=== PATIENT | female | born 1955 | race Caucasian/White ===

== ENCOUNTER → 2016-05-14 | Outpatient (CLI) | payer MEDICARE, MEDICAID ==
--- NOTE | 2016-05-21 19:46 | ECHO ---
The echocardiogram report can be seen in this patient's EMR in the Reports section. SUNITA
== END ==
LOC: MW.US 09:55
PROVIDERS: ATTEND Internal Medicine
DX: R07.9 Chest pain, unspecified (principal)
CPT/HCPCS: 93306

== ENCOUNTER 2016-05-16 16:51 | Emergency (ER) | payer MEDICARE, MEDICAID ==
[2016-05-16] MEDS ORDERED: Sodium Chloride 0.9% 2.5 ML Syringe FLUSH PRN (17:54)
[2016-05-16] MEDS ORDERED: Sodium Chloride 0.9% 10 ML Syringe FLUSH PRN (17:54)
--- NOTE | 2016-05-16 19:18 | EDM.PDOC ---
ED HPI ENT - General Chief Complaint: ENT Problem Stated Complaint: PT HAS COUGH, THROAT BURNING Time Seen by Provider: 05/16/16 17:35 Source of Information: Reports: Patient History Limitations: Reports: No limitations - History of Present Illness INITIAL COMMENTS - FREE TEXT/NARRATIVE: HISTORY AND PHYSICAL: [51-year-old female presenting with cough and burning to her throat. She generally feels like this when she gets bronchitis. 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 She states this does not feel like when she had her heart problems.] History of Present Illness: [She has been sick for several days Had been treated for bronchitis 2 weeks ago Patient has history of 5 vessel bypass Bronchitis She is diabetic Patient is on blood thinners] Review of Systems: As per history of present illness and below otherwise all systems reviewed and negative. Past medical history: As per history of present illness and as reviewed below otherwise noncontributory. Surgical history: As per history of present illness and as reviewed below otherwise noncontributory. Social history: No reported history of drug or alcohol abuse. Family history: As per history of present illness and as reviewed below otherwise noncontributory. Physical exam: Alert and oriented female in questions appropriately does not look to be in acute distress HEENT: Atraumatic, normocehpalic, pupils reactive, negative for conjunctival pallor or scleral icterus, mucous membranes moist, throat clear, neck supple, nontender, trachea midline. She does have some coughing when speaking up more than 6 or 7 words at a time. It does sound to be anterior. Posterior has a bi- basilar wheeze. Chest pain is not reproducible with palpation. Lungs: Clear to auscultation, breath sounds equal bilaterally, chest non tender. Heart: S1S2, regular, negative for clicks, rubs, or JVD. Abdomen: Soft, nondistended, nontender. Negative for masses or hepatossplenmegaly. Negative for costovertebral tenderness. Pelvis: Stable nontender. Genitourinary: Deferred. Rectal: Deferred Extremities: Atraumatic, negative for cords or calf pain. Neurovascular unremarkable. Neuro: Awake, alert, oriented. Cranial nerves II through XII unremarkable. Cerebellum unremarkable. Motor and sensory unremarkable throughout. Exam nonfocal. Discussed with patient the viral nature of her illness. Concern was expressed because of her 5 vessel bypass and her diabetes I would still like to put her on Zithromax. Given the prednisone would increase her blood sugar I would like her to be on that for the next 5 days. Patient had an albuterol inhaler in the past and I would like to put her back on one for the next few days. She is agreeable to this recommended course of action Diagnostics: [CBC CMP troponin chest x-ray EKG influenza strep] Therapeutics: [DuoNeb treatment] Impression: [Acute bronchitis Viral syndrome] Plan: [Home Zithromax Prednisone Albuterol inhaler] Definitive disposition and diagnosis as appropriate pending reevaluation and review of above. Timing/Duration: Reports: Hour(s): Severity: moderate Location: Reports: throat Quality: Reports: Ache Improves with: Reports: None Worsens with: Reports: Breathing, Movement Associated Symptoms: Reports: no other symptoms - Related Data Allergies/ADRs: Allergies Allergy/AdvReac Type Severity Reaction Status Date / Time codeine Allergy Cannot Verified 02/16/14 15:40 Remember Home Meds: Home Meds Clopidogrel [Plavix] 75 mg PO DAILY 12/24/13 [History] Insulin Detemir [Levemir Flexpen] 32 unit SQ BEDTIME 12/24/13 [History] Ranolazine [Ranexa] 500 mg PO BID 12/24/13 [History] atorvaSTATin Calcium [Atorvastatin Calcium] 40 mg PO BEDTIME 12/24/13 [History] Insulin Lispro [HumaLOG] 10 units SQ TIDAC 02/16/14 [History] Gabapentin [Neurontin] 600 mg PO QID 09/13/14 [History] Acetaminophen [Pain Relief] 650 mg PRN 05/16/16 [History] Albuterol [IJP: Ventolin HFA] 2 puff INH .TWICE DAILY #18 gm 05/16/16 [Rx] Aspirin 81 mg DAILY 05/16/16 [History] Azithromycin [Zithromax] 250 mg PO DAILY #6 tablet 05/16/16 [Rx] Benzonatate [Tessalon Perles] 100 mg PO QID #40 cap 05/16/16 [Rx] Bisacodyl [Dulcolax] 1 supp PRN 05/16/16 [History] Docusate Sodium [Colace] 1 cap 05/16/16 [History] Liraglutide [Victoza] DAILY 05/16/16 [History] Lisinopril 2.5 mg DAILY 05/16/16 [History] Metoprolol Succinate 25 mg DAILY 05/16/16 [History] Nitroglycerin PRN 05/16/16 [History] Pantoprazole [Protonix] 20 mg BID 05/16/16 [History] metFORMIN [Glucophage XR] 500 mg DAILY 05/16/16 [History] Past Medical History Cardiovascular History: Reports: CAD, High cholesterol, Hypertension Genitourinary History: Reports: UTI, recurrent Other Genitourinary History: Entire L kidney and 1/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 Musculoskeletal History: Reports: Amputation, Fracture Endocrine/Metabolic History: Reports: Diabetes, type II Oncologic (Cancer) History: Reports: Other (see below) 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 - Past Surgical History HEENT Surgical History: Reports: Tonsillectomy Other Cardiovascular Surgeries/Procedures: 5 bypass Musculoskeletal Surgical History: Reports: Amputation, Hip replacement Other Musculoskeletal Surgeries/Procedures:: B below knee amputation Social & Family History - Tobacco Use Smoking Status *Q: Never Smoker Years of Tobacco use: 30 Used Tobacco, but Quit: Yes Month Tobacco Last Used: 20 yrs ago Second Hand Smoke Exposure: No - Alcohol Use Days Per Week of Alcohol Use: 0 - Recreational Drug Use Recreational Drug Use: No Drug Use in Last 12 Months: No ED ROS ENT - Review of Systems Review Of Systems: ROS reveals no pertinent complaints other than HPI. ED EXAM, ENT - Physical Exam Exam: See Below (See dictation) Course - Vital Signs Last Recorded V/S: Last Vital Signs Temp 37.0 C 05/16/16 17:35 Pulse 72 05/16/16 17:35 Resp 28 H 05/16/16 17:35 BP 110/49 L 05/16/16 17:35 Pulse Ox 95 05/16/16 17:35 - Orders/Labs/Meds Orders: Active Orders 24 hr Category Date Time Status EKG 12 Lead [EKG Documentation Completion] [RC] STAT Care 05/16/16 17:43 Active RT Aerosol Therapy [RC] ASDIRECTED Care 05/16/16 19:22 Ordered Chest 2V [CR] Stat Exams 05/16/16 17:55 Taken CULTURE STREP A CONFIRMATION [RM] Stat Lab 05/16/16 18:04 Results STREP SCRN A RAPID W CULT CONF [RM] Stat Lab 05/16/16 18:04 Results Sodium Chloride 0.9% [Saline Flush] Med 05/16/16 17:54 Active 10 ml FLUSH ASDIRECTED PRN Sodium Chloride 0.9% [Saline Flush] Med 05/16/16 17:54 Active 2.5 ml FLUSH ASDIRECTED PRN Medication Orders Sodium Chloride (Saline Flush) 10 ml FLUSH ASDIRECTED PRN PRN Reason: Keep Vein Open Sodium Chloride (Saline Flush) 2.5 ml FLUSH ASDIRECTED PRN PRN Reason: Keep Vein Open Labs: Laboratory Tests 05/16/16 05/16/16 05/16/16 Range/Units 18:18 18:18 18:18 WBC 7.57 (4.0-11.0) K/uL RBC 3.86 L (4.30-5.90) M/uL Hgb 11.4 L (12.0-16.0) g/dL Hct 34.4 L (36.0-46.0) % MCV 89.1 (80.0-98.0) fL MCH 29.5 (27.0-32.0) pg MCHC 33.1 (31.0-37.0) g/dL RDW Std Deviation 45.5 (28.0-62.0) fl RDW Coeff of Mary 14 (11.0-15.0) % Plt Count 235 (150-400) K/uL MPV 9.20 (7.40-12.00) fL Neut % (Auto) 70.7 (48.0-80.0) % Lymph % (Auto) 16.9 (16.0-40.0) % Louisa % (Auto) 11.4 (0.0-15.0) % Eos % (Auto) 0.9 (0.0-7.0) % Baso % (Auto) 0.1 (0.0-1.5) % Neut # 5.4 (1.4-5.7) K/uL Lymph # 1.3 (0.6-2.4) K/uL Louisa # 0.9 H (0.0-0.8) K/uL Eos # 0.1 (0.0-0.7) K/uL Baso # 0.0 (0.0-0.1) K/uL Nucleated RBC % 0.0 /100WBC Nucleated RBCs # 0 K/uL Sodium 134 L (136-146) mmol/L Potassium 5.6 H (3.5-5.1) mmol/L Chloride 108 (98-110) mmol/L Carbon Dioxide 17 L (21-31) mmol/L BUN 36 H (6.0-23.0) mg/dL Creatinine 1.1 (0.6-1.5) mg/dL Est Cr Clr Drug Dosing 41.94 mL/min Estimated GFR (MDRD) 50.3 ml/min Glucose 91 (60-110) mg/dL Calcium 8.9 (8.8-10.8) mg/dL Total Bilirubin 0.5 (0.1-1.5) mg/dL AST 20 (5-40) IU/L ALT 25 (8-54) IU/L Alkaline Phosphatase 85 (40-150) Troponin I < 0.10 (0.0-0.29) NG/ML Total Protein 6.8 (6.0-8.0) g/dL Albumin 3.3 L (3.4-4.8) g/dL Globulin 3.5 (2.0-3.5) g/dL Albumin/Globulin Ratio 0.9 L (1.3-2.8) Meds: Medications Generic Name Dose Route Start Last Admin Trade Name Freq PRN Reason Stop Dose Admin Sodium Chloride 10 ml 05/16/16 17:54 Saline Flush FLUSH ASDIRECTED PRN Keep Vein Open Sodium Chloride 2.5 ml 05/16/16 17:54 Saline Flush FLUSH ASDIRECTED PRN Keep Vein Open Discontinued Medications Generic Name Dose Route Start Last Admin Trade Name Freq PRN Reason Stop Dose Admin Albuterol/Ipratropium 3 ml 05/16/16 19:22 Duoneb 3.0-0.5 Mg/3 Ml NEB 05/16/16 19:23 ONETIME ONE Departure - Departure Time of Disposition: 19:25 Disposition: Home, Self-Care 01 Condition: good Clinical Impression: Bronchitis, Viral syndrome Prescriptions: Albuterol [IJP: Ventolin HFA] 2 puff INH .TWICE DAILY #18 gm Azithromycin [Zithromax] 250 mg PO DAILY #6 tablet Benzonatate [Tessalon Perles] 100 mg PO QID #40 cap Forms: ED Department Discharge - My Orders Last 24 Hours: My Active Orders 05/16/16 17:54 Sodium Chloride 0.9% [Saline Flush] 10 ml FLUSH ASDIRECTED PRN Sodium Chloride 0.9% [Saline Flush] 2.5 ml FLUSH ASDIRECTED PRN 05/16/16 17:55 Chest 2V [CR] Stat 05/16/16 18:04 CULTURE STREP A CONFIRMATION [RM] Stat STREP SCRN A RAPID W CULT CONF [RM] Stat 05/16/16 19:22 RT Aerosol Therapy [RC] ASDIRECTED - Assessment/Plan Last 24 Hours: My Active Orders 05/16/16 17:54 Sodium Chloride 0.9% [Saline Flush] 10 ml FLUSH ASDIRECTED PRN Sodium Chloride 0.9% [Saline Flush] 2.5 ml FLUSH ASDIRECTED PRN 05/16/16 17:55 Chest 2V [CR] Stat 05/16/16 18:04 CULTURE STREP A CONFIRMATION [RM] Stat STREP SCRN A RAPID W CULT CONF [RM] Stat 05/16/16 19:22 RT Aerosol Therapy [RC] ASDIRECTED
[2016-05-16] MEDS: Albuterol/Ipratropium 3.0-0.5 MG/3 ML Neb Soln NEB ONE (19:32)
[2016-05-16 21:54] VITALS: BP 93/54
--- NOTE | 2016-05-17 13:59 | CR ---
MEXAM DATE: 05/16/16 PATIENT'S AGE: 61 Patient: JANEL BECK Facility: [place], [place] Site . Site : [id number] Study: XRay Chest [id number] 7:02:10 PM Ordering Physician: Doctor Mcclelland Final Report: INDICATION: Cough, chest pain, shortness breath. COMPARISON: Two view chest dated 06/03/2014. TECHNIQUE: Two view chest. FINDINGS: The lungs are clear. There is no evidence of pneumonia. Patient is status post prior CABG. There is no evidence of pneumothorax. The heart, mediastinum and pulmonary vessels are of normal size. There is no evidence of pleural fluid. IMPRESSION: Negative chest. Dictated by Seferino Sargent MD @ May 16 2016 7:03PM (Electronic Signature) Report Signed by Proxy and Original Signed Document filed in the Medical Record. SUNITA
== END 2016-05-16 20:33 | disposition home or self-care (01) ==
LOC: MW.ED 16:51
DX: J20.9 Acute bronchitis, unspecified (principal); B34.9 Viral infection, unspecified; I25.10 Atherosclerotic heart disease of native coronary artery without angina pectoris; E78.00 Pure hypercholesterolemia, unspecified; I10 Essential (primary) hypertension; E11.9 Type 2 diabetes mellitus without complications; Z88.5 Allergy status to narcotic agent; Z79.899 Other long term (current) drug therapy; Z79.82 Long term (current) use of aspirin; Z98.890 Other specified postprocedural states; Z95.1 Presence of aortocoronary bypass graft; Z87.440 Personal history of urinary (tract) infections
CPT/HCPCS: 36415; 71020; 71020-26; 80053; 84484; 85025; 87081; 87804; 87880; 93005; 94664; 99284; 99285-25

== ENCOUNTER → 2016-07-16 | Outpatient (CLI) | payer MEDICARE, MEDICAID ==
[2016-07-16 09:30] LABS: CHLORIDE,CL 105 mmol/L (98-110); SODIUM,NA 136 mmol/L (136-146)
== END ==
LOC: MW.CHFP 08:45
PROVIDERS: ATTEND Student in an Organized Health Care Education/Training Program
DX: E11.9 Type 2 diabetes mellitus without complications (principal); I10 Essential (primary) hypertension; E78.5 Hyperlipidemia, unspecified; E11.42 Type 2 diabetes mellitus with diabetic polyneuropathy; E78.00 Pure hypercholesterolemia, unspecified; K21.9 Gastro-esophageal reflux disease without esophagitis; E11.65 Type 2 diabetes mellitus with hyperglycemia
CPT/HCPCS: 36415; 80053; 80061; 82044; 83036; 99214

== ENCOUNTER 2017-07-10 10:41 | Emergency (ER) | payer MEDICARE, MEDICAID ==
[2017-07-10] MEDS ORDERED: Sodium Chloride 0.9% 10 ML Syringe FLUSH PRN (10:49)
[2017-07-10] MEDS ORDERED: Sodium Chloride 0.9% 2.5 ML Syringe FLUSH PRN (10:49)
[2017-07-10] MEDS ORDERED: Sodium Chloride 0.9% 1,000 ML IV ONE (10:49)
[2017-07-10] MEDS ORDERED: Ondansetron 4 MG/2 ML SDV IVPUSH ONE (10:50)
--- NOTE | 2017-07-10 10:50 | EDM.PDOC ---
ED HPI GENERAL MEDICAL PROBLEM - General Stated Complaint: VOMITING Time Seen by Provider: 07/10/17 10:44 Source of Information: Reports: Patient History Limitations: Reports: No Limitations - History of Present Illness INITIAL COMMENTS - FREE TEXT/NARRATIVE: History of present illness: []Patient is an insulin-dependent diabetic who started having vomiting and flank pain yesterday. She has had 2 episodes of vomiting yesterday and 2 today. She denies any fevers or diarrhea, patient states that her urine has a foul odor and that she only has one kidney. Review of systems: As per history of present illness and below otherwise all systems reviewed and negative. Past medical history: As per history of present illness and as reviewed below otherwise noncontributory. Surgical history: As per history of present illness and as reviewed below otherwise noncontributory. Social history: No reported history of drug or alcohol abuse. Family history: As per history of present illness and as reviewed below otherwise noncontributory. Physical exam: General: Well developed, well nourished in NAD HEENT: Atraumatic, normocephalic, pupils reactive, negative for conjunctival pallor or scleral icterus, mucous membranes moist, throat clear, neck supple, nontender, trachea midline. Lungs: Clear to auscultation, breath sounds equal bilaterally, chest nontender. Heart: S1S2, regular, negative for clicks, rubs, or JVD. Abdomen: Soft, nondistended, nontender. Negative for masses or hepatosplenomegaly. Negative for costovertebral tenderness. Pelvis: Stable nontender. Genitourinary: Deferred. Rectal: Deferred. Extremities: Bilateral BKA's, negative for cords or calf pain. Neurovascular unremarkable. Neuro: Awake, alert, oriented. Cranial nerves II through XII unremarkable. Cerebellum unremarkable. Motor and sensory unremarkable throughout. Exam nonfocal. Diagnostics: []UA showing UTI with 30-35 white blood cells and trace leuk esterase, chemistries show BUN/creatinine of 33 and 1.5, white count is normal Therapeutics: []IV hydrated and pain meds Impression: []UTI Plan: []Bactrim twice a day follow up with primary care return if symptoms worsen or change Definitive disposition and diagnosis as appropriate pending reevaluation and review of above. Left Flank Pain Score (Numeric/FACES): 8 - Related Data Allergies Allergy/AdvReac Type Severity Reaction Status Date / Time codeine Allergy Cannot Verified 07/10/17 10:54 Remember Home Meds: Home Meds Clopidogrel [Plavix] 75 mg PO DAILY 12/24/13 [History] Insulin Detemir [Levemir Flexpen] 64 unit SQ BEDTIME 12/24/13 [History] Ranolazine [Ranexa] 500 mg PO BID 12/24/13 [History] Insulin Lispro [HumaLOG] 10 units SQ TIDAC 02/16/14 [History] Gabapentin [Neurontin] 600 mg PO QID 09/13/14 [History] Albuterol [IJP: Ventolin HFA] 2 puff INH .TWICE DAILY #18 gm 05/16/16 [Rx] Nitroglycerin PRN 05/16/16 [History] Ondansetron HCl [Zofran] 4 mg PO Q4HR #12 tablet 07/10/17 [Rx] Sulfamethoxazole/Trimethoprim [Bactrim Ds Tablet] 1 each PO BID #20 tablet 07/10 [Rx] Past Medical History Cardiovascular History: Reports: CAD, High Cholesterol, Hypertension Genitourinary History: Reports: UTI, Recurrent Other Genitourinary History: Entire L kidney and 1/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 Musculoskeletal History: Reports: Amputation, Fracture Endocrine/Metabolic History: Reports: Diabetes, Type II Oncologic (Cancer) History: Reports: Other (See Below) 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 - Past Surgical History Musculoskeletal Surgical History: Reports: Amputation, Hip Replacement ED ROS GENERAL - Review of Systems Review Of Systems: See Below (See history of present illness) ED EXAM, GI/ABD - Physical Exam Exam: See Below (See history of present illness) Course - Vital Signs Last Recorded V/S: Last Vital Signs Temp 100.5 F 07/10/17 10:50 Pulse 100 07/10/17 13:41 Resp 18 07/10/17 13:41 BP 100/49 L 07/10/17 13:41 Pulse Ox 95 07/10/17 13:41 - Orders/Labs/Meds Orders: Active Orders 24 hr Category Date Time Status Insert Urinary Catheter [OM.PC] Q24H Care 07/10/17 12:15 Ordered Urinary Catheter Assessment [RC] ASDIRECTED Care 07/10/17 12:09 Active UA W/MICROSCOPIC [URIN] Stat Lab 07/10/17 12:20 Ordered Saline Lock Insert [OM.PC] Stat Oth 07/10/17 10:48 Ordered Labs: Laboratory Tests 07/10/17 07/10/17 07/10/17 Range/Units 11:09 11:09 12:20 WBC 9.30 (4.0-11.0) K/uL RBC 4.03 L (4.30-5.90) M/uL Hgb 11.9 L (12.0-16.0) g/dL Hct 35.0 L (36.0-46.0) % MCV 86.8 (80.0-98.0) fL MCH 29.5 (27.0-32.0) pg MCHC 34.0 (31.0-37.0) g/dL RDW Std Deviation 42.8 (28.0-62.0) fl RDW Coeff of Mary 13 (11.0-15.0) % Plt Count 278 (150-400) K/uL MPV 9.50 (7.40-12.00) fL Neut % (Auto) 94.0 H (48.0-80.0) % Lymph % (Auto) 4.7 L (16.0-40.0) % Harmon % (Auto) 0.9 (0.0-15.0) % Eos % (Auto) 0.3 (0.0-7.0) % Baso % (Auto) 0.1 (0.0-1.5) % Neut # (Auto) 8.7 H (1.4-5.7) K/uL Lymph # (Auto) 0.4 L (0.6-2.4) K/uL Harmon # (Auto) 0.1 (0.0-0.8) K/uL Eos # (Auto) 0.0 (0.0-0.7) K/uL Baso # (Auto) 0.0 (0.0-0.1) K/uL Nucleated RBC % 0.0 /100WBC Nucleated RBCs # 0 K/uL Sodium 133 L (136-145) mmol/L Potassium 4.5 (3.5-5.1) mmol/L Chloride 102 (98-107) mmol/L Carbon Dioxide 19.7 L (21.0-32.0) mmol/L BUN 33 H (7.0-18.0) mg/dL Creatinine 1.5 H (0.6-1.0) mg/dL Est Cr Clr Drug Dosing 30.36 mL/min Estimated GFR (MDRD) 35.1 ml/min Glucose 270 H (74-106) mg/dL Calcium 9.1 (8.5-10.1) mg/dL Total Bilirubin 0.5 (0.2-1.0) mg/dL AST 12 L (15-37) IU/L ALT 16 (14-63) IU/L Alkaline Phosphatase 96 (46-116) U/L Total Protein 7.0 (6.4-8.2) g/dL Albumin 2.7 L (3.4-5.0) g/dL Globulin 4.3 H (2.0-3.5) g/dL Albumin/Globulin Ratio 0.6 L (1.3-2.8) Lipase 107 (73-393) U/L Urine Color YELLOW Urine Appearance SLT CLOUDY Urine pH 5.0 (5.0-8.0) Ur Specific [place] 1.025 (1.001-1.035) Urine Protein 100 (NEGATIVE) mg/dL Urine Glucose (UA) 100 H (NEGATIVE) mg/dL Urine Ketones NEGATIVE (NEGATIVE) mg/dL Urine Occult Blood MODERATE (NEGATIVE) Urine Nitrite NEGATIVE (NEGATIVE) Urine Bilirubin NEGATIVE (NEGATIVE) Urine Urobilinogen 0.2 (<2.0) EU/dL Ur Leukocyte Esterase TRACE (NEGATIVE) Urine RBC 20-25 (0-2/HPF) Urine WBC 30-35 (0-5/HPF) Ur Epithelial Cells MODERATE (NONE-FEW) Urine Bacteria 3+ H (NEGATIVE) Meds: Medications Discontinued Medications Generic Name Dose Route Start Last Admin Trade Name Freq PRN Reason Stop Dose Admin Sodium Chloride 1,000 mls @ 999 mls/hr 07/10/17 10:49 07/10/17 11:08 Normal Saline IV 07/10/17 11:49 999 mls/hr .Bolus ONE Administration Morphine Sulfate 4 mg 07/10/17 11:10 07/10/17 11:20 Morphine IVPUSH 07/10/17 11:11 4 mg ONETIME ONE Administration Ondansetron HCl 4 mg 07/10/17 10:50 07/10/17 11:08 Zofran IVPUSH 07/10/17 10:51 4 mg ONETIME ONE Administration Sodium Chloride 10 ml 07/10/17 10:49 07/10/17 11:09 Saline Flush FLUSH 10 ml ASDIRECTED PRN Administration Keep Vein Open Sodium Chloride 2.5 ml 07/10/17 10:49 07/10/17 11:09 Saline Flush FLUSH 2.5 ml ASDIRECTED PRN Administration Keep Vein Open Departure - Departure Time of Disposition: 13:25 Disposition: Home, Self-Care 01 Condition: Good Clinical Impression: UTI (urinary tract infection) Qualifiers: Urinary tract infection type: site unspecified Hematuria presence: with hematuria Qualified Code(s): N39.0 - Urinary tract infection, site not specified - Discharge Information Prescriptions: Ondansetron HCl [Zofran] 4 mg PO Q4HR #12 tablet Sulfamethoxazole/Trimethoprim [Bactrim Ds Tablet] 1 each PO BID #20 tablet Instructions: Urinary Tract Infection, Adult, [id number] Referrals: Moisés Lopez MD [Primary Care Provider] - Forms: ED Department Discharge Additional Instructions: The following information is given to patients seen in the emergency department who are being discharged to home. This information is to outline your options for follow-up care. We provide all patients seen in our emergency department with a follow-up referral. The need for follow-up, as well as the timing and circumstances, are variable depending upon the specifics of your emergency department visit. If you don't have a primary care physician on staff, we will provide you with a referral. We always advise you to contact your personal physician following an emergency department visit to inform them of the circumstance of the visit and for follow-up with them and/or the need for any referrals to a consulting specialist. The emergency department will also refer you to a specialist when appropriate. This referral assures that you have the opportunity for follow-up care with a specialist. All of these measure are taken in an effort to provide you with optimal care, which includes your follow-up. Under all circumstances we always encourage you to contact your private physician who remains a resource for coordinating your care. When calling for follow-up care, please make the office aware that this follow-up is from your recent emergency room visit. If for any reason you are refused follow-up, please contact the [facility] Emergency Department at and asked to speak to the emergency department charge nurse. [facility] Primary Care [facility] [place] [address] - My Orders Last 24 Hours: My Active Orders 07/10/17 10:48 Saline Lock Insert [OM.PC] Stat 07/10/17 12:09 Urinary Catheter Assessment [RC] ASDIRECTED 07/10/17 12:15 Insert Urinary Catheter [OM.PC] Q24H 07/10/17 12:20 UA W/MICROSCOPIC [URIN] Stat - Assessment/Plan Last 24 Hours: My Active Orders 07/10/17 10:48 Saline Lock Insert [OM.PC] Stat 07/10/17 12:09 Urinary Catheter Assessment [RC] ASDIRECTED 07/10/17 12:15 Insert Urinary Catheter [OM.PC] Q24H 07/10/17 12:20 UA W/MICROSCOPIC [URIN] Stat
[2017-07-10] MEDS ORDERED: Morphine 4 MG/ML Syringe IVPUSH ONE (11:10)
[2017-07-10 14:21] VITALS: BP 100/49
== END 2017-07-10 13:41 | disposition home or self-care (01) ==
LOC: MW.ED 10:41
DX: N39.0 Urinary tract infection, site not specified (principal); E78.00 Pure hypercholesterolemia, unspecified; I10 Essential (primary) hypertension; E11.9 Type 2 diabetes mellitus without complications; Z88.5 Allergy status to narcotic agent; Z79.899 Other long term (current) drug therapy; Z79.4 Long term (current) use of insulin
CPT/HCPCS: 36415; 80053; 81001; 83690; 85025; 96361; 96374; 96375; 99284-25; J2270; J2405; J7040

== ENCOUNTER 2018-03-20 16:13 | Inpatient (IN) | payer MEDICARE, MEDICAID ==
[2018-03-20] MEDS ORDERED: Sodium Chloride 0.9% 1,000 ML IV ONE (16:15)
[2018-03-20] MEDS ORDERED: HYDROmorphone 2 MG/ML SDV IV ONE (16:15)
[2018-03-20] MEDS ORDERED: Ondansetron 4 MG/2 ML SDV IVPUSH ONE (16:15)
[2018-03-20] MEDS ORDERED: Ondansetron 4 MG/2 ML SDV ONE (16:19)
[2018-03-20] MEDS ORDERED: HYDROmorphone 1 MG/ML Syringe ONE (16:19)
--- NOTE | 2018-03-20 16:19 | EDM.PDOC ---
ED HPI GENERAL MEDICAL PROBLEM - General Chief Complaint: Lower Extremity Injury/Pain Stated Complaint: AMB Time Seen by Provider: 03/20/18 16:16 Source of Information: Reports: Patient History Limitations: Reports: No Limitations - History of Present Illness INITIAL COMMENTS - FREE TEXT/NARRATIVE: HISTORY AND PHYSICAL: History of present illness: Patient is a 62-year-old female who presents to the emergency room via ground ambulance with complaints of right hip pain. Patient is a bilateral below the knee amputation and uses a wheelchair for ambulation. She was going down an inclined ramp when she fell forward onto the ground, landing on her right hip. The wheelchair have been fallen on top of her. EMS was called for transportation. Patient denies hitting her head or any loss of consciousness. She does take Plavix routinely. Review of systems: As per history of present illness and below otherwise all systems reviewed and negative. Past medical history: As per history of present illness and as reviewed below otherwise noncontributory. Surgical history: As per history of present illness and as reviewed below otherwise noncontributory. Social history: See social history for further information Family history: As per history of present illness and as reviewed below otherwise noncontributory. Physical exam: General: Well-developed and well-nourished 62-year-old female. Alert and oriented. Tearful and yelling due to pain. Nontoxic appearing. HEENT: Atraumatic, normocephalic, pupils equal and reactive bilaterally, negative for conjunctival pallor or scleral icterus, mucous membranes moist, TMs normal bilaterally, throat clear, neck supple, nontender, trachea midline. No drooling or trismus noted. No meningeal signs. No hot potato voice noted. Lungs: Clear to auscultation, breath sounds equal bilaterally, chest nontender. Heart: S1S2, regular rate and rhythm without overt murmur Abdomen: Soft, nondistended, nontender. Negative for masses or hepatosplenomegaly. Negative for costovertebral tenderness. Pelvis: Stable nontender. Genitourinary: Deferred. Rectal: Deferred. Skin: Intact, warm, dry. No abrasion, lesions or rashes noted. Extremities: Normal variance of bilateral below the knee amputation. Pain with palpation of the right lateral hip. Patient remains in a flexed position stating she is unable to extend her right hip. She states this is the position of comfort and refuses to allow to extend leg downward. Neurovascular unremarkable. Neuro: Awake, alert, oriented. Cranial nerves II through XII unremarkable. Cerebellum unremarkable. Motor and sensory unremarkable throughout. Exam nonfocal. Notes: 1650: Dr Keita was consulted on this patient. He will see this patient later this evening with the plan to do surgery likely in the morning Dr Blake was consulted on this case. He is agreeable to accepting this patient. Head and Cervical Spine CT shows no acute findings. Incidental finding of a left thyroid lesion which is recommended for ultrasound at a later date. X-ray of the chest is unremarkable. There is an old deformity of the left humeral neck and greater tuberosity which she states she had a previous fracture in 2017. She denies any pain at the site currently. Comminuted right femoral intertrochanteric fracture noted. Discussed with daughter the plan of care. She voices understanding. Patient was transfered to the floor. VSS. Currently rating pain at 3/10. Diagnostics: Head, C-spine, CXR, Right hip w/ pelvis, CBC, CMP, INR Therapeutics: IV dilaudid, IV fluids, Ativan Impression: Intratrochanteric fracture, right Fall Plan: Inpatient admission to Med/Surg Definitive disposition and diagnosis as appropriate pending reevaluation and review of above. - Related Data Allergies Allergy/AdvReac Type Severity Reaction Status Date / Time codeine Allergy Cannot Verified 03/20/18 16:21 Remember Home Meds: Home Meds Clopidogrel [Plavix] 75 mg PO DAILY 12/24/13 [History] Insulin Detemir [Levemir Flexpen] 64 unit SQ BEDTIME 12/24/13 [History] Ranolazine [Ranexa] 500 mg PO BID 12/24/13 [History] Insulin Lispro [HumaLOG] 10 units SQ TIDAC 02/16/14 [History] Gabapentin [Neurontin] 600 mg PO QID 09/13/14 [History] Albuterol [IJP: Ventolin HFA] 2 puff INH .TWICE DAILY #18 gm 05/16/16 [Rx] Nitroglycerin 1 tab .ROUTE ASDIRECTED PRN 05/16/16 [History] Ondansetron HCl [Zofran] 4 mg PO Q4HR #12 tablet 07/10/17 [Rx] Past Medical History Cardiovascular History: Reports: CAD, High Cholesterol, Hypertension Genitourinary History: Reports: UTI, Recurrent Other Genitourinary History: 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 ED EXAM, GENERAL - Physical Exam Exam: See Below (See dictation) Course - Orders/Labs/Meds Orders: Active Orders 24 hr Category Date Time Status Admission Status [Patient Status] [ADT] Stat ADT 03/20/18 16:59 Active Cervical Spine wo Cont [CT] Stat Exams 03/20/18 16:15 Taken Head wo Cont [CT] Stat Exams 03/20/18 16:15 Taken Labs: Laboratory Tests 03/20/18 03/20/18 03/20/18 Range/Units 16:15 16:15 16:15 WBC 12.35 H (4.0-11.0) K/uL RBC 4.59 (4.30-5.90) M/uL Hgb 13.8 (12.0-16.0) g/dL Hct 40.4 (36.0-46.0) % MCV 88.0 (80.0-98.0) fL MCH 30.1 (27.0-32.0) pg MCHC 34.2 (31.0-37.0) g/dL RDW Std Deviation 43.3 (28.0-62.0) fl RDW Coeff of Mary 14 (11.0-15.0) % Plt Count 377 (150-400) K/uL MPV 9.90 (7.40-12.00) fL Neut % (Auto) 66.3 (48.0-80.0) % Lymph % (Auto) 25.5 (16.0-40.0) % [place] % (Auto) 6.0 (0.0-15.0) % Eos % (Auto) 2.0 (0.0-7.0) % Baso % (Auto) 0.2 (0.0-1.5) % Neut # (Auto) 8.2 H (1.4-5.7) K/uL Lymph # (Auto) 3.2 H (0.6-2.4) K/uL [place] # (Auto) 0.7 (0.0-0.8) K/uL Eos # (Auto) 0.3 (0.0-0.7) K/uL Baso # (Auto) 0.0 (0.0-0.1) K/uL Nucleated RBC % 0.0 /100WBC Nucleated RBCs # 0 K/uL INR 0.92 Sodium 131 L (136-145) mmol/L Potassium 4.9 (3.5-5.1) mmol/L Chloride 97 L (98-107) mmol/L Carbon Dioxide 24.4 (21.0-32.0) mmol/L BUN 31 H (7.0-18.0) mg/dL Creatinine 1.2 H (0.6-1.0) mg/dL Est Cr Clr Drug Dosing TNP Estimated GFR (MDRD) 45.4 ml/min Glucose 471 H (74-106) mg/dL Calcium 9.7 (8.5-10.1) mg/dL Total Bilirubin 0.5 (0.2-1.0) mg/dL AST 27 (15-37) IU/L ALT 24 (14-63) IU/L Alkaline Phosphatase 106 (46-116) U/L Total Protein 8.9 H (6.4-8.2) g/dL Albumin 3.5 (3.4-5.0) g/dL Globulin 5.4 H (2.6-4.0) g/dL Albumin/Globulin Ratio 0.7 L (0.9-1.6) Meds: Medications Discontinued Medications Generic Name Dose Route Start Last Admin Trade Name Freq PRN Reason Stop Dose Admin Hydromorphone HCl 1 mg 03/20/18 16:15 03/20/18 17:39 Dilaudid IV 03/20/18 16:16 Not Given ONETIME ONE Hydromorphone HCl Confirm 03/20/18 16:19 03/20/18 17:25 Dilaudid Administered 03/20/18 16:20 Not Given Dose 1 mg .ROUTE .STK-MED ONE Hydromorphone HCl 1 mg 03/20/18 17:38 03/20/18 16:22 Dilaudid IVPUSH 03/20/18 17:39 1 mg ONETIME ONE Administration Sodium Chloride 1,000 mls @ 999 mls/hr 03/20/18 16:15 03/20/18 17:28 Normal Saline IV 03/20/18 17:15 999 mls/hr STAT ONE Administration Lorazepam 1 mg 03/20/18 16:36 03/20/18 16:40 Ativan IVPUSH 03/20/18 16:37 1 mg ONETIME ONE Administration Lorazepam Confirm 03/20/18 16:37 03/20/18 17:25 Ativan Administered 03/20/18 16:38 Not Given Dose 2 mg .ROUTE .STK-MED ONE Ondansetron HCl 4 mg 03/20/18 16:15 03/20/18 16:20 Zofran IVPUSH 03/20/18 16:16 4 mg ONETIME ONE Administration Ondansetron HCl Confirm 03/20/18 16:19 03/20/18 17:25 Zofran Administered 03/20/18 16:20 Not Given Dose 4 mg .ROUTE .STK-MED ONE Departure - Departure Time of Disposition: 18:05 Disposition: Admitted As Inpatient 65 Clinical Impression: Intertrochanteric fracture, hip Fall Qualifiers: Encounter type: initial encounter Qualified Code(s): W19.XXXA - Unspecified fall, initial encounter - Discharge Information - My Orders Last 24 Hours: My Active Orders 03/20/18 16:15 Cervical Spine wo Cont [CT] Stat Head wo Cont [CT] Stat 03/20/18 16:59 Admission Status [Patient Status] [ADT] Stat - Assessment/Plan Last 24 Hours: My Active Orders 03/20/18 16:15 Cervical Spine wo Cont [CT] Stat Head wo Cont [CT] Stat 03/20/18 16:59 Admission Status [Patient Status] [ADT] Stat
[2018-03-20] MEDS ORDERED: LORazepam 2 MG/ML SDV IVPUSH ONE (16:36)
[2018-03-20] MEDS ORDERED: LORazepam 2 MG/ML SDV ONE (16:37)
[2018-03-20 16:50] LABS: CHLORIDE,CL 97 mmol/L (98-107); SODIUM,NA 131 mmol/L (136-145)
[2018-03-20] MEDS ORDERED: HYDROmorphone 1 MG/ML Syringe IVPUSH ONE (17:38)
--- NOTE | 2018-03-20 17:42 | CR ---
Indication: Fall Technique: Chest 1 view Comparison: 05/16/2016 Findings/Impression: Cardiovascular and mediastinum: Stable cardiomediastinal silhouette. Sternotomy sutures and mediastinal clips again seen. An unfolded aorta. Lungs and pleural space: An expiratory study. No consolidation or pleural effusions. No pneumothorax seen. Bones and soft tissues: A deformity of the left humeral neck and greater tuberosity, not seen on the prior, concerning for fracture. Correlate with additional views. Dictated by Matthew Santiago MD @ 03/20/2018 5:40:36 PM Dictated by: Matthew Santiago MD @ 03/20/2018 17:40:44 (Electronically Signed)
--- NOTE | 2018-03-20 17:44 | CR ---
Indication: Fall Technique: A frontal view of the pelvis and a single view of the right hip Comparison: None available Findings: Bones: A left hip arthroplasty. A comminuted right intratrochanteric femoral fracture with mild displacement of the lesser trochanteric fragment and associated varus angulation. No dislocation. Joint spaces: Osteophyte formation at the superior aspect of the right hip joint. Soft tissues: Surgical clips near the hip joints and in the medial right proximal thigh. Impression: A comminuted right femoral intertrochanteric fracture. Dictated by Matthew Santiago MD @ 03/20/2018 5:43:35 PM Dictated by: Matthew Santiago MD @ 03/20/2018 17:43:39 (Electronically Signed)
[2018-03-20] MEDS ORDERED: Ondansetron 4 MG/2 ML SDV IVPUSH PRN (17:46)
[2018-03-20] MEDS ORDERED: Bisacodyl 5 MG Tab PO PRN (17:46)
[2018-03-20] MEDS ORDERED: Temazepam 15 MG Cap PO PRN (17:46)
[2018-03-20] MEDS ORDERED: HYDROmorphone 2 MG/ML SDV IVPUSH PRN (17:46)
--- NOTE | 2018-03-20 17:52 | CT ---
INDICATION: Trauma. Anticoagulated TECHNIQUE: CT head without contrast. COMPARISON: None available FINDINGS: The ventricles and sulci are within normal limits for the patient`s age. There is no mass effect or midline shift. There is no loss of nicole-white differentiation. There is no evidence of an acute intracranial hemorrhage. No acute calvarial fracture is seen. Osteopenia is noted. There is mild ethmoid sinus mucosal thickening. 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 The mastoid air cells are clear. Post cataract surgery changes are seen. IMPRESSION: No evidence of an acute intracranial hemorrhage, mass effect or loss of nicole-white differentiation. Dictated by Matthew Santiago MD @ 03/20/2018 5:50:53 PM Please note that all CT scans at this facility use dose modulation, iterative reconstruction, and/or weight-based dosing when appropriate to reduce radiation dose to as low as reasonably achievable. Dictated by: Matthew Santiago MD @ 03/20/2018 17:51:00 (Electronically Signed)
--- NOTE | 2018-03-20 17:58 | CT ---
INDICATION: Injury. TECHNIQUE: CT cervical spine without contrast. COMPARISON: None available FINDINGS: Osteopenia is noted. There is straightening of the cervical lordosis. The craniocervical and atlantoaxial alignments are near anatomical. There is no evidence of an acute cervical spine fracture. There is no significant precervical soft tissue swelling. Mild degenerative changes are noted. There is a peripherally calcified left thyroid lobe lesion. IMPRESSION: No evidence of an acute cervical spine fracture. A left thyroid lesion. Followup with nonemergent sonography. Dictated by Matthew Santiago MD @ 03/20/2018 5:57:53 PM Please note that all CT scans at this facility use dose modulation, iterative reconstruction, and/or weight-based dosing when appropriate to reduce radiation dose to as low as reasonably achievable. Dictated by: Matthew Santiago MD @ 03/20/2018 17:58:02 (Electronically Signed)
[2018-03-20] MEDS ORDERED: Heparin Sodium 5,000 Units/ML Vial SUBCUT SCH (18:00)
--- NOTE | 2018-03-20 18:27 | PCM.HP ---
H&P History of Present Illness - General Date of Service: 03/20/18 Admit Problem/Dx: Admission Diagnosis/Problem Admission Diagnosis/Problem Hip fracture, intertrochanteric Source of Information: Patient, Old Records History Limitations: Reports: No Limitations - History of Present Illness Initial Comments - Free Text/Narative: The patient is a medically complex 62-year-old lady who had presented to the emergency department with right hip pain. The patient reports that she had been in her mobility chair and she had a fall and fell out of her chair landing on her right hip with resulting intertrochanteric fracture. 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 The patient is also considered a vasculopath as she has a history of coronary artery disease with CABG in 2014. Patient also has a history of bypass graft of the right leg. The patient is currently living in an assisted living center. The patient has been complaining of severe pain however, the patient is considered to be a poor historian and this may be likely to her hydromorphone pain control. Onset of Symptoms: Reports: Sudden Duration of Symptoms: Reports: Hour(s):, Getting Worse Location: Reports: Lower Extremity, Right Quality: Reports: Burning, Stabbing, Throbbing Severity: Severe Improves with: Reports: Medication Worsens with: Reports: Movement Context: Reports: Trauma Associated Symptoms: Reports: No Other Symptoms - Related Data Allergies/Adverse Reactions: Allergies Allergy/AdvReac Type Severity Reaction Status Date / Time codeine Allergy Cannot Verified 03/20/18 16:21 Remember Home Medications: Home Meds Clopidogrel [Plavix] 75 mg PO DAILY 12/24/13 [History] Insulin Detemir [Levemir Flexpen] 64 unit SQ BEDTIME 12/24/13 [History] Ranolazine [Ranexa] 500 mg PO BID 12/24/13 [History] Insulin Lispro [HumaLOG] 10 units SQ TIDAC 02/16/14 [History] Gabapentin [Neurontin] 600 mg PO QID 09/13/14 [History] Albuterol [IJP: Ventolin HFA] 2 puff INH .TWICE DAILY #18 gm 05/16/16 [Rx] Nitroglycerin 1 tab .ROUTE ASDIRECTED PRN 05/16/16 [History] Ondansetron HCl [Zofran] 4 mg PO Q4HR #12 tablet 07/10/17 [Rx] Past Medical History HEENT History: Reports: None Cardiovascular History: Reports: Bypass, CAD, High Cholesterol, Hypertension Respiratory History: Reports: Intubation, Previous Gastrointestinal History: Reports: None Genitourinary History: Reports: Chronic Renal Insuffiency, UTI, Recurrent Other Genitourinary History: Entire L kidney and 1/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 Musculoskeletal History: Reports: Amputation, Fracture Neurological History: Reports: Neuropathy, Diabetic Psychiatric History: Reports: None Endocrine/Metabolic History: Reports: Diabetes, Type II Hematologic History: Reports: None Immunologic History: Reports: None Oncologic (Cancer) History: Reports: Other (See Below) 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 Dermatologic History: Reports: None - Infectious Disease History Infectious Disease History: Reports: Chicken Pox, Measles - Past Surgical History Head Surgeries/Procedures: Reports: None HEENT Surgical History: Reports: None Cardiovascular Surgical History: Reports: Coronary Artery Bypass Musculoskeletal Surgical History: Reports: Amputation, Hip Replacement Social & Family History - Family History Family Medical History: Noncontributory - Tobacco Use Smoking Status *Q: Former Smoker - Caffeine Use Caffeine Use: Reports: Coffee - Alcohol Use Alcohol Use History: Yes Alcohol Use in Last Twelve Months: No - Living Situation & Occupation Living situation: Reports: Assisted Living H&P Review of Systems - Review of Systems: Review Of Systems: Unable To Obtain (Poor Historian) Exam - Exam Exam: See Below - Exam Quality Assessment: No: Supplemental Oxygen General: Oriented, Cooperative, Severe Distress, Sedated HEENT: Conjunctiva Clear, EOMI, Hearing Intact, Nares Patent, PERRLA. No: Mucosa Moist & Stover (Dry) Neck: Supple, Trachea Midline Lungs: Clear to Auscultation, Normal Respiratory Effort Cardiovascular: Regular Rate, Regular Rhythm GI/Abdominal Exam: Normal Bowel Sounds, Soft, Non-Tender, No Distention, Other ( Obese) (Female) Exam: Deferred Rectal (Female) Exam: Deferred Back Exam: No: Normal Inspection (Bed ridden), Full Range of Motion Extremities: No: Normal Inspection (Bilateral BKA), Normal Range of Motion Skin: Warm, Dry, Intact Neurological: Cranial Nerves Intact Psychiatric: Alert, Normal Mood. No: Normal Affect (Flat) - Patient Data Lab Results Last 24 hrs: Laboratory Results - last 24 hr 03/20/18 03/20/18 03/20/18 Range/Units 16:15 16:15 16:15 WBC 12.35 H (4.0-11.0) K/uL RBC 4.59 (4.30-5.90) M/uL Hgb 13.8 (12.0-16.0) g/dL Hct 40.4 (36.0-46.0) % MCV 88.0 (80.0-98.0) fL MCH 30.1 (27.0-32.0) pg MCHC 34.2 (31.0-37.0) g/dL RDW Std Deviation 43.3 (28.0-62.0) fl RDW Coeff of Mary 14 (11.0-15.0) % Plt Count 377 (150-400) K/uL MPV 9.90 (7.40-12.00) fL Neut % (Auto) 66.3 (48.0-80.0) % Lymph % (Auto) 25.5 (16.0-40.0) % [place] % (Auto) 6.0 (0.0-15.0) % Eos % (Auto) 2.0 (0.0-7.0) % Baso % (Auto) 0.2 (0.0-1.5) % Neut # (Auto) 8.2 H (1.4-5.7) K/uL Lymph # (Auto) 3.2 H (0.6-2.4) K/uL [place] # (Auto) 0.7 (0.0-0.8) K/uL Eos # (Auto) 0.3 (0.0-0.7) K/uL Baso # (Auto) 0.0 (0.0-0.1) K/uL Nucleated RBC % 0.0 /100WBC Nucleated RBCs # 0 K/uL INR 0.92 Sodium 131 L (136-145) mmol/L Potassium 4.9 (3.5-5.1) mmol/L Chloride 97 L (98-107) mmol/L Carbon Dioxide 24.4 (21.0-32.0) mmol/L BUN 31 H (7.0-18.0) mg/dL Creatinine 1.2 H (0.6-1.0) mg/dL Est Cr Clr Drug Dosing TNP Estimated GFR (MDRD) 45.4 ml/min Glucose 471 H (74-106) mg/dL POC Glucose (60-110) mg/dL Calcium 9.7 (8.5-10.1) mg/dL Total Bilirubin 0.5 (0.2-1.0) mg/dL AST 27 (15-37) IU/L ALT 24 (14-63) IU/L Alkaline Phosphatase 106 (46-116) U/L Total Protein 8.9 H (6.4-8.2) g/dL Albumin 3.5 (3.4-5.0) g/dL Globulin 5.4 H (2.6-4.0) g/dL Albumin/Globulin Ratio 0.7 L (0.9-1.6) 03/20/18 Range/Units 18:13 WBC (4.0-11.0) K/uL RBC (4.30-5.90) M/uL Hgb (12.0-16.0) g/dL Hct (36.0-46.0) % MCV (80.0-98.0) fL MCH (27.0-32.0) pg MCHC (31.0-37.0) g/dL RDW Std Deviation (28.0-62.0) fl RDW Coeff of Mary (11.0-15.0) % Plt Count (150-400) K/uL MPV (7.40-12.00) fL Neut % (Auto) (48.0-80.0) % Lymph % (Auto) (16.0-40.0) % [place] % (Auto) (0.0-15.0) % Eos % (Auto) (0.0-7.0) % Baso % (Auto) (0.0-1.5) % Neut # (Auto) (1.4-5.7) K/uL Lymph # (Auto) (0.6-2.4) K/uL [place] # (Auto) (0.0-0.8) K/uL Eos # (Auto) (0.0-0.7) K/uL Baso # (Auto) (0.0-0.1) K/uL Nucleated RBC % /100WBC Nucleated RBCs # K/uL INR Sodium (136-145) mmol/L Potassium (3.5-5.1) mmol/L Chloride (98-107) mmol/L Carbon Dioxide (21.0-32.0) mmol/L BUN (7.0-18.0) mg/dL Creatinine (0.6-1.0) mg/dL Est Cr Clr Drug Dosing Estimated GFR (MDRD) ml/min Glucose (74-106) mg/dL POC Glucose 310 H (60-110) mg/dL Calcium (8.5-10.1) mg/dL Total Bilirubin (0.2-1.0) mg/dL AST (15-37) IU/L ALT (14-63) IU/L Alkaline Phosphatase (46-116) U/L Total Protein (6.4-8.2) g/dL Albumin (3.4-5.0) g/dL Globulin (2.6-4.0) g/dL Albumin/Globulin Ratio (0.9-1.6) Result Diagrams: 03/20/18 16:15 03/20/18 16:15 EKG INTERPRETATION EKG Date: 03/20/18 Time: 18:30 Rhythm: NSR [place]: Normal P-Wave: Present QRS: Normal ST-T: Normal QT: Normal Comparison: NA - No Prior EKG EKG Interpretation Comments: Evidence of Q-wave with prior septal infarct *Q Meaningful Use (ADM) - VTE *Q VTE Mechanical Contraindications *Q: Bilateral Lower Amputee - Problem List (1) Intertrochanteric fracture of right hip SNOMED Code(s): 109669742 ICD Code: S72.141A - DISPLACED INTERTROCHANTERIC FRACTURE OF RIGHT FEMUR, INIT Status: Acute Priority: High Current Visit: Yes Qualifiers: Encounter type: initial encounter Fracture type: closed Fracture alignment: displaced Qualified Code(s): S72.141A - Displaced intertrochanteric fracture of right femur, initial encounter for closed fracture (2) Diabetic vasculopathy SNOMED Code(s): 72037207, 49144819 ICD Code: E11.59 - TYPE 2 DIABETES MELLITUS WITH OTH CIRCULATORY COMPLICATIONS Status: Chronic Priority: High Current Visit: Yes (3) History of coronary artery bypass graft x 3 SNOMED Code(s): 503773708, 669921205 ICD Code: Z95.1 - PRESENCE OF AORTOCORONARY BYPASS GRAFT Status: Chronic Priority: High Current Visit: Yes (4) Coronary artery disease SNOMED Code(s): 27977692 ICD Code: I25.10 - ATHSCL HEART DISEASE OF [place] CORONARY ARTERY W/O ANG PCTRS Status: Chronic Priority: High Current Visit: Yes Qualifiers: Coronary Disease-Associated Artery/Lesion type: bypass graft [place] vs. transplanted heart: [place] heart Associated angina: without angina Qualified Code(s): I25.810 - Atherosclerosis of coronary artery bypass graft(s) without angina pectoris (5) History of total left hip replacement SNOMED Code(s): 095314548991 ICD Code: Z96.642 - PRESENCE OF LEFT ARTIFICIAL HIP JOINT Status: Chronic Priority: Medium Current Visit: Yes (6) Chronic kidney disease (CKD), stage III (moderate) SNOMED Code(s): 322699334 ICD Code: N18.3 - CHRONIC KIDNEY DISEASE, STAGE 3 (MODERATE) Status: Chronic Priority: High Current Visit: Yes (7) S/P BKA (below knee amputation) bilateral SNOMED Code(s): 548625479 ICD Code: Z89.512 - ACQUIRED ABSENCE OF LEFT LEG BELOW KNEE; Z89.511 - ACQUIRED ABSENCE OF RIGHT LEG BELOW KNEE Status: Chronic Priority: Medium Current Visit: Yes (8) Diabetes type 2, uncontrolled SNOMED Code(s): 13854367, 634557642 ICD Code: E11.65 - TYPE 2 DIABETES MELLITUS WITH HYPERGLYCEMIA Status: Chronic Priority: High Current Visit: Yes Qualifiers: Glycemic state: with hyperglycemia Qualified Code(s): E11.65 - Type 2 diabetes mellitus with hyperglycemia (9) Fall SNOMED Code(s): 4330985, 793972869 ICD Code: W19.XXXA - UNSPECIFIED FALL, INITIAL ENCOUNTER Status: Acute Priority: High Current Visit: Yes Qualifiers: Encounter type: initial encounter Qualified Code(s): W19.XXXA - Unspecified fall, initial encounter Problem List Initiated/Reviewed/Updated: Yes Orders Last 24hrs: Active Orders 24 hr Category Date Time Status Admission Status [Patient Status] [ADT] Stat ADT 03/20/18 16:59 Active Bedrest Bedside Commode [RC] ASDIRECTED Care 03/20/18 17:46 Ordered Blood Glucose Check, Bedside [RC] WITHMEALSANDBED Care 03/20/18 17:46 Ordered Communication Order [RC] DAILY Care 03/20/18 18:16 Inactive Diabetes Education [RC] Click to Edit Care 03/20/18 17:48 Ordered EKG Documentation Completion [RC] AM Care 03/20/18 17:46 Ordered Notify Provider Consults [RC] ASDIRECTED Care 03/20/18 17:52 Ordered Oxygen Therapy [RC] PRN Care 03/20/18 17:46 Ordered VTE/DVT Education [RC] PER UNIT ROUTINE Care 03/20/18 17:46 Ordered Vital Signs [RC] Q4H Care 03/20/18 17:46 Ordered Consult to Physician [CONS] Routine Cons 03/20/18 17:46 Ordered OT Evaluation and Treatment [CONS] Routine Cons 03/20/18 17:46 Ordered PT Evaluation and Treatment [CONS] Routine Cons 03/20/18 17:46 Ordered [place] [employer] Diet [DIET] Diet 03/20/18 Dinner Active Nothing per Oral After Midnight Diet [DIET] Diet 03/21/18 Breakfast Ordered CBC WITH AUTO DIFF [HEME] AM Lab 03/21/18 05:11 Ordered COMPREHENSIVE METABOLIC PN,CMP [CHEM] AM Lab 03/21/18 05:11 Ordered MAGNESIUM [CHEM] AM Lab 03/21/18 05:11 Ordered Albuterol [Proventil HFA] Med 03/20/18 18:00 Ordered 2 puff INH .TWICE DAILY Bisacodyl [Dulcolax] Med 03/20/18 17:46 Ordered 5 mg PO DAILY PRN Clopidogrel [Plavix] Med 03/21/18 09:00 Ordered 75 mg PO DAILY Gabapentin Med 03/20/18 18:00 Ordered 600 mg PO QID HYDROmorphone [Dilaudid] Med 03/20/18 17:46 Ordered 1 mg IVPUSH Q4H PRN Heparin Sodium Med 03/20/18 18:00 Ordered 5,000 units SUBCUT Q8H Insulin Aspart [NovoLOG] Med 03/20/18 21:00 Ordered See Protocol SUBCUT ACBREAKFASTANDBED Insulin Detemir [Levemir] Med 03/20/18 21:00 Ordered 64 unit SUBCUT BEDTIME Ondansetron [Zofran] Med 03/20/18 17:46 Ordered 4 mg IVPUSH Q6H PRN Ranolazine [Ranexa] Med 03/20/18 21:00 Ordered 500 mg PO BID Sodium Chloride 0.9% [Normal Saline] 1,000 ml Med 03/20/18 18:00 Ordered IV ASDIRECTED Temazepam [Restoril] Med 03/20/18 17:46 Ordered 15 mg PO BEDTIME PRN Glucose Management Sub Q Reflex [OM.PC] Click To Edit Oth 03/20/18 17:46 Ordered VTE Mechanical Contraindications [AST] Per Unit Routine Oth 03/20/18 17:46 Ordered Resuscitation Status Routine Resus Stat 03/20/18 17:46 Ordered Medication Orders Albuterol (Proventil Hfa) gm INH .TWICE DAILY MARINA Bisacodyl (Dulcolax) 5 mg PO DAILY PRN PRN Reason: Constipation Clopidogrel Bisulfate (Plavix) 75 mg PO DAILY MARINA Heparin Sodium (Porcine) (Heparin Sodium) 5,000 units SUBCUT Q8H MARINA Hydromorphone HCl (Dilaudid) 1 mg IVPUSH Q4H PRN PRN Reason: Pain (severe 7-10) Sodium Chloride (Normal Saline) 1,000 mls @ 100 mls/hr IV ASDIRECTED MARINA Insulin Aspart (Novolog) 0 unit SUBCUT ACBREAKFASTANDBED MARINA; Protocol Insulin Detemir (Levemir) 64 unit SUBCUT BEDTIME MARINA Non-Formulary Medication (Gabapentin) 600 mg PO QID MARINA Ondansetron HCl (Zofran) 4 mg IVPUSH Q6H PRN PRN Reason: Nausea/Vomiting Ranolazine (Ranexa) 500 mg PO BID MARINA Temazepam (Restoril) 15 mg PO BEDTIME PRN PRN Reason: Sleep Assessment/Plan Comment:: The patient is a medically complex 62-year-old lady who has a significant history of uncontrolled diabetes with vasculopathy that had resulted in bilateral BKA surgeries 2 or 3 years ago. The patient is not exactly clear with regards to her surgical history. The patient also is noted to have a total hip arthroplasty on the left. She had sustained a fall which resulted in a displaced right intertrochanteric hip fracture. Patient will be admitted, kept nothing by mouth in anticipation of surgery. Orthopedic surgeon have been contacted by the emergency department. It should also be noted that the patient does have a medical history of chronic kidney disease and the current BUN/ creatinine are likely at her baseline. I've ordered repeat laboratory studies for the morning. The patient's electrolytes will be replaced as necessary. Because of her chronic kidney disease the patient will also be monitored for anemia and consider for blood transfusion as necessary. The patient does have significant coronary artery disease which also had resulted in four-way bypass possibly in 2014. The patient is somewhat of a poor historian and she has been medicated with Dilaudid for pain control. The patient also has had PT/OT ordered in anticipation of postoperative needs. Secondary to the patient's bilateral BKA her return to her assisted living may necessitate a period of time in a shelter facility. Repeat blood test to been ordered. The patient will be kept nothing by mouth after midnight. I've also ordered Accu- Cheks before meals and at bedtime as well as moderate dose insulin sliding scale. In accordance with the ACC/AHA guidelines the patient because of her medical comorbidities would be considered at a moderate risk for perspective surgeries.
[2018-03-20] MEDS: Albuterol 6.7 GM Inhaler INH SCH ×2 (18:36→22:25)
[2018-03-20] MEDS: Sodium Chloride 0.9% 1,000 ML IV SCH (18:43)
[2018-03-20] MEDS ORDERED: HYDROmorphone 1 MG/ML Syringe IV PRN (19:03)
[2018-03-20] MEDS: HYDROmorphone 1 MG/ML Syringe IVPUSH PRN ×2 (19:18→23:03)
[2018-03-20] MEDS: Gabapentin 300 MG Cap PO SCH ×2 (19:18→23:02)
--- NOTE | 2018-03-20 19:24 | PCM.PREANE ---
Preanesthetic Assessment - Procedure Proposed Procedure: patient for surgery on RIGHT hip (comminuted RIGHT femoral intertrochantic fracture) - Anesthesia/Transfusion/Family Hx Anesthesia History: Prior Anesthesia Without Reaction (Patient has had numerous surgeries including: LEFT hip, CABG 2014 in [place] due to angina, vascular surgeries including bupass of RIGHT leg x 2, pancreatic tumor removed, 3 C- sections, Both legs amputated [id number], Left kidney removed for tumor, 1/4 of RIGHT kidney removed for tumor. Ihave interviewed patient and her daughter and there were no anethesia issues with these surgeries other than it took the patient a long time to wake up from some surgeries.) Other Type of Anesthesia Reaction Comment: Daughter denies any known problem w/ anesthesia in past Family History of Anesthesia Reaction: No Transfusion History: No Prior Transfusion(s) (I am not sure that with her history of so many vascular surgeries, including CABG, that she did not have a blood transfusion.) - Review of Systems General: Other (The patient's past medical history is very complex. I have discussed patient's medical condition with the consulting hospitalist in the presence of Sabina Garcia CRNA and the patient's daughter. Hospitalist has written a very extensive evaluation of the patient and this is in the EMR under History and Physical. In summary, the patients medical conditions include hypertension, CAD (with CABG), increased cholesterol, peripheral vascular disease with vascular surgeries and subsequent bilateral leg amputations, excision of pancreas tumor, removal of left kidney for tumor and removal of 1/4 of right kidney with resultant CKD with chronically elevated BUN and creatinine , Insulin dependent DM with blood sugars ranging from 200s to 400s normally ( very poor compliance with meds), GERD, peripheral neuropathy, depression, anxiety, chronic cough for which she does NOT use any meds, recurrent UTIs, vascupath.) Pulmonary: Cough Cardiovascular: No Symptoms Gastrointestinal: Other (GERD) Neurological: Numbness (peripheral neuropathy) Other: Reports: None (Patient's daughter states that the patient does not use any NTG since her CABG. The patient is on PLAVIX since 2013. Because of the plavix, a spinal anesthetic would be contraindicated at this time for this patient.) - Physical Assessment NPO Status Date: 03/21/18 NPO Status Time: 00:00 Pulse: 93 O2 Sat by Pulse Oximetry: 95 Respiratory Rate: 18 Blood Pressure: 138/65 Temperature: 36.8 C (bloodsugar this morning 238) Height: 1.55 m Weight: 74 kg ASA Class: 3E Mental Status: Other (awake and responds appropriately, but sometimes a bit confused (most likely from the Dilaudid). Daughter and son in law present in room and concur) Airway Class: Mallampati = 2 Dentition: Reports: Normal Dentition Thyro-Mental Finger Breadths: 2 Mouth Opening Finger Breadths: 3 ROM/Head Extension: Full Lungs: Clear to Auscultation, Normal Respiratory Effort Cardiovascular: Regular Rate, Regular Rhythm, No Murmurs - Lab Values: Laboratory Last Values WBC 12.35 K/uL (4.0-11.0) H 03/20/18 16:15 RBC 4.59 M/uL (4.30-5.90) 03/20/18 16:15 Hgb 13.8 g/dL (12.0-16.0) 03/20/18 16:15 Hct 40.4 % (36.0-46.0) 03/20/18 16:15 MCV 88.0 fL (80.0-98.0) 03/20/18 16:15 MCH 30.1 pg (27.0-32.0) 03/20/18 16:15 MCHC 34.2 g/dL (31.0-37.0) 03/20/18 16:15 RDW Std Deviation 43.3 fl (28.0-62.0) 03/20/18 16:15 RDW Coeff of Mary 14 % (11.0-15.0) 03/20/18 16:15 Plt Count 377 K/uL (150-400) 03/20/18 16:15 MPV 9.90 fL (7.40-12.00) 03/20/18 16:15 Neut % (Auto) 66.3 % (48.0-80.0) 03/20/18 16:15 Lymph % (Auto) 25.5 % (16.0-40.0) 03/20/18 16:15 Twiggs % (Auto) 6.0 % (0.0-15.0) 03/20/18 16:15 Eos % (Auto) 2.0 % (0.0-7.0) 03/20/18 16:15 Baso % (Auto) 0.2 % (0.0-1.5) 03/20/18 16:15 Neut # (Auto) 8.2 K/uL (1.4-5.7) H 03/20/18 16:15 Lymph # (Auto) 3.2 K/uL (0.6-2.4) H 03/20/18 16:15 Twiggs # (Auto) 0.7 K/uL (0.0-0.8) 03/20/18 16:15 Eos # (Auto) 0.3 K/uL (0.0-0.7) 03/20/18 16:15 Baso # (Auto) 0.0 K/uL (0.0-0.1) 03/20/18 16:15 Nucleated RBC % 0.0 /100WBC 03/20/18 16:15 Nucleated RBCs # 0 K/uL 03/20/18 16:15 INR 0.92 03/20/18 16:15 Sodium 131 mmol/L (136-145) L 03/20/18 16:15 Potassium 4.9 mmol/L (3.5-5.1) 03/20/18 16:15 Chloride 97 mmol/L (98-107) L 03/20/18 16:15 Carbon Dioxide 24.4 mmol/L (21.0-32.0) 03/20/18 16:15 BUN 31 mg/dL (7.0-18.0) H 03/20/18 16:15 Creatinine 1.2 mg/dL (0.6-1.0) H 03/20/18 16:15 Est Cr Clr Drug Dosing TNP 03/20/18 16:15 Estimated GFR (MDRD) 45.4 ml/min 03/20/18 16:15 Glucose 471 mg/dL (74-106) H 03/20/18 16:15 POC Glucose 310 mg/dL (60-110) H 03/20/18 18:13 Calcium 9.7 mg/dL (8.5-10.1) 03/20/18 16:15 Total Bilirubin 0.5 mg/dL (0.2-1.0) 03/20/18 16:15 AST 27 IU/L (15-37) 03/20/18 16:15 ALT 24 IU/L (14-63) 03/20/18 16:15 Alkaline Phosphatase 106 U/L (46-116) 03/20/18 16:15 Total Protein 8.9 g/dL (6.4-8.2) H 03/20/18 16:15 Albumin 3.5 g/dL (3.4-5.0) 03/20/18 16:15 Globulin 5.4 g/dL (2.6-4.0) H 03/20/18 16:15 Albumin/Globulin Ratio 0.7 (0.9-1.6) L 03/20/18 16:15 blood sugar this morning is 238 > Patient's usual range is 300s to 400s - Imaging/EKG Impressions: EKG from today shows NSR with old septal OR. EKG from 08/11/17 is the same. Myocardial perfusion scan from 09/11/17 shows no ischemia, normal wall motion, EF 67-75% ECHOcardiogram 05/17 shows EF 55-60% Head CT today: WNL C-spine CT today: WNL with possible thyroid nodule CXR today shows evidence of old CABG, otherwise unremarkable - Allergies Allergies/Adverse Reactions: Allergies Allergy/AdvReac Type Severity Reaction Status Date / Time codeine Allergy Cannot Verified 03/20/18 16:21 Remember - Blood Blood Available: Yes Product(s) Available: PRBC - Anesthesia Plan Pre-Op Medication Ordered: None - Acknowledgements Anesthesia Type Planned: General Anesthesia (Plan: GA. L. Damierstrom YAO and I discussed this case extensively, and also discussed with Hospitalist and patient 's daughter. Spinal anesthesia would be contraindicated at this time due to Plavix. Patient re examined this morning: stable. Will use half dose of intravenous tylenol (due to her kidneys) for post op pain control to hopefully lessen the dose of narcotics needed. Case discussed with hospitalist bj this morning. ) Pt an Appropriate Candidate for the Planned Anesthesia: Yes Alternatives and Risks of Anesthesia Discussed w Pt/Guardian: Yes Pt/Guardian Understands and Agrees with Anesthesia Plan: Yes PreAnesthesia Questionnaire HEENT History: Reports: None Cardiovascular History: Reports: Bypass, CAD, High Cholesterol, Hypertension Respiratory History: Reports: Intubation, Previous Gastrointestinal History: Reports: None Genitourinary History: Reports: Chronic Renal Insuffiency, UTI, Recurrent Other Genitourinary History: Entire L kidney and 1/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 Musculoskeletal History: Reports: Amputation, Fracture Neurological History: Reports: Neuropathy, Diabetic Psychiatric History: Reports: None Endocrine/Metabolic History: Reports: Diabetes, Type II Hematologic History: Reports: None Immunologic History: Reports: None Oncologic (Cancer) History: Reports: Other (See Below) 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 Dermatologic History: Reports: None - Infectious Disease History Infectious Disease History: Reports: Chicken Pox, Measles - Past Surgical History Head Surgeries/Procedures: Reports: None HEENT Surgical History: Reports: None Cardiovascular Surgical History: Reports: Coronary Artery Bypass Musculoskeletal Surgical History: Reports: Amputation, Hip Replacement - SUBSTANCE USE Smoking Status *Q: Former Smoker Second Hand Smoke Exposure: No Recreational Drug Use History: No - HOME MEDS Home Medications: Home Meds Clopidogrel [Plavix] 75 mg PO DAILY 12/24/13 [History] Insulin Detemir [Levemir Flexpen] 64 unit SQ BEDTIME 12/24/13 [History] Ranolazine [Ranexa] 500 mg PO BID 12/24/13 [History] Insulin Lispro [HumaLOG] 10 units SQ TIDAC 02/16/14 [History] Gabapentin [Neurontin] 600 mg PO QID 09/13/14 [History] Albuterol [IJP: Ventolin HFA] 2 puff INH .TWICE DAILY #18 gm 05/16/16 [Rx] Nitroglycerin 1 tab .ROUTE ASDIRECTED PRN 05/16/16 [History] Ondansetron HCl [Zofran] 4 mg PO Q4HR #12 tablet 07/10/17 [Rx] - CURRENT (IN HOUSE) MEDS Current Meds: Current Medications Albuterol (Proventil Hfa) 0 gm INH BID [facility] Last Admin: 03/20/18 18:36 Dose: Not Given Bisacodyl (Dulcolax) 5 mg PO DAILY PRN PRN Reason: Constipation Clopidogrel Bisulfate (Plavix) 75 mg PO DAILY [facility] Gabapentin (Neurontin) 600 mg PO QID [facility] Hydromorphone HCl (Dilaudid) 1 mg IVPUSH Q4H PRN PRN Reason: Pain Sodium Chloride (Normal Saline) 1,000 mls @ 100 mls/hr IV ASDIRECTED [facility] Last Admin: 03/20/18 18:43 Dose: 100 mls/hr Insulin Aspart (Novolog) 0 unit SUBCUT ACBREAKFASTANDBED [facility]; Protocol Insulin Detemir (Levemir) 64 unit SUBCUT BEDTIME [facility] Ondansetron HCl (Zofran) 4 mg IVPUSH Q6H PRN PRN Reason: Nausea/Vomiting Ranolazine (Ranexa) 500 mg PO BID [facility] Temazepam (Restoril) 15 mg PO BEDTIME PRN PRN Reason: Sleep Discontinued Medications Heparin Sodium (Porcine) (Heparin Sodium) 5,000 units SUBCUT Q8H [facility] Last Admin: 03/20/18 18:40 Dose: Not Given Hydromorphone HCl (Dilaudid) 1 mg IV ONETIME ONE Stop: 03/20/18 16:16 Last Admin: 03/20/18 17:39 Dose: Not Given Hydromorphone HCl (Dilaudid) Confirm Administered Dose 1 mg .ROUTE .STK-MED ONE Stop: 03/20/18 16:20 Last Admin: 03/20/18 17:25 Dose: Not Given Hydromorphone HCl (Dilaudid) 1 mg IVPUSH ONETIME ONE Stop: 03/20/18 17:39 Last Admin: 03/20/18 16:22 Dose: 1 mg Hydromorphone HCl (Dilaudid) 1 mg IVPUSH Q4H PRN PRN Reason: Pain (severe 7-10) Hydromorphone HCl (Dilaudid) 1 mg IV Q4H PRN PRN Reason: Pain Sodium Chloride (Normal Saline) 1,000 mls @ 999 mls/hr IV STAT ONE Stop: 03/20/18 17:15 Last Admin: 03/20/18 17:28 Dose: 999 mls/hr Lorazepam (Ativan) 1 mg IVPUSH ONETIME ONE Stop: 03/20/18 16:37 Last Admin: 03/20/18 16:40 Dose: 1 mg Lorazepam (Ativan) Confirm Administered Dose 2 mg .ROUTE .STK-MED ONE Stop: 03/20/18 16:38 Last Admin: 03/20/18 17:25 Dose: Not Given Ondansetron HCl (Zofran) 4 mg IVPUSH ONETIME ONE Stop: 03/20/18 16:16 Last Admin: 03/20/18 16:20 Dose: 4 mg Ondansetron HCl (Zofran) Confirm Administered Dose 4 mg .ROUTE .ST-MED ONE Stop: 03/20/18 16:20 Last Admin: 03/20/18 17:25 Dose: Not Given
[2018-03-20 19:27] LABS: HEMOGLOBIN A1C 9.6 % (4.5-6.2)
[2018-03-20] MEDS ORDERED: Insulin Aspart 100 Units/ML 3 ML Pen SUBCUT SCH (21:00)
[2018-03-20] MEDS: Insulin Detemir 100 Units/ML 3 ML Pen SUBCUT SCH (21:03)
[2018-03-21] MEDS: HYDROmorphone 1 MG/ML Syringe IVPUSH PRN ×4 (03:05→17:18)
[2018-03-21] MEDS: Sodium Chloride 0.9% 1,000 ML IV SCH ×2 (04:04→16:16)
[2018-03-21] MEDS: Gabapentin 300 MG Cap PO SCH ×3 (06:11→17:21)
[2018-03-21] MEDS ORDERED: Insulin Aspart 100 Units/ML 3 ML Pen SUBCUT SCH ×2 (07:30→17:00)
--- NOTE | 2018-03-21 07:49 | PCM.PN ---
- General Info Date of Service: 03/21/18 Admission Dx/Problem (Free Text): Admission Diagnosis/Problem Admission Diagnosis/Problem Hip fracture, intertrochanteric Subjective Update: The patient is medically complex 62-year-old lady who was admitted yesterday secondary to right intertrochanteric hip fracture and she is scheduled for surgery today. The patient has been complaining of severe pain. The patient has been kept nothing by mouth for surgery. She has a history of poorly controlled diabetes. 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 Functional Status: Denies: Pain Controlled - Review of Systems General: Reports: Weakness HEENT: Reports: No Symptoms Pulmonary: Reports: No Symptoms Cardiovascular: Reports: No Symptoms Gastrointestinal: Reports: No Symptoms Genitourinary: Reports: No Symptoms Musculoskeletal: Reports: Joint Pain Skin: Reports: No Symptoms Neurological: Reports: No Symptoms Psychiatric: Reports: No Symptoms - Patient Data Vitals - Most Recent: Last Vital Signs Temp 36.1 C 03/21/18 03:33 Pulse 82 03/21/18 03:33 Resp 16 03/21/18 03:33 BP 135/63 03/21/18 03:33 Pulse Ox 96 03/21/18 03:33 Weight - Most Recent: 74 kg I&O - Last 24 Hours: Intake & Output 03/20/18 03/21/18 03/21/18 22:59 06:59 14:59 Intake Total 2587 Output Total 1000 Balance 1587 Lab Results Last 24 Hours: Laboratory Results - last 24 hr 03/20/18 03/20/18 03/20/18 Range/Units 16:15 16:15 16:15 WBC 12.35 H (4.0-11.0) K/uL RBC 4.59 (4.30-5.90) M/uL Hgb 13.8 (12.0-16.0) g/dL Hct 40.4 (36.0-46.0) % MCV 88.0 (80.0-98.0) fL MCH 30.1 (27.0-32.0) pg MCHC 34.2 (31.0-37.0) g/dL RDW Std Deviation 43.3 (28.0-62.0) fl RDW Coeff of Mary 14 (11.0-15.0) % Plt Count 377 (150-400) K/uL MPV 9.90 (7.40-12.00) fL Neut % (Auto) 66.3 (48.0-80.0) % Lymph % (Auto) 25.5 (16.0-40.0) % [place] % (Auto) 6.0 (0.0-15.0) % Eos % (Auto) 2.0 (0.0-7.0) % Baso % (Auto) 0.2 (0.0-1.5) % Neut # (Auto) 8.2 H (1.4-5.7) K/uL Lymph # (Auto) 3.2 H (0.6-2.4) K/uL [place] # (Auto) 0.7 (0.0-0.8) K/uL Eos # (Auto) 0.3 (0.0-0.7) K/uL Baso # (Auto) 0.0 (0.0-0.1) K/uL Nucleated RBC % 0.0 /100WBC Nucleated RBCs # 0 K/uL INR 0.92 Sodium 131 L (136-145) mmol/L Potassium 4.9 (3.5-5.1) mmol/L Chloride 97 L (98-107) mmol/L Carbon Dioxide 24.4 (21.0-32.0) mmol/L BUN 31 H (7.0-18.0) mg/dL Creatinine 1.2 H (0.6-1.0) mg/dL Est Cr Clr Drug Dosing TNP Estimated GFR (MDRD) 45.4 ml/min Glucose 471 H (74-106) mg/dL POC Glucose (60-110) mg/dL Hemoglobin A1c (4.5-6.2) % Calcium 9.7 (8.5-10.1) mg/dL Magnesium (1.8-2.4) mg/dL Total Bilirubin 0.5 (0.2-1.0) mg/dL AST 27 (15-37) IU/L ALT 24 (14-63) IU/L Alkaline Phosphatase 106 (46-116) U/L Total Protein 8.9 H (6.4-8.2) g/dL Albumin 3.5 (3.4-5.0) g/dL Globulin 5.4 H (2.6-4.0) g/dL Albumin/Globulin Ratio 0.7 L (0.9-1.6) Blood Type Antibody Screen 03/20/18 03/20/18 03/20/18 Range/Units 16:15 18:13 19:47 WBC (4.0-11.0) K/uL RBC (4.30-5.90) M/uL Hgb (12.0-16.0) g/dL Hct (36.0-46.0) % MCV (80.0-98.0) fL MCH (27.0-32.0) pg MCHC (31.0-37.0) g/dL RDW Std Deviation (28.0-62.0) fl RDW Coeff of Mary (11.0-15.0) % Plt Count (150-400) K/uL MPV (7.40-12.00) fL Neut % (Auto) (48.0-80.0) % Lymph % (Auto) (16.0-40.0) % [place] % (Auto) (0.0-15.0) % Eos % (Auto) (0.0-7.0) % Baso % (Auto) (0.0-1.5) % Neut # (Auto) (1.4-5.7) K/uL Lymph # (Auto) (0.6-2.4) K/uL [place] # (Auto) (0.0-0.8) K/uL Eos # (Auto) (0.0-0.7) K/uL Baso # (Auto) (0.0-0.1) K/uL Nucleated RBC % /100WBC Nucleated RBCs # K/uL INR Sodium (136-145) mmol/L Potassium (3.5-5.1) mmol/L Chloride (98-107) mmol/L Carbon Dioxide (21.0-32.0) mmol/L BUN (7.0-18.0) mg/dL Creatinine (0.6-1.0) mg/dL Est Cr Clr Drug Dosing Estimated GFR (MDRD) ml/min Glucose (74-106) mg/dL POC Glucose 310 H (60-110) mg/dL Hemoglobin A1c 9.6 H (4.5-6.2) % Calcium (8.5-10.1) mg/dL Magnesium (1.8-2.4) mg/dL Total Bilirubin (0.2-1.0) mg/dL AST (15-37) IU/L ALT (14-63) IU/L Alkaline Phosphatase (46-116) U/L Total Protein (6.4-8.2) g/dL Albumin (3.4-5.0) g/dL Globulin (2.6-4.0) g/dL Albumin/Globulin Ratio (0.9-1.6) Blood Type A POSITIVE Antibody Screen NEGATIVE 03/21/18 03/21/18 Range/Units 06:09 06:09 WBC 10.91 (4.0-11.0) K/uL RBC 3.74 L (4.30-5.90) M/uL Hgb 10.8 L (12.0-16.0) g/dL Hct 33.5 L (36.0-46.0) % MCV 89.6 (80.0-98.0) fL MCH 28.9 (27.0-32.0) pg MCHC 32.2 (31.0-37.0) g/dL RDW Std Deviation 44.6 (28.0-62.0) fl RDW Coeff of Mary 14 (11.0-15.0) % Plt Count 282 (150-400) K/uL MPV 9.00 (7.40-12.00) fL Neut % (Auto) 66.3 (48.0-80.0) % Lymph % (Auto) 21.7 (16.0-40.0) % [place] % (Auto) 10.4 (0.0-15.0) % Eos % (Auto) 1.5 (0.0-7.0) % Baso % (Auto) 0.1 (0.0-1.5) % Neut # (Auto) 7.2 H (1.4-5.7) K/uL Lymph # (Auto) 2.4 (0.6-2.4) K/uL [place] # (Auto) 1.1 H (0.0-0.8) K/uL Eos # (Auto) 0.2 (0.0-0.7) K/uL Baso # (Auto) 0.0 (0.0-0.1) K/uL Nucleated RBC % 0.0 /100WBC Nucleated RBCs # 0 K/uL INR Sodium 136 (136-145) mmol/L Potassium 4.5 (3.5-5.1) mmol/L Chloride 103 (98-107) mmol/L Carbon Dioxide 26.5 (21.0-32.0) mmol/L BUN 23 H (7.0-18.0) mg/dL Creatinine 1.0 (0.6-1.0) mg/dL Est Cr Clr Drug Dosing 43.45 Estimated GFR (MDRD) 56.0 ml/min Glucose 238 H (74-106) mg/dL POC Glucose (60-110) mg/dL Hemoglobin A1c (4.5-6.2) % Calcium 9.1 (8.5-10.1) mg/dL Magnesium 1.9 (1.8-2.4) mg/dL Total Bilirubin 0.4 (0.2-1.0) mg/dL AST 8 L (15-37) IU/L ALT 18 (14-63) IU/L Alkaline Phosphatase 84 (46-116) U/L Total Protein 7.1 (6.4-8.2) g/dL Albumin 2.9 L (3.4-5.0) g/dL Globulin 4.2 H (2.6-4.0) g/dL Albumin/Globulin Ratio 0.7 L (0.9-1.6) Blood Type Antibody Screen Med Orders - Current: Current Medications Albuterol (Ventolin Hfa) 0 gm INH BID [facility] Bisacodyl (Dulcolax) 5 mg PO DAILY PRN PRN Reason: Constipation Clopidogrel Bisulfate (Plavix) 75 mg PO DAILY [facility] Gabapentin (Neurontin) 600 mg PO QID [facility] Last Admin: 03/21/18 06:11 Dose: 600 mg Hydromorphone HCl (Dilaudid) 1 mg IVPUSH Q4H PRN PRN Reason: Pain Last Admin: 03/21/18 06:58 Dose: 1 mg Sodium Chloride (Normal Saline) 1,000 mls @ 100 mls/hr IV ASDIRECTED [facility] Last Admin: 03/21/18 04:04 Dose: 100 mls/hr Insulin Aspart (Novolog) 0 unit SUBCUT ACBREAKFASTANDBED [facility]; Protocol Last Admin: 03/21/18 07:20 Dose: Not Given Insulin Detemir (Levemir) 64 unit SUBCUT BEDTIME [facility] Last Admin: 03/20/18 21:03 Dose: 64 units Ondansetron HCl (Zofran) 4 mg IVPUSH Q6H PRN PRN Reason: Nausea/Vomiting Ranolazine (Ranexa) 500 mg PO BID [facility] Last Admin: 03/20/18 21:05 Dose: 500 mg Temazepam (Restoril) 15 mg PO BEDTIME PRN PRN Reason: Sleep Discontinued Medications Albuterol (Proventil Hfa) 0 gm INH BID [facility] Last Admin: 03/20/18 22:25 Dose: Not Given Heparin Sodium (Porcine) (Heparin Sodium) 5,000 units SUBCUT Q8H [facility] Last Admin: 03/20/18 18:40 Dose: Not Given Hydromorphone HCl (Dilaudid) 1 mg IV ONETIME ONE Stop: 03/20/18 16:16 Last Admin: 03/20/18 17:39 Dose: Not Given Hydromorphone HCl (Dilaudid) Confirm Administered Dose 1 mg .ROUTE .STK-MED ONE Stop: 03/20/18 16:20 Last Admin: 03/20/18 17:25 Dose: Not Given Hydromorphone HCl (Dilaudid) 1 mg IVPUSH ONETIME ONE Stop: 03/20/18 17:39 Last Admin: 03/20/18 16:22 Dose: 1 mg Hydromorphone HCl (Dilaudid) 1 mg IVPUSH Q4H PRN PRN Reason: Pain (severe 7-10) Hydromorphone HCl (Dilaudid) 1 mg IV Q4H PRN PRN Reason: Pain Sodium Chloride (Normal Saline) 1,000 mls @ 999 mls/hr IV STAT ONE Stop: 03/20/18 17:15 Last Admin: 03/20/18 17:28 Dose: 999 mls/hr Insulin Aspart (Novolog) 0 unit SUBCUT ACBREAKFASTANDBED [facility]; Protocol Last Admin: 03/20/18 21:05 Dose: 8 units Lorazepam (Ativan) 1 mg IVPUSH ONETIME ONE Stop: 03/20/18 16:37 Last Admin: 03/20/18 16:40 Dose: 1 mg Lorazepam (Ativan) Confirm Administered Dose 2 mg .ROUTE .STK-MED ONE Stop: 03/20/18 16:38 Last Admin: 03/20/18 17:25 Dose: Not Given Ondansetron HCl (Zofran) 4 mg IVPUSH ONETIME ONE Stop: 03/20/18 16:16 Last Admin: 03/20/18 16:20 Dose: 4 mg Ondansetron HCl (Zofran) Confirm Administered Dose 4 mg .ROUTE .STK-MED ONE Stop: 03/20/18 16:20 Last Admin: 03/20/18 17:25 Dose: Not Given - Exam Quality Assessment: No: Supplemental Oxygen General: Alert (The patient was snoring heavily, somewhat lethargic), Oriented, Moderate Distress, Lethargic HEENT: Pupils Equal, Pupils Reactive, EOMI Neck: Supple, Trachea Midline Lungs: Clear to Auscultation, Normal Respiratory Effort Cardiovascular: Regular Rhythm, Tachycardia GI/Abdominal Exam: Normal Bowel Sounds, Soft, Non-Tender, No Distention (Female) Exam: Deferred Back Exam: No: Normal Inspection (Unable to examine patient unable to set up) Extremities: No: Normal Inspection, Normal Range of Motion Skin: Warm, Dry, Intact Neurological: No New Focal Deficit Psy/Mental Status: Alert, Anxious. No: Normal Affect (Flat) - Problem List & Annotations (1) Intertrochanteric fracture of right hip SNOMED Code(s): 119890475 Code(s): S72.141A - DISPLACED INTERTROCHANTERIC FRACTURE OF RIGHT FEMUR, INIT Status: Acute Priority: High Current Visit: Yes Qualifiers: Encounter type: initial encounter Fracture type: closed Fracture alignment: displaced Qualified Code(s): S72.141A - Displaced intertrochanteric fracture of right femur, initial encounter for closed fracture (2) Diabetic vasculopathy SNOMED Code(s): 75730116, 68997661 Code(s): E11.59 - TYPE 2 DIABETES MELLITUS WITH OTH CIRCULATORY COMPLICATIONS Status: Chronic Priority: High Current Visit: Yes (3) History of coronary artery bypass graft x 3 SNOMED Code(s): 076129094, 112249057 Code(s): Z95.1 - PRESENCE OF AORTOCORONARY BYPASS GRAFT Status: Chronic Priority: High Current Visit: Yes (4) Coronary artery disease SNOMED Code(s): 22158027 Code(s): I25.10 - ATHSCL HEART DISEASE OF [place] CORONARY ARTERY W/O ANG PCTRS Status: Chronic Priority: High Current Visit: Yes Qualifiers: Coronary Disease-Associated Artery/Lesion type: bypass graft [place] vs. transplanted heart: [place] heart Associated angina: without angina Qualified Code(s): I25.810 - Atherosclerosis of coronary artery bypass graft(s) without angina pectoris (5) History of total left hip replacement SNOMED Code(s): 649828271471 Code(s): Z96.642 - PRESENCE OF LEFT ARTIFICIAL HIP JOINT Status: Chronic Priority: Medium Current Visit: Yes (6) Chronic kidney disease (CKD), stage III (moderate) SNOMED Code(s): 154516454 Code(s): N18.3 - CHRONIC KIDNEY DISEASE, STAGE 3 (MODERATE) Status: Chronic Priority: High Current Visit: Yes (7) S/P BKA (below knee amputation) bilateral SNOMED Code(s): 117645788 Code(s): Z89.512 - ACQUIRED ABSENCE OF LEFT LEG BELOW KNEE; Z89.511 - ACQUIRED ABSENCE OF RIGHT LEG BELOW KNEE Status: Chronic Priority: Medium Current Visit: Yes (8) Diabetes type 2, uncontrolled SNOMED Code(s): 40382848, 902545647 Code(s): E11.65 - TYPE 2 DIABETES MELLITUS WITH HYPERGLYCEMIA Status: Chronic Priority: High Current Visit: Yes Qualifiers: Glycemic state: with hyperglycemia Qualified Code(s): E11.65 - Type 2 diabetes mellitus with hyperglycemia (9) Fall SNOMED Code(s): 0294864, 163532352 Code(s): W19.XXXA - UNSPECIFIED FALL, INITIAL ENCOUNTER Status: Acute Priority: High Current Visit: Yes Qualifiers: Encounter type: subsequent encounter Qualified Code(s): W19.XXXD - Unspecified fall, subsequent encounter - Problem List Review Problem List Initiated/Reviewed/Updated: Yes - My Orders Last 24 Hours: My Active Orders 03/20/18 17:46 Bedrest Bedside Commode [RC] ASDIRECTED Blood Glucose Check, Bedside [RC] WITHMEALSANDBED Oxygen Therapy [RC] PRN VTE/DVT Education [RC] PER UNIT ROUTINE Vital Signs [RC] Q4H Consult to Physician [CONS] Routine OT Evaluation and Treatment [CONS] Routine PT Evaluation and Treatment [CONS] Routine Bisacodyl [Dulcolax] 5 mg PO DAILY PRN Ondansetron [Zofran] 4 mg IVPUSH Q6H PRN Temazepam [Restoril] 15 mg PO BEDTIME PRN Glucose Management Sub Q Reflex [OM.PC] Click To Edit VTE Mechanical Contraindications [AST] Per Unit Routine Resuscitation Status Routine 03/20/18 17:48 Diabetes Education [RC] Click to Edit 03/20/18 17:52 Notify Provider Consults [RC] ASDIRECTED 03/20/18 18:00 Gabapentin [Neurontin] 600 mg PO QID Sodium Chloride 0.9% [Normal Saline] 1,000 ml IV ASDIRECTED 03/20/18 18:16 Communication Order [RC] DAILY 03/20/18 18:42 Urinary Catheter Assessment [RC] ASDIRECTED 03/20/18 18:45 [place]ne Catheter Insertion [Insert Urinary Catheter] [OM.PC] Q24H 03/20/18 19:04 HYDROmorphone [Dilaudid] 1 mg IVPUSH Q4H PRN 03/20/18 21:00 Insulin Detemir [Levemir] 64 unit SUBCUT BEDTIME Ranolazine [Ranexa] 500 mg PO BID 03/20/18 Dinner [place] [employer] Diet [DIET] 03/21/18 07:30 Insulin Aspart [NovoLOG] See Protocol SUBCUT ACBREAKFASTANDBED 03/21/18 09:00 Albuterol [Ventolin HFA] 0 gm INH BID Clopidogrel [Plavix] 75 mg PO DAILY 03/21/18 Breakfast Nothing per Oral After Midnight Diet [DIET] - Plan Plan:: The patient is a medically complex 62-year-old lady who has a significant history of uncontrolled diabetes with vasculopathy that had resulted in bilateral BKA surgeries 2 or 3 years ago. The patient is not exactly clear with regards to her surgical history. The patient also is noted to have a total hip arthroplasty on the left. She had sustained a fall which resulted in a displaced right intertrochanteric hip fracture. Patient will be admitted, kept nothing by mouth in anticipation of surgery. Orthopedic surgeon have been contacted by the emergency department. It should also be noted that the patient does have a medical history of chronic kidney disease and the current BUN/ creatinine are likely at her baseline. I've ordered repeat laboratory studies for the morning. The patient's electrolytes will be replaced as necessary. Because of her chronic kidney disease the patient will also be monitored for anemia and consider for blood transfusion as necessary. The patient does have significant coronary artery disease which also had resulted in four-way bypass possibly in 2014. The patient is somewhat of a poor historian and she has been medicated with Dilaudid for pain control. The patient also has had PT/OT ordered in anticipation of postoperative needs. Secondary to the patient's bilateral BKA her return to her assisted living may necessitate a period of time in a senior care facility. Repeat blood test to been ordered. The patient will be kept nothing by mouth after midnight. I've also ordered Accu- Cheks before meals and at bedtime as well as moderate dose insulin sliding scale. In accordance with the ACC/AHA guidelines the patient because of her medical comorbidities would be considered at a moderate risk for perspective surgeries. The patient is a 62-year-old lady who has multiple chronic severe comorbidities and is currently pending surgery for right intertrochanteric hip fracture. The patient had been complaining of severe pain on examination however , upon entrance to the patient's room she was noted be snoring heavily and during the examination somewhat lethargic. I explained to the patient that my concern for her pain control was that it could interfere with her respirations. I also discussed with the patient the necessity for rehabilitation given the fact that the patient has bilateral BKA and she adamantly refuses this. The patient's family is not available at this time to discuss this. The patient's BUN/creatinine creatinine have improved somewhat although her renal function is still mildly depressed. The patient does have diabetes mellitus type 2 and is insulin-dependent with a large dose of Lantus 64 units. Her hemoglobin A1c is 9.6%. The patient is nothing by mouth for now but once able to take oral she will be placed on ADA diet and continue to have her glucose checked before meals and at bedtime. The patient will be kept on high-dose sliding scale insulin for now. I've ordered repeat laboratory studies for the morning.
[2018-03-21] MEDS ORDERED: Propofol 200 MG/20 ML SDV ONE (08:38)
[2018-03-21] MEDS ORDERED: fentaNYL 250 MCG/5 ML SDV ONE (08:38)
[2018-03-21] MEDS ORDERED: Midazolam 1 MG/ML 2 ML SDV ONE (08:38)
[2018-03-21] MEDS ORDERED: Rocuronium 10 MG/ML 10 ML Syringe ONE (08:41)
[2018-03-21] MEDS ORDERED: Succinylcholine 200 MG/10 ML MDV ONE (08:41)
[2018-03-21] MEDS ORDERED: Phenylephrine 1% 10 MG/ML SDV ONE (08:42)
[2018-03-21] MEDS ORDERED: Ondansetron 4 MG/2 ML SDV ONE (08:44)
[2018-03-21] MEDS ORDERED: Clopidogrel 75 MG Tab PO SCH (09:00)
[2018-03-21] MEDS ORDERED: Ketamine 500 mg/10 ML MDV ONE (09:15)
[2018-03-21] MEDS ORDERED: Sodium Chloride 0.9% 20 ML ONE (09:16)
--- NOTE | 2018-03-21 09:29 | PCM.CONS ---
H&P History of Present Illness - General Date of Service: 03/21/18 Admit Problem/Dx: Admission Diagnosis/Problem Admission Diagnosis/Problem Hip fracture, intertrochanteric Source of Information: Patient, Family History Limitations: Reports: No Limitations - History of Present Illness Initial Comments - Free Text/Narative: patient fell out of her chair yesterday onto right hip. severe pain and presented to ER. Has noticed poor healing in BKAs, but no infections. history of left hip replacement. No pain other than right hip. right hip Pain Score (Numeric/FACES): 10 - Related Data Allergies/Adverse Reactions: Allergies Allergy/AdvReac Type Severity Reaction Status Date / Time codeine Allergy Cannot Verified 03/20/18 16:21 Remember Home Medications: Home Meds Clopidogrel [Plavix] 75 mg PO DAILY 12/24/13 [History] Insulin Detemir [Levemir Flexpen] 64 unit SQ BEDTIME 12/24/13 [History] Ranolazine [Ranexa] 500 mg PO BID 12/24/13 [History] Insulin Lispro [HumaLOG] 10 units SQ TIDAC 02/16/14 [History] Gabapentin [Neurontin] 600 mg PO QID 09/13/14 [History] Albuterol [IJP: Ventolin HFA] 2 puff INH .TWICE DAILY #18 gm 05/16/16 [Rx] Nitroglycerin 1 tab .ROUTE ASDIRECTED PRN 05/16/16 [History] Ondansetron HCl [Zofran] 4 mg PO Q4HR #12 tablet 07/10/17 [Rx] Past Medical History HEENT History: Reports: None Cardiovascular History: Reports: Bypass, CAD, High Cholesterol, Hypertension Respiratory History: Reports: Intubation, Previous Gastrointestinal History: Reports: None Genitourinary History: Reports: Chronic Renal Insuffiency, UTI, Recurrent Other Genitourinary History: Entire L kidney and 1/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 Musculoskeletal History: Reports: Amputation, Fracture Neurological History: Reports: Neuropathy, Diabetic Psychiatric History: Reports: None Endocrine/Metabolic History: Reports: Diabetes, Type II Hematologic History: Reports: None Immunologic History: Reports: None Oncologic (Cancer) History: Reports: Other (See Below) 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 Dermatologic History: Reports: None - Infectious Disease History Infectious Disease History: Reports: Chicken Pox, Measles - Past Surgical History Head Surgeries/Procedures: Reports: None HEENT Surgical History: Reports: None Cardiovascular Surgical History: Reports: Coronary Artery Bypass Musculoskeletal Surgical History: Reports: Amputation, Hip Replacement Social & Family History - Family History Family Medical History: Noncontributory - Tobacco Use Smoking Status *Q: Former Smoker Used Tobacco, but Quit: Yes Month/Year Tobacco Last Used: long time ago Second Hand Smoke Exposure: No - Caffeine Use Caffeine Use: Reports: Coffee - Recreational Drug Use Recreational Drug Use: No - Living Situation & Occupation Living situation: Reports: Assisted Living H&P Review of Systems - Review of Systems: Review Of Systems: ROS reveals no pertinent complaints other than HPI. Exam - Exam Exam: See Below - Vital Signs Vital Signs: Last Vital Signs Temp 36.8 C 03/21/18 09:16 Pulse 93 03/21/18 09:16 Resp 18 03/21/18 09:16 BP 138/65 03/21/18 09:16 Pulse Ox 95 03/21/18 09:16 Weight: 74 kg - Exam General: Alert, Oriented HEENT: Mucosa Moist & [place] Lungs: Normal Respiratory Effort Physical Exam Comments:: pain to any ROM right hip. right BKA stump has small area of non healing with no drainage or erythema. no skin issues proximally. <2 sec cap refill. - Patient Data Lab Results Last 24 hrs: Laboratory Results - last 24 hr 03/20/18 03/20/18 03/20/18 Range/Units 16:15 16:15 16:15 WBC 12.35 H (4.0-11.0) K/uL RBC 4.59 (4.30-5.90) M/uL Hgb 13.8 (12.0-16.0) g/dL Hct 40.4 (36.0-46.0) % MCV 88.0 (80.0-98.0) fL MCH 30.1 (27.0-32.0) pg MCHC 34.2 (31.0-37.0) g/dL RDW Std Deviation 43.3 (28.0-62.0) fl RDW Coeff of Mary 14 (11.0-15.0) % Plt Count 377 (150-400) K/uL MPV 9.90 (7.40-12.00) fL Neut % (Auto) 66.3 (48.0-80.0) % Lymph % (Auto) 25.5 (16.0-40.0) % Green % (Auto) 6.0 (0.0-15.0) % Eos % (Auto) 2.0 (0.0-7.0) % Baso % (Auto) 0.2 (0.0-1.5) % Neut # (Auto) 8.2 H (1.4-5.7) K/uL Lymph # (Auto) 3.2 H (0.6-2.4) K/uL Green # (Auto) 0.7 (0.0-0.8) K/uL Eos # (Auto) 0.3 (0.0-0.7) K/uL Baso # (Auto) 0.0 (0.0-0.1) K/uL Nucleated RBC % 0.0 /100WBC Nucleated RBCs # 0 K/uL INR 0.92 Sodium 131 L (136-145) mmol/L Potassium 4.9 (3.5-5.1) mmol/L Chloride 97 L (98-107) mmol/L Carbon Dioxide 24.4 (21.0-32.0) mmol/L BUN 31 H (7.0-18.0) mg/dL Creatinine 1.2 H (0.6-1.0) mg/dL Est Cr Clr Drug Dosing TNP Estimated GFR (MDRD) 45.4 ml/min Glucose 471 H (74-106) mg/dL POC Glucose (60-110) mg/dL Hemoglobin A1c (4.5-6.2) % Calcium 9.7 (8.5-10.1) mg/dL Magnesium (1.8-2.4) mg/dL Total Bilirubin 0.5 (0.2-1.0) mg/dL AST 27 (15-37) IU/L ALT 24 (14-63) IU/L Alkaline Phosphatase 106 (46-116) U/L Total Protein 8.9 H (6.4-8.2) g/dL Albumin 3.5 (3.4-5.0) g/dL Globulin 5.4 H (2.6-4.0) g/dL Albumin/Globulin Ratio 0.7 L (0.9-1.6) Blood Type Antibody Screen 03/20/18 03/20/18 03/20/18 Range/Units 16:15 18:13 19:47 WBC (4.0-11.0) K/uL RBC (4.30-5.90) M/uL Hgb (12.0-16.0) g/dL Hct (36.0-46.0) % MCV (80.0-98.0) fL MCH (27.0-32.0) pg MCHC (31.0-37.0) g/dL RDW Std Deviation (28.0-62.0) fl RDW Coeff of Mary (11.0-15.0) % Plt Count (150-400) K/uL MPV (7.40-12.00) fL Neut % (Auto) (48.0-80.0) % Lymph % (Auto) (16.0-40.0) % Green % (Auto) (0.0-15.0) % Eos % (Auto) (0.0-7.0) % Baso % (Auto) (0.0-1.5) % Neut # (Auto) (1.4-5.7) K/uL Lymph # (Auto) (0.6-2.4) K/uL Green # (Auto) (0.0-0.8) K/uL Eos # (Auto) (0.0-0.7) K/uL Baso # (Auto) (0.0-0.1) K/uL Nucleated RBC % /100WBC Nucleated RBCs # K/uL INR Sodium (136-145) mmol/L Potassium (3.5-5.1) mmol/L Chloride (98-107) mmol/L Carbon Dioxide (21.0-32.0) mmol/L BUN (7.0-18.0) mg/dL Creatinine (0.6-1.0) mg/dL Est Cr Clr Drug Dosing Estimated GFR (MDRD) ml/min Glucose (74-106) mg/dL POC Glucose 310 H (60-110) mg/dL Hemoglobin A1c 9.6 H (4.5-6.2) % Calcium (8.5-10.1) mg/dL Magnesium (1.8-2.4) mg/dL Total Bilirubin (0.2-1.0) mg/dL AST (15-37) IU/L ALT (14-63) IU/L Alkaline Phosphatase (46-116) U/L Total Protein (6.4-8.2) g/dL Albumin (3.4-5.0) g/dL Globulin (2.6-4.0) g/dL Albumin/Globulin Ratio (0.9-1.6) Blood Type A POSITIVE Antibody Screen NEGATIVE 03/20/18 03/21/18 03/21/18 Range/Units 21:30 06:09 06:09 WBC 10.91 (4.0-11.0) K/uL RBC 3.74 L (4.30-5.90) M/uL Hgb 10.8 L (12.0-16.0) g/dL Hct 33.5 L (36.0-46.0) % MCV 89.6 (80.0-98.0) fL MCH 28.9 (27.0-32.0) pg MCHC 32.2 (31.0-37.0) g/dL RDW Std Deviation 44.6 (28.0-62.0) fl RDW Coeff of Mary 14 (11.0-15.0) % Plt Count 282 (150-400) K/uL MPV 9.00 (7.40-12.00) fL Neut % (Auto) 66.3 (48.0-80.0) % Lymph % (Auto) 21.7 (16.0-40.0) % Green % (Auto) 10.4 (0.0-15.0) % Eos % (Auto) 1.5 (0.0-7.0) % Baso % (Auto) 0.1 (0.0-1.5) % Neut # (Auto) 7.2 H (1.4-5.7) K/uL Lymph # (Auto) 2.4 (0.6-2.4) K/uL Green # (Auto) 1.1 H (0.0-0.8) K/uL Eos # (Auto) 0.2 (0.0-0.7) K/uL Baso # (Auto) 0.0 (0.0-0.1) K/uL Nucleated RBC % 0.0 /100WBC Nucleated RBCs # 0 K/uL INR Sodium 136 (136-145) mmol/L Potassium 4.5 (3.5-5.1) mmol/L Chloride 103 (98-107) mmol/L Carbon Dioxide 26.5 (21.0-32.0) mmol/L BUN 23 H (7.0-18.0) mg/dL Creatinine 1.0 (0.6-1.0) mg/dL Est Cr Clr Drug Dosing 43.45 Estimated GFR (MDRD) 56.0 ml/min Glucose 238 H (74-106) mg/dL POC Glucose 329 H (60-110) mg/dL Hemoglobin A1c (4.5-6.2) % Calcium 9.1 (8.5-10.1) mg/dL Magnesium 1.9 (1.8-2.4) mg/dL Total Bilirubin 0.4 (0.2-1.0) mg/dL AST 8 L (15-37) IU/L ALT 18 (14-63) IU/L Alkaline Phosphatase 84 (46-116) U/L Total Protein 7.1 (6.4-8.2) g/dL Albumin 2.9 L (3.4-5.0) g/dL Globulin 4.2 H (2.6-4.0) g/dL Albumin/Globulin Ratio 0.7 L (0.9-1.6) Blood Type Antibody Screen 03/21/18 Range/Units 06:13 WBC (4.0-11.0) K/uL RBC (4.30-5.90) M/uL Hgb (12.0-16.0) g/dL Hct (36.0-46.0) % MCV (80.0-98.0) fL MCH (27.0-32.0) pg MCHC (31.0-37.0) g/dL RDW Std Deviation (28.0-62.0) fl RDW Coeff of Mary (11.0-15.0) % Plt Count (150-400) K/uL MPV (7.40-12.00) fL Neut % (Auto) (48.0-80.0) % Lymph % (Auto) (16.0-40.0) % Green % (Auto) (0.0-15.0) % Eos % (Auto) (0.0-7.0) % Baso % (Auto) (0.0-1.5) % Neut # (Auto) (1.4-5.7) K/uL Lymph # (Auto) (0.6-2.4) K/uL Green # (Auto) (0.0-0.8) K/uL Eos # (Auto) (0.0-0.7) K/uL Baso # (Auto) (0.0-0.1) K/uL Nucleated RBC % /100WBC Nucleated RBCs # K/uL INR Sodium (136-145) mmol/L Potassium (3.5-5.1) mmol/L Chloride (98-107) mmol/L Carbon Dioxide (21.0-32.0) mmol/L BUN (7.0-18.0) mg/dL Creatinine (0.6-1.0) mg/dL Est Cr Clr Drug Dosing Estimated GFR (MDRD) ml/min Glucose (74-106) mg/dL POC Glucose 229 H (60-110) mg/dL Hemoglobin A1c (4.5-6.2) % Calcium (8.5-10.1) mg/dL Magnesium (1.8-2.4) mg/dL Total Bilirubin (0.2-1.0) mg/dL AST (15-37) IU/L ALT (14-63) IU/L Alkaline Phosphatase (46-116) U/L Total Protein (6.4-8.2) g/dL Albumin (3.4-5.0) g/dL Globulin (2.6-4.0) g/dL Albumin/Globulin Ratio (0.9-1.6) Blood Type Antibody Screen Result Diagrams: 03/21/18 06:09 03/21/18 06:09 Consult PN Assessment/Plan Procedures: Procedures ALANINE AMINO (ALT) (SGPT) (05/17/14) ASSAY OF CK (CPK) (10/16/17) ASSAY OF CREATININE (09/26/14) ASSAY OF LIPASE (07/10/17) ASSAY OF TROPONIN QUANT (05/16/16) ASSAY OF UREA NITROGEN (05/17/14) ASSAY OF VANCOMYCIN (05/17/14) BLOOD TYPING SEROLOGIC ABO (12/24/13) BLOOD TYPING SEROLOGIC RH(D) (12/24/13) C-REACTIVE PROTEIN (05/17/14) CARDIOVASCULAR STRESS TEST (09/11/17) CHEST X-RAY 2VW FRONTAL&LATL (05/16/16) COMPATIBILITY TEST ANTIGLOB (12/24/13) COMPATIBILITY TEST INCUBATE (12/24/13) COMPATIBILITY TEST SPIN (12/24/13) COMPLETE CBC AUTOMATED (05/17/14) COMPLETE CBC W/AUTO DIFF WBC (07/10/17) COMPREHEN METABOLIC PANEL (10/16/17) CULTURE AEROBIC IDENTIFY (02/18/14) CULTURE OTHR SPECIMN AEROBIC (02/18/14) CULTURE SCREEN ONLY (02/19/18) ALMA SUBQ TISSUE 20 SQ CM/< (02/18/14) DECALCIFY TISSUE (12/24/13) ELECTROCARDIOGRAM TRACING (06/09/17) EMERGENCY DEPT VISIT (07/10/17) EMERGENCY DEPT VISIT (05/16/16) EMERGENCY DEPT VISIT (09/26/14) EMERGENCY DEPT VISIT (09/13/14) EMERGENCY DEPT VISIT (12/24/13) EMERGENCY DEPT VISIT (12/24/13) EVALUATE PT USE OF INHALER (05/16/16) EXTREMITY STUDY (09/13/14) FLUOROGUIDE FOR VEIN DEVICE (04/21/14) GLUCOSE BLOOD TEST (02/18/14) GLYCOSYLATED HEMOGLOBIN TEST (09/16/17) HEMATOCRIT (12/24/13) HEMOGLOBIN (12/24/13) HOT OR COLD PACKS THERAPY (12/01/15) HPV HIGH-RISK TYPES (04/19/16) HT MUSCLE IMAGE SPECT MULT (09/11/17) HYDRATE IV INFUSION ADD-ON (07/10/17) INFLUENZA ASSAY W/OPTIC (05/16/16) INSJ PICC 5 YR+ W/O IMAGING (04/21/14) LIPID PANEL (09/16/17) LOWER EXTREMITY STUDY (09/26/14) METABOLIC PANEL TOTAL CA (06/09/17) MICROBE SUSCEPTIBLE RENEE (02/18/14) OFFICE/OUTPATIENT VISIT EST (10/16/17) OFFICE/OUTPATIENT VISIT EST (06/09/17) OFFICE/OUTPATIENT VISIT NEW (04/25/16) OFFICE/OUTPATIENT VISIT NEW (11/09/13) PROTHROMBIN TIME (06/09/17) PT EVALUATION (11/01/15) RBC ANTIBODY SCREEN (12/24/13) RBC SED RATE AUTOMATED (05/17/14) ROUTINE VENIPUNCTURE (10/16/17) SMEAR GRAM STAIN (02/18/14) STREP A ASSAY W/OPTIC (02/19/18) THER/PROPH/DIAG INJ IV PUSH (07/10/17) THERAPEUTIC ACTIVITIES (12/27/15) THERAPEUTIC EXERCISES (03/20/16) THROMBOPLASTIN TIME PARTIAL (12/24/13) TISSUE EXAM BY PATHOLOGIST (12/24/13) TTE W/DOPPLER COMPLETE (05/14/16) TX/PRO/DX INJ NEW DRUG ADDON (07/10/17) UR ALBUMIN SEMIQUANTITATIVE (07/16/16) URINALYSIS AUTO W/SCOPE (07/10/17) X-RAY EXAM OF ANKLE (09/13/14) X-RAY EXAM OF FOOT (12/24/13) X-RAY EXAM OF HIP (02/04/14) X-RAY EXAM OF HIP (12/24/13) X-RAY EXAM OF HIP (12/24/13) X-RAY EXAM OF PELVIS (12/24/13) (1) Diabetes type 2, uncontrolled SNOMED Code(s): 72865076, 830236220 Code(s): E11.65 - TYPE 2 DIABETES MELLITUS WITH HYPERGLYCEMIA Priority: High Current Visit: Yes Qualifiers: Glycemic state: with hyperglycemia Qualified Code(s): E11.65 - Type 2 diabetes mellitus with hyperglycemia (2) Intertrochanteric fracture of right hip SNOMED Code(s): 406535423 Code(s): S72.141A - DISPLACED INTERTROCHANTERIC FRACTURE OF RIGHT FEMUR, INIT Priority: High Current Visit: Yes Qualifiers: Encounter type: initial encounter Fracture type: closed Fracture alignment: displaced Qualified Code(s): S72.141A - Displaced intertrochanteric fracture of right femur, initial encounter for closed fracture Problem List Initiated/Reviewed/Updated: Yes My Orders Last 24 Hours: My Active Orders 03/21/18 09:05 HCG QUALITATIVE,URINE [URCHEM] Stat 03/21/18 09:19 Verify Patient Consent Obtain [RC] ASDIRECTED 03/21/18 09:30 ceFAZolin [Ancef] 2 gm Premix Bag 1 bag IV ONETIME Plan: Right hip unstable intertrochanteric fracture - poorly controlled diabetes with increased hgbA1C above 9 and vascular disease with BKAs. Her Albumin is low. - I discussed the diagnosis and treatment options with her including all operative and non-operative measures including but not limited to no surgery and CM nailing. I informed her she is at high risk of infection and complications. She wishes to proceed with surgery, therefore we will proceed with CM nailing right hip. She understands the risks, benefits, complications, and alternatives and she wishes to proceed. complications include and were discussed at length including but not limited to infection, NV injury, DVT, PE, stroke, [place], , malunion, nonunion and she wishes to proceed. I recommend plavix and ASA for DVT prophylaxis with SCDs. She will be able to be use full weight for transfers.
[2018-03-21] MEDS ORDERED: ceFAZolin/Dextrose,Iso-Osmotic 2 GM/50 ML Duplex Bag IV ONE (09:39)
[2018-03-21] MEDS: Albuterol 8 GM Inhaler INH SCH ×2 (10:26→20:51)
[2018-03-21] MEDS ORDERED: Neostigmine Methylsulfate 1 MG/ML 5 ML Syringe ONE (10:52)
[2018-03-21] MEDS ORDERED: Glycopyrrolate 0.2 MG/ML SDV ONE (10:52)
--- NOTE | 2018-03-21 11:26 | PCM.OPNOTE ---
- General Post-Op/Procedure Note Date of Surgery/Procedure: 03/21/18 Operative Procedure(s): closed reductioin cephalomedulary nailing right hip intertrochanteric fracture Findings: comminution Pre Op Diagnosis: right hip unstable intertrochanteric femur fracture Post-Op Diagnosis: same Anesthesia Technique: General ET Tube Primary Surgeon: Prince Pedro Mai Host/Hostess: Li Jc EBL in mLs: 20 Complications: none Condition: Stable Free Text/Narrative:: Intake & Output 03/20/18 03/21/18 03/21/18 22:59 06:59 14:59 Intake Total 2587 Output Total 1000 325 Balance 1587 -325
[2018-03-21] MEDS ORDERED: fentaNYL 100 MCG/2 ML SDV IVPUSH PRN (11:48)
--- NOTE | 2018-03-21 11:55 | PCM.POSTAN ---
POST ANESTHESIA ASSESSMENT - MENTAL STATUS Mental Status: Somnolent (patient is either complaining of pain or sleeping. Sometimes falls asleep while talking.) - VITAL SIGNS Pulse Rate: 88 SaO2: 98 Resp Rate: 20 Blood Pressure: 148/70 Temperature: 36.2 C - RESPIRATORY Respiratory Status: Respiratory Rate WNL, Airway Patent, O2 Saturation Stable - CARDIOVASCULAR CV Status: Pulse Rate WNL, Blood Pressure Stable - GASTROINTESTINAL GI Status: No Symptoms - PAIN Pain Score: 9 (says 9/10 pain, then falls asleep. Has had Dilaudid today, and fentanyl in OR and PACU as well as partial dose tylenol) - POST OP HYDRATION Hydration Status: Adequate & Stable - OBSERVATIONS Free Text/Narrative:: has phantom pain in legs (s/p bilat bka)
[2018-03-21] MEDS: Insulin Aspart 100 Units/ML 3 ML Pen SUBCUT SCH ×3 (13:53→21:41)
[2018-03-21] MEDS: oxyCODONE 5 MG Tab PO PRN ×2 (16:07→20:01)
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
[2018-03-21] MEDS: ceFAZolin 2 GM in Premix Bag 1 BAG IV SCH ×2 (17:25→17:30)
[2018-03-21] MEDS: Insulin Detemir 100 Units/ML 3 ML Pen SUBCUT SCH (21:42)
[2018-03-22] MEDS: oxyCODONE 5 MG Tab PO PRN ×3 (00:55→10:45)
[2018-03-22] MEDS: Gabapentin 300 MG Cap PO SCH ×5 (00:55→23:29)
[2018-03-22] MEDS: ceFAZolin 2 GM in Premix Bag 1 BAG IV SCH ×4 (00:55→18:11)
[2018-03-22] MEDS: HYDROmorphone 1 MG/ML Syringe IVPUSH PRN (02:30)
[2018-03-22] MEDS: Insulin Aspart 100 Units/ML 3 ML Pen SUBCUT SCH ×4 (06:35→21:03)
--- NOTE | 2018-03-22 07:29 | PCM.PN ---
- General Info Date of Service: 03/22/18 Admission Dx/Problem (Free Text): Admission Diagnosis/Problem Admission Diagnosis/Problem Hip fracture, intertrochanteric Subjective Update: The patient is a 62-year-old lady who presented for admission secondary to right hip fracture. The patient is currently postop day #1 ORIF. 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 The patient has been complaining of pain. She has been wanting to get out of bed. Physical therapy has also been working with her. Functional Status: Reports: Pain Controlled - Review of Systems General: Reports: No Symptoms HEENT: Reports: No Symptoms Pulmonary: Reports: No Symptoms Cardiovascular: Reports: No Symptoms Gastrointestinal: Reports: No Symptoms Genitourinary: Reports: No Symptoms Musculoskeletal: Reports: Joint Pain, Joint Swelling Skin: Reports: No Symptoms Neurological: Reports: No Symptoms Psychiatric: Reports: Depression - Patient Data Vitals - Most Recent: Last Vital Signs Temp 36.6 C 03/22/18 04:00 Pulse 90 03/22/18 04:00 Resp 16 03/22/18 04:00 BP 119/57 L 03/22/18 04:00 Pulse Ox 95 03/22/18 04:00 Weight - Most Recent: 74 kg I&O - Last 24 Hours: Intake & Output 03/21/18 03/22/18 03/22/18 22:59 06:59 14:59 Intake Total 929 1764 Output Total 650 700 Balance 279 1064 Lab Results Last 24 Hours: Laboratory Results - last 24 hr 03/20/18 03/21/18 03/21/18 Range/Units 21:30 06:13 09:05 WBC (4.0-11.0) K/uL RBC (4.30-5.90) M/uL Hgb (12.0-16.0) g/dL Hct (36.0-46.0) % MCV (80.0-98.0) fL MCH (27.0-32.0) pg MCHC (31.0-37.0) g/dL RDW Std Deviation (28.0-62.0) fl RDW Coeff of Mary (11.0-15.0) % Plt Count (150-400) K/uL MPV (7.40-12.00) fL Neut % (Auto) (48.0-80.0) % Lymph % (Auto) (16.0-40.0) % [place] % (Auto) (0.0-15.0) % Eos % (Auto) (0.0-7.0) % Baso % (Auto) (0.0-1.5) % Neut # (Auto) (1.4-5.7) K/uL Lymph # (Auto) (0.6-2.4) K/uL [place] # (Auto) (0.0-0.8) K/uL Eos # (Auto) (0.0-0.7) K/uL Baso # (Auto) (0.0-0.1) K/uL Nucleated RBC % /100WBC Nucleated RBCs # K/uL Sodium (136-145) mmol/L Potassium (3.5-5.1) mmol/L Chloride (98-107) mmol/L Carbon Dioxide (21.0-32.0) mmol/L BUN (7.0-18.0) mg/dL Creatinine (0.6-1.0) mg/dL Est Cr Clr Drug Dosing mL/min Estimated GFR (MDRD) ml/min Glucose (74-106) mg/dL POC Glucose 329 H 229 H (60-110) mg/dL Calcium (8.5-10.1) mg/dL Urine HCG, Qual NEGATIVE (NEGATIVE) 03/21/18 03/21/18 03/21/18 Range/Units 09:19 12:40 17:14 WBC (4.0-11.0) K/uL RBC (4.30-5.90) M/uL Hgb (12.0-16.0) g/dL Hct (36.0-46.0) % MCV (80.0-98.0) fL MCH (27.0-32.0) pg MCHC (31.0-37.0) g/dL RDW Std Deviation (28.0-62.0) fl RDW Coeff of Mary (11.0-15.0) % Plt Count (150-400) K/uL MPV (7.40-12.00) fL Neut % (Auto) (48.0-80.0) % Lymph % (Auto) (16.0-40.0) % [place] % (Auto) (0.0-15.0) % Eos % (Auto) (0.0-7.0) % Baso % (Auto) (0.0-1.5) % Neut # (Auto) (1.4-5.7) K/uL Lymph # (Auto) (0.6-2.4) K/uL [place] # (Auto) (0.0-0.8) K/uL Eos # (Auto) (0.0-0.7) K/uL Baso # (Auto) (0.0-0.1) K/uL Nucleated RBC % /100WBC Nucleated RBCs # K/uL Sodium (136-145) mmol/L Potassium (3.5-5.1) mmol/L Chloride (98-107) mmol/L Carbon Dioxide (21.0-32.0) mmol/L BUN (7.0-18.0) mg/dL Creatinine (0.6-1.0) mg/dL Est Cr Clr Drug Dosing mL/min Estimated GFR (MDRD) ml/min Glucose (74-106) mg/dL POC Glucose 221 H 232 H 212 H (60-110) mg/dL Calcium (8.5-10.1) mg/dL Urine HCG, Qual (NEGATIVE) 03/21/18 03/22/18 03/22/18 Range/Units 20:30 05:58 05:58 WBC 11.25 H (4.0-11.0) K/uL RBC 3.13 L (4.30-5.90) M/uL Hgb 9.1 L (12.0-16.0) g/dL Hct 28.4 L (36.0-46.0) % MCV 90.7 (80.0-98.0) fL MCH 29.1 (27.0-32.0) pg MCHC 32.0 (31.0-37.0) g/dL RDW Std Deviation 46.0 (28.0-62.0) fl RDW Coeff of Mary 14 (11.0-15.0) % Plt Count 273 (150-400) K/uL MPV 9.20 (7.40-12.00) fL Neut % (Auto) 68.5 (48.0-80.0) % Lymph % (Auto) 19.2 (16.0-40.0) % [place] % (Auto) 10.6 (0.0-15.0) % Eos % (Auto) 1.5 (0.0-7.0) % Baso % (Auto) 0.2 (0.0-1.5) % Neut # (Auto) 7.7 H (1.4-5.7) K/uL Lymph # (Auto) 2.2 (0.6-2.4) K/uL [place] # (Auto) 1.2 H (0.0-0.8) K/uL Eos # (Auto) 0.2 (0.0-0.7) K/uL Baso # (Auto) 0.0 (0.0-0.1) K/uL Nucleated RBC % 0.0 /100WBC Nucleated RBCs # 0 K/uL Sodium 134 L (136-145) mmol/L Potassium 4.1 (3.5-5.1) mmol/L Chloride 103 (98-107) mmol/L Carbon Dioxide 25.4 (21.0-32.0) mmol/L BUN 14 (7.0-18.0) mg/dL Creatinine 1.1 H (0.6-1.0) mg/dL Est Cr Clr Drug Dosing 39.50 mL/min Estimated GFR (MDRD) 50.2 ml/min Glucose 125 H (74-106) mg/dL POC Glucose 206 H (60-110) mg/dL Calcium 8.5 (8.5-10.1) mg/dL Urine HCG, Qual (NEGATIVE) Med Orders - Current: Current Medications Albuterol (Ventolin Hfa) 0 gm INH BID [facility] Last Admin: 03/21/18 20:51 Dose: 2 canister Bisacodyl (Dulcolax) 5 mg PO DAILY PRN PRN Reason: Constipation Gabapentin (Neurontin) 600 mg PO QID [facility] Last Admin: 03/22/18 06:48 Dose: 600 mg Hydromorphone HCl (Dilaudid) 1 mg IVPUSH Q4H PRN PRN Reason: Pain Last Admin: 03/22/18 02:30 Dose: 1 mg Sodium Chloride (Normal Saline) 1,000 mls @ 100 mls/hr IV ASDIRECTED [facility] Last Admin: 03/21/18 16:16 Dose: 100 mls/hr Cefazolin Sodium/Dextrose 2 gm (/ Premix) 50 mls @ 100 mls/hr IV Q8H [facility] Last Admin: 03/22/18 04:53 Dose: Not Given Insulin Aspart (Novolog) 0 unit SUBCUT ACBED [facility]; Protocol Last Admin: 03/22/18 06:35 Dose: Not Given Insulin Detemir (Levemir) 64 unit SUBCUT BEDTIME [facility] Last Admin: 03/21/18 21:42 Dose: 64 units Ondansetron HCl (Zofran) 4 mg IVPUSH Q6H PRN PRN Reason: Nausea/Vomiting Last Admin: 03/21/18 16:07 Dose: 4 mg Oxycodone HCl (Oxycodone) 10 mg PO Q4H PRN PRN Reason: Pain Last Admin: 03/22/18 06:48 Dose: 10 mg Ranolazine (Ranexa) 500 mg PO BID [facility] Last Admin: 03/21/18 21:16 Dose: 500 mg Temazepam (Restoril) 15 mg PO BEDTIME PRN PRN Reason: Sleep Discontinued Medications Albuterol (Proventil Hfa) 0 gm INH BID [facility] Last Admin: 03/20/18 22:25 Dose: Not Given Cefazolin Sodium/Dextrose (Ancef) Confirm Administered Dose 2 gm IV .STK-MED ONE Stop: 03/21/18 09:40 Clopidogrel Bisulfate (Plavix) 75 mg PO DAILY [facility] Fentanyl (Sublimaze) Confirm Administered Dose 250 mcg .ROUTE .STK-MED ONE Stop: 03/21/18 08:39 Fentanyl (Sublimaze) 50 mcg IVPUSH Q5M PRN PRN Reason: Pain (severe 7-10) Stop: 03/21/18 13:00 Glycopyrrolate (Robinul) Confirm Administered Dose 0.4 mg .ROUTE .STK-MED ONE Stop: 03/21/18 10:53 Heparin Sodium (Porcine) (Heparin Sodium) 5,000 units SUBCUT Q8H [facility] Last Admin: 03/20/18 18:40 Dose: Not Given Hydromorphone HCl (Dilaudid) 1 mg IV ONETIME ONE Stop: 03/20/18 16:16 Last Admin: 03/20/18 17:39 Dose: Not Given Hydromorphone HCl (Dilaudid) Confirm Administered Dose 1 mg .ROUTE .STK-MED ONE Stop: 03/20/18 16:20 Last Admin: 03/20/18 17:25 Dose: Not Given Hydromorphone HCl (Dilaudid) 1 mg IVPUSH ONETIME ONE Stop: 03/20/18 17:39 Last Admin: 03/20/18 16:22 Dose: 1 mg Hydromorphone HCl (Dilaudid) 1 mg IVPUSH Q4H PRN PRN Reason: Pain (severe 7-10) Hydromorphone HCl (Dilaudid) 1 mg IV Q4H PRN PRN Reason: Pain Sodium Chloride (Normal Saline) 1,000 mls @ 999 mls/hr IV STAT ONE Stop: 03/20/18 17:15 Last Admin: 03/20/18 17:28 Dose: 999 mls/hr Lidocaine HCl (Xylocaine-Mpf 1%) Confirm Administered Dose 5 mls @ as directed .ROUTE .STK-MED ONE Stop: 03/21/18 08:41 Acetaminophen (Ofirmev) Confirm Administered Dose 100 mls @ as directed IV .STK- MED ONE Stop: 03/21/18 09:16 Sodium Chloride (Normal Saline) Confirm Administered Dose 20 mls @ as directed .ROUTE .STK-MED ONE Stop: 03/21/18 09:17 Cefazolin Sodium/Dextrose 2 gm (/ Premix) 50 mls @ 100 mls/hr IV ONETIME [facility] Last Admin: 03/22/18 00:55 Dose: 100 mls/hr Insulin Aspart (Novolog) 0 unit SUBCUT ACBREAKFASTANDBED [facility]; Protocol Last Admin: 03/20/18 21:05 Dose: 8 units Insulin Aspart (Novolog) 0 unit SUBCUT ACBREAKFASTANDBED [facility]; Protocol Last Admin: 03/21/18 07:20 Dose: Not Given Insulin Aspart (Novolog) 0 unit SUBCUT TIDAC [facility]; Protocol Insulin Aspart (Novolog) 0 unit SUBCUT TIDAC [facility]; Protocol Last Admin: 03/21/18 18:26 Dose: 6 units Ketamine HCl (Ketalar) Confirm Administered Dose 500 mg .ROUTE .STK-MED ONE Stop: 03/21/18 09:16 Lorazepam (Ativan) 1 mg IVPUSH ONETIME ONE Stop: 03/20/18 16:37 Last Admin: 03/20/18 16:40 Dose: 1 mg Lorazepam (Ativan) Confirm Administered Dose 2 mg .ROUTE .STK-MED ONE Stop: 03/20/18 16:38 Last Admin: 03/20/18 17:25 Dose: Not Given Midazolam HCl (Versed 1 Mg/Ml) Confirm Administered Dose 2 mg .ROUTE .STK-MED ONE Stop: 03/21/18 08:39 Neostigmine Methylsulfate (Neostigmine) Confirm Administered Dose 5 mg .ROUTE .STK-MED ONE Stop: 03/21/18 10:53 Ondansetron HCl (Zofran) 4 mg IVPUSH ONETIME ONE Stop: 03/20/18 16:16 Last Admin: 03/20/18 16:20 Dose: 4 mg Ondansetron HCl (Zofran) Confirm Administered Dose 4 mg .ROUTE .STK-MED ONE Stop: 03/20/18 16:20 Last Admin: 03/20/18 17:25 Dose: Not Given Ondansetron HCl (Zofran) Confirm Administered Dose 4 mg .ROUTE .ST-MED ONE Stop: 03/21/18 08:45 Phenylephrine HCl (Adonay-Synephrine) Confirm Administered Dose 10 mg .ROUTE .STK- MED ONE Stop: 03/21/18 08:43 Propofol (Diprivan 20 Ml) Confirm Administered Dose 200 mg .ROUTE .STK-MED ONE Stop: 03/21/18 08:39 Rocuronium [place] (Zemuron) Confirm Administered Dose 100 mg .ROUTE .STK-MED ONE Stop: 03/21/18 08:42 Succinylcholine Chloride (Quelicin) Confirm Administered Dose 200 mg .ROUTE .ST -MED ONE Stop: 03/21/18 08:42 - Exam Quality Assessment: No: Supplemental Oxygen General: Alert, Oriented, Cooperative, Mild Distress HEENT: Pupils Equal, Pupils Reactive, EOMI Neck: Supple, Trachea Midline Lungs: Clear to Auscultation, Normal Respiratory Effort Cardiovascular: Regular Rate, Regular Rhythm GI/Abdominal Exam: Normal Bowel Sounds, Soft, Non-Tender, No Distention (Female) Exam: Deferred Back Exam: Normal Inspection Extremities: Normal Inspection (Bilateral BKA) Skin: Warm, Dry, Intact Wound/Incisions: Healing Well Neurological: No New Focal Deficit Psy/Mental Status: Alert, Normal Affect, Normal Mood - Problem List & Annotations (1) Intertrochanteric fracture of right hip SNOMED Code(s): 853325013 Code(s): S72.141A - DISPLACED INTERTROCHANTERIC FRACTURE OF RIGHT FEMUR, INIT Status: Acute Priority: High Current Visit: Yes Qualifiers: Encounter type: subsequent encounter Fracture type: closed Fracture alignment: displaced Fracture healing: with routine healing Qualified Code(s ): S72.141D - Displaced intertrochanteric fracture of right femur, subsequent encounter for closed fracture with routine healing (2) Diabetic vasculopathy SNOMED Code(s): 35333583, 69677148 Code(s): E11.59 - TYPE 2 DIABETES MELLITUS WITH OTH CIRCULATORY COMPLICATIONS Status: Chronic Priority: High Current Visit: Yes Annotation/Comment:: Poorly controlled, A1c is 9.6. (3) History of coronary artery bypass graft x 3 SNOMED Code(s): 511759293, 282994594 Code(s): Z95.1 - PRESENCE OF AORTOCORONARY BYPASS GRAFT Status: Chronic Priority: High Current Visit: Yes (4) Coronary artery disease SNOMED Code(s): 88336767 Code(s): I25.10 - ATHSCL HEART DISEASE OF [place] CORONARY ARTERY W/O ANG PCTRS Status: Chronic Priority: High Current Visit: Yes Qualifiers: Coronary Disease-Associated Artery/Lesion type: bypass graft [place] vs. transplanted heart: [place] heart Associated angina: without angina Qualified Code(s): I25.810 - Atherosclerosis of coronary artery bypass graft(s) without angina pectoris (5) History of total left hip replacement SNOMED Code(s): 763278089778 Code(s): Z96.642 - PRESENCE OF LEFT ARTIFICIAL HIP JOINT Status: Chronic Priority: Medium Current Visit: Yes (6) Chronic kidney disease (CKD), stage III (moderate) SNOMED Code(s): 655270455 Code(s): N18.3 - CHRONIC KIDNEY DISEASE, STAGE 3 (MODERATE) Status: Chronic Priority: High Current Visit: Yes (7) S/P BKA (below knee amputation) bilateral SNOMED Code(s): 146871766 Code(s): Z89.512 - ACQUIRED ABSENCE OF LEFT LEG BELOW KNEE; Z89.511 - ACQUIRED ABSENCE OF RIGHT LEG BELOW KNEE Status: Chronic Priority: Medium Current Visit: Yes (8) Diabetes type 2, uncontrolled SNOMED Code(s): 37569979, 366981414 Code(s): E11.65 - TYPE 2 DIABETES MELLITUS WITH HYPERGLYCEMIA Status: Chronic Priority: High Current Visit: Yes Qualifiers: Glycemic state: with hyperglycemia Qualified Code(s): E11.65 - Type 2 diabetes mellitus with hyperglycemia (9) Fall SNOMED Code(s): 5691487, 409873383 Code(s): W19.XXXA - UNSPECIFIED FALL, INITIAL ENCOUNTER Status: Acute Priority: High Current Visit: Yes Qualifiers: Encounter type: subsequent encounter Qualified Code(s): W19.XXXD - Unspecified fall, subsequent encounter - Problem List Review Problem List Initiated/Reviewed/Updated: Yes - My Orders Last 24 Hours: My Active Orders 03/21/18 09:00 Albuterol [Ventolin HFA] 0 gm INH BID 03/21/18 12:16 oxyCODONE 10 mg PO Q4H PRN 03/21/18 21:00 Insulin Aspart [NovoLOG] See Protocol SUBCUT ACBED 03/21/18 Breakfast Nothing per Oral After Midnight Diet [DIET] - Plan Plan:: The patient is a 62-year-old lady who has multiple chronic severe comorbidities. She is currently postop day #1 for ORIF right hip. The patient does have a history of left hip replacement and bilateral below the knee amputations. The patient's pain control be continued with half the dose of Dilaudid as she has been complaining of severe pain and the previous dose has been altering her mentally and suppressing her respirations. The patient is also tearful and somewhat depressed she has refused adamantly any jail/ rehabilitation. The patient will be continued on her current dose of Lantus and NovoLog. She is on high-dose sliding scale for her glucose coverage and she is being kept on appropriate diabetic diet. Repeat laboratory studies have been ordered. Physical therapy has also been ordered and I've explained to the patient that when she can safely transition to bedside commode then we'll consider removal of the Bourne catheter. The patient will likely need to have placement. I've ordered repeat laboratory testings in the morning.
[2018-03-22] MEDS: Albuterol 8 GM Inhaler INH SCH ×2 (09:12→20:40)
[2018-03-22] MEDS ORDERED: HYDROmorphone 1 MG/ML Syringe IVPUSH PRN (09:20)
--- NOTE | 2018-03-22 09:38 | PCM.SN ---
- Free Text/Narrative Note: Subjective: Patient goes between tired and in writing pain. Nurses have been controlling as best as possible. They have been unable to transfer her. Physical therapy is to come by today. Her pain is better because the fracture is stabilized according to patient. Tolerating by mouth. Objective: Afebrile, vital signs stable. Dressings are clean/dry/intact. Able to move right leg. Less than 2 second capillary refill distally. Hemoglobin 9.1, possibly delusional as she did not lose much blood. A/P: Postoperative day 1, nailing right hip fracture - Full weightbearing for transfers. - Home dose of Plavix for DVT prophylaxis - Leave dressings on - Will likely required nursing home.
[2018-03-22] MEDS: Clopidogrel 75 MG Tab PO SCH (10:45)
--- NOTE | 2018-03-22 11:23 | PCM48HPAN ---
Post Anesthesia Note - EVALUATION WITHIN 48HRS OF ANESTHETIC Vital Signs in Normal Range: Yes Patient Participated in Evaluation: No (RN at bedside) Respiratory Function Stable: Yes (Remains on continuous pulse oximeter) Airway Patent: Yes Cardiovascular Function Stable: Yes Hydration Status Stable: Yes Pain Control Satisfactory: Yes (Dose has been cut in half today) Nausea and Vomiting Control Satisfactory: Yes Mental Status Recovered: Yes (Patient very sleepy most of the time) Pulse Rate: 88 Resp Rate: 16 Temperature: 36.2 C Blood Pressure: 148/70
[2018-03-22] MEDS: Insulin Detemir 100 Units/ML 3 ML Pen SUBCUT SCH (21:01)
[2018-03-23] MEDS: ceFAZolin 2 GM in Premix Bag 1 BAG IV SCH ×3 (01:37→17:12)
[2018-03-23] MEDS: Gabapentin 300 MG Cap PO SCH ×4 (05:06→23:01)
[2018-03-23] MEDS: Insulin Aspart 100 Units/ML 3 ML Pen SUBCUT SCH ×4 (06:31→20:56)
[2018-03-23] MEDS: Albuterol 8 GM Inhaler INH SCH ×2 (08:36→21:29)
--- NOTE | 2018-03-23 08:42 | CR ---
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
[2018-03-23] MEDS: Clopidogrel 75 MG Tab PO SCH (08:50)
--- NOTE | 2018-03-23 10:43 | PCM.PN ---
- General Info Date of Service: 03/23/18 Subjective Update: 62F w/ hx of poorly controlled t2dm, chronic opioid use here s/p day 2 right hip fracture fixation. Patient has no complaints this morning, says her pain is under control. She denies fever, chills, nausea or vomiting. Denies lightheadedness. - Review of Systems General: Reports: Other (negative except for hpi) - Patient Data Vitals - Most Recent: Last Vital Signs Temp 37.8 C 03/23/18 07:58 Pulse 96 03/23/18 07:58 Resp 17 03/23/18 07:58 BP 107/62 03/23/18 07:58 Pulse Ox 93 L 03/23/18 07:58 Weight - Most Recent: 74 kg I&O - Last 24 Hours: Intake & Output 03/22/18 03/23/18 03/23/18 22:59 06:59 14:59 Intake Total 786 738 Output Total 950 1200 Balance -164 -462 Lab Results Last 24 Hours: Laboratory Results - last 24 hr 03/22/18 03/22/18 03/22/18 Range/Units 06:28 11:37 16:21 WBC (4.0-11.0) K/uL RBC (4.30-5.90) M/uL Hgb (12.0-16.0) g/dL Hct (36.0-46.0) % MCV (80.0-98.0) fL MCH (27.0-32.0) pg MCHC (31.0-37.0) g/dL RDW Std Deviation (28.0-62.0) fl RDW Coeff of Mary (11.0-15.0) % Plt Count (150-400) K/uL MPV (7.40-12.00) fL Neut % (Auto) (48.0-80.0) % Lymph % (Auto) (16.0-40.0) % [place] % (Auto) (0.0-15.0) % Eos % (Auto) (0.0-7.0) % Baso % (Auto) (0.0-1.5) % Neut # (Auto) (1.4-5.7) K/uL Lymph # (Auto) (0.6-2.4) K/uL [place] # (Auto) (0.0-0.8) K/uL Eos # (Auto) (0.0-0.7) K/uL Baso # (Auto) (0.0-0.1) K/uL Nucleated RBC % /100WBC Nucleated RBCs # K/uL Sodium (136-145) mmol/L Potassium (3.5-5.1) mmol/L Chloride (98-107) mmol/L Carbon Dioxide (21.0-32.0) mmol/L BUN (7.0-18.0) mg/dL Creatinine (0.6-1.0) mg/dL Est Cr Clr Drug Dosing mL/min Estimated GFR (MDRD) ml/min Glucose (74-106) mg/dL POC Glucose 123 H 140 H 176 H (60-110) mg/dL Calcium (8.5-10.1) mg/dL 03/22/18 03/23/18 03/23/18 Range/Units 21:01 05:46 05:46 WBC 11.50 H (4.0-11.0) K/uL RBC 3.10 L (4.30-5.90) M/uL Hgb 9.0 L (12.0-16.0) g/dL Hct 27.6 L (36.0-46.0) % MCV 89.0 (80.0-98.0) fL MCH 29.0 (27.0-32.0) pg MCHC 32.6 (31.0-37.0) g/dL RDW Std Deviation 44.6 (28.0-62.0) fl RDW Coeff of Mary 14 (11.0-15.0) % Plt Count 228 (150-400) K/uL MPV 8.90 (7.40-12.00) fL Neut % (Auto) 76.3 (48.0-80.0) % Lymph % (Auto) 11.7 L (16.0-40.0) % [place] % (Auto) 10.3 (0.0-15.0) % Eos % (Auto) 1.5 (0.0-7.0) % Baso % (Auto) 0.2 (0.0-1.5) % Neut # (Auto) 8.8 H (1.4-5.7) K/uL Lymph # (Auto) 1.4 (0.6-2.4) K/uL [place] # (Auto) 1.2 H (0.0-0.8) K/uL Eos # (Auto) 0.2 (0.0-0.7) K/uL Baso # (Auto) 0.0 (0.0-0.1) K/uL Nucleated RBC % 0.0 /100WBC Nucleated RBCs # 0 K/uL Sodium 133 L (136-145) mmol/L Potassium 4.4 (3.5-5.1) mmol/L Chloride 100 (98-107) mmol/L Carbon Dioxide 23.6 (21.0-32.0) mmol/L BUN 16 (7.0-18.0) mg/dL Creatinine 1.1 H (0.6-1.0) mg/dL Est Cr Clr Drug Dosing 39.50 mL/min Estimated GFR (MDRD) 50.2 ml/min Glucose 201 H (74-106) mg/dL POC Glucose 231 H (60-110) mg/dL Calcium 9.1 (8.5-10.1) mg/dL Med Orders - Current: Current Medications Albuterol (Ventolin Hfa) 0 gm INH BID [facility] Last Admin: 03/23/18 08:36 Dose: 2 canister Bisacodyl (Dulcolax) 5 mg PO DAILY PRN PRN Reason: Constipation Clopidogrel Bisulfate (Plavix) 75 mg PO DAILY [facility] Last Admin: 03/23/18 08:50 Dose: 75 mg Gabapentin (Neurontin) 600 mg PO QID [facility] Last Admin: 03/23/18 05:06 Dose: 600 mg Cefazolin Sodium/Dextrose 2 gm (/ Premix) 50 mls @ 100 mls/hr IV Q8H [facility] Last Admin: 03/23/18 09:06 Dose: 100 mls/hr Insulin Aspart (Novolog) 0 unit SUBCUT ACBED [facility]; Protocol Last Admin: 03/23/18 06:31 Dose: 3 units Insulin Detemir (Levemir) 64 unit SUBCUT BEDTIME [facility] Last Admin: 03/22/18 21:01 Dose: 64 units Ondansetron HCl (Zofran) 4 mg IVPUSH Q6H PRN PRN Reason: Nausea/Vomiting Last Admin: 03/21/18 16:07 Dose: 4 mg Oxycodone HCl (Oxycodone) 5 mg PO Q4H PRN PRN Reason: Pain Ranolazine (Ranexa) 500 mg PO BID [facility] Last Admin: 03/23/18 08:50 Dose: 500 mg Temazepam (Restoril) 15 mg PO BEDTIME PRN PRN Reason: Sleep Discontinued Medications Albuterol (Proventil Hfa) 0 gm INH BID [facility] Last Admin: 03/20/18 22:25 Dose: Not Given Cefazolin Sodium/Dextrose (Ancef) Confirm Administered Dose 2 gm IV .STK-MED ONE Stop: 03/21/18 09:40 Clopidogrel Bisulfate (Plavix) 75 mg PO DAILY [facility] Fentanyl (Sublimaze) Confirm Administered Dose 250 mcg .ROUTE .STK-MED ONE Stop: 03/21/18 08:39 Fentanyl (Sublimaze) 50 mcg IVPUSH Q5M PRN PRN Reason: Pain (severe 7-10) Stop: 03/21/18 13:00 Glycopyrrolate (Robinul) Confirm Administered Dose 0.4 mg .ROUTE .STK-MED ONE Stop: 03/21/18 10:53 Heparin Sodium (Porcine) (Heparin Sodium) 5,000 units SUBCUT Q8H [facility] Last Admin: 03/20/18 18:40 Dose: Not Given Hydromorphone HCl (Dilaudid) 1 mg IV ONETIME ONE Stop: 03/20/18 16:16 Last Admin: 03/20/18 17:39 Dose: Not Given Hydromorphone HCl (Dilaudid) Confirm Administered Dose 1 mg .ROUTE .STK-MED ONE Stop: 03/20/18 16:20 Last Admin: 03/20/18 17:25 Dose: Not Given Hydromorphone HCl (Dilaudid) 1 mg IVPUSH ONETIME ONE Stop: 03/20/18 17:39 Last Admin: 03/20/18 16:22 Dose: 1 mg Hydromorphone HCl (Dilaudid) 1 mg IVPUSH Q4H PRN PRN Reason: Pain (severe 7-10) Hydromorphone HCl (Dilaudid) 1 mg IV Q4H PRN PRN Reason: Pain Hydromorphone HCl (Dilaudid) 1 mg IVPUSH Q4H PRN PRN Reason: Pain Last Admin: 03/22/18 02:30 Dose: 1 mg Hydromorphone HCl (Dilaudid) 0.5 mg IVPUSH Q4H PRN PRN Reason: Pain Last Admin: 03/23/18 05:05 Dose: 0.5 mg Sodium Chloride (Normal Saline) 1,000 mls @ 999 mls/hr IV STAT ONE Stop: 03/20/18 17:15 Last Admin: 03/20/18 17:28 Dose: 999 mls/hr Sodium Chloride (Normal Saline) 1,000 mls @ 100 mls/hr IV ASDIRECTED [facility] Last Admin: 03/21/18 16:16 Dose: 100 mls/hr Lidocaine HCl (Xylocaine-Mpf 1%) Confirm Administered Dose 5 mls @ as directed .ROUTE .STK-MED ONE Stop: 03/21/18 08:41 Acetaminophen (Ofirmev) Confirm Administered Dose 100 mls @ as directed IV .STK- MED ONE Stop: 03/21/18 09:16 Sodium Chloride (Normal Saline) Confirm Administered Dose 20 mls @ as directed .ROUTE .STK-MED ONE Stop: 03/21/18 09:17 Cefazolin Sodium/Dextrose 2 gm (/ Premix) 50 mls @ 100 mls/hr IV ONETIME [facility] Last Admin: 03/22/18 00:55 Dose: 100 mls/hr Insulin Aspart (Novolog) 0 unit SUBCUT ACBREAKFASTANDBED [facility]; Protocol Last Admin: 03/20/18 21:05 Dose: 8 units Insulin Aspart (Novolog) 0 unit SUBCUT ACBREAKFASTANDBED [facility]; Protocol Last Admin: 03/21/18 07:20 Dose: Not Given Insulin Aspart (Novolog) 0 unit SUBCUT TIDAC [facility]; Protocol Insulin Aspart (Novolog) 0 unit SUBCUT TIDAC [facility]; Protocol Last Admin: 03/21/18 18:26 Dose: 6 units Ketamine HCl (Ketalar) Confirm Administered Dose 500 mg .ROUTE .STK-MED ONE Stop: 03/21/18 09:16 Lorazepam (Ativan) 1 mg IVPUSH ONETIME ONE Stop: 03/20/18 16:37 Last Admin: 03/20/18 16:40 Dose: 1 mg Lorazepam (Ativan) Confirm Administered Dose 2 mg .ROUTE .STK-MED ONE Stop: 03/20/18 16:38 Last Admin: 03/20/18 17:25 Dose: Not Given Midazolam HCl (Versed 1 Mg/Ml) Confirm Administered Dose 2 mg .ROUTE .STK-MED ONE Stop: 03/21/18 08:39 Neostigmine Methylsulfate (Neostigmine) Confirm Administered Dose 5 mg .ROUTE .ST-MED ONE Stop: 03/21/18 10:53 Ondansetron HCl (Zofran) 4 mg IVPUSH ONETIME ONE Stop: 03/20/18 16:16 Last Admin: 03/20/18 16:20 Dose: 4 mg Ondansetron HCl (Zofran) Confirm Administered Dose 4 mg .ROUTE .STK-MED ONE Stop: 03/20/18 16:20 Last Admin: 03/20/18 17:25 Dose: Not Given Ondansetron HCl (Zofran) Confirm Administered Dose 4 mg .ROUTE .[facility]-MED ONE Stop: 03/21/18 08:45 Oxycodone HCl (Oxycodone) 10 mg PO Q4H PRN PRN Reason: Pain Last Admin: 03/22/18 10:45 Dose: 10 mg Phenylephrine HCl (Adonay-Synephrine) Confirm Administered Dose 10 mg .ROUTE .[facility]- MED ONE Stop: 03/21/18 08:43 Propofol (Diprivan 20 Ml) Confirm Administered Dose 200 mg .ROUTE .STK-MED ONE Stop: 03/21/18 08:39 Rocuronium [place] (Zemuron) Confirm Administered Dose 100 mg .ROUTE .[facility]-MED ONE Stop: 03/21/18 08:42 Succinylcholine Chloride (Quelicin) Confirm Administered Dose 200 mg .ROUTE .ST -MED ONE Stop: 03/21/18 08:42 - Exam General: Alert, Oriented HEENT: Pupils Equal, Pupils Reactive, EOMI, Mucous Membr. Moist/[place] Neck: Supple Lungs: Clear to Auscultation, Normal Respiratory Effort Cardiovascular: Regular Rate, Regular Rhythm GI/Abdominal Exam: Normal Bowel Sounds, Soft, Non-Tender, No Organomegaly, No Distention, No Abnormal Bruit, No Mass, Pelvis Stable Extremities: Other (bilateral BKA.) Psy/Mental Status: Alert, Normal Affect, Normal Mood, Other - Problem List Review Problem List Initiated/Reviewed/Updated: Yes - My Orders Last 24 Hours: My Active Orders 03/23/18 08:39 oxyCODONE 5 mg PO Q4H PRN - Plan Plan:: Assessment: #1. Right hip fracture s/p day 2 fixation #2. Post-operative anemia #3. Mild leukocytosis #4. History of T2DM Plan: #1. DC dilaudid, decrease oxycodone to 5mg PO q4h PRN #2. Repeat H/H, BMP tomorrow AM #3. Will discuss with patient again about placement upon discharge. At this time , she is refusing SNF placement.
--- NOTE | 2018-03-23 16:27 | PCM.SN ---
- Free Text/Narrative Note: Subjective: Pain better controlled. Nurses have stated that 3 people required to help transfer her to a chair which they were able to do. no other issues. Objective: Afebrile, vital signs stable. Dressings are clean/dry/intact. Able to move right leg. Less than 2 second capillary refill distally. A/P: Postoperative day 2, nailing right hip fracture - Full weightbearing for transfers. - Home dose of Plavix for DVT prophylaxis - Leave dressings on - Will likely required assisted, but is currently refusing.
[2018-03-23] MEDS: Insulin Detemir 100 Units/ML 3 ML Pen SUBCUT SCH (20:55)
[2018-03-23] MEDS: Nitroglycerin 0.4 MG Tab.SL SL PRN ×2 (23:00→23:11)
[2018-03-23] MEDS ORDERED: Metoprolol Tartrate 25 MG Tab PO ONE (23:56)
[2018-03-24] MEDS ORDERED: Aspirin 325 MG Tab PO ONE ×2 (00:04→23:56)
--- NOTE | 2018-03-24 01:13 | PCM.SN ---
- Free Text/Narrative Note: patient complained of chest pain tonight. Vitals are stable. It was relieved with two sl nitros. EKG did not show any ST segment elevations. Troponin mildly elevated. Patient is on ranexa and plavix. She was given Aspirin and metoprol. We will monitor on telemetry and trend cardiac enzymes.
[2018-03-24] MEDS: oxyCODONE 5 MG Tab PO PRN ×2 (01:24→10:11)
[2018-03-24] MEDS: ceFAZolin 2 GM in Premix Bag 1 BAG IV SCH ×5 (01:26→21:22)
[2018-03-24] MEDS: Gabapentin 300 MG Cap PO SCH ×4 (05:33→23:22)
[2018-03-24] MEDS: Insulin Aspart 100 Units/ML 3 ML Pen SUBCUT SCH ×4 (06:59→21:10)
--- NOTE | 2018-03-24 07:32 | PCM.SN ---
- Free Text/Narrative Note: Subjective: Pain better controlled. confused and does not remember me. starting to accept need to go to [place] Objective: Afebrile, vital signs stable. Dressings are clean/dry/intact. Able to move right leg. Less than 2 second capillary refill distally. 1 to 2+ edema hands and legs. A/P: Postoperative day 2, nailing right hip fracture - Full weightbearing for transfers. - Home dose of Plavix for DVT prophylaxis - Leave dressings on - Will likely required correction, but is currently refusing.
[2018-03-24] MEDS ORDERED: Heparin Sodium 5,000 Units/ML Vial IVPUSH ONE ×2 (08:07→08:55)
[2018-03-24] MEDS ORDERED: Heparin Sod,Pork In 0.45% Nacl 25,000 UNIT/500 ML IV.SOLN IV SCH (09:00)
[2018-03-24] MEDS: Clopidogrel 75 MG Tab PO SCH ×2 (09:12)
[2018-03-24] MEDS: Albuterol 8 GM Inhaler INH SCH ×2 (09:55→21:13)
--- NOTE | 2018-03-24 10:25 | PCM.PN ---
- General Info Date of Service: 03/24/18 Subjective Update: Patient experienced chest pain that responded to 2 SL nitro. Troponins were trended and last draw was 0.2. Patient was placed on heparin drip, and given full dose aspirin. On rounds this AM, she tells me the chest pain had resolved, but occurred again after I had left. This time the pain went away on its own. She says she may have been experiencing anxiety secondary to multiple nurses in the room attempting to obtain IV access. She tells me that she does experience chest pain from time to time that does respond to nitro. She also complains of swelling in her hands and thighs which is new for her. - Review of Systems General: Reports: Other (see hpi) - Patient Data Vitals - Most Recent: Last Vital Signs Temp 36.4 C 03/24/18 08:00 Pulse 77 03/24/18 04:00 Resp 18 03/24/18 04:00 BP 112/55 L 03/24/18 08:00 Pulse Ox 94 L 03/24/18 08:00 Weight - Most Recent: 74 kg I&O - Last 24 Hours: Intake & Output 03/23/18 03/24/18 03/24/18 22:59 06:59 14:59 Intake Total 350 470 Output Total 300 Balance 50 470 Lab Results Last 24 Hours: Laboratory Results - last 24 hr 03/23/18 03/23/18 03/23/18 Range/Units 06:21 11:16 16:55 Hgb (12.0-16.0) g/dL Hct (36.0-46.0) % APTT (18.6-31.3) SEC Sodium (136-145) mmol/L Potassium (3.5-5.1) mmol/L Chloride (98-107) mmol/L Carbon Dioxide (21.0-32.0) mmol/L BUN (7.0-18.0) mg/dL Creatinine (0.6-1.0) mg/dL Est Cr Clr Drug Dosing mL/min Estimated GFR (MDRD) ml/min Glucose (74-106) mg/dL POC Glucose 195 H 215 H 195 H (60-110) mg/dL Calcium (8.5-10.1) mg/dL Troponin I (0.000-0.056) ng/mL 0103/23/18 03/24/18 Range/Units 20:44 22:55 04:45 Hgb 8.5 L (12.0-16.0) g/dL Hct 25.5 L (36.0-46.0) % APTT (18.6-31.3) SEC Sodium (136-145) mmol/L Potassium (3.5-5.1) mmol/L Chloride (98-107) mmol/L Carbon Dioxide (21.0-32.0) mmol/L BUN (7.0-18.0) mg/dL Creatinine (0.6-1.0) mg/dL Est Cr Clr Drug Dosing mL/min Estimated GFR (MDRD) ml/min Glucose (74-106) mg/dL POC Glucose 207 H (60-110) mg/dL Calcium (8.5-10.1) mg/dL Troponin I 0.157 H* (0.000-0.056) ng/mL 03/24/18 03/24/18 03/24/18 Range/Units 04:45 04:45 06:45 Hgb (12.0-16.0) g/dL Hct (36.0-46.0) % APTT (18.6-31.3) SEC Sodium 133 L (136-145) mmol/L Potassium 4.3 (3.5-5.1) mmol/L Chloride 101 (98-107) mmol/L Carbon Dioxide 27.3 (21.0-32.0) mmol/L BUN 21 H (7.0-18.0) mg/dL Creatinine 1.2 H (0.6-1.0) mg/dL Est Cr Clr Drug Dosing 36.21 mL/min Estimated GFR (MDRD) 45.4 ml/min Glucose 67 L (74-106) mg/dL POC Glucose 56 L (60-110) mg/dL Calcium 9.3 (8.5-10.1) mg/dL Troponin I 0.240 H* (0.000-0.056) ng/mL 03/24/18 Range/Units 09:13 Hgb (12.0-16.0) g/dL Hct (36.0-46.0) % APTT 27.3 (18.6-31.3) SEC Sodium (136-145) mmol/L Potassium (3.5-5.1) mmol/L Chloride (98-107) mmol/L Carbon Dioxide (21.0-32.0) mmol/L BUN (7.0-18.0) mg/dL Creatinine (0.6-1.0) mg/dL Est Cr Clr Drug Dosing mL/min Estimated GFR (MDRD) ml/min Glucose (74-106) mg/dL POC Glucose (60-110) mg/dL Calcium (8.5-10.1) mg/dL Troponin I (0.000-0.056) ng/mL Med Orders - Current: Current Medications Albuterol (Ventolin Hfa) 0 gm INH BID [facility] Last Admin: 03/24/18 09:55 Dose: Not Given Bisacodyl (Dulcolax) 5 mg PO DAILY PRN PRN Reason: Constipation Clopidogrel Bisulfate (Plavix) 75 mg PO DAILY [facility] Last Admin: 03/24/18 09:12 Dose: 75 mg Gabapentin (Neurontin) 600 mg PO QID [facility] Last Admin: 03/24/18 05:33 Dose: 600 mg Cefazolin Sodium/Dextrose 2 gm (/ Premix) 50 mls @ 100 mls/hr IV Q8H [facility] Last Admin: 03/24/18 01:38 Dose: Not Given Heparin Sodium/Sodium Chloride (Heparin-1/2ns 25,000 Units/500) 25,000 unit in 500 mls @ 17.76 mls/hr IV TITRATE [facility]; Protocol Insulin Aspart (Novolog) 0 unit SUBCUT ACBED [facility]; Protocol Last Admin: 03/24/18 06:59 Dose: Not Given Insulin Detemir (Levemir) 64 unit SUBCUT BEDTIME [facility] Last Admin: 03/23/18 20:55 Dose: 64 units Morphine Sulfate (Morphine) 2 mg IVPUSH Q2H PRN PRN Reason: Pain Nitroglycerin (Nitrostat) 0.4 mg SL Q5M PRN PRN Reason: Chest Pain Last Admin: 03/23/18 23:11 Dose: 0.4 mg Ondansetron HCl (Zofran) 4 mg IVPUSH Q6H PRN PRN Reason: Nausea/Vomiting Last Admin: 03/21/18 16:07 Dose: 4 mg Oxycodone HCl (Oxycodone) 5 mg PO Q4H PRN PRN Reason: Pain Last Admin: 03/24/18 01:24 Dose: 5 mg Ranolazine (Ranexa) 500 mg PO BID [facility] Last Admin: 03/24/18 09:03 Dose: 500 mg Temazepam (Restoril) 15 mg PO BEDTIME PRN PRN Reason: Sleep Discontinued Medications Albuterol (Proventil Hfa) 0 gm INH BID [facility] Last Admin: 03/20/18 22:25 Dose: Not Given Aspirin (Aspirin) 325 mg PO ONETIME ONE Stop: 03/24/18 23:57 Aspirin (Aspirin) 325 mg PO ONETIME ONE Stop: 03/24/18 00:05 Last Admin: 03/24/18 00:11 Dose: 325 mg Cefazolin Sodium/Dextrose (Ancef) Confirm Administered Dose 2 gm IV .STK-MED ONE Stop: 03/21/18 09:40 Clopidogrel Bisulfate (Plavix) 75 mg PO DAILY [facility] Clopidogrel Bisulfate (Plavix) 75 mg PO DAILY [facility] Last Admin: 03/24/18 09:12 Dose: Not Given Fentanyl (Sublimaze) Confirm Administered Dose 250 mcg .ROUTE .STK-MED ONE Stop: 03/21/18 08:39 Fentanyl (Sublimaze) 50 mcg IVPUSH Q5M PRN PRN Reason: Pain (severe 7-10) Stop: 03/21/18 13:00 Glycopyrrolate (Robinul) Confirm Administered Dose 0.4 mg .ROUTE .STK-MED ONE Stop: 03/21/18 10:53 Heparin Sodium (Porcine) (Heparin Sodium) 5,000 units SUBCUT Q8H [facility] Last Admin: 03/20/18 18:40 Dose: Not Given Heparin Sodium (Porcine) (Heparin Sodium) 0 units IVPUSH .[facility] ONE; Protocol Stop: 03/24/18 08:08 Last Admin: 03/24/18 09:12 Dose: Not Given Heparin Sodium (Porcine) (Heparin Sodium) 4,000 units IVPUSH ONETIME ONE Stop: 03/24/18 08:56 Hydromorphone HCl (Dilaudid) 1 mg IV ONETIME ONE Stop: 03/20/18 16:16 Last Admin: 03/20/18 17:39 Dose: Not Given Hydromorphone HCl (Dilaudid) Confirm Administered Dose 1 mg .ROUTE .STK-MED ONE Stop: 03/20/18 16:20 Last Admin: 03/20/18 17:25 Dose: Not Given Hydromorphone HCl (Dilaudid) 1 mg IVPUSH ONETIME ONE Stop: 03/20/18 17:39 Last Admin: 03/20/18 16:22 Dose: 1 mg Hydromorphone HCl (Dilaudid) 1 mg IVPUSH Q4H PRN PRN Reason: Pain (severe 7-10) Hydromorphone HCl (Dilaudid) 1 mg IV Q4H PRN PRN Reason: Pain Hydromorphone HCl (Dilaudid) 1 mg IVPUSH Q4H PRN PRN Reason: Pain Last Admin: 03/22/18 02:30 Dose: 1 mg Hydromorphone HCl (Dilaudid) 0.5 mg IVPUSH Q4H PRN PRN Reason: Pain Last Admin: 03/23/18 05:05 Dose: 0.5 mg Sodium Chloride (Normal Saline) 1,000 mls @ 999 mls/hr IV STAT ONE Stop: 03/20/18 17:15 Last Admin: 03/20/18 17:28 Dose: 999 mls/hr Sodium Chloride (Normal Saline) 1,000 mls @ 100 mls/hr IV ASDIRECTED [facility] Last Admin: 03/21/18 16:16 Dose: 100 mls/hr Lidocaine HCl (Xylocaine-Mpf 1%) Confirm Administered Dose 5 mls @ as directed .ROUTE .STK-MED ONE Stop: 03/21/18 08:41 Acetaminophen (Ofirmev) Confirm Administered Dose 100 mls @ as directed IV .STK- MED ONE Stop: 03/21/18 09:16 Sodium Chloride (Normal Saline) Confirm Administered Dose 20 mls @ as directed .ROUTE .STK-MED ONE Stop: 03/21/18 09:17 Cefazolin Sodium/Dextrose 2 gm (/ Premix) 50 mls @ 100 mls/hr IV ONETIME [facility] Last Admin: 03/22/18 00:55 Dose: 100 mls/hr Insulin Aspart (Novolog) 0 unit SUBCUT ACBREAKFASTANDBED [facility]; Protocol Last Admin: 03/20/18 21:05 Dose: 8 units Insulin Aspart (Novolog) 0 unit SUBCUT ACBREAKFASTANDBED [facility]; Protocol Last Admin: 03/21/18 07:20 Dose: Not Given [facility]ulin [facility] (Nov[facility]) [facility]; Protocol Insulin Aspart (Novolog) 0 unit SUBCUT TIDAC [facility]; Protocol Last Admin: 03/21/18 18:26 Dose: 6 units Ketamine HCl (Ketalar) Confirm Administered Dose 500 mg .ROUTE .STK-MED ONE Stop: 03/21/18 09:16 Lorazepam (Ativan) 1 mg IVPUSH ONETIME ONE Stop: 03/20/18 16:37 Last Admin: 03/20/18 16:40 Dose: 1 mg Lorazepam (Ativan) Confirm Administered Dose 2 mg .ROUTE .STK-MED ONE Stop: 03/20/18 16:38 Last Admin: 03/20/18 17:25 Dose: Not Given Metoprolol Tartrate (Lopressor) 25 mg PO ONETIME ONE Stop: 03/23/18 23:57 Last Admin: 03/24/18 00:11 Dose: 25 mg Midazolam HCl (Versed 1 Mg/Ml) Confirm Administered Dose 2 mg .ROUTE .STK-MED ONE Stop: 03/21/18 08:39 Neostigmine Methylsulfate (Neostigmine) Confirm Administered Dose 5 mg .ROUTE .STK-MED ONE Stop: 03/21/18 10:53 Ondansetron HCl (Zofran) 4 mg IVPUSH ONETIME ONE Stop: 03/20/18 16:16 Last Admin: 03/20/18 16:20 Dose: 4 mg Ondansetron HCl (Zofran) Confirm Administered Dose 4 mg .ROUTE .STK-MED ONE Stop: 03/20/18 16:20 Last Admin: 03/20/18 17:25 Dose: Not Given Ondansetron HCl (Zofran) Confirm Administered Dose 4 mg .ROUTE .STK-MED ONE Stop: 03/21/18 08:45 Oxycodone HCl (Oxycodone) 10 mg PO Q4H PRN PRN Reason: Pain Last Admin: 03/22/18 10:45 Dose: 10 mg Phenylephrine HCl (Adonay-Synephrine) Confirm Administered Dose 10 mg .ROUTE .STK- MED ONE Stop: 03/21/18 08:43 Propofol (Diprivan 20 Ml) Confirm Administered Dose 200 mg .ROUTE .STK-MED ONE Stop: 03/21/18 08:39 Rocuronium [place] (Zemuron) Confirm Administered Dose 100 mg .ROUTE .STK-MED ONE Stop: 03/21/18 08:42 Succinylcholine Chloride (Quelicin) Confirm Administered Dose 200 mg .ROUTE .STK -MED ONE Stop: 03/21/18 08:42 - Exam General: Alert, Oriented, Cooperative HEENT: Pupils Equal, Pupils Reactive, EOMI, Mucous Membr. Moist/[place] Neck: Supple Lungs: Clear to Auscultation, Normal Respiratory Effort Cardiovascular: Regular Rate, Regular Rhythm GI/Abdominal Exam: Normal Bowel Sounds, Soft, Non-Tender, No Organomegaly, No Distention, No Abnormal Bruit, No Mass, Pelvis Stable Back Exam: Normal Inspection, Full Range of Motion Extremities: Other (trace edema in hands and legs) Skin: Warm, Dry, Intact Psy/Mental Status: Alert, Normal Affect, Normal Mood - Problem List Review Problem List Initiated/Reviewed/Updated: Yes - My Orders Last 24 Hours: My Active Orders 03/24/18 09:00 Heparin Sod,Pork In 0.45% Nacl [Heparin-1/2Ns 25,000 Units/500] 25,000 unit in 500 ml IV TITRATE - Plan Plan:: Assessment: #1. Unstable Angina #2. Right hip fracture s/p day 3 fixation #3. Post-operative anemia #4. Peripheral edema #5. Mild leukocytosis #6. History of T2DM Plan: #1. Begin heparin drip as ordered. Will consult cardiology, we appreciate the recommendations. F/u on third troponin #2. Transfuse 2 units PRBC. Ischemia may be occurring secondary to the post-op anemia. #3. Anesthesia will be attempting a central line for IV access. #4. Lasix 40mg PO x1 for peripheral edema. #5. CBC, BMP tomorrow AM
[2018-03-24] MEDS ORDERED: Furosemide 40 MG Tab PO ONE (10:31)
--- NOTE | 2018-03-24 14:45 | CR ---
EXAMINATION: Fluoro and ultrasound guided left-sided PICC line placement. HISTORY: PICC line insertion. TECHNIQUE/FINDINGS: After written informed consent was obtained from the patient using ultrasound and Fluoro guidance under aseptic conditions utilizing 1% lidocaine as local anesthesia the left brachial vein was accessed and 5 [place] PICC catheter was deployed with its tip in the distal superior vena cava. The basilic vein was not identified and initially the cephalic vein was attempted however is notably diminutive in size and unable to pass the wire. The catheter flushes and withdraws blood well. The catheter is flushed with the diluted heparin. The catheter secured well. IMPRESSION: Successful Fluoro and ultrasound guided PICC line placement.
--- NOTE | 2018-03-24 14:45 | CR ---
EXAMINATION: Fluoro and ultrasound guided left-sided PICC line placement. HISTORY: PICC line insertion. TECHNIQUE/FINDINGS: After written informed consent was obtained from the patient using ultrasound and Fluoro guidance under aseptic conditions utilizing 1% lidocaine as local anesthesia the left brachial vein was accessed and 5 [place] PICC catheter was deployed with its tip in the distal superior vena cava. The basilic vein was not identified and initially the cephalic vein was attempted however is notably diminutive in size and unable to pass the wire. The catheter flushes and withdraws blood well. The catheter is flushed with the diluted heparin. The catheter secured well. IMPRESSION: Successful Fluoro and ultrasound guided PICC line placement.
[2018-03-24] MEDS ORDERED: Acetaminophen 500 MG Tab PO ONE (18:27)
--- NOTE | 2018-03-24 19:38 | CR ---
Indication: Hypoxia Technique: Chest 1 view Comparison: March 20, 2018 Findings/Impression: Stable cardiomediastinal silhouette. Postoperative changes of a median sternotomy. Lung volumes are low. No focal infiltrate, effusion, or pneumothorax. Pulmonary vasculature appears normal. No acute osseous abnormality. Dictated by Crystal Curtis MD @ Mar 24 2018 7:34PM Signed by Dr. Crystal Curtis @ Mar 24 2018 7:35PM
[2018-03-24] MEDS: Morphine 2 MG/ML Syringe IVPUSH PRN (20:49)
[2018-03-24] MEDS: Insulin Detemir 100 Units/ML 3 ML Pen SUBCUT SCH (23:10)
[2018-03-24] MEDS ORDERED: Insulin Detemir 100 Units/ML 3 ML Pen SUBCUT ONE (23:10)
[2018-03-25] MEDS: Gabapentin 300 MG Cap PO SCH ×5 (05:11→23:42)
[2018-03-25] MEDS: ceFAZolin 2 GM in Premix Bag 1 BAG IV SCH ×3 (05:11→21:26)
[2018-03-25] MEDS: oxyCODONE 5 MG Tab PO PRN ×3 (06:37→18:30)
[2018-03-25] MEDS: Insulin Aspart 100 Units/ML 3 ML Pen SUBCUT SCH ×4 (06:41→21:39)
[2018-03-25] MEDS: Morphine 2 MG/ML Syringe IVPUSH PRN ×2 (09:25→13:53)
[2018-03-25] MEDS: Aspirin 325 MG Tab PO SCH (09:37)
[2018-03-25] MEDS: Albuterol 8 GM Inhaler INH SCH ×2 (09:48→21:52)
[2018-03-25] MEDS: Clopidogrel 75 MG Tab PO SCH (10:10)
--- NOTE | 2018-03-25 10:12 | PCM.PN ---
- General Info Date of Service: 03/25/18 Subjective Update: Complains of pain at the surgical hip this morning. Yesterday evening patient developed a fever, with a negative work up. She has been afebrile since then. Fever began prior to blood transfusion - blood cultures pending. CBC, CXR and UA appear unremarkable. - Review of Systems General: Reports: Other (negative except for hpi) - Patient Data Vitals - Most Recent: Last Vital Signs Temp 37.1 C 03/25/18 07:14 Pulse 72 03/25/18 07:14 Resp 14 03/25/18 07:14 BP 129/62 03/25/18 07:14 Pulse Ox 93 L 03/25/18 07:14 Weight - Most Recent: 74 kg I&O - Last 24 Hours: Intake & Output 03/24/18 03/25/18 03/25/18 22:59 06:59 14:59 Intake Total 640 150 Output Total 330 Balance 640 -180 Lab Results Last 24 Hours: Laboratory Results - last 24 hr 03/24/18 03/24/18 03/24/18 Range/Units 09:51 11:39 13:29 WBC (4.0-11.0) K/uL RBC (4.30-5.90) M/uL Hgb (12.0-16.0) g/dL Hct (36.0-46.0) % MCV (80.0-98.0) fL MCH (27.0-32.0) pg MCHC (31.0-37.0) g/dL RDW Std Deviation (28.0-62.0) fl RDW Coeff of Mary (11.0-15.0) % Plt Count (150-400) K/uL MPV (7.40-12.00) fL Neut % (Auto) (48.0-80.0) % Lymph % (Auto) (16.0-40.0) % [place] % (Auto) (0.0-15.0) % Eos % (Auto) (0.0-7.0) % Baso % (Auto) (0.0-1.5) % Neut # (Auto) (1.4-5.7) K/uL Lymph # (Auto) (0.6-2.4) K/uL [place] # (Auto) (0.0-0.8) K/uL Eos # (Auto) (0.0-0.7) K/uL Baso # (Auto) (0.0-0.1) K/uL Nucleated RBC % /100WBC Nucleated RBCs # K/uL Lactate (0.20-2.00) mmol/L Sodium (136-145) mmol/L Potassium (3.5-5.1) mmol/L Chloride (98-107) mmol/L Carbon Dioxide (21.0-32.0) mmol/L BUN (7.0-18.0) mg/dL Creatinine (0.6-1.0) mg/dL Est Cr Clr Drug Dosing mL/min Estimated GFR (MDRD) ml/min Glucose (74-106) mg/dL POC Glucose 137 H (60-110) mg/dL Calcium (8.5-10.1) mg/dL Troponin I 0.208 H* (0.000-0.056) ng/mL Urine Color Urine Appearance Urine pH (5.0-8.0) Ur Specific [place] (1.001-1.035) Urine Protein (NEGATIVE) mg/dL Urine Glucose (UA) (NEGATIVE) mg/dL Urine Ketones (NEGATIVE) mg/dL Urine Occult Blood (NEGATIVE) Urine Nitrite (NEGATIVE) Urine Bilirubin (NEGATIVE) Urine Urobilinogen (<2.0) EU/dL Ur Leukocyte Esterase (NEGATIVE) Urine RBC (0-2/HPF) Urine WBC (0-5/HPF) Ur Epithelial Cells (NONE-FEW) Urine Bacteria (NEGATIVE) Urine Mucus (NONE-MOD) Blood Type A POSITIVE Antibody Screen NEGATIVE Crossmatch See Detail 03/24/18 03/24/18 03/24/18 Range/Units 16:04 18:18 18:55 WBC (4.0-11.0) K/uL RBC (4.30-5.90) M/uL Hgb (12.0-16.0) g/dL Hct (36.0-46.0) % MCV (80.0-98.0) fL MCH (27.0-32.0) pg MCHC (31.0-37.0) g/dL RDW Std Deviation (28.0-62.0) fl RDW Coeff of Mary (11.0-15.0) % Plt Count (150-400) K/uL MPV (7.40-12.00) fL Neut % (Auto) (48.0-80.0) % Lymph % (Auto) (16.0-40.0) % [place] % (Auto) (0.0-15.0) % Eos % (Auto) (0.0-7.0) % Baso % (Auto) (0.0-1.5) % Neut # (Auto) (1.4-5.7) K/uL Lymph # (Auto) (0.6-2.4) K/uL [place] # (Auto) (0.0-0.8) K/uL Eos # (Auto) (0.0-0.7) K/uL Baso # (Auto) (0.0-0.1) K/uL Nucleated RBC % /100WBC Nucleated RBCs # K/uL Lactate 0.6 (0.20-2.00) mmol/L Sodium (136-145) mmol/L Potassium (3.5-5.1) mmol/L Chloride (98-107) mmol/L Carbon Dioxide (21.0-32.0) mmol/L BUN (7.0-18.0) mg/dL Creatinine (0.6-1.0) mg/dL Est Cr Clr Drug Dosing mL/min Estimated GFR (MDRD) ml/min Glucose (74-106) mg/dL POC Glucose 97 97 (60-110) mg/dL Calcium (8.5-10.1) mg/dL Troponin I (0.000-0.056) ng/mL Urine Color Urine Appearance Urine pH (5.0-8.0) Ur Specific [place] (1.001-1.035) Urine Protein (NEGATIVE) mg/dL Urine Glucose (UA) (NEGATIVE) mg/dL Urine Ketones (NEGATIVE) mg/dL Urine Occult Blood (NEGATIVE) Urine Nitrite (NEGATIVE) Urine Bilirubin (NEGATIVE) Urine Urobilinogen (<2.0) EU/dL Ur Leukocyte Esterase (NEGATIVE) Urine RBC (0-2/HPF) Urine WBC (0-5/HPF) Ur Epithelial Cells (NONE-FEW) Urine Bacteria (NEGATIVE) Urine Mucus (NONE-MOD) Blood Type Antibody Screen Crossmatch 01/22/19 01/22/19 01/22/19 Range/Units 18:55 21:08 21:10 WBC 8.54 (4.0-11.0) K/uL RBC 3.43 L (4.30-5.90) M/uL Hgb 10.3 L (12.0-16.0) g/dL Hct 29.6 L (36.0-46.0) % MCV 86.3 (80.0-98.0) fL MCH 30.0 (27.0-32.0) pg MCHC 34.8 (31.0-37.0) g/dL RDW Std Deviation 42.4 (28.0-62.0) fl RDW Coeff of Mary 14 (11.0-15.0) % Plt Count 249 (150-400) K/uL MPV 9.20 (7.40-12.00) fL Neut % (Auto) 73.4 (48.0-80.0) % Lymph % (Auto) 10.8 L (16.0-40.0) % [place] % (Auto) 13.7 (0.0-15.0) % Eos % (Auto) 2.0 (0.0-7.0) % Baso % (Auto) 0.1 (0.0-1.5) % Neut # (Auto) 6.3 H (1.4-5.7) K/uL Lymph # (Auto) 0.9 (0.6-2.4) K/uL [place] # (Auto) 1.2 H (0.0-0.8) K/uL Eos # (Auto) 0.2 (0.0-0.7) K/uL Baso # (Auto) 0.0 (0.0-0.1) K/uL Nucleated RBC % 0.0 /100WBC Nucleated RBCs # 0 K/uL Lactate (0.20-2.00) mmol/L Sodium (136-145) mmol/L Potassium (3.5-5.1) mmol/L Chloride (98-107) mmol/L Carbon Dioxide (21.0-32.0) mmol/L BUN (7.0-18.0) mg/dL Creatinine (0.6-1.0) mg/dL Est Cr Clr Drug Dosing mL/min Estimated GFR (MDRD) ml/min Glucose (74-106) mg/dL POC Glucose 101 (60-110) mg/dL Calcium (8.5-10.1) mg/dL Troponin I (0.000-0.056) ng/mL Urine Color YELLOW Urine Appearance CLEAR Urine pH 5.5 (5.0-8.0) Ur Specific [place] 1.015 (1.001-1.035) Urine Protein 30 H (NEGATIVE) mg/dL Urine Glucose (UA) NEGATIVE (NEGATIVE) mg/dL Urine Ketones NEGATIVE (NEGATIVE) mg/dL Urine Occult Blood TRACE-INTACT H (NEGATIVE) Urine Nitrite NEGATIVE (NEGATIVE) Urine Bilirubin NEGATIVE (NEGATIVE) Urine Urobilinogen 0.2 (<2.0) EU/dL Ur Leukocyte Esterase NEGATIVE (NEGATIVE) Urine RBC NONE SEEN (0-2/HPF) Urine WBC 0-3 (0-5/HPF) Ur Epithelial Cells RARE (NONE-FEW) Urine Bacteria RARE (NEGATIVE) Urine Mucus LIGHT (NONE-MOD) Blood Type Antibody Screen Crossmatch 03/25/18 03/25/18 03/25/18 Range/Units 05:38 05:38 06:29 WBC 8.31 (4.0-11.0) K/uL RBC 3.42 L (4.30-5.90) M/uL Hgb 10.0 L (12.0-16.0) g/dL Hct 29.6 L (36.0-46.0) % MCV 86.5 (80.0-98.0) fL MCH 29.2 (27.0-32.0) pg MCHC 33.8 (31.0-37.0) g/dL RDW Std Deviation 43.2 (28.0-62.0) fl RDW Coeff of Mary 14 (11.0-15.0) % Plt Count 260 (150-400) K/uL MPV 9.20 (7.40-12.00) fL Neut % (Auto) 73.1 (48.0-80.0) % Lymph % (Auto) 10.2 L (16.0-40.0) % [place] % (Auto) 13.1 (0.0-15.0) % Eos % (Auto) 3.4 (0.0-7.0) % Baso % (Auto) 0.2 (0.0-1.5) % Neut # (Auto) 6.1 H (1.4-5.7) K/uL Lymph # (Auto) 0.9 (0.6-2.4) K/uL [place] # (Auto) 1.1 H (0.0-0.8) K/uL Eos # (Auto) 0.3 (0.0-0.7) K/uL Baso # (Auto) 0.0 (0.0-0.1) K/uL Nucleated RBC % 0.0 /100WBC Nucleated RBCs # 0 K/uL Lactate (0.20-2.00) mmol/L Sodium 136 (136-145) mmol/L Potassium 3.6 (3.5-5.1) mmol/L Chloride 99 (98-107) mmol/L Carbon Dioxide 25.6 (21.0-32.0) mmol/L BUN 24 H (7.0-18.0) mg/dL Creatinine 1.2 H (0.6-1.0) mg/dL Est Cr Clr Drug Dosing 36.21 mL/min Estimated GFR (MDRD) 45.4 ml/min Glucose 60 L (74-106) mg/dL POC Glucose 56 L (60-110) mg/dL Calcium 9.1 (8.5-10.1) mg/dL Troponin I 0.136 H* (0.000-0.056) ng/mL Urine Color Urine Appearance Urine pH (5.0-8.0) Ur Specific [place] (1.001-1.035) Urine Protein (NEGATIVE) mg/dL Urine Glucose (UA) (NEGATIVE) mg/dL Urine Ketones (NEGATIVE) mg/dL Urine Occult Blood (NEGATIVE) Urine Nitrite (NEGATIVE) Urine Bilirubin (NEGATIVE) Urine Urobilinogen (<2.0) EU/dL Ur Leukocyte Esterase (NEGATIVE) Urine RBC (0-2/HPF) Urine WBC (0-5/HPF) Ur Epithelial Cells (NONE-FEW) Urine Bacteria (NEGATIVE) Urine Mucus (NONE-MOD) Blood Type Antibody Screen Crossmatch Lj Results Last 24 Hours: Microbiology 03/24/18 19:12 Anaerobic Blood Culture - Final Blood - Arm, Right 03/24/18 19:15 Anaerobic Blood Culture - Final Blood - Venous - Lab Draw Med Orders - Current: Current Medications Albuterol (Ventolin Hfa) 0 gm INH BID [facility] Last Admin: 03/25/18 09:48 Dose: 2 puff Aspirin (Aspirin) 325 mg PO DAILY [facility] Last Admin: 03/25/18 09:37 Dose: 325 mg Bisacodyl (Dulcolax) 5 mg PO DAILY PRN PRN Reason: Constipation Last Admin: 03/24/18 20:51 Dose: 5 mg Clopidogrel Bisulfate (Plavix) 75 mg PO DAILY [facility] Last Admin: 03/24/18 09:12 Dose: 75 mg Gabapentin (Neurontin) 600 mg PO QID [facility] Last Admin: 03/25/18 05:18 Dose: Not Given Cefazolin Sodium/Dextrose 2 gm (/ Premix) 50 mls @ 100 mls/hr IV Q8H [facility] Last Admin: 03/25/18 05:11 Dose: 100 mls/hr Insulin Aspart (Novolog) 0 unit SUBCUT ACBED [facility]; Protocol Last Admin: 03/25/18 06:41 Dose: Not Given Insulin Detemir (Levemir) 64 unit SUBCUT BEDTIME [facility] Last Admin: 03/24/18 23:10 Dose: Not Given Morphine Sulfate (Morphine) 2 mg IVPUSH Q2H PRN PRN Reason: Pain Last Admin: 03/25/18 09:25 Dose: 2 mg Nitroglycerin (Nitrostat) 0.4 mg SL Q5M PRN PRN Reason: Chest Pain Last Admin: 03/23/18 23:11 Dose: 0.4 mg Ondansetron HCl (Zofran) 4 mg IVPUSH Q6H PRN PRN Reason: Nausea/Vomiting Last Admin: 03/21/18 16:07 Dose: 4 mg Oxycodone HCl (Oxycodone) 5 mg PO Q4H PRN PRN Reason: Pain Last Admin: 03/25/18 06:37 Dose: 5 mg Ranolazine (Ranexa) 500 mg PO BID [facility] Last Admin: 03/25/18 09:37 Dose: 500 mg Temazepam (Restoril) 15 mg PO BEDTIME PRN PRN Reason: Sleep Discontinued Medications Acetaminophen (Tylenol Extra Strength) 1,000 mg PO ONETIME ONE Stop: 03/24/18 18:28 Last Admin: 03/24/18 18:42 Dose: 1,000 mg Albuterol (Proventil Hfa) 0 gm INH BID [facility] Last Admin: 03/20/18 22:25 Dose: Not Given Aspirin (Aspirin) 325 mg PO ONETIME ONE Stop: 03/24/18 23:57 Aspirin (Aspirin) 325 mg PO ONETIME ONE Stop: 03/24/18 00:05 Last Admin: 03/24/18 00:11 Dose: 325 mg Cefazolin Sodium/Dextrose (Ancef) Confirm Administered Dose 2 gm IV .STK-MED ONE Stop: 03/21/18 09:40 Clopidogrel Bisulfate (Plavix) 75 mg PO DAILY [facility] Clopidogrel Bisulfate (Plavix) 75 mg PO DAILY [facility] Last Admin: 03/24/18 09:12 Dose: Not Given Fentanyl (Sublimaze) Confirm Administered Dose 250 mcg .ROUTE .STK-MED ONE Stop: 03/21/18 08:39 Fentanyl (Sublimaze) 50 mcg IVPUSH Q5M PRN PRN Reason: Pain (severe 7-10) Stop: 03/21/18 13:00 Furosemide (Lasix) 40 mg PO ONETIME ONE Stop: 03/24/18 10:32 Last Admin: 03/24/18 10:43 Dose: 40 mg Glycopyrrolate (Robinul) Confirm Administered Dose 0.4 mg .ROUTE .STK-MED ONE Stop: 03/21/18 10:53 Heparin Sodium (Porcine) (Heparin Sodium) 5,000 units SUBCUT Q8H [facility] Last Admin: 03/20/18 18:40 Dose: Not Given Heparin Sodium (Porcine) (Heparin Sodium) 0 units IVPUSH .BOLUS ONE; Protocol Stop: 03/24/18 08:08 Last Admin: 03/24/18 09:12 Dose: Not Given Heparin Sodium (Porcine) (Heparin Sodium) 4,000 units IVPUSH ONETIME ONE Stop: 03/24/18 08:56 Last Admin: 03/24/18 11:55 Dose: Not Given Hydromorphone HCl (Dilaudid) 1 mg IV ONETIME ONE Stop: 03/20/18 16:16 Last Admin: 03/20/18 17:39 Dose: Not Given Hydromorphone HCl (Dilaudid) Confirm Administered Dose 1 mg .ROUTE .STK-MED ONE Stop: 03/20/18 16:20 Last Admin: 03/20/18 17:25 Dose: Not Given Hydromorphone HCl (Dilaudid) 1 mg IVPUSH ONETIME ONE Stop: 03/20/18 17:39 Last Admin: 03/20/18 16:22 Dose: 1 mg Hydromorphone HCl (Dilaudid) 1 mg IVPUSH Q4H PRN PRN Reason: Pain (severe 7-10) Hydromorphone HCl (Dilaudid) 1 mg IV Q4H PRN PRN Reason: Pain Hydromorphone HCl (Dilaudid) 1 mg IVPUSH Q4H PRN PRN Reason: Pain Last Admin: 03/22/18 02:30 Dose: 1 mg Hydromorphone HCl (Dilaudid) 0.5 mg IVPUSH Q4H PRN PRN Reason: Pain Last Admin: 03/23/18 05:05 Dose: 0.5 mg Sodium Chloride (Normal Saline) 1,000 mls @ 999 mls/hr IV STAT ONE Stop: 03/20/18 17:15 Last Admin: 03/20/18 17:28 Dose: 999 mls/hr Sodium Chloride (Normal Saline) 1,000 mls @ 100 mls/hr IV ASDIRECTED [facility] Last Admin: 03/21/18 16:16 Dose: 100 mls/hr Lidocaine HCl (Xylocaine-Mpf 1%) Confirm Administered Dose 5 mls @ as directed .ROUTE .STK-MED ONE Stop: 03/21/18 08:41 Acetaminophen (Ofirmev) Confirm Administered Dose 100 mls @ as directed IV .STK- MED ONE Stop: 03/21/18 09:16 Sodium Chloride (Normal Saline) Confirm Administered Dose 20 mls @ as directed .ROUTE .STK-MED ONE Stop: 03/21/18 09:17 Cefazolin Sodium/Dextrose 2 gm (/ Premix) 50 mls @ 100 mls/hr IV ONETIME [facility] Last Admin: 03/22/18 00:55 Dose: 100 mls/hr Cefazolin Sodium/Dextrose 2 gm (/ Premix) 50 mls @ 100 mls/hr IV Q8H [facility] Last Admin: 03/24/18 13:50 Dose: Not Given Heparin Sodium/Sodium Chloride (Heparin-1/2ns 25,000 Units/500) 25,000 unit in 500 mls @ 17.76 mls/hr IV TITRATE [facility]; Protocol Insulin Aspart (Novolog) 0 unit SUBCUT ACBREAKFASTANDBED [facility]; Protocol Last Admin: 03/20/18 21:05 Dose: 8 units Insulin Aspart (Novolog) 0 unit SUBCUT ACBREAKFASTANDBED [facility]; Protocol Last Admin: 03/21/18 07:20 Dose: Not Given Insulin Aspart (Novolog) 0 unit SUBCUT TIDAC [facility]; Protocol Insulin Aspart (Novolog) 0 unit SUBCUT TIDAC [facility]; Protocol Last Admin: 03/21/18 18:26 Dose: 6 units Insulin Detemir (Levemir) 30 unit SUBCUT ONETIME ONE Stop: 03/24/18 23:11 Last Admin: 03/24/18 23:19 Dose: 30 units Ketamine HCl (Ketalar) Confirm Administered Dose 500 mg .ROUTE .STK-MED ONE Stop: 03/21/18 09:16 Lorazepam (Ativan) 1 mg IVPUSH ONETIME ONE Stop: 03/20/18 16:37 Last Admin: 03/20/18 16:40 Dose: 1 mg Lorazepam (Ativan) Confirm Administered Dose 2 mg .ROUTE .STK-MED ONE Stop: 03/20/18 16:38 Last Admin: 03/20/18 17:25 Dose: Not Given Metoprolol Tartrate (Lopressor) 25 mg PO ONETIME ONE Stop: 03/23/18 23:57 Last Admin: 03/24/18 00:11 Dose: 25 mg Midazolam HCl (Versed 1 Mg/Ml) Confirm Administered Dose 2 mg .ROUTE .STK-MED ONE Stop: 03/21/18 08:39 Neostigmine Methylsulfate (Neostigmine) Confirm Administered Dose 5 mg .ROUTE .STK-MED ONE Stop: 03/21/18 10:53 Ondansetron HCl (Zofran) 4 mg IVPUSH ONETIME ONE Stop: 03/20/18 16:16 Last Admin: 03/20/18 16:20 Dose: 4 mg Ondansetron HCl (Zofran) Confirm Administered Dose 4 mg .ROUTE .STK-MED ONE Stop: 03/20/18 16:20 Last Admin: 03/20/18 17:25 Dose: Not Given Ondansetron HCl (Zofran) Confirm Administered Dose 4 mg .ROUTE .STK-MED ONE Stop: 03/21/18 08:45 Oxycodone HCl (Oxycodone) 10 mg PO Q4H PRN PRN Reason: Pain Last Admin: 03/22/18 10:45 Dose: 10 mg Phenylephrine HCl ([place]onay-Synephrine) Confirm Administered Dose 10 mg .ROUTE .STK- MED ONE Stop: 03/21/18 08:43 Propofol (Diprivan 20 Ml) Confirm Administered Dose 200 mg .ROUTE .STK-MED ONE Stop: 03/21/18 08:39 Rocuronium [place] (Zemuron) Confirm Administered Dose 100 mg .ROUTE .STK-MED ONE Stop: 03/21/18 08:42 Succinylcholine Chloride (Quelicin) Confirm Administered Dose 200 mg .ROUTE .STK -MED ONE Stop: 03/21/18 08:42 - Exam General: Alert, Oriented HEENT: Pupils Equal, Pupils Reactive, EOMI, Mucous Membr. Moist/[place] Neck: Supple Lungs: Clear to Auscultation, Normal Respiratory Effort Cardiovascular: Regular Rate, Regular Rhythm GI/Abdominal Exam: Normal Bowel Sounds, Soft, Non-Tender, No Organomegaly, No Distention, No Abnormal Bruit, No Mass, Pelvis Stable Back Exam: Normal Inspection, Full Range of Motion Extremities: Normal Inspection, Normal Range of Motion, Non-Tender, No Pedal Edema, Normal Capillary Refill Peripheral Pulses: 2+: Dorsalis Pedis (L), Dorsalis Pedis (R) Skin: Warm, Dry, Intact Psy/Mental Status: Alert, Normal Affect, Normal Mood - Problem List Review Problem List Initiated/Reviewed/Updated: Yes - My Orders Last 24 Hours: My Active Orders 03/24/18 10:25 Notify Provider Consults [RC] ASDIRECTED Consult to Physician [CONS] Routine 03/24/18 10:37 Central Line PICC Insertion [Central Venous Line Insertion] [OM.PC] Routine 03/24/18 18:27 Blood Culture x2 Reflex Set [OM.PC] Stat 03/24/18 19:12 CULTURE BLOOD [BC] Stat 03/24/18 19:15 CULTURE BLOOD [BC] Stat 03/25/18 09:00 Aspirin 325 mg PO DAILY - Plan Plan:: Assessment: #1. Unstable Angina - downtrending troponin #2. Right hip fracture s/p day 4 fixation #3. Post-operative anemia - s/p 1 unit transfusion hgb 10.0 #4. Peripheral edema #5. Mild leukocytosis - resolved #6. History of T2DM Plan: #1. Continue to observe, pain control for hip pain. Will anticipate discharge tomorrow to [facility] for rehabilitation of the hip. She agrees to the plan.
[2018-03-25] MEDS ORDERED: Bisacodyl 10 MG Supp RECTAL PRN (15:44)
[2018-03-25] MEDS: Insulin Detemir 100 Units/ML 3 ML Pen SUBCUT SCH (21:39)
[2018-03-26] MEDS: Morphine 2 MG/ML Syringe IVPUSH PRN ×3 (00:46→13:02)
[2018-03-26] MEDS: ceFAZolin 2 GM in Premix Bag 1 BAG IV SCH (04:45)
[2018-03-26] MEDS: Gabapentin 300 MG Cap PO SCH ×2 (06:22→12:38)
[2018-03-26] MEDS: Insulin Aspart 100 Units/ML 3 ML Pen SUBCUT SCH ×2 (06:37→12:47)
[2018-03-26] MEDS ORDERED: guaiFENesin 600 MG Tab.ER PO PRN (08:18)
[2018-03-26] MEDS: oxyCODONE 5 MG Tab PO PRN (08:56)
[2018-03-26] MEDS: Aspirin 325 MG Tab PO SCH (08:57)
[2018-03-26] MEDS: Clopidogrel 75 MG Tab PO SCH (08:58)
[2018-03-26] MEDS: Albuterol 8 GM Inhaler INH SCH (09:24)
--- NOTE | 2018-03-26 11:21 | CONS ---
DATE OF CONSULTATION: DATE OF : 1955 PRIMARY CARE PHYSICIAN: Unknown PCP REASON FOR CONSULTATION: Troponin elevation. HISTORY OF PRESENT ILLNESS: This is a 62-year-old female with history of CAD, status post CABG in [place], like 10 years ago. We do not have the available record. History of BKA both knees, history of peripheral vascular disease, bone tumor, insulin-dependent diabetes, CKD, hyperlipidemia, and GERD. She was into the hospital because of the fall and the hip fracture on the right side, and she underwent the hip replacement 3 days ago. The night before, she started having a chest pain, and she describes it as a pressure in her chest, no radiation, lasted for 5 to 10 minutes. She feels slight short of breath. No heart racing. EKG was sent at that time. There are no changes. Troponin was elevated as well. It is initially 0.1, and the second set is 0.2. PAST MEDICAL HISTORY: Including CAD, CABG, BKA, peripheral vascular disease, bone tumor, diabetes, CKD, hyperlipidemia, GERD, depression, and hypertension. SOCIAL HISTORY: Occasional alcohol use, former smoker, no drug use Family history no pertinent family history Allergies allergic to codeine as well as a Tylenol with Codeine Review system Indicated in HPI otherwise been negative from 10 point review of system Physical examination V/S HEENT mild dry mild pale no jaundice Heart normal S1S2 no murmur Lung clear bilaterally Abdomen soft not tendered, BS present no hepatosplenomegaly. Ext: hip surgery, BKA. ASSESSMENT AND PLAN: This is a 62-year-old female history of coronary artery disease, coronary artery bypass grafting, below-knee amputation due to peripheral vascular disease, chronic kidney disease, hypertension, hyperlipidemia, insulin-dependent diabetes, presented to hospital with right hip fracture, status post right hip operation with a chest pain, acute anemia postoperatively with troponin elevation most likely demand ischemia from the blood-loss anemia and surgery. We will recommend to give her blood transfusion to keep hematocrit around 30. Continue aspirin and Plavix as allowable from the surgical standpoint. She should be on the beta-lemuel as well as the HOMERO inhibitor; however, there was some concern about depression and the beta-lemuel when I saw her in the clinic, but I am not certain the reason that the HOMERO inhibitor was stopped. Recommended to cycle cardiac enzyme. JONNY / JUANY /[id number] SUNITA
[2018-03-26 11:32] VITALS: BP 132/82
--- NOTE | 2018-03-26 12:06 | PCM.DCSUM1 ---
Discharge Summary - Hospital Course HPI Initial Comments: Admission date: 03/20/2018 Discharge date: 03/26/2018 Admission diagnosis: #1. R hip intratrochanteric fracture s/p fixation #2. History of L hip replacement #3. History of bilateral BKA, t2dm, CABG Discharge diagnosis: #1. R hip intratrochanteric fracture s/p fixation #2. History of L hip replacement #3. Post-op anemia #4. Demand ischemia resulting in elevated troponin #5. History of bilateral BKA, t2dm, CABG Hospital course: 62F with the history above was admitted for medical management s/p R hip fixation of a fracture. During her hospital stay, she did have an episode of post-op anemia with a hgb of 8.5 that resulted in an episode of chest pain w/ elevated troponin and no ekg changes. She was given 2 units of PRBC. This was believed to be secondary to post-op anemia resulted in demand ischemia. This pain resolved and had no future episodes. She was prescribed aspirin, continue plavix, and temporary oxycodone. She is transferred to [facility] for SNF rehab. Disposition: [facility] home - Discharge Data Discharge Date: 03/26/18 Discharge Disposition: DC/Tfer to [facility] 03 Condition: Stable - Patient Summary/Data Operative Procedure(s) Performed: closed reductioin cephalomedulary nailing right hip intertrochanteric fracture Consults: Consultations 03/20/18 17:46 Consult to Physician [CONS] Routine OT Evaluation and Treatment [CONS] Routine 03/21/18 11:27 PT Evaluation and Treatment [CONS] Routine 03/24/18 10:25 Consult to Physician [CONS] Routine - Patient Instructions Diet: Diabetic Diet Activity: Apply Ice, As Tolerated, Full Weight Bearing Showering/Bathing: May Shower Wound/Incision Care: Keep Operative Site/Wound Site Clean and Dry, Do NOT Change Dressing Notify Provider of: Fever, Increased Pain, Nausea and/or Vomiting - Discharge Plan Prescriptions/Med Rec: Aspirin 325 mg PO DAILY 14 Days #14 tab guaiFENesin [Mucinex] 600 mg PO TID PRN #15 tab.er PRN Reason: Cough Home Medications: Home Meds Clopidogrel [Plavix] 75 mg PO DAILY 12/24/13 [History] Insulin Detemir [Levemir Flexpen] 64 unit SQ BEDTIME 12/24/13 [History] Ranolazine [Ranexa] 500 mg PO BID 12/24/13 [History] Insulin Lispro [HumaLOG] 10 units SQ TIDAC 02/16/14 [History] Gabapentin [Neurontin] 600 mg PO QID 09/13/14 [History] Albuterol [IJP: Ventolin HFA] 2 puff INH .TWICE DAILY #18 gm 05/16/16 [Rx] Nitroglycerin 1 tab .ROUTE ASDIRECTED PRN 05/16/16 [History] Ondansetron HCl [Zofran] 4 mg PO Q4HR #12 tablet 07/10/17 [Rx] Aspirin 325 mg PO DAILY 14 Days #14 tab 03/26/18 [Rx] Aspirin 325 mg PO DAILY 14 Days #14 tablet 03/26/18 [Rx] guaiFENesin [Mucinex] 600 mg PO TID PRN #15 tab.er 03/26/18 [Rx] Referrals: Brice Valdes MD [Physician] - 03/30/18 Li Jc PA [Physician Technical Buyer] - 04/02/18 10:20 am - Discharge Summary/Plan Comment DC Time >30 min.: No - Patient Data Vitals - Most Recent: Last Vital Signs Temp 37.1 C 03/26/18 11:00 Pulse 85 03/26/18 11:00 Resp 16 03/26/18 11:00 BP 132/82 03/26/18 11:00 Pulse Ox 97 03/26/18 11:00 Weight - Most Recent: 74 kg I&O - Last 24 hours: Intake & Output 03/25/18 03/26/18 03/26/18 22:59 06:59 14:59 Intake Total 970 650 Balance 970 650 Lab Results - Last 24 hrs: Laboratory Results - last 24 hr 03/25/18 03/25/18 03/26/18 Range/Units 16:22 21:26 05:00 WBC 6.73 (4.0-11.0) K/uL RBC 3.36 L (4.30-5.90) M/uL Hgb 9.8 L (12.0-16.0) g/dL Hct 29.3 L (36.0-46.0) % MCV 87.2 (80.0-98.0) fL MCH 29.2 (27.0-32.0) pg MCHC 33.4 (31.0-37.0) g/dL RDW Std Deviation 43.9 (28.0-62.0) fl RDW Coeff of Mary 14 (11.0-15.0) % Plt Count 272 (150-400) K/uL MPV 9.10 (7.40-12.00) fL Neut % (Auto) 68.8 (48.0-80.0) % Lymph % (Auto) 15.9 L (16.0-40.0) % [place] % (Auto) 12.3 (0.0-15.0) % Eos % (Auto) 2.7 (0.0-7.0) % Baso % (Auto) 0.3 (0.0-1.5) % Neut # (Auto) 4.6 (1.4-5.7) K/uL Lymph # (Auto) 1.1 (0.6-2.4) K/uL [place] # (Auto) 0.8 (0.0-0.8) K/uL Eos # (Auto) 0.2 (0.0-0.7) K/uL Baso # (Auto) 0.0 (0.0-0.1) K/uL Nucleated RBC % 0.0 /100WBC Nucleated RBCs # 0 K/uL Sodium (136-145) mmol/L Potassium (3.5-5.1) mmol/L Chloride (98-107) mmol/L Carbon Dioxide (21.0-32.0) mmol/L BUN (7.0-18.0) mg/dL Creatinine (0.6-1.0) mg/dL Est Cr Clr Drug Dosing mL/min Estimated GFR (MDRD) ml/min Glucose (74-106) mg/dL POC Glucose 149 H 267 H (60-110) mg/dL Calcium (8.5-10.1) mg/dL Total Bilirubin (0.2-1.0) mg/dL AST (15-37) IU/L ALT (14-63) IU/L Alkaline Phosphatase (46-116) U/L Total Protein (6.4-8.2) g/dL Albumin (3.4-5.0) g/dL Globulin (2.6-4.0) g/dL Albumin/Globulin Ratio (0.9-1.6) 03/26/18 03/26/18 Range/Units 05:00 06:21 WBC (4.0-11.0) K/uL RBC (4.30-5.90) M/uL Hgb (12.0-16.0) g/dL Hct (36.0-46.0) % MCV (80.0-98.0) fL MCH (27.0-32.0) pg MCHC (31.0-37.0) g/dL RDW Std Deviation (28.0-62.0) fl RDW Coeff of Mary (11.0-15.0) % Plt Count (150-400) K/uL MPV (7.40-12.00) fL Neut % (Auto) (48.0-80.0) % Lymph % (Auto) (16.0-40.0) % [place] % (Auto) (0.0-15.0) % Eos % (Auto) (0.0-7.0) % Baso % (Auto) (0.0-1.5) % Neut # (Auto) (1.4-5.7) K/uL Lymph # (Auto) (0.6-2.4) K/uL [place] # (Auto) (0.0-0.8) K/uL Eos # (Auto) (0.0-0.7) K/uL Baso # (Auto) (0.0-0.1) K/uL Nucleated RBC % /100WBC Nucleated RBCs # K/uL Sodium 132 L (136-145) mmol/L Potassium 4.4 (3.5-5.1) mmol/L Chloride 98 (98-107) mmol/L Carbon Dioxide 24.5 (21.0-32.0) mmol/L BUN 23 H (7.0-18.0) mg/dL Creatinine 1.1 H (0.6-1.0) mg/dL Est Cr Clr Drug Dosing 39.50 mL/min Estimated GFR (MDRD) 50.2 ml/min Glucose 167 H (74-106) mg/dL POC Glucose 140 H (60-110) mg/dL Calcium 9.0 (8.5-10.1) mg/dL Total Bilirubin 0.5 (0.2-1.0) mg/dL AST 55 H (15-37) IU/L ALT 10 L (14-63) IU/L Alkaline Phosphatase 92 (46-116) U/L Total Protein 6.5 (6.4-8.2) g/dL Albumin 1.9 L (3.4-5.0) g/dL Globulin 4.6 H (2.6-4.0) g/dL Albumin/Globulin Ratio 0.4 L (0.9-1.6) RENEE Results - Last 24 hrs: Microbiology 03/24/18 19:15 Aerobic Blood Culture - Preliminary Blood - Venous - Lab Draw NO GROWTH AFTER 1 DAY Anaerobic Blood Culture - Final 03/24/18 19:12 Aerobic Blood Culture - Preliminary Blood - Arm, Right NO GROWTH AFTER 1 DAY Anaerobic Blood Culture - Final Med Orders - Current: Current Medications Albuterol (Ventolin Hfa) 0 gm INH BID [facility] Last Admin: 03/26/18 09:24 Dose: 2 puff Aspirin (Aspirin) 325 mg PO DAILY [facility] Last Admin: 03/26/18 08:57 Dose: 325 mg Bisacodyl (Dulcolax) 5 mg PO DAILY PRN PRN Reason: Constipation Last Admin: 03/24/18 20:51 Dose: 5 mg Bisacodyl (Dulcolax) 10 mg RECTAL DAILY PRN PRN Reason: Constipation Last Admin: 03/25/18 17:57 Dose: 10 mg Clopidogrel Bisulfate (Plavix) 75 mg PO DAILY [facility] Last Admin: 03/26/18 08:58 Dose: 75 mg Gabapentin (Neurontin) 600 mg PO QID [facility] Last Admin: 03/26/18 06:22 Dose: Not Given Guaifenesin (Mucinex) 600 mg PO TID PRN PRN Reason: Cough Last Admin: 03/26/18 08:57 Dose: 600 mg Cefazolin Sodium/Dextrose 2 gm (/ Premix) 50 mls @ 100 mls/hr IV Q8H [facility] Last Admin: 03/26/18 04:45 Dose: 100 mls/hr Insulin Aspart (Novolog) 0 unit SUBCUT ACBED [facility]; Protocol Last Admin: 03/26/18 06:37 Dose: Not Given Insulin Detemir (Levemir) 64 unit SUBCUT BEDTIME [facility] Last Admin: 03/25/18 21:39 Dose: 64 units Morphine Sulfate (Morphine) 2 mg IVPUSH Q2H PRN PRN Reason: Pain Last Admin: 03/26/18 09:37 Dose: 2 mg Nitroglycerin (Nitrostat) 0.4 mg SL Q5M PRN PRN Reason: Chest Pain Last Admin: 03/23/18 23:11 Dose: 0.4 mg Ondansetron HCl (Zofran) 4 mg IVPUSH Q6H PRN PRN Reason: Nausea/Vomiting Last Admin: 03/21/18 16:07 Dose: 4 mg Oxycodone HCl (Oxycodone) 5 mg PO Q4H PRN PRN Reason: Pain Last Admin: 03/26/18 08:56 Dose: 5 mg Ranolazine (Ranexa) 500 mg PO BID [facility] Last Admin: 03/26/18 10:40 Dose: 500 mg Temazepam (Restoril) 15 mg PO BEDTIME PRN PRN Reason: Sleep Discontinued Medications Acetaminophen (Tylenol Extra Strength) 1,000 mg PO ONETIME ONE Stop: 03/24/18 18:28 Last Admin: 03/24/18 18:42 Dose: 1,000 mg Albuterol (Proventil Hfa) 0 gm INH BID [facility] Last Admin: 03/20/18 22:25 Dose: Not Given Aspirin (Aspirin) 325 mg PO ONETIME ONE Stop: 03/24/18 23:57 Aspirin (Aspirin) 325 mg PO ONETIME ONE Stop: 03/24/18 00:05 Last Admin: 03/24/18 00:11 Dose: 325 mg Cefazolin Sodium/Dextrose (Ancef) Confirm Administered Dose 2 gm IV .STK-MED ONE Stop: 03/21/18 09:40 Clopidogrel Bisulfate (Plavix) 75 mg PO DAILY [facility] Clopidogrel Bisulfate (Plavix) 75 mg PO DAILY [facility] Last Admin: 03/24/18 09:12 Dose: Not Given Fentanyl (Sublimaze) Confirm Administered Dose 250 mcg .ROUTE .STK-MED ONE Stop: 03/21/18 08:39 Fentanyl (Sublimaze) 50 mcg IVPUSH Q5M PRN PRN Reason: Pain (severe 7-10) Stop: 03/21/18 13:00 Furosemide (Lasix) 40 mg PO ONETIME ONE Stop: 03/24/18 10:32 Last Admin: 03/24/18 10:43 Dose: 40 mg Glycopyrrolate (Robinul) Confirm Administered Dose 0.4 mg .ROUTE .[facility] ONE Stop: 03/21/18 10:53 Heparin Sodium (Porcine) (Heparin Sodium) 5,000 units SUBCUT Q8H [facility] Last Admin: 03/20/18 18:40 Dose: Not Given Heparin Sodium (Porcine) (Heparin Sodium) 0 units IVPUSH .[facility] ONE; Protocol Stop: 03/24/18 08:08 Last Admin: 03/24/18 09:12 Dose: Not Given Heparin Sodium (Porcine) (Heparin Sodium) 4,000 units IVPUSH ONETIME ONE Stop: 03/24/18 08:56 Last Admin: 03/24/18 11:55 Dose: Not Given Hydromorphone HCl (Dilaudid) 1 mg IV ONETIME ONE Stop: 03/20/18 16:16 Last Admin: 03/20/18 17:39 Dose: Not Given Hydromorphone HCl (Dilaudid) Confirm Administered Dose 1 mg .ROUTE .[facility] ONE Stop: 03/20/18 16:20 Last Admin: 03/20/18 17:25 Dose: Not Given Hydromorphone HCl (Dilaudid) 1 mg IVPUSH ONETIME ONE Stop: 03/20/18 17:39 Last Admin: 03/20/18 16:22 Dose: 1 mg Hydromorphone HCl (Dilaudid) 1 mg IVPUSH Q4H PRN PRN Reason: Pain (severe 7-10) Hydromorphone HCl (Dilaudid) 1 mg IV Q4H PRN PRN Reason: Pain Hydromorphone HCl (Dilaudid) 1 mg IVPUSH Q4H PRN PRN Reason: Pain Last Admin: 03/22/18 02:30 Dose: 1 mg Hydromorphone HCl (Dilaudid) 0.5 mg IVPUSH Q4H PRN PRN Reason: Pain Last Admin: 03/23/18 05:05 Dose: 0.5 mg Sodium Chloride (Normal Saline) 1,000 mls @ 999 mls/hr IV STAT ONE Stop: 03/20/18 17:15 Last Admin: 03/20/18 17:28 Dose: 999 mls/hr Sodium Chloride (Normal Saline) 1,000 mls @ 100 mls/hr IV ASDIRECTED [facility] Last Admin: 03/21/18 16:16 Dose: 100 mls/hr Lidocaine HCl (Xylocaine-Mpf 1%) Confirm Administered Dose 5 mls @ as directed .ROUTE .STK-MED ONE Stop: 03/21/18 08:41 Acetaminophen (Ofirmev) Confirm Administered Dose 100 mls @ as directed IV .STK- MED ONE Stop: 03/21/18 09:16 Sodium Chloride (Normal Saline) Confirm Administered Dose 20 mls @ as directed .ROUTE .STK-MED ONE Stop: 03/21/18 09:17 Cefazolin Sodium/Dextrose 2 gm (/ Premix) 50 mls @ 100 mls/hr IV ONETIME [facility] Last Admin: 03/22/18 00:55 Dose: 100 mls/hr Cefazolin Sodium/Dextrose 2 gm (/ Premix) 50 mls @ 100 mls/hr IV Q8H [facility] Last Admin: 03/24/18 13:50 Dose: Not Given Heparin Sodium/Sodium Chloride (Heparin-1/2ns 25,000 Units/500) 25,000 unit in 500 mls @ 17.76 mls/hr IV TITRATE [facility]; Protocol Insulin Aspart (Novolog) 0 unit SUBCUT ACBREAKFASTANDBED [facility]; Protocol Last Admin: 03/20/18 21:05 Dose: 8 units Insulin Aspart (Novolog) 0 unit SUBCUT ACBREAKFASTANDBED [facility]; Protocol Last Admin: 03/21/18 07:20 Dose: Not Given Insulin Aspart (Novolog) 0 unit SUBCUT TIDAC [facility]; Protocol Insulin Aspart (Novolog) 0 unit SUBCUT TIDAC [facility]; Protocol Last Admin: 03/21/18 18:26 Dose: 6 units Insulin Detemir (Levemir) 30 unit SUBCUT ONETIME ONE Stop: 03/24/18 23:11 Last Admin: 03/24/18 23:19 Dose: 30 units Ketamine HCl (Ketalar) Confirm Administered Dose 500 mg .ROUTE .STK-MED ONE Stop: 03/21/18 09:16 Lorazepam (Ativan) 1 mg IVPUSH ONETIME ONE Stop: 03/20/18 16:37 Last Admin: 03/20/18 16:40 Dose: 1 mg Lorazepam (Ativan) Confirm Administered Dose 2 mg .ROUTE .STK-MED ONE Stop: 03/20/18 16:38 Last Admin: 03/20/18 17:25 Dose: Not Given Metoprolol Tartrate (Lopressor) 25 mg PO ONETIME ONE Stop: 03/23/18 23:57 Last Admin: 03/24/18 00:11 Dose: 25 mg Midazolam HCl (Versed 1 Mg/Ml) Confirm Administered Dose 2 mg .ROUTE .STK-MED ONE Stop: 03/21/18 08:39 Neostigmine Methylsulfate (Neostigmine) Confirm Administered Dose 5 mg .ROUTE .STK-MED ONE Stop: 03/21/18 10:53 Ondansetron HCl (Zofran) 4 mg IVPUSH ONETIME ONE Stop: 03/20/18 16:16 Last Admin: 03/20/18 16:20 Dose: 4 mg Ondansetron HCl (Zofran) Confirm Administered Dose 4 mg .ROUTE .STK-MED ONE Stop: 03/20/18 16:20 Last Admin: 03/20/18 17:25 Dose: Not Given Ondansetron HCl (Zofran) Confirm Administered Dose 4 mg .ROUTE .STK-MED ONE Stop: 03/21/18 08:45 Oxycodone HCl (Oxycodone) 10 mg PO Q4H PRN PRN Reason: Pain Last Admin: 03/22/18 10:45 Dose: 10 mg Phenylephrine HCl (Adonay-Synephrine) Confirm Administered Dose 10 mg .ROUTE .STK- MED ONE Stop: 03/21/18 08:43 Propofol (Diprivan 20 Ml) Confirm Administered Dose 200 mg .ROUTE .STK-MED ONE Stop: 03/21/18 08:39 Rocuronium [place] (Zemuron) Confirm Administered Dose 100 mg .ROUTE .STK-MED ONE Stop: 03/21/18 08:42 Succinylcholine Chloride (Quelicin) Confirm Administered Dose 200 mg .ROUTE .STK -MED ONE Stop: 03/21/18 08:42 *Q Meaningful Use (DIS) - VTE *Q VTE Mechanical Contraindications *Q: Bilateral Lower Amputee
--- NOTE | 2018-03-26 18:45 | CONS ---
DATE OF CONSULTATION: DATE OF : 1955 PRIMARY CARE PHYSICIAN: Unknown PCP REASON FOR CONSULTATION: Troponin elevation. HISTORY OF PRESENT ILLNESS: This is a 62-year-old female with history of CAD, status post CABG in [place] 10 years ago, we do not have available record; history of BKA, both knees; history of peripheral vascular disease; bone tumor; insulin-dependent diabetes; CKD; hyperlipidemia; GERD. She was presented to the hospital at this time because of a fall and hip fracture on the right side. She underwent a hip replacement 3 days prior to this consultation. Then the last night, she started having chest pain. She describes it as pressure in her chest. No radiation, lasting for 5 to 10 minutes. She feels slightly short of breath. She was lying in bed. No heart racing. No sweating. EKG was done at that time. There is no change compared to the previous EKG. Troponin was elevated, first one is 0.1, the second set 0.2 and when I talked to her, she is chest pain-free now. She also was found to have anemia with hemoglobin of 8. PAST MEDICAL HISTORY: Including CAD, status post CABG; BKA; peripheral vascular disease; bone tumor; diabetes; CKD; hyperlipidemia; GERD; depression; hypertension. SOCIAL HISTORY: Occasional alcohol use. Former smoker. No drug use. FAMILY HISTORY: No pertinent family history. ALLERGIES: Allergic to codeine as well as Tylenol with codeine. REVIEW OF SYSTEMS: As indicated in HPI, otherwise has been negative. PHYSICAL EXAMINATION: VITAL SIGNS: Blood pressure is 120/61, heart rate of 82, O2 saturation is 91 on room air, respirations 18, and temperature 37.1. HEENT: Mild pallor. No jaundice. Mouth dry. HEART: Normal S1, S2. No murmur. Regular rate and rhythm. LUNGS: Clear bilaterally. No crackles. No wheezing. ABDOMEN: Soft, nontender. Bowel sounds are present. No edema. No splenomegaly. No rebound tenderness. EXTREMITIES: Hip surgery and then BKA. LABORATORY INVESTIGATION: CBC showed WBC of 8. Hematocrit of 29, going up from 25. Hemoglobin of 10, going up from 8. Sodium 136, potassium 3.6, chloride 99, bicarb 25, BUN 24, and creatinine 1.2. Troponin, the first one 0.157 and the second one 0.24. EKG on 20 March 2018 shows sinus rhythm, heart rate of 86, IN interval 140, QRS duration 89, and QTc interval 466. There is some ST abnormality in lead III. EKG on March 23, 2017, shows sinus rhythm, heart rate of 91, IN interval 155, QRS duration 86, QTc interval 493. There was some ST abnormality in lead III as well, seemed to be unchanged. ASSESSMENT AND PLAN: This is a 62-year-old female with history of coronary artery disease, status post bypass; below-knee amputation due to peripheral vascular disease; chronic kidney disease; hypertension; hyperlipidemia; insulin-dependent diabetes, presents to the hospital with right hip fracture, status post right hip surgery with chest pain and acute anemia postoperatively. Troponin elevation most likely demand ischemia from blood loss, anemia, and surgery. I recommended to give her transfusion to keep hematocrit around 30 and continue to cycle cardiac enzymes. Continue aspirin as allowable from surgical standpoint. She should be on a beta-lemuel as well as an HOMERO inhibitor. However, there was some concern about depression on the beta-lemuel, but I am not certain about the reason that she is not on an HOMERO inhibitor. JONNY / JUANY /[id number]
== END 2018-03-26 13:15 | DRG 481 ==
LOC: MW.ED 16:13 → MW.MS 17:24
PROVIDERS: ADMIT Internal Medicine; ATTEND Internal Medicine
PROC: 0QS634Z Reposition Right Upper Femur with Internal Fixation Device, Percutaneous Approach (ICD-10-PCS; principal; 2018-03-20)
PROC: 30233N1 Transfusion of Nonautologous Red Blood Cells into Peripheral Vein, Percutaneous Approach (ICD-10-PCS; 2018-03-24)
PROC: 02HV33Z Insertion of Infusion Device into Superior Vena Cava, Percutaneous Approach (ICD-10-PCS; 2018-03-24)
PROC: B5181ZA Fluoroscopy of Superior Vena Cava using Low Osmolar Contrast, Guidance (ICD-10-PCS; 2018-03-24)
DX: S72.141A Displaced intertrochanteric fracture of right femur, initial encounter for closed fracture (principal); W05.0XXA Fall from non-moving wheelchair, initial encounter; I25.10 Atherosclerotic heart disease of native coronary artery without angina pectoris; D62 Acute posthemorrhagic anemia; I10 Essential (primary) hypertension; E11.9 Type 2 diabetes mellitus without complications; I24.8 Other forms of acute ischemic heart disease; I25.110 Atherosclerotic heart disease of native coronary artery with unstable angina pectoris; Z96.649 Presence of unspecified artificial hip joint; F41.9 Anxiety disorder, unspecified; R60.0 Localized edema; E78.00 Pure hypercholesterolemia, unspecified; G54.6 Phantom limb syndrome with pain; E11.22 Type 2 diabetes mellitus with diabetic chronic kidney disease; E11.40 Type 2 diabetes mellitus with diabetic neuropathy, unspecified; Z79.4 Long term (current) use of insulin; M25.551 Pain in right hip; I12.9 Hypertensive chronic kidney disease with stage 1 through stage 4 chronic kidney disease, or unspecified chronic kidney disease; R50.9 Fever, unspecified; E11.65 Type 2 diabetes mellitus with hyperglycemia; V00.811A Fall from moving wheelchair (powered), initial encounter; E11.42 Type 2 diabetes mellitus with diabetic polyneuropathy; R77.0 Abnormality of albumin; E11.51 Type 2 diabetes mellitus with diabetic peripheral angiopathy without gangrene; N18.3 Chronic kidney disease, stage 3 (moderate); I73.9 Peripheral vascular disease, unspecified; E78.5 Hyperlipidemia, unspecified; K21.9 Gastro-esophageal reflux disease without esophagitis; F32.9 Major depressive disorder, single episode, unspecified; Z87.440 Personal history of urinary (tract) infections; Z90.5 Acquired absence of kidney; Z89.512 Acquired absence of left leg below knee; Z89.511 Acquired absence of right leg below knee; Z99.3 Dependence on wheelchair; Z79.02 Long term (current) use of antithrombotics/antiplatelets; Z88.6 Allergy status to analgesic agent; Z79.899 Other long term (current) drug therapy; Z96.642 Presence of left artificial hip joint; Z95.1 Presence of aortocoronary bypass graft; Z87.891 Personal history of nicotine dependence; Z79.891 Long term (current) use of opiate analgesic
CPT/HCPCS: 36415; 36430; 36569; 51702; 70450; 70450-26; 71045; 71045-26; 72125; 72125-26; 73501-26-RT; 73501-RT; 76000; 76000-26; 76937; 76937-26; 77001; 77001-26; 80048; 80053; 81001; 81025; 82962; 83036; 83605; 83735; 84484; 85014; 85018; 85025; 85610; 85730; 86850; 86900; 86901; 86920; 86921; 86922; 87040; 93005; 94640; 96374; 96375; 97162-GP; 97165-GO; 97530-GP; 99284; 99285-25; A9270-GY; C1713; C1769; G0390; J0131; J0330; J0690; J1170; J1815-GY; J2060; J2250; J2270; J2370; J2405; J2704; J3010; J3490; J7040; P9016

== ENCOUNTER 2018-09-01 07:07 | Observation (INO) | payer MEDICARE, MEDICAID ==
[2018-09-01] MEDS ORDERED: Ketorolac 30 MG/ML SDV IVPUSH ONE (07:13)
[2018-09-01] MEDS ORDERED: Sodium Chloride 0.9% 10 ML Syringe FLUSH PRN (07:13)
[2018-09-01] MEDS ORDERED: Sodium Chloride 0.9% 2.5 ML Syringe FLUSH PRN (07:13)
--- NOTE | 2018-09-01 07:19 | EDM.PDOC ---
ED HPI GENERAL MEDICAL PROBLEM - General Chief Complaint: Chest Pain Stated Complaint: CHEST PAIN Time Seen by Provider: 09/01/18 07:07 - History of Present Illness INITIAL COMMENTS - FREE TEXT/NARRATIVE: HISTORY AND PHYSICAL: History of present illness: The patient is a 63-year-old female with a history of hypertension insulin requiring diabetes hypercholesterolemia peripheral vascular disease, with a bilateral BKA--1 because of peripheral vascular disease and the other due to bone cancer which is in remission--- who has a history of a heart attack in March secondary to anemia after a hip surgery and now presents via EMS with complaints of left chest squeezing radiating to her back that started at 10:30 PM last evening. The patient said that she felt very sore yesterday and her chest wall but did not do any increased activities and has had no recent trauma or upper respiratory symptoms and says that it started gradually at 10:30 PM. It was a squeezing-like sensation and radiated to her back. There was no associated abdominal pain nausea vomiting diaphoresis fevers or chills. The patient has nitroglycerin she can use at home when she has chest pain and she says she only uses it maybe once a week and the pain that she experiences at home will go away. She started taking nitroglycerin at 2 AM and took it every 30 minutes for 2 doses and then took the last dose just prior to calling the EMS. The pain did not go away which is why she called EMS to come here. EMSs given her 4 baby aspirin and I did not give her any nitroglycerin. She currently rates the pain as a sore squeezing-like sensation and she gives it a 4 /10 here in the ED. with her heart attack in March she did not have any transfer to another hospital and was admitted here and was medically managed. She follows with Dr. ANDRE electronic data interchange specialist and had a nuclear medicine stress test performed in May of this year that I reviewed revealing no signs of reversible ischemia and ejection fraction of 74%. The patient also has a history of a CABG in 2006. She has not had any heart catheter since that time. After her cardiac event in March she also had no cardiac intervention. She follows with Dr. Murray as well as our primary care physicians. She has no GI complaints and is eating and drinking normally. Review of systems: As per history of present illness and below otherwise all systems reviewed and negative. Past medical history: As per history of present illness and as reviewed below otherwise noncontributory. Surgical history: As per history of present illness and as reviewed below otherwise noncontributory. Social history: No reported history of drug or alcohol abuse. Family history: As per history of present illness and as reviewed below otherwise noncontributory. Physical exam: General: Well-developed well-nourished mildly overweight female who is nontoxic and vital signs are noted by me HEENT: Atraumatic, normocephalic, pupils reactive, negative for conjunctival pallor or scleral icterus, mucous membranes moist, throat clear, neck supple, nontender, trachea midline. Lungs: Clear to auscultation, breath sounds equal bilaterally, chest wall has reproducible tenderness to the left of the sternum in the upper portion of the chest wall which reproduces the patient's pain but there is no crepitus defects or deformities and no visible soft tissue injuries or soft tissue swelling. Heart: S1S2, regular rate and rhythm no overt murmurs.. Abdomen: Soft, nondistended, nontender. Negative for masses or hepatosplenomegaly. NABS Pelvis: Stable nontender. Genitourinary: Deferred. Rectal: Deferred. Extremities: Atraumatic, she has bilateral BKA's and there is no edema Neurovascular unremarkable. Neuro: Awake, alert, oriented. Cranial nerves II through XII unremarkable. Cerebellum unremarkable. Motor and sensory unremarkable throughout. Exam nonfocal. Diagnostics: EKG CBC CMP INR troponin chest x-ray Therapeutics: Patient received 4 baby aspirin per EMS, IV O2 monitor, sublingual nitroglycerin Toradol, Tylenol, Nitropaste 0759: After 2 sublingual nitroglycerin glycerin the patient has no chest pain. We will place a half an inch of nitro paste and the patient is currently complaining of a headache we will give some Tylenol. 0740: Case was discussed with Dr. Marcano who accepts the patient for observation admission and patient was made aware of testing results Impression: Chest pain, atypical rule out chest wall pain versus ACS Definitive disposition and diagnosis as appropriate pending reevaluation and review of above. left chest Pain Score (Numeric/FACES): 5 - Related Data Allergies Allergy/AdvReac Type Severity Reaction Status Date / Time codeine Allergy Seizure Verified 09/01/18 07:15 Home Meds: Home Meds Clopidogrel [Plavix] 75 mg PO DAILY 12/24/13 [History] Insulin Detemir [Levemir Flexpen] 64 unit SQ BEDTIME 12/24/13 [History] Ranolazine [Ranexa] 500 mg PO BID 12/24/13 [History] Insulin Lispro [HumaLOG] 10 units SQ TIDAC 02/16/14 [History] Gabapentin [Neurontin] 600 mg PO QID 09/13/14 [History] Albuterol [IJP: Ventolin HFA] 2 puff INH .TWICE DAILY #18 gm 05/16/16 [Rx] Nitroglycerin 1 tab .ROUTE ASDIRECTED PRN 05/16/16 [History] Ondansetron HCl [Zofran] 4 mg PO Q4HR #12 tablet 07/10/17 [Rx] Aspirin 325 mg PO DAILY 14 Days #14 tab 03/26/18 [Rx] Past Medical History HEENT History: Reports: None Cardiovascular History: Reports: Bypass, CAD, High Cholesterol, Hypertension Respiratory History: Reports: Intubation, Previous Gastrointestinal History: Reports: None Genitourinary History: Reports: Chronic Renal Insuffiency, UTI, Recurrent Other Genitourinary History: Entire L kidney and 1/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 Musculoskeletal History: Reports: Amputation, Fracture Neurological History: Reports: Neuropathy, Diabetic Psychiatric History: Reports: None Endocrine/Metabolic History: Reports: Diabetes, Type II Hematologic History: Reports: None Immunologic History: Reports: None Oncologic (Cancer) History: Reports: Other (See Below) 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 Dermatologic History: Reports: None - Infectious Disease History Infectious Disease History: Reports: Chicken Pox, Measles - Past Surgical History Head Surgeries/Procedures: Reports: None HEENT Surgical History: Reports: None Cardiovascular Surgical History: Reports: Coronary Artery Bypass Musculoskeletal Surgical History: Reports: Amputation, Hip Replacement Social & Family History - Family History Family Medical History: Noncontributory - Caffeine Use Caffeine Use: Reports: Coffee - Living Situation & Occupation Living situation: Reports: Assisted Living ED ROS GENERAL - Review of Systems Review Of Systems: ROS reveals no pertinent complaints other than HPI. ED EXAM, GENERAL - Physical Exam Exam: See Below (See dictation) Course - Vital Signs Last Recorded V/S: Last Vital Signs Temp 36.2 C 09/01/18 07:13 Pulse 72 09/01/18 07:59 Resp 18 09/01/18 07:59 BP 115/62 09/01/18 07:59 Pulse Ox 97 09/01/18 07:59 - Orders/Labs/Meds Orders: Active Orders 24 hr Category Date Time Status Patient Status [ADT] Stat ADT 09/01/18 08:41 Ordered Cardiac Monitoring [RC] . DIRECTED Care 09/01/18 07:13 Active EKG Documentation Completion [RC] STAT Care 09/01/18 07:13 Active Oxygen Therapy, ED [RC] ASDIRECTED Care 09/01/18 07:13 Active Pulse Oximetry [RC] ASDIRECTED Care 09/01/18 07:13 Active Nitroglycerin [Nitrostat] Med 09/01/18 07:13 Active 0.4 mg SL Q5M PRN Sodium Chloride 0.9% [Normal Saline] 1,000 ml Med 09/01/18 07:52 Active IV .Bolus Sodium Chloride 0.9% [Saline Flush] Med 09/01/18 07:13 Active 10 ml FLUSH ASDIRECTED PRN Sodium Chloride 0.9% [Saline Flush] Med 09/01/18 07:13 Active 2.5 ml FLUSH ASDIRECTED PRN Saline Lock Insert [OM.PC] Stat Oth 09/01/18 07:13 Ordered Medication Orders Sodium Chloride (Normal Saline) 1,000 mls @ 125 mls/hr IV .Bolus ONE Stop: 09/01/18 15:51 Last Admin: 09/01/18 07:55 Dose: 125 mls/hr Nitroglycerin (Nitrostat) 0.4 mg SL Q5M PRN PRN Reason: Chest Pain Last Admin: 09/01/18 07:54 Dose: 0.4 mg Admin: 09/01/18 07:41 Dose: 0.4 mg Sodium Chloride (Saline Flush) 10 ml FLUSH ASDIRECTED PRN PRN Reason: Keep Vein Open Sodium Chloride (Saline Flush) 2.5 ml FLUSH ASDIRECTED PRN PRN Reason: Keep Vein Open Labs: Laboratory Tests 09/01/18 09/01/18 09/01/18 Range/Units 07:34 07:34 07:34 WBC 8.73 (4.0-11.0) K/uL RBC 3.64 L (4.30-5.90) M/uL Hgb 10.5 L (12.0-16.0) g/dL Hct 31.6 L (36.0-46.0) % MCV 86.8 (80.0-98.0) fL MCH 28.8 (27.0-32.0) pg MCHC 33.2 (31.0-37.0) g/dL RDW Std Deviation 41.5 (28.0-62.0) fl RDW Coeff of Mary 13 (11.0-15.0) % Plt Count 418 H (150-400) K/uL MPV 8.40 (7.40-12.00) fL Neut % (Auto) 62.9 (48.0-80.0) % Lymph % (Auto) 27.4 (16.0-40.0) % Osborne % (Auto) 6.9 (0.0-15.0) % Eos % (Auto) 2.6 (0.0-7.0) % Baso % (Auto) 0.2 (0.0-1.5) % Neut # (Auto) 5.5 (1.4-5.7) K/uL Lymph # (Auto) 2.4 (0.6-2.4) K/uL Osborne # (Auto) 0.6 (0.0-0.8) K/uL Eos # (Auto) 0.2 (0.0-0.7) K/uL Baso # (Auto) 0.0 (0.0-0.1) K/uL Nucleated RBC % 0.0 /100WBC Nucleated RBCs # 0 K/uL INR 0.96 Sodium 134 L (136-145) mmol/L Potassium 4.7 (3.5-5.1) mmol/L Chloride 101 (98-107) mmol/L Carbon Dioxide 25.1 (21.0-32.0) mmol/L BUN 36 H (7.0-18.0) mg/dL Creatinine 1.1 H (0.6-1.0) mg/dL Est Cr Clr Drug Dosing TNP Estimated GFR (MDRD) 50.0 ml/min Glucose 195 H (74-106) mg/dL Calcium 10.9 H (8.5-10.1) mg/dL Total Bilirubin 0.3 (0.2-1.0) mg/dL AST 12 L (15-37) IU/L ALT 21 (14-63) IU/L Alkaline Phosphatase 94 (46-116) U/L Troponin I < 0.050 (0.000-0.056) ng/mL Total Protein 7.4 (6.4-8.2) g/dL Albumin 2.9 L (3.4-5.0) g/dL Globulin 4.5 H (2.6-4.0) g/dL Albumin/Globulin Ratio 0.6 L (0.9-1.6) Meds: Medications Generic Name Dose Route Start Last Admin Trade Name Frelexis PRN Reason Stop Dose Admin Sodium Chloride 1,000 mls @ 125 mls/hr 09/01/18 07:52 09/01/18 07:55 Normal Saline IV 09/01/18 15:51 125 mls/hr .Bolus ONE Administration Nitroglycerin 0.4 mg 09/01/18 07:13 09/01/18 07:54 Nitrostat SL 0.4 mg Q5M PRN Administration Chest Pain Sodium Chloride 10 ml 09/01/18 07:13 Saline Flush FLUSH ASDIRECTED PRN Keep Vein Open Sodium Chloride 2.5 ml 09/01/18 07:13 Saline Flush FLUSH ASDIRECTED PRN Keep Vein Open Discontinued Medications Generic Name Dose Route Start Last Admin Trade Name Shon PRN Reason Stop Dose Admin Acetaminophen 650 mg 09/01/18 07:59 09/01/18 08:03 Tylenol PO 09/01/18 08:00 650 mg NOW ONE Administration Acetaminophen Confirm 09/01/18 08:01 Tylenol Administered 09/01/18 08:02 Dose 650 mg .ROUTE .STK-MED ONE Ketorolac Tromethamine 30 mg 09/01/18 07:13 09/01/18 07:50 Toradol IVPUSH 09/01/18 07:14 30 mg ONETIME ONE Administration Nitroglycerin 0.5 gm 09/01/18 08:01 09/01/18 08:04 Nitro-Bid 2% TOP 09/01/18 08:02 0.5 gm ONETIME ONE Administration Nitroglycerin Confirm 09/01/18 08:01 Nitro-Bid 2% Administered 09/01/18 08:02 Dose 1 gm .ROUTE .STK-MED ONE Departure - Departure Time of Disposition: 08:36 Disposition: Refer to Observation Condition: Good Clinical Impression: Chest pain Qualifiers: Chest pain type: unspecified Qualified Code(s): R07.9 - Chest pain, unspecified - Discharge Information Referrals: PCP,None [Primary Care Provider] - Forms: ED Department Discharge - My Orders Last 24 Hours: My Active Orders 09/01/18 07:13 Cardiac Monitoring [RC] . DIRECTED EKG Documentation Completion [RC] STAT Oxygen Therapy, ED [RC] ASDIRECTED Pulse Oximetry [RC] ASDIRECTED Nitroglycerin [Nitrostat] 0.4 mg SL Q5M PRN Sodium Chloride 0.9% [Saline Flush] 10 ml FLUSH ASDIRECTED PRN Sodium Chloride 0.9% [Saline Flush] 2.5 ml FLUSH ASDIRECTED PRN Saline Lock Insert [OM.PC] Stat 09/01/18 07:52 Sodium Chloride 0.9% [Normal Saline] 1,000 ml IV .Bolus 09/01/18 08:41 Patient Status [ADT] Stat - Assessment/Plan Last 24 Hours: My Active Orders 09/01/18 07:13 Cardiac Monitoring [RC] . DIRECTED EKG Documentation Completion [RC] STAT Oxygen Therapy, ED [RC] ASDIRECTED Pulse Oximetry [RC] ASDIRECTED Nitroglycerin [Nitrostat] 0.4 mg SL Q5M PRN Sodium Chloride 0.9% [Saline Flush] 10 ml FLUSH ASDIRECTED PRN Sodium Chloride 0.9% [Saline Flush] 2.5 ml FLUSH ASDIRECTED PRN Saline Lock Insert [OM.PC] Stat 09/01/18 07:52 Sodium Chloride 0.9% [Normal Saline] 1,000 ml IV .Bolus 09/01/18 08:41 Patient Status [ADT] Stat
[2018-09-01] MEDS: Nitroglycerin 0.4 MG Tab.SL SL PRN ×2 (07:41→07:54)
[2018-09-01] MEDS ORDERED: Sodium Chloride 0.9% 1,000 ML IV ONE (07:52)
[2018-09-01] MEDS ORDERED: Acetaminophen 325 MG Tab PO ONE (07:59)
[2018-09-01] MEDS ORDERED: Nitroglycerin 2% Oint 1 GM UD Packet ONE (08:01)
[2018-09-01] MEDS ORDERED: Acetaminophen 325 MG Tab ONE (08:01)
[2018-09-01] MEDS ORDERED: Nitroglycerin 2% Oint 1 GM UD Packet TOP ONE (08:01)
[2018-09-01 08:06] LABS: CHLORIDE,CL 101 mmol/L (98-107); SODIUM,NA 134 mmol/L (136-145)
--- NOTE | 2018-09-01 08:11 | CR ---
INDICATION: PAIN,SOB INDICATION: Pain and shortness of breath. TECHNIQUE: Chest 1 view. COMPARISON: None FINDINGS: Cardiovascular and mediastinum: Heart size and vasculature are normal in caliber and appearance. Mediastinum is within normal limits. Lungs and pleural space: Lungs are clear. No sign of infiltrate or mass. No sign of pleural effusion. No pneumothorax. Bones and soft tissues: Anatomy changes, with stable sternal wire fractures. IMPRESSION: The lungs are clear. Dictated by Lawson Hagen MD @ 09/01/2018 8:10:05 AM Dictated by: Lawson Hagen MD @ 09/01/2018 08:10:13 (Electronically Signed)
[2018-09-01] MEDS ORDERED: Ondansetron 4 MG/2 ML SDV IVPUSH PRN (09:38)
[2018-09-01] MEDS ORDERED: Acetaminophen 325 MG Tab PO PRN (09:38)
[2018-09-01] MEDS ORDERED: Clopidogrel 75 MG Tab PO SCH (09:45)
--- NOTE | 2018-09-01 09:47 | PCM.HP ---
H&P History of Present Illness - General Date of Service: 09/01/18 Admit Problem/Dx: Admission Diagnosis/Problem Admission Diagnosis/Problem Chest pain Source of Information: Patient, Old Records History Limitations: Reports: No Limitations - History of Present Illness Initial Comments - Free Text/Narative: This 63 year old female with pmh of CAD with CABG in 2008, peripheral vascular disease, bilateral BKA, DM Type 2, CKD and hyperlipidemia presented to the ED with concerns of chest pain since 10:30 pm last night. She reports this pain was sharp and in her L upper chest and radiated to her left arm and L shoulder. She reports it was hard to move her L arm without eliciting the pain. Denies any nausea or other associated symptoms such as shortness of breath or diaphoresis. She took Nitro x 3 tabs at home, with some relief but not complete resolution. She reports she has been feeling well up until now. She follows with Dr Delgado, Cardiology. MT after hip surgery in April from anemia. She had stress test in May with Dr Delgado prior to R stump revision due to non healing incision. Lexiscan did not show any signs of ischemia in May. In the ED Hgb 10.5. BUN 36, Cr 1.1, baseline, Troponin negative. CXR negative EKG SR with no signs acute ischemia. left chest Pain Score (Numeric/FACES): 5 - Related Data Allergies/Adverse Reactions: Allergies Allergy/AdvReac Type Severity Reaction Status Date / Time codeine Allergy Seizure Verified 09/01/18 11:03 Home Medications: Home Meds Clopidogrel [Plavix] 75 mg PO DAILY 12/24/13 [History] Insulin Detemir [Levemir Flexpen] 64 unit SQ BEDTIME 12/24/13 [History] Ranolazine [Ranexa] 500 mg PO BID 12/24/13 [History] Insulin Lispro [HumaLOG] 10 units SQ TIDAC 02/16/14 [History] Gabapentin [Neurontin] 600 mg PO QID 09/13/14 [History] Albuterol [IJP: Ventolin HFA] 2 puff INH .TWICE DAILY #18 gm 05/16/16 [Rx] Ondansetron HCl [Zofran] 4 mg PO Q4HR #12 tablet 07/10/17 [Rx] Aspirin [Halfprin] 81 mg PO DAILY 09/01/18 [History] Nitroglycerin 0.4 mg SL .EVERY 5 MINUTES PRN #1 bottle MDD 3 TABS 09/01/18 [Rx] Omeprazole 20 mg PO ACBREAKFAST 09/01/18 [History] Rosuvastatin Calcium 40 mg PO BEDTIME 09/01/18 [History] Past Medical History HEENT History: Reports: None Cardiovascular History: Reports: Bypass, CAD, High Cholesterol, Hypertension, [place] Respiratory History: Reports: Intubation, Previous Gastrointestinal History: Reports: GERD Genitourinary History: Reports: Chronic Renal Insuffiency, UTI, Recurrent Other Genitourinary History: Entire L kidney and 1/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 PUBLISHING EDITOR History: Reports: None Musculoskeletal History: Reports: Amputation, Fracture Neurological History: Reports: Neuropathy, Diabetic Psychiatric History: Reports: None Endocrine/Metabolic History: Reports: Diabetes, Type II Hematologic History: Reports: None Immunologic History: Reports: None Oncologic (Cancer) History: Reports: Other (See Below) 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 Dermatologic History: Reports: None - Infectious Disease History Infectious Disease History: Reports: Chicken Pox, Measles - Past Surgical History Head Surgeries/Procedures: Reports: None HEENT Surgical History: Reports: None Cardiovascular Surgical History: Reports: Coronary Artery Bypass Musculoskeletal Surgical History: Reports: Amputation, Hip Replacement Social & Family History - Family History Family Medical History: Noncontributory - Tobacco Use Smoking Status *Q: Never Smoker Second Hand Smoke Exposure: No - Caffeine Use Caffeine Use: Reports: Coffee - Alcohol Use Alcohol Use History: No - Recreational Drug Use Recreational Drug Use: No - Living Situation & Occupation Living situation: Reports: Assisted Living H&P Review of Systems - Review of Systems: Review Of Systems: See Below General: Denies: Fever, Chills, Malaise, Weakness Pulmonary: Reports: No Symptoms. Denies: Shortness of Breath Cardiovascular: Reports: Chest Pain (now gone.). Denies: Palpitations, Dyspnea on Exertion, Lightheadedness Gastrointestinal: Reports: No Symptoms. Denies: Abdominal Pain, Black Stool, Bloody Stool, Decreased Appetite, Nausea, Vomiting Genitourinary: Reports: No Symptoms Musculoskeletal: Reports: Shoulder Pain (with palpation of L shoulder) Psychiatric: Reports: No Symptoms Neurological: Reports: No Symptoms Hematologic/Lymphatic: Reports: No Symptoms Immunologic: Reports: No Symptoms Exam - Exam Exam: See Below - Vital Signs Vital Signs: Last Vital Signs Temp 97.2 F 09/01/18 07:13 Pulse 72 09/01/18 07:59 Resp 18 09/01/18 07:59 BP 115/62 09/01/18 07:59 Pulse Ox 97 09/01/18 07:59 Weight: 71.214 kg - Exam General: Alert, Oriented, Cooperative HEENT: Conjunctiva Clear, Nares Patent, Posterior Pharynx Clear Lungs: Clear to Auscultation, Normal Respiratory Effort Cardiovascular: Regular Rate, Regular Rhythm GI/Abdominal Exam: Normal Bowel Sounds, Soft, Non-Tender, No Organomegaly Back Exam: Normal Inspection Extremities: Normal Inspection, Normal Range of Motion, Non-Tender, No Pedal Edema, Other (tenderness on palpation to Upper trap on L side. ) Neuro Extensive - Mental Status: Alert, Oriented x3 Neuro Extensive - Motor, Sensory, Reflexes: CN II-XII Intact Psychiatric: Alert, Normal Affect, Normal Mood - Patient Data Lab Results Last 24 hrs: Laboratory Results - last 24 hr 09/01/18 09/01/18 09/01/18 Range/Units 07:34 07:34 07:34 WBC 8.73 (4.0-11.0) K/uL RBC 3.64 L (4.30-5.90) M/uL Hgb 10.5 L (12.0-16.0) g/dL Hct 31.6 L (36.0-46.0) % MCV 86.8 (80.0-98.0) fL MCH 28.8 (27.0-32.0) pg MCHC 33.2 (31.0-37.0) g/dL RDW Std Deviation 41.5 (28.0-62.0) fl RDW Coeff of Mary 13 (11.0-15.0) % Plt Count 418 H (150-400) K/uL MPV 8.40 (7.40-12.00) fL Neut % (Auto) 62.9 (48.0-80.0) % Lymph % (Auto) 27.4 (16.0-40.0) % [place] % (Auto) 6.9 (0.0-15.0) % Eos % (Auto) 2.6 (0.0-7.0) % Baso % (Auto) 0.2 (0.0-1.5) % Neut # (Auto) 5.5 (1.4-5.7) K/uL Lymph # (Auto) 2.4 (0.6-2.4) K/uL [place] # (Auto) 0.6 (0.0-0.8) K/uL Eos # (Auto) 0.2 (0.0-0.7) K/uL Baso # (Auto) 0.0 (0.0-0.1) K/uL Nucleated RBC % 0.0 /100WBC Nucleated RBCs # 0 K/uL INR 0.96 Sodium 134 L (136-145) mmol/L Potassium 4.7 (3.5-5.1) mmol/L Chloride 101 (98-107) mmol/L Carbon Dioxide 25.1 (21.0-32.0) mmol/L BUN 36 H (7.0-18.0) mg/dL Creatinine 1.1 H (0.6-1.0) mg/dL Est Cr Clr Drug Dosing TNP Estimated GFR (MDRD) 50.0 ml/min Glucose 195 H (74-106) mg/dL Calcium 10.9 H (8.5-10.1) mg/dL Total Bilirubin 0.3 (0.2-1.0) mg/dL AST 12 L (15-37) IU/L ALT 21 (14-63) IU/L Alkaline Phosphatase 94 (46-116) U/L Troponin I < 0.050 (0.000-0.056) ng/mL Total Protein 7.4 (6.4-8.2) g/dL Albumin 2.9 L (3.4-5.0) g/dL Globulin 4.5 H (2.6-4.0) g/dL Albumin/Globulin Ratio 0.6 L (0.9-1.6) Result Diagrams: 09/01/18 07:34 09/01/18 07:34 EKG INTERPRETATION EKG Date: 09/01/18 Rhythm: NSR Rate (Beats/Min): 70 P-Wave: Present QRS: Normal ST-T: Normal QT: Normal - Problem List (1) Chest pain SNOMED Code(s): 10736551 ICD Code: R07.9 - CHEST PAIN, UNSPECIFIED Status: Acute Qualifiers: Chest pain type: unspecified Qualified Code(s): R07.9 - Chest pain, unspecified (2) Diabetes mellitus SNOMED Code(s): 25655117 ICD Code: E11.9 - TYPE 2 DIABETES MELLITUS WITHOUT COMPLICATIONS Status: Chronic (3) Chronic kidney disease (CKD), stage III (moderate) SNOMED Code(s): 536879568 ICD Code: N18.3 - CHRONIC KIDNEY DISEASE, STAGE 3 (MODERATE) Status: Chronic Priority: High (4) Coronary artery disease SNOMED Code(s): 62683957 ICD Code: I25.10 - ATHSCL HEART DISEASE OF [place] CORONARY ARTERY W/O ANG PCTRS Status: Chronic Priority: High Qualifiers: Coronary Disease-Associated Artery/Lesion type: bypass graft [place] vs. transplanted heart: [place] heart Associated angina: without angina Qualified Code(s): I25.810 - Atherosclerosis of coronary artery bypass graft(s) without angina pectoris (5) Diabetic vasculopathy SNOMED Code(s): 18954003, 18296688 ICD Code: E11.59 - TYPE 2 DIABETES MELLITUS WITH OTH CIRCULATORY COMPLICATIONS Status: Chronic Priority: High Problem Details: Poorly controlled, A1c is 9.6. (6) History of coronary artery bypass graft x 3 SNOMED Code(s): 512819454, 819251794 ICD Code: Z95.1 - PRESENCE OF AORTOCORONARY BYPASS GRAFT Status: Chronic Priority: High (7) S/P BKA (below knee amputation) bilateral SNOMED Code(s): 520094371 ICD Code: Z89.512 - ACQUIRED ABSENCE OF LEFT LEG BELOW KNEE; Z89.511 - ACQUIRED ABSENCE OF RIGHT LEG BELOW KNEE Status: Chronic Priority: Medium Problem List Initiated/Reviewed/Updated: Yes Orders Last 24hrs: Active Orders 24 hr Category Date Time Status Patient Status [ADT] Stat ADT 09/01/18 08:41 Active Cardiac Monitoring [RC] . DIRECTED Care 09/01/18 07:13 Active EKG Documentation Completion [RC] STAT Care 09/01/18 07:13 Active Intake and Output [RC] QSHIFT Care 09/01/18 09:38 Active Oxygen Therapy [RC] PRN Care 09/01/18 09:38 Active Oxygen Therapy, ED [RC] ASDIRECTED Care 09/01/18 07:13 Active Pulse Oximetry [RC] ASDIRECTED Care 09/01/18 07:13 Active Up With Assistance [RC] ASDIRECTED Care 09/01/18 09:38 Active Up to Chair [RC] ASDIRECTED Care 09/01/18 09:38 Active VTE/DVT Education [RC] PER UNIT ROUTINE Care 09/01/18 09:38 Active Vital Signs [RC] Q4H Care 09/01/18 09:38 Active [place] Diet [DIET] Diet 09/01/18 Breakfast Active TROPONIN I [CHEM] Q6H Lab 09/01/18 13:30 Ordered TROPONIN I [CHEM] Q6H Lab 09/01/18 19:30 Ordered Acetaminophen [Tylenol] Med 09/01/18 09:38 Ordered 650 mg PO Q4H PRN Aspirin Med 09/02/18 09:00 Ordered 325 mg PO DAILY Clopidogrel [Plavix] Med 09/01/18 09:45 Ordered 75 mg PO DAILY Gabapentin Med 09/01/18 12:00 Ordered 600 mg PO QID Insulin Aspart [NovoLOG] Med 09/01/18 11:30 Ordered See Protocol SUBCUT TIDAC Insulin Detemir [Levemir] Med 09/01/18 21:00 Ordered 64 unit SUBCUT BEDTIME Nitroglycerin [Nitrostat] Med 09/01/18 07:13 Active 0.4 mg SL Q5M PRN Ondansetron [Zofran] Med 09/01/18 09:38 Ordered 4 mg IVPUSH Q4H PRN Ranolazine [Ranexa] Med 09/01/18 09:45 Ordered 500 mg PO BID Sodium Chloride 0.9% [Normal Saline] 1,000 ml Med 09/01/18 07:52 Active IV .Bolus Sodium Chloride 0.9% [Saline Flush] Med 09/01/18 07:13 Active 10 ml FLUSH ASDIRECTED PRN Sodium Chloride 0.9% [Saline Flush] Med 09/01/18 07:13 Active 2.5 ml FLUSH ASDIRECTED PRN Saline Lock Insert [OM.PC] Stat Oth 09/01/18 07:13 Ordered Medication Orders Acetaminophen (Tylenol) 650 mg PO Q4H PRN PRN Reason: Pain (mild 1-3) Aspirin (Aspirin) 325 mg PO DAILY MARINA Clopidogrel Bisulfate (Plavix) 75 mg PO DAILY MARINA Sodium Chloride (Normal Saline) 1,000 mls @ 125 mls/hr IV .Bolus ONE Stop: 09/01/18 15:51 Last Admin: 09/01/18 07:55 Dose: 125 mls/hr Insulin Aspart (Novolog) 0 unit SUBCUT TIDAC MARINA; Protocol Insulin Detemir (Levemir) 64 unit SUBCUT BEDTIME MARINA Nitroglycerin (Nitrostat) 0.4 mg SL Q5M PRN PRN Reason: Chest Pain Last Admin: 09/01/18 07:54 Dose: 0.4 mg Admin: 09/01/18 07:41 Dose: 0.4 mg Non-Formulary Medication (Gabapentin) 600 mg PO QID MARINA Ondansetron HCl (Zofran) 4 mg IVPUSH Q4H PRN PRN Reason: Nausea Ranolazine (Ranexa) 500 mg PO BID MARINA Sodium Chloride (Saline Flush) 10 ml FLUSH ASDIRECTED PRN PRN Reason: Keep Vein Open Sodium Chloride (Saline Flush) 2.5 ml FLUSH ASDIRECTED PRN PRN Reason: Keep Vein Open Assessment/Plan Comment:: This 63 year old female admitted with chest pain 1. Chest pain: Will trend troponins and monitor on telemetry. Will set up appointment with PCP and Dr Delgado to further evaluation. May be more musculoskeletal pain vs cardiac. Nitro tabs or , will send new prescription for this. 2. DM Type 2; Continue Novolog with meals and Levemir at night. 3. CAD: Continue ASA, Ranexa and Plavix. Follow up with Dr Delgado. Just recently had stress test 4 months ago with no signs of ischemia Discharge Plan: Patient is discharged after last troponin was negative. No changes on telemetry and she has remained chest pain free since admission. She is requesting discharge as she has appointment in [place] tomorrow for follow up. She is to follow up with Dr Delgado and Dr Holman. She recently had stress test which showed no signs of ischemia. She is to return to ED or clinic if concerns should arise.
[2018-09-01] MEDS: Gabapentin 300 MG Cap PO SCH ×2 (11:19→17:38)
[2018-09-01] MEDS: Insulin Aspart 100 Units/ML 3 ML Pen SUBCUT SCH ×2 (12:31→17:38)
[2018-09-01 20:16] VITALS: BP 150/70
[2018-09-01] MEDS ORDERED: Insulin Detemir 100 Units/ML 3 ML Pen SUBCUT SCH (21:00)
[2018-09-02] MEDS ORDERED: Aspirin 325 MG Tab.EC PO SCH (09:00)
== END 2018-09-01 21:00 | disposition home or self-care (01) ==
LOC: MW.ED 07:07 → MW.MS 09:21
PROVIDERS: ADMIT Internal Medicine; ATTEND Internal Medicine
DX: R07.9 Chest pain, unspecified (principal); I25.810 Atherosclerosis of coronary artery bypass graft(s) without angina pectoris; I25.2 Old myocardial infarction; I12.9 Hypertensive chronic kidney disease with stage 1 through stage 4 chronic kidney disease, or unspecified chronic kidney disease; E11.22 Type 2 diabetes mellitus with diabetic chronic kidney disease; N18.3 Chronic kidney disease, stage 3 (moderate); E11.59 Type 2 diabetes mellitus with other circulatory complications; E78.00 Pure hypercholesterolemia, unspecified; E78.5 Hyperlipidemia, unspecified; Z95.1 Presence of aortocoronary bypass graft; Z88.5 Allergy status to narcotic agent; Z79.4 Long term (current) use of insulin; Z79.899 Other long term (current) drug therapy; Z89.511 Acquired absence of right leg below knee; Z89.512 Acquired absence of left leg below knee
CPT/HCPCS: 36415; 71045; 80053; 82962; 84484; 85025; 85610; 93005; 96361; 96374; 99285; A9270; J1815; J1885; J7040; G0378

== ENCOUNTER 2019-11-02 13:52 | Observation (INO) | payer MEDICARE, MEDICAID ==
[2019-11-02] MEDS ORDERED: Sodium Chloride 0.9% 2.5 ML Syringe FLUSH PRN (13:53)
[2019-11-02] MEDS ORDERED: Sodium Chloride 0.9% 10 ML Syringe FLUSH PRN (13:53)
--- NOTE | 2019-11-02 13:54 | EDM.PDOC ---
ED HPI GENERAL MEDICAL PROBLEM - General Chief Complaint: Chest Pain Stated Complaint: CHEST PAIN Time Seen by Provider: 11/02/19 13:53 Source of Information: Reports: Patient, Old Records History Limitations: Reports: No Limitations - History of Present Illness INITIAL COMMENTS - FREE TEXT/NARRATIVE: 64-year-old female with past medical history of coronary artery disease status post CABG x3, diabetes, diabetic vasculopathy, CKD stage III, hyperlipidemia presenting with chest pain. Patient reports a 4-day history of intermittent left-sided chest pain radiating to the back. This episode started about 2 hours ago. Describes this as "pressure" and rates it as 4 out of 10. Onset gradual. Associated with nausea but no vomiting, does report some diaphoresis. Took some nitroglycerin last night which seemed to help but did not take any today. Also complains of some mild shortness of breath. Denies fever, cough, hemoptysis. Patient denies history of venous thromboembol ism, lower extremity pain or swelling, hemoptysis, recent surgery or immobilization or long travel, history of active malignancy, or hormonal medication/product usage. ROS: A 10-point review of systems was negative, except as noted in the HPI (or in the ROS section of this note). Past medical history: Reviewed, no additional pertinent history. Surgical history: Reviewed in system, no additional pertinent history. Social history: Reviewed in system, no additional pertinent history. Family history: Reviewed in system, no additional pertinent history. PHYSICAL EXAM Vital signs reviewed. Nursing notes reviewed. Constitutional: Awake, alert, non-distressed. Head: Normocephalic, atraumatic. Eyes: EOMI, conjunctiva normal, no discharge, no scleral icterus. Ears, Nose, Throat: External ears and nose normal, moist oral mucosa. Cardiovascular: 2+ radial pulses bilaterally, capillary refill less than 2 seconds. RRR no MRG. Pulmonary: normal work of breathing, no accessory muscle use. CTA BL. Abdomen/GI: Soft, nontender, nondistended, no guarding or rigidity, no masses. Musculoskeletal: No deformities. Status post bilateral BKAs. Integumentary: Appropriate color for ethnicity, warm, dry, no pallor or jaundice, no rash. Neurologic: Alert, answering questions appropriately, normal speech, no facial droop, moving all extremities well. Psychiatric: Appropriate mood and affect, normal thought process. chest pain Pain Score (Numeric/FACES): 3 - Related Data Allergies Allergy/AdvReac Type Severity Reaction Status Date / Time codeine Allergy Seizure Verified 11/02/19 13:57 Penicillins Allergy Other Verified 11/02/19 13:57 Home Meds: Home Meds Clopidogrel [Plavix] 75 mg PO DAILY 12/24/13 [History] Insulin Detemir [Levemir Flexpen] 40 unit SQ BID 12/24/13 [History] Ranolazine [Ranexa] 500 mg PO BID 12/24/13 [History] Albuterol [IJP: Ventolin HFA] 2 puff INH .TWICE DAILY #18 gm 05/16/16 [Rx] Aspirin [Halfprin] 81 mg PO DAILY 09/01/18 [History] Nitroglycerin 0.4 mg SL .EVERY 5 MINUTES PRN #1 bottle MDD 3 TABS 09/01/18 [Rx] Omeprazole 20 mg PO ACBREAKFAST 09/01/18 [History] Rosuvastatin Calcium 40 mg PO BEDTIME 09/01/18 [History] DULoxetine [Cymbalta] 60 mg PO DAILY 11/02/19 [History] Fluticasone Propionate [Flovent] 2 puff IH BID 11/02/19 [History] Gabapentin [Neurontin] 200 mg PO DAILY 11/02/19 [History] Insulin Aspart [NovoLOG] 4 unit SUBCUT TIDMEALS 11/02/19 [History] lisinopriL [Lisinopril] 2.5 mg PO DAILY 11/02/19 [History] Past Medical History HEENT History: Reports: None Cardiovascular History: Reports: Bypass, CAD, High Cholesterol, Hypertension, SD Respiratory History: Reports: Intubation, Previous Gastrointestinal History: Reports: GERD Genitourinary History: Reports: Chronic Renal Insuffiency, UTI, Recurrent Other Genitourinary History: Entire L kidney and 1/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 RHINOLOGIST History: Reports: None Musculoskeletal History: Reports: Amputation, Fracture Neurological History: Reports: Neuropathy, Diabetic Psychiatric History: Reports: None Endocrine/Metabolic History: Reports: Diabetes, Type II Hematologic History: Reports: None Immunologic History: Reports: None Oncologic (Cancer) History: Reports: Other (See Below) 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 Dermatologic History: Reports: None - Infectious Disease History Infectious Disease History: Reports: Chicken Pox, Measles - Past Surgical History Head Surgeries/Procedures: Reports: None HEENT Surgical History: Reports: None Cardiovascular Surgical History: Reports: Coronary Artery Bypass Musculoskeletal Surgical History: Reports: Amputation, Hip Replacement Social & Family History - Family History Family Medical History: Noncontributory - Caffeine Use Caffeine Use: Reports: Coffee - Living Situation & Occupation Living situation: Reports: Assisted Living ED ROS GENERAL - Review of Systems Review Of Systems: See Below ED EXAM, GENERAL - Physical Exam Exam: See Below EKG INTERPRETATION EKG Interpretation Comments: 12-Lead ECG Interpretation Acquired: 1:58 PM Rhythm: Sinus rhythm Rate: 86 bpm Yoder: Normal Intervals: Normal Ectopy: None Ischemic Changes: None apparent RV Strain: No obvious RV strain pattern. ST Segments/T-Waves: Inverted T waves in lead III, previously demonstrated. Interpretation: No significant change from 09/01/2018. No acute ischemia. Course - Vital Signs Text/Narrative:: Patient hemodynamically stable, afebrile, well-appearing, looks nontoxic. Differential diagnosis includes but is not limited to: ACS, pulmonary embolism, aortic dissection, acute systolic heart failure, pneumonia, pneumothorax, pericardial effusion, pleural effusion, pericarditis, endocarditis, esophageal rupture, GERD, drug-induced chest pain, chest wall pain, and many others. Hemodynamically stable. Chest pain resolved spontaneously. Given full dose aspirin. Twelve-lead EKG shows no acute ischemia or changes from most recent tracing on file. Chest x-rays are clear. Troponin negative. Mild normocytic anemia. Mild hyperkalemia and stable creatinine elevation along with hyperglycemia. I did order a CT aortogram study but the time study technician ran this is a CT pulmonary angiogram, which was negative. I did ask him to perform the CT aortogram as ordered and he did so, this demonstrates no acute findings as well. No signs of acute systolic heart failure, no pulmonary infiltrates, no infectious symptoms to suggest pneumonia. No evidence of pleural or pericardial effusion, low suspicion for pericarditis or endocarditis. Patient is high risk by the HEART score, with a score of 5. Given these facts along with her mild hyperkalemia, I would favor admission to the hospital overnight on observation status to have her troponins trended and to have her electrolytes rechecked after additional fluids. She is agreeable to this plan. I spoke with the hospitalist Dr. Ray Marcano who agrees to admit to observation. HEART Pathway for Early Discharge in Acute Chest Pain RESULT SUMMARY: 5 points HEART Pathway Score High risk 12-65% 30-day MACE Admit to hospital or observation. Further testing indicated. INPUTS: History > 0 = Slightly suspicious EKG > 1 = Non-specific repolarization disturbance Age > 2 = ?65 Risk factors > 2 = ?3 risk factors or history of atherosclerotic disease Initial troponin > 0 = ?normal limit Last Recorded V/S: Last Vital Signs Temp 36.3 C 11/02/19 13:59 Pulse 81 11/02/19 14:35 Resp 16 11/02/19 14:35 BP 137/72 11/02/19 14:35 Pulse Ox 97 11/02/19 14:35 - Orders/Labs/Meds Orders: Active Orders 24 hr Category Date Time Status EKG 12 Lead [EKG Documentation Completion] [RC] STAT Care 11/02/19 17:17 Active Pulse Oximetry [RC] ASDIRECTED Care 11/02/19 13:53 Active Sodium Chloride 0.9% [Saline Flush] Med 11/02/19 13:53 Active 10 ml FLUSH ASDIRECTED PRN Sodium Chloride 0.9% [Saline Flush] Med 11/02/19 13:53 Active 2.5 ml FLUSH ASDIRECTED PRN Saline Lock Insert [OM.PC] Stat Oth 11/02/19 13:53 Ordered Medication Orders Acetaminophen (Tylenol) 650 mg PO Q6H PRN PRN Reason: Pain Albuterol (Ventolin Hfa) gm INH .TWICE DAILY [facility] Aspirin (Halfprin) 81 mg PO DAILY [facility] Clopidogrel Bisulfate (Plavix) 75 mg PO DAILY [facility] Duloxetine HCl (Cymbalta) 60 mg PO DAILY [facility] Gabapentin (Neurontin) 200 mg PO DAILY [facility] Magnesium Sulfate 2 gm/ Premix 50 mls @ 50 mls/hr IV ONETIME ONE Stop: 11/02/19 19:51 Sodium Chloride (Normal Saline) 1,000 mls @ 50 mls/hr IV ASDIRECTED [facility] Insulin Aspart (Novolog) 4 unit SUBCUT TIDMEALS [facility] Insulin Detemir (Levemir) 40 unit SUBCUT BID [facility] Nitroglycerin (Nitrostat) 0.4 mg SL .EVERY 5 MINUTES PRN PRN Reason: Chest Pain Non-Formulary Medication (Fluticasone Propionate [Flovent]) 2 puff IH BID [facility] Non-Formulary Medication (Rosuvastatin Calcium [Rosuvastatin Calcium]) 40 mg PO BEDTIME [facility] Non-Formulary Medication (Lisinopril) 2.5 mg PO DAILY [facility] Omeprazole (Omeprazole) 20 mg PO ACBREAKFAST [facility] Ranolazine (Ranexa) 500 mg PO BID [facility] Sodium Chloride (Saline Flush) 10 ml FLUSH ASDIRECTED PRN PRN Reason: Keep Vein Open Last Admin: 11/02/19 15:31 Dose: 10 ml Documented by: SALIMA Sodium Chloride (Saline Flush) 2.5 ml FLUSH ASDIRECTED PRN PRN Reason: Keep Vein Open Last Admin: 11/02/19 15:31 Dose: 2.5 ml Documented by: SALIMA Labs: Laboratory Tests 11/02/19 11/02/19 11/02/19 Range/Units 14:18 14:18 17:17 WBC 7.99 (4.0-11.0) K/uL RBC 3.83 L (4.30-5.90) M/uL Hgb 11.4 L (12.0-16.0) g/dL Hct 34.3 L (36.0-46.0) % MCV 89.6 (80.0-98.0) fL MCH 29.8 (27.0-32.0) pg MCHC 33.2 (31.0-37.0) g/dL RDW Std Deviation 45.1 (28.0-62.0) fl RDW Coeff of Mary 14 (11.0-15.0) % Plt Count 352 (150-400) K/uL MPV 9.20 (7.40-12.00) fL Neut % (Auto) 56.1 (48.0-80.0) % Lymph % (Auto) 32.5 (16.0-40.0) % Haskell % (Auto) 8.5 (0.0-15.0) % Eos % (Auto) 2.6 (0.0-7.0) % Baso % (Auto) 0.3 (0.0-1.5) % Neut # (Auto) 4.5 (1.4-5.7) K/uL Lymph # (Auto) 2.6 H (0.6-2.4) K/uL Haskell # (Auto) 0.7 (0.0-0.8) K/uL Eos # (Auto) 0.2 (0.0-0.7) K/uL Baso # (Auto) 0.0 (0.0-0.1) K/uL Nucleated RBC % 0.0 /100WBC Nucleated RBCs # 0 K/uL Sodium 131 L (136-145) mmol/L Potassium 5.4 H (3.5-5.1) mmol/L Chloride 99 (98-107) mmol/L Carbon Dioxide 21.5 (21.0-32.0) mmol/L BUN 22 H (7.0-18.0) mg/dL Creatinine 1.1 H (0.6-1.0) mg/dL Est Cr Clr Drug Dosing 38.48 mL/min Estimated GFR (MDRD) 49.8 ml/min Glucose 216 H (74-106) mg/dL Calcium 9.8 (8.5-10.1) mg/dL Magnesium (1.8-2.4) mg/dL Total Bilirubin 0.4 (0.2-1.0) mg/dL AST 10 L (15-37) IU/L ALT 17 (14-63) IU/L Alkaline Phosphatase 87 (46-116) U/L Troponin I < 0.050 < 0.050 (0.000-0.056) ng/mL Total Protein 7.4 (6.4-8.2) g/dL Albumin 3.3 L (3.4-5.0) g/dL Globulin 4.1 H (2.6-4.0) g/dL Albumin/Globulin Ratio 0.8 L (0.9-1.6) 11/02/19 Range/Units 17:17 WBC (4.0-11.0) K/uL RBC (4.30-5.90) M/uL Hgb (12.0-16.0) g/dL Hct (36.0-46.0) % MCV (80.0-98.0) fL MCH (27.0-32.0) pg MCHC (31.0-37.0) g/dL RDW Std Deviation (28.0-62.0) fl RDW Coeff of Mary (11.0-15.0) % Plt Count (150-400) K/uL MPV (7.40-12.00) fL Neut % (Auto) (48.0-80.0) % Lymph % (Auto) (16.0-40.0) % Haskell % (Auto) (0.0-15.0) % Eos % (Auto) (0.0-7.0) % Baso % (Auto) (0.0-1.5) % Neut # (Auto) (1.4-5.7) K/uL Lymph # (Auto) (0.6-2.4) K/uL Haskell # (Auto) (0.0-0.8) K/uL Eos # (Auto) (0.0-0.7) K/uL Baso # (Auto) (0.0-0.1) K/uL Nucleated RBC % /100WBC Nucleated RBCs # K/uL Sodium (136-145) mmol/L Potassium (3.5-5.1) mmol/L Chloride (98-107) mmol/L Carbon Dioxide (21.0-32.0) mmol/L BUN (7.0-18.0) mg/dL Creatinine (0.6-1.0) mg/dL Est Cr Clr Drug Dosing mL/min Estimated GFR (MDRD) ml/min Glucose (74-106) mg/dL Calcium (8.5-10.1) mg/dL Magnesium 1.6 L (1.8-2.4) mg/dL Total Bilirubin (0.2-1.0) mg/dL AST (15-37) IU/L ALT (14-63) IU/L Alkaline Phosphatase (46-116) U/L Troponin I (0.000-0.056) ng/mL Total Protein (6.4-8.2) g/dL Albumin (3.4-5.0) g/dL Globulin (2.6-4.0) g/dL Albumin/Globulin Ratio (0.9-1.6) Meds: Medications Generic Name Dose Route Start Last Admin Trade Name Freq PRN Reason Stop Dose Admin Acetaminophen 650 mg 11/02/19 18:21 Tylenol PO Q6H PRN Pain Albuterol gm 11/02/19 19:30 Ventolin Hfa INH .TWICE DAILY [facility] Aspirin 81 mg 11/03/19 09:00 Halfprin PO DAILY [facility] Clopidogrel Bisulfate 75 mg 11/03/19 09:00 Plavix PO DAILY [facility] Duloxetine HCl 60 mg 11/03/19 09:00 Cymbalta PO DAILY [facility] Gabapentin 200 mg 11/03/19 09:00 Neurontin PO DAILY [facility] Magnesium Sulfate 2 gm/ Premix 50 mls @ 50 mls/hr 11/02/19 18:52 IV 11/02/19 19:51 ONETIME ONE Sodium Chloride 1,000 mls @ 50 mls/hr 11/02/19 19:30 Normal Saline IV ASDIRECTED [facility] Insulin Aspart 4 unit 11/03/19 08:00 Novolog SUBCUT TIDMEALS [facility] Insulin Detemir 40 unit 11/02/19 21:00 Levemir SUBCUT BID [facility] Nitroglycerin 0.4 mg 11/02/19 19:25 Nitrostat SL .EVERY 5 MINUTES PRN Chest Pain Non-Formulary Medication 2 puff 11/02/19 21:00 Fluticasone Propionate [Flovent] IH BID [facility] Non-Formulary Medication 40 mg 11/02/19 21:00 Rosuvastatin Calcium [Rosuvastatin Calcium] PO BEDTIME [facility] Non-Formulary Medication 2.5 mg 11/03/19 09:00 Lisinopril PO DAILY [facility] Omeprazole 20 mg 11/03/19 07:30 Omeprazole PO ACBREAKFAST [facility] Ranolazine 500 mg 11/02/19 21:00 Ranexa PO BID [facility] Sodium Chloride 10 ml 11/02/19 13:53 11/02/19 15:31 Saline Flush FLUSH 10 ml ASDIRECTED PRN Administration Keep Vein Open Sodium Chloride 2.5 ml 11/02/19 13:53 11/02/19 15:31 Saline Flush FLUSH 2.5 ml ASDIRECTED PRN Administration Keep Vein Open Discontinued Medications Generic Name Dose Route Start Last Admin Trade Name Freq PRN Reason Stop Dose Admin Aspirin 325 mg 11/02/19 14:22 11/02/19 14:34 Aspirin PO 11/02/19 14:23 Not Given ONETIME ONE Aspirin 324 mg 11/02/19 14:31 11/02/19 14:36 Aspirin PO 11/02/19 14:32 324 mg ONETIME ONE Administration Aspirin Confirm 11/02/19 14:32 11/02/19 14:36 Aspirin Administered 11/02/19 14:33 Not Given Dose 324 mg .ROUTE .STK-MED ONE Lactated Ringer's 1,000 mls @ 999 mls/hr 11/02/19 15:25 11/02/19 15:30 Ringers, Lactated IV 11/02/19 16:25 999 mls/hr .BOLUS ONE Administration Iopamidol 75 ml 11/02/19 15:31 11/02/19 15:32 Isovue-370 (76%) IVPUSH 11/02/19 15:32 75 ml ONETIME STA Administration Nitroglycerin 0.4 mg 11/02/19 14:22 Nitrostat SL Q5M PRN Chest Pain Departure - Departure Time of Disposition: 17:00 Disposition: Refer to Observation Condition: Good Clinical Impression: Chest pain in adult, Hyperkalemia Sepsis Event Note (ED) - Focused Exam Vital Signs: Vital Signs Temp Pulse Resp BP Pulse Ox 11/02/19 14:35 81 16 137/72 97 11/02/19 13:59 36.3 C 86 18 139/85 98 - My Orders Last 24 Hours: My Active Orders 11/02/19 13:53 Pulse Oximetry [RC] ASDIRECTED Sodium Chloride 0.9% [Saline Flush] 10 ml FLUSH ASDIRECTED PRN Sodium Chloride 0.9% [Saline Flush] 2.5 ml FLUSH ASDIRECTED PRN Saline Lock Insert [OM.PC] Stat 11/02/19 17:17 EKG 12 Lead [EKG Documentation Completion] [RC] STAT - Assessment/Plan Last 24 Hours: My Active Orders 11/02/19 13:53 Pulse Oximetry [RC] ASDIRECTED Sodium Chloride 0.9% [Saline Flush] 10 ml FLUSH ASDIRECTED PRN Sodium Chloride 0.9% [Saline Flush] 2.5 ml FLUSH ASDIRECTED PRN Saline Lock Insert [OM.PC] Stat 11/02/19 17:17 EKG 12 Lead [EKG Documentation Completion] [RC] STAT
[2019-11-02] MEDS ORDERED: Nitroglycerin 0.4 MG Tab.SL SL PRN ×2 (14:22→19:25)
[2019-11-02] MEDS ORDERED: Aspirin 325 MG Tab PO ONE (14:22)
[2019-11-02] MEDS ORDERED: Aspirin 81 MG Tab.Chew PO ONE (14:31)
[2019-11-02] MEDS ORDERED: Aspirin 81 MG Tab.Chew ONE (14:32)
[2019-11-02 14:48] LABS: BLOOD UREA NITROGEN,BUN 22 mg/dL (7.0-18.0); CARBON DIOXIDE,CO2 21.5 mmol/L (21.0-32.0); CHLORIDE,CL 99 mmol/L (98-107); GLUCOSE RANDOM 216 mg/dL (74-106); POTASSIUM,K 5.4 mmol/L (3.5-5.1); SODIUM,NA 131 mmol/L (136-145)
--- NOTE | 2019-11-02 15:08 | CR ---
Chest: AP view of the chest was obtained. Comparison: Prior chest x-ray report from exam of 09/01/18. Heart size and mediastinum are normal. Previous CABG is noted. Sternotomy wires are seen several which are fractured. Lungs are clear with no acute parenchymal change. No acute osseous finding is seen. Impression: 1. Findings as noted above. 2. Nothing acute is seen on AP chest x-ray. Diagnostic code #2 This report was dictated in MDT
[2019-11-02] MEDS ORDERED: Lactated Ringers 1,000 ML IV ONE (15:25)
[2019-11-02] MEDS ORDERED: Iopamidol 755 Mg/ML 100 ML Bottle IVPUSH STA (15:31)
--- NOTE | 2019-11-02 15:45 | CT ---
Addendum: Additional contrast was given and an aortogram exam was obtained. Mildly ectatic ascending aorta is again noted. Descending aorta is normal in size. No dissection is seen. Atherosclerotic calcification is seen within the thoracic aorta. Abdominal aorta shows no dissection. Atherosclerotic change is seen within the aorta. Single left kidney is seen. Absent right kidney is noted. Material within the gallbladder compatible with sludge/gallstones. Impression: 1. No findings of aortic dissection. Ectatic ascending aorta is again noted. 2. Absent right kidney. Single left kidney is noted. 3. Sludge and/or gallstones are seen within the gallbladder. --- Addendum1 above dictated on [11/02/2019 16:04] by [Riaz Fong Hilton J.] --- --- Addendum1 above signed on [11/02/2019 16:04] by [Riaz Fong Hilton J.] --- --- Original report below dictated on [11/02/2019 14:39] by [Riaz Fong Hilton J.] --- --- Original report below signed on [11/02/2019 14:43] by [Riaz Fong Hilton J.] --- CT chest Technique: Multiple axial sections were obtained from above the lung apices inferiorly through the lung bases. Intravenous contrast was utilized. Study performed as a pulmonary angiogram protocol. Comparison: Prior chest x-ray performed earlier the same day (2:29 PM). Findings: Pulmonary arteries are well opacified. No filling defects are seen to indicate pulmonary embolism. Prominent coronary artery calcification is seen. Aorta shows atherosclerotic change. Ascending aorta slightly ectatic at 3.6 cm in AP dimension. Descending aorta is normal in size. Prior sternotomy is noted. No pericardial thickening is seen. Visualized upper abdominal structures shows nothing acute. There are filling defects within the gallbladder either due to sludge and/or gallstones. Scattered calcified granulomas are seen within the chest. No acute parenchymal changes otherwise seen. No pleural effusions are noted. Bone window settings were reviewed which shows no acute osseous finding. Impression: 1. No findings pulmonary embolism. 2. Coronary artery calcification of previous sternotomy. 3. Sludge and/or gallstones within the gallbladder. 4. Other findings as noted above. Nothing acute is appreciated. Diagnostic code #2 This report was dictated in MDT --- Addendum1 signed ---
[2019-11-02] MEDS ORDERED: Acetaminophen 325 MG Tab PO PRN (18:21)
[2019-11-02] MEDS ORDERED: Magnesium Sulfate/Water 2 GM in Premix Bag 1 BAG IV ONE (18:52)
--- NOTE | 2019-11-02 18:57 | PCM.HP.2 ---
H&P History of Present Illness - General Date of Service: 11/02/19 Admit Problem/Dx: Admission Diagnosis/Problem Admission Diagnosis/Problem Chest pain in adult - History of Present Illness Initial Comments - Free Text/Narative: 64-year-old female admitted to the medical floor for chest pain, acs rule out. Patient has a past medical history of CAD with CABG X 3, PAD, Diabetes type 2, CKD stage III, hyperlipidemia, bilateral BKA, removal of right kidney. Patient states that her chest pain began 3 days ago, and began mainly at nighttime. This morning the patient states that the chest pain became more severe with exertion as she was going to her doctors appointment. Her doctor advised she go to the ED. Patient states that her chest pain was gradual in onset, constant rating the pain at 4 out of 10 in intensity. Patient also states that she has been under more emotional stress recently and feels that her stress is what triggered her chest pain. Patients also states mild SOB with exertion. Denies fever, chills, nausea, vomiting. Onset of Symptoms: Reports: Gradual Location: Reports: Chest Quality: Reports: Pressure Severity: Moderate chest pain Pain Score (Numeric/FACES): 3 - Related Data Allergies/Adverse Reactions: Allergies Allergy/AdvReac Type Severity Reaction Status Date / Time codeine Allergy Seizure Verified 11/02/19 13:57 Penicillins Allergy Other Verified 11/02/19 13:57 Home Medications: Home Meds Clopidogrel [Plavix] 75 mg PO DAILY 12/24/13 [History] Insulin Detemir [Levemir Flexpen] 40 unit SQ BID 12/24/13 [History] Ranolazine [Ranexa] 500 mg PO BID 12/24/13 [History] Albuterol [IJP: Ventolin HFA] 2 puff INH .TWICE DAILY #18 gm 05/16/16 [Rx] Aspirin [Halfprin] 81 mg PO DAILY 09/01/18 [History] Nitroglycerin 0.4 mg SL .EVERY 5 MINUTES PRN #1 bottle MDD 3 TABS 09/01/18 [Rx] Omeprazole 20 mg PO ACBREAKFAST 09/01/18 [History] Rosuvastatin Calcium 40 mg PO BEDTIME 09/01/18 [History] DULoxetine [Cymbalta] 60 mg PO DAILY 11/02/19 [History] Fluticasone Propionate [Flovent] 2 puff IH BID 11/02/19 [History] Gabapentin [Neurontin] 200 mg PO DAILY 11/02/19 [History] Insulin Aspart [NovoLOG] 4 unit SUBCUT TIDMEALS 11/02/19 [History] lisinopriL [Lisinopril] 2.5 mg PO DAILY 11/02/19 [History] Past Medical History HEENT History: Reports: None Cardiovascular History: Reports: Bypass, CAD, High Cholesterol, Hypertension, [place] Respiratory History: Reports: Intubation, Previous Gastrointestinal History: Reports: GERD Genitourinary History: Reports: Chronic Renal Insuffiency, UTI, Recurrent Other Genitourinary History: Entire L kidney and 1/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 ATTENDING History: Reports: None Musculoskeletal History: Reports: Amputation, Fracture Neurological History: Reports: Neuropathy, Diabetic Psychiatric History: Reports: None Endocrine/Metabolic History: Reports: Diabetes, Type II Hematologic History: Reports: None Immunologic History: Reports: None Oncologic (Cancer) History: Reports: Other (See Below) 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 Dermatologic History: Reports: None - Infectious Disease History Infectious Disease History: Reports: Chicken Pox, Measles - Past Surgical History Head Surgeries/Procedures: Reports: None HEENT Surgical History: Reports: None Cardiovascular Surgical History: Reports: Coronary Artery Bypass Musculoskeletal Surgical History: Reports: Amputation, Hip Replacement Social & Family History - Family History Family Medical History: Noncontributory - Tobacco Use Smoking Status *Q: Former Smoker Used Tobacco, but Quit: Yes Month/Year Tobacco Last Used: 1969 - Caffeine Use Caffeine Use: Reports: Coffee - Recreational Drug Use Recreational Drug Use: No - Living Situation & Occupation Living situation: Reports: Assisted Living H&P Review of Systems - Review of Systems: Review Of Systems: See Below General: Reports: Weakness, Fatigue. Denies: Fever, Chills HEENT: Denies: Headaches Pulmonary: Reports: Shortness of Breath. Denies: Cough Cardiovascular: Reports: Chest Pain, Dyspnea on Exertion. Denies: Lightheadedness Gastrointestinal: Denies: Abdominal Pain, Constipation, Diarrhea, Distension Musculoskeletal: Denies: Shoulder Pain, Arm Pain Psychiatric: Reports: Anxiety Neurological: Denies: Confusion, Dizziness Exam - Exam Exam: See Below - Vital Signs Vital Signs: Last Vital Signs Temp 97.3 F 11/02/19 13:59 Pulse 81 11/02/19 14:35 Resp 16 11/02/19 14:35 BP 137/72 11/02/19 14:35 Pulse Ox 97 11/02/19 14:35 Weight: 146 lb - Exam Quality Assessment: Skin Breakdown General: Alert, Oriented HEENT: Conjunctiva Clear, Mucosa Moist & [place] Neck: Trachea Midline Lungs: Clear to Auscultation, Normal Respiratory Effort Cardiovascular: Regular Rate, Regular Rhythm GI/Abdominal Exam: Soft, Non-Tender, No Distention Back Exam: No: CVA Tenderness (L), CVA Tenderness (R) Extremities: Other (Bilateral BKA) Skin: Warm, Dry Psychiatric: Alert, Normal Affect - Patient Data Lab Results Last 24 hrs: Laboratory Results - last 24 hr 11/02/19 11/02/19 11/02/19 Range/Units 14:18 14:18 17:17 WBC 7.99 (4.0-11.0) K/uL RBC 3.83 L (4.30-5.90) M/uL Hgb 11.4 L (12.0-16.0) g/dL Hct 34.3 L (36.0-46.0) % MCV 89.6 (80.0-98.0) fL MCH 29.8 (27.0-32.0) pg MCHC 33.2 (31.0-37.0) g/dL RDW Std Deviation 45.1 (28.0-62.0) fl RDW Coeff of Mary 14 (11.0-15.0) % Plt Count 352 (150-400) K/uL MPV 9.20 (7.40-12.00) fL Neut % (Auto) 56.1 (48.0-80.0) % Lymph % (Auto) 32.5 (16.0-40.0) % [place] % (Auto) 8.5 (0.0-15.0) % Eos % (Auto) 2.6 (0.0-7.0) % Baso % (Auto) 0.3 (0.0-1.5) % Neut # (Auto) 4.5 (1.4-5.7) K/uL Lymph # (Auto) 2.6 H (0.6-2.4) K/uL [place] # (Auto) 0.7 (0.0-0.8) K/uL Eos # (Auto) 0.2 (0.0-0.7) K/uL Baso # (Auto) 0.0 (0.0-0.1) K/uL Nucleated RBC % 0.0 /100WBC Nucleated RBCs # 0 K/uL Sodium 131 L (136-145) mmol/L Potassium 5.4 H (3.5-5.1) mmol/L Chloride 99 (98-107) mmol/L Carbon Dioxide 21.5 (21.0-32.0) mmol/L BUN 22 H (7.0-18.0) mg/dL Creatinine 1.1 H (0.6-1.0) mg/dL Est Cr Clr Drug Dosing 38.48 mL/min Estimated GFR (MDRD) 49.8 ml/min Glucose 216 H (74-106) mg/dL Calcium 9.8 (8.5-10.1) mg/dL Magnesium (1.8-2.4) mg/dL Total Bilirubin 0.4 (0.2-1.0) mg/dL AST 10 L (15-37) IU/L ALT 17 (14-63) IU/L Alkaline Phosphatase 87 (46-116) U/L Troponin I < 0.050 < 0.050 (0.000-0.056) ng/mL Total Protein 7.4 (6.4-8.2) g/dL Albumin 3.3 L (3.4-5.0) g/dL Globulin 4.1 H (2.6-4.0) g/dL Albumin/Globulin Ratio 0.8 L (0.9-1.6) SARS Virus RNA (PCR) (NEGATIVE) 11/02/19 11/02/19 Range/Units 17:17 17:45 WBC (4.0-11.0) K/uL RBC (4.30-5.90) M/uL Hgb (12.0-16.0) g/dL Hct (36.0-46.0) % MCV (80.0-98.0) fL MCH (27.0-32.0) pg MCHC (31.0-37.0) g/dL RDW Std Deviation (28.0-62.0) fl RDW Coeff of Mary (11.0-15.0) % Plt Count (150-400) K/uL MPV (7.40-12.00) fL Neut % (Auto) (48.0-80.0) % Lymph % (Auto) (16.0-40.0) % [place] % (Auto) (0.0-15.0) % Eos % (Auto) (0.0-7.0) % Baso % (Auto) (0.0-1.5) % Neut # (Auto) (1.4-5.7) K/uL Lymph # (Auto) (0.6-2.4) K/uL [place] # (Auto) (0.0-0.8) K/uL Eos # (Auto) (0.0-0.7) K/uL Baso # (Auto) (0.0-0.1) K/uL Nucleated RBC % /100WBC Nucleated RBCs # K/uL Sodium (136-145) mmol/L Potassium (3.5-5.1) mmol/L Chloride (98-107) mmol/L Carbon Dioxide (21.0-32.0) mmol/L BUN (7.0-18.0) mg/dL Creatinine (0.6-1.0) mg/dL Est Cr Clr Drug Dosing mL/min Estimated GFR (MDRD) ml/min Glucose (74-106) mg/dL Calcium (8.5-10.1) mg/dL Magnesium 1.6 L (1.8-2.4) mg/dL Total Bilirubin (0.2-1.0) mg/dL AST (15-37) IU/L ALT (14-63) IU/L Alkaline Phosphatase (46-116) U/L Troponin I (0.000-0.056) ng/mL Total Protein (6.4-8.2) g/dL Albumin (3.4-5.0) g/dL Globulin (2.6-4.0) g/dL Albumin/Globulin Ratio (0.9-1.6) SARS Virus RNA (PCR) NEGATIVE (NEGATIVE) Result Diagrams: 11/02/19 14:18 11/02/19 14:18 Sepsis Event Note - Evaluation Sepsis Screening Result: No Definite Risk - Focused Exam Vital Signs: Vital Signs Temp Pulse Resp BP Pulse Ox 11/02/19 14:35 81 16 137/72 97 11/02/19 13:59 97.3 F 86 18 139/85 98 Problem List Initiated/Reviewed/Updated: Yes Orders Last 24hrs: Active Orders 24 hr Category Date Time Status Admission Status [Patient Status] [ADT] Stat ADT 11/02/19 17:23 Active Patient Status [ADT] Routine ADT 11/02/19 18:13 Active Antiembolic Devices [RC] PER UNIT ROUTINE Care 11/02/19 18:19 Active Cardiac Monitoring [RC] . DIRECTED Care 11/02/19 13:53 Active EKG 12 Lead [EKG Documentation Completion] [RC] STAT Care 11/02/19 17:17 Active Oxygen Therapy [RC] PRN Care 11/02/19 18:13 Active Pulse Oximetry [RC] ASDIRECTED Care 11/02/19 13:53 Active VTE/DVT Education [RC] PER UNIT ROUTINE Care 11/02/19 18:13 Active Vital Signs [RC] Q4H Care 11/02/19 18:13 Active [employer] Diet [DIET] Diet 11/03/19 Breakfast Active BASIC METABOLIC PANEL,BMP [CHEM] AM Lab 11/03/19 05:11 Ordered CBC WITH AUTO DIFF [HEME] AM Lab 11/03/19 05:11 Ordered MAGNESIUM [CHEM] AM Lab 11/03/19 05:11 Ordered TROPONIN I [CHEM] Routine Lab 11/02/19 22:00 Ordered Acetaminophen [TylenoL] Med 11/02/19 18:21 Active 650 mg PO Q6H PRN Magnesium Sulfate/Water [Magnesium Sulfate in Water Med 11/02/19 18:52 Ordered Premix] 2 gmCountinue Ranolazine, Nitro PRN Premix Bag 1 bag IV ONETIME Sodium Chloride 0.9% [Saline Flush] Med 11/02/19 13:53 Active 10 ml FLUSH ASDIRECTED PRN Sodium Chloride 0.9% [Saline Flush] Med 11/02/19 13:53 Active 2.5 ml FLUSH ASDIRECTED PRN Saline Lock Insert [OM.PC] Stat Oth 11/02/19 13:53 Ordered Sequential Compression Device [OM.PC] Per Unit Routine Oth 11/02/19 18:14 Ordered Resuscitation Status Routine Resus Stat 11/02/19 18:13 Ordered Medication Orders Acetaminophen (Tylenol) 650 mg PO Q6H PRN PRN Reason: Pain Magnesium Sulfate 2 gm/ Premix 50 mls @ 50 mls/hr IV ONETIME ONE Stop: 11/02/19 19:51 Sodium Chloride (Saline Flush) 10 ml FLUSH ASDIRECTED PRN PRN Reason: Keep Vein Open Last Admin: 11/02/19 15:31 Dose: 10 ml Documented by: SALIMA Sodium Chloride (Saline Flush) 2.5 ml FLUSH ASDIRECTED PRN PRN Reason: Keep Vein Open Last Admin: 11/02/19 15:31 Dose: 2.5 ml Documented by: SALIMA Assessment/Plan: ACS Rule Out- Repeat troponin X 2, (2 negative troponin already recorded), Telemetry, maintenance fluids 50ml/hr NS, Tylenol 650mg Q6 for pain,AM Labs (BMP, CBC, Mg2+ level), repleted Mg2+ with 2g IV mg sulfate due to low Mg level (1.6), Chronic Angina- Resume home medication, Ranolazine 50mg BID, Nitro .4MG SL PRN CAD- Resume home medication, Statin 40MG daily, Plavix 75mg daily, Aspirin 81mg daily, Lisinopril 2.5MG Daily GERD- Resume home medication, Omeprazole 20mg daily Diabetes Type 2- Resume home medication, Levemir 40 units SubQ BID, Novolog 4units TIDAC, Diabetic Diet
[2019-11-02] MEDS ORDERED: Sodium Chloride 0.9% 1,000 ML IV SCH (19:30)
[2019-11-02] MEDS ORDERED: Non-Formulary Medication 1 Each (Fluticasone Propionate [Flovent] 2 PUFF) IH SCH (21:00)
[2019-11-02] MEDS ORDERED: Rosuvastatin 10 MG Tab PO SCH (23:00)
[2019-11-02] MEDS ORDERED: Clopidogrel 75 MG Tab PO SCH (23:00)
[2019-11-02] MEDS: Insulin Detemir 100 Units/ML 3 ML Pen SUBCUT SCH (23:24)
[2019-11-02] MEDS ORDERED: Albuterol Inhaler **OWN MED INH PRN (23:33)
[2019-11-03 06:24] LABS: BLOOD UREA NITROGEN,BUN 20 mg/dL (7.0-18.0); CARBON DIOXIDE,CO2 23.3 mmol/L (21.0-32.0); CHLORIDE,CL 102 mmol/L (98-107); GLUCOSE RANDOM 196 mg/dL (74-106); POTASSIUM,K 5.1 mmol/L (3.5-5.1); SODIUM,NA 135 mmol/L (136-145)
[2019-11-03] MEDS ORDERED: Omeprazole 20 MG Cap.CR PO SCH (07:30)
[2019-11-03 07:54] VITALS: BP 138/59; PULSE 70
[2019-11-03] MEDS ORDERED: Insulin Aspart 100 Units/ML 3 ML Pen SUBCUT SCH (08:00)
[2019-11-03] MEDS ORDERED: Lisinopril 5 MG Tab PO SCH (09:00)
[2019-11-03] MEDS ORDERED: Aspirin 81 MG Tab.EC PO SCH (09:00)
[2019-11-03] MEDS ORDERED: Gabapentin 100 MG Cap PO SCH (09:00)
[2019-11-03] MEDS ORDERED: DULoxetine 60 MG Cap PO SCH (09:00)
[2019-11-03] MEDS ORDERED: Clopidogrel 75 MG Tab PO SCH (09:00)
[2019-11-03] MEDS: Insulin Aspart 100 Units/ML 3 ML Pen SUBCUT SCH ×2 (09:28→13:20)
[2019-11-03] MEDS: Insulin Detemir 100 Units/ML 3 ML Pen SUBCUT SCH (09:37)
--- NOTE | 2019-11-03 11:01 | CT ---
Addendum: Additional contrast was given and an aortogram exam was obtained. Mildly ectatic ascending aorta is again noted. Descending aorta is normal in size. No dissection is seen. Atherosclerotic calcification is seen within the thoracic aorta. Abdominal aorta shows no dissection. Atherosclerotic change is seen within the aorta. Single left kidney is seen. Absent right kidney is noted. Material within the gallbladder compatible with sludge/gallstones. Impression: 1. No findings of aortic dissection. Ectatic ascending aorta is again noted. 2. Absent right kidney. Single left kidney is noted. 3. Sludge and/or gallstones are seen within the gallbladder. --- Addendum1 above dictated on [11/02/2019 16:04] by [Riaz Fong Hilton J.] --- --- Addendum1 above signed on [11/02/2019 16:04] by [Riaz Fong Hilton J.] --- --- Original report below dictated on [11/02/2019 14:39] by [Riaz Fong, Shahram Fernandez] --- --- Original report below signed on [11/02/2019 14:43] by [Riaz Fong, Shahram Fernandez] --- CT chest Technique: Multiple axial sections were obtained from above the lung apices inferiorly through the lung bases. Intravenous contrast was utilized. Study performed as a pulmonary angiogram protocol. Comparison: Prior chest x-ray performed earlier the same day (2:29 PM). Findings: Pulmonary arteries are well opacified. No filling defects are seen to indicate pulmonary embolism. Prominent coronary artery calcification is seen. Aorta shows atherosclerotic change. Ascending aorta slightly ectatic at 3.6 cm in AP dimension. Descending aorta is normal in size. Prior sternotomy is noted. No pericardial thickening is seen. Visualized upper abdominal structures shows nothing acute. There are filling defects within the gallbladder either due to sludge and/or gallstones. Scattered calcified granulomas are seen within the chest. No acute parenchymal changes otherwise seen. No pleural effusions are noted. Bone window settings were reviewed which shows no acute osseous finding. Impression: 1. No findings pulmonary embolism. 2. Coronary artery calcification of previous sternotomy. 3. Sludge and/or gallstones within the gallbladder. 4. Other findings as noted above. Nothing acute is appreciated. MTDD
--- NOTE | 2019-11-03 16:03 | PCM.DCSUM1 ---
<Stephen Mooney - Last Filed: 11/03/19 15:54> Discharge Summary - Hospital Course Free Text/Narrative:: 64 yr old female admitted overnight for observation for chest pain, ACS rule out. Patient has a significant PMH to include CABG X 3, CAD, PAD, Diabetes Type 2, HTN, Bilateral BKA, removal of right kidney. Troponin X4 were negative, EKG showed no ischemic changes, CTA was negative for PE or aortic dissection. 2g MG2+ was given as patient had a low mg level (1.6) Patient was given fluids, as pirin, nitroglycerin and continued on her home medications overnight to include omeprazole, losartan, plavix, ranolazine, statin, levemir, novolog. Patients hemodynamic status was stable during her admission. Diagnosis: Stroke: No - Discharge Data Discharge Date: 11/03/19 Discharge Disposition: Home, Self-Care 01 Condition: Fair - Referral to Home Health Primary Care Physician: Willow Machado MD - Patient Instructions Diet: Diabetic Diet Activity: As Tolerated Showering/Bathing: May Shower Notify Provider of: Fever, Increased Pain, Swelling and Redness, Nausea and/or Vomiting - Discharge Plan *PRESCRIPTION DRUG MONITORING PROGRAM REVIEWED*: Not Applicable *COPY OF PRESCRIPTION DRUG MONITORING REPORT IN PATIENT LARRY: Not Applicable Prescriptions/Med Rec: Pantoprazole Sodium [Protonix] 20 mg PO DAILY #90 tablet. Home Medications: Home Meds Clopidogrel [Plavix] 75 mg PO BEDTIME 12/24/13 [History] Insulin Detemir [Levemir Flexpen] 40 unit SQ BID 12/24/13 [History] Ranolazine [Ranexa] 500 mg PO DAILY 12/24/13 [History] Aspirin [Halfprin] 81 mg PO DAILY 09/01/18 [History] Nitroglycerin 0.4 mg SL .EVERY 5 MINUTES PRN #1 bottle MDD 3 TABS 09/01/18 [Rx] Rosuvastatin Calcium 40 mg PO BEDTIME 09/01/18 [History] Albuterol [Take Home: Albuterol 18 GM, 1 INH Pack] 2 inhalation BID PRN 11/02/19 [History] DULoxetine [Cymbalta] 60 mg PO DAILY 11/02/19 [History] Gabapentin [Neurontin] 200 mg PO DAILY 11/02/19 [History] Insulin Aspart [NovoLOG] See Protocol SUBCUT TIDMEALS 11/02/19 [History] lisinopriL [Lisinopril] 2.5 mg PO DAILY 11/02/19 [History] Albuterol [Ventolin HFA] 0 gm INH BID PRN inhaler 11/03/19 [Rx] Pantoprazole Sodium [Protonix] 20 mg PO DAILY #90 tablet. 11/03/19 [Rx] Ranolazine [Ranexa] 500 mg PO DAILY tab.er 11/03/19 [Rx] Patient Handouts: Nonspecific Chest Pain, Adult, [id number], Pantoprazole tablets Referrals: Wlilow Machado MD [Primary Care Provider] - 11/17/19 8:30 am - Discharge Summary/Plan Comment DC Time >30 min.: No - General Info Subjective Update: Patient states that she feels well this morning and would like to go home. No complaints of chest pain, chest pressure, SOB, orthopnea, fever, chills. - Review of Systems General: Denies: Fever, Weakness, Chills, Night Sweats HEENT: Denies: Headaches, Sore Throat Pulmonary: Denies: Shortness of Breath, Pleuritic Chest Pain, Cough Cardiovascular: Denies: Chest Pain, Palpitations, Dyspnea on Exertion, Orthopnea Gastrointestinal: Denies: Abdominal Pain, Decreased Appetite, Nausea, Vomiting Musculoskeletal: Denies: Neck Pain, Shoulder Pain - Patient Data Vitals - Most Recent: Last Vital Signs Temp 97.8 F 11/03/19 07:52 Pulse 70 11/03/19 07:52 Resp 18 11/03/19 07:52 BP 138/59 L 11/03/19 09:18 Pulse Ox 98 11/03/19 07:52 Weight - Most Recent: 65.136 kg I&O - Last 24 hours: Intake & Output 11/03/19 11/03/19 11/03/19 06:59 14:59 22:59 Intake Total 1446 800 Output Total 1400 650 Balance 46 150 Lab Results - Last 24 hrs: Laboratory Results - last 24 hr 11/02/19 11/02/19 11/02/19 Range/Units 17:17 17:17 17:45 WBC (4.0-11.0) K/uL RBC (4.30-5.90) M/uL Hgb (12.0-16.0) g/dL Hct (36.0-46.0) % MCV (80.0-98.0) fL MCH (27.0-32.0) pg MCHC (31.0-37.0) g/dL RDW Std Deviation (28.0-62.0) fl RDW Coeff of Mary (11.0-15.0) % Plt Count (150-400) K/uL MPV (7.40-12.00) fL Neut % (Auto) (48.0-80.0) % Lymph % (Auto) (16.0-40.0) % [place] % (Auto) (0.0-15.0) % Eos % (Auto) (0.0-7.0) % Baso % (Auto) (0.0-1.5) % Neut # (Auto) (1.4-5.7) K/uL Lymph # (Auto) (0.6-2.4) K/uL [place] # (Auto) (0.0-0.8) K/uL Eos # (Auto) (0.0-0.7) K/uL Baso # (Auto) (0.0-0.1) K/uL Nucleated RBC % /100WBC Nucleated RBCs # K/uL Sodium (136-145) mmol/L Potassium (3.5-5.1) mmol/L Chloride (98-107) mmol/L Carbon Dioxide (21.0-32.0) mmol/L BUN (7.0-18.0) mg/dL Creatinine (0.6-1.0) mg/dL Est Cr Clr Drug Dosing mL/min Estimated GFR (MDRD) ml/min Glucose (74-106) mg/dL POC Glucose (60-110) mg/dL Calcium (8.5-10.1) mg/dL Magnesium 1.6 L (1.8-2.4) mg/dL Troponin I < 0.050 (0.000-0.056) ng/mL SARS Virus RNA (PCR) NEGATIVE (NEGATIVE) 11/02/19 11/03/19 11/03/19 Range/Units 22:05 05:42 05:42 WBC 7.63 (4.0-11.0) K/uL RBC 3.61 L (4.30-5.90) M/uL Hgb 10.6 L (12.0-16.0) g/dL Hct 32.8 L (36.0-46.0) % MCV 90.9 (80.0-98.0) fL MCH 29.4 (27.0-32.0) pg MCHC 32.3 (31.0-37.0) g/dL RDW Std Deviation 46.2 (28.0-62.0) fl RDW Coeff of Mary 14 (11.0-15.0) % Plt Count 330 (150-400) K/uL MPV 9.00 (7.40-12.00) fL Neut % (Auto) 58.3 (48.0-80.0) % Lymph % (Auto) 29.2 (16.0-40.0) % [place] % (Auto) 9.0 (0.0-15.0) % Eos % (Auto) 3.1 (0.0-7.0) % Baso % (Auto) 0.4 (0.0-1.5) % Neut # (Auto) 4.4 (1.4-5.7) K/uL Lymph # (Auto) 2.2 (0.6-2.4) K/uL [place] # (Auto) 0.7 (0.0-0.8) K/uL Eos # (Auto) 0.2 (0.0-0.7) K/uL Baso # (Auto) 0.0 (0.0-0.1) K/uL Nucleated RBC % 0.0 /100WBC Nucleated RBCs # 0 K/uL Sodium 135 L (136-145) mmol/L Potassium 5.1 (3.5-5.1) mmol/L Chloride 102 (98-107) mmol/L Carbon Dioxide 23.3 (21.0-32.0) mmol/L BUN 20 H (7.0-18.0) mg/dL Creatinine 1.1 H (0.6-1.0) mg/dL Est Cr Clr Drug Dosing 38.48 mL/min Estimated GFR (MDRD) 49.8 ml/min Glucose 196 H (74-106) mg/dL POC Glucose (60-110) mg/dL Calcium 9.2 (8.5-10.1) mg/dL Magnesium 2.2 (1.8-2.4) mg/dL Troponin I < 0.050 < 0.050 (0.000-0.056) ng/mL SARS Virus RNA (PCR) (NEGATIVE) 11/03/19 11/03/19 Range/Units 06:38 09:28 WBC (4.0-11.0) K/uL RBC (4.30-5.90) M/uL Hgb (12.0-16.0) g/dL Hct (36.0-46.0) % MCV (80.0-98.0) fL MCH (27.0-32.0) pg MCHC (31.0-37.0) g/dL RDW Std Deviation (28.0-62.0) fl RDW Coeff of Mary (11.0-15.0) % Plt Count (150-400) K/uL MPV (7.40-12.00) fL Neut % (Auto) (48.0-80.0) % Lymph % (Auto) (16.0-40.0) % [place] % (Auto) (0.0-15.0) % Eos % (Auto) (0.0-7.0) % Baso % (Auto) (0.0-1.5) % Neut # (Auto) (1.4-5.7) K/uL Lymph # (Auto) (0.6-2.4) K/uL [place] # (Auto) (0.0-0.8) K/uL Eos # (Auto) (0.0-0.7) K/uL Baso # (Auto) (0.0-0.1) K/uL Nucleated RBC % /100WBC Nucleated RBCs # K/uL Sodium (136-145) mmol/L Potassium (3.5-5.1) mmol/L Chloride (98-107) mmol/L Carbon Dioxide (21.0-32.0) mmol/L BUN (7.0-18.0) mg/dL Creatinine (0.6-1.0) mg/dL Est Cr Clr Drug Dosing mL/min Estimated GFR (MDRD) ml/min Glucose (74-106) mg/dL POC Glucose 169 H 275 H (60-110) mg/dL Calcium (8.5-10.1) mg/dL Magnesium (1.8-2.4) mg/dL Troponin I (0.000-0.056) ng/mL SARS Virus RNA (PCR) (NEGATIVE) Med Orders - Current: Current Medications Discontinued Medications Acetaminophen (Tylenol) 650 mg PO Q6H PRN PRN Reason: Pain Last Admin: 11/03/19 04:24 Dose: 650 mg Documented by: Albuterol (Ventolin Hfa) 0 gm INH BID PRN PRN Reason: shortness of breath Aspirin (Aspirin) 325 mg PO ONETIME ONE Stop: 11/02/19 14:23 Last Admin: 11/02/19 14:34 Dose: Not Given Documented by: Aspirin (Aspirin) 324 mg PO ONETIME ONE Stop: 11/02/19 14:32 Last Admin: 11/02/19 14:36 Dose: 324 mg Documented by: Aspirin (Aspirin) Confirm Administered Dose 324 mg .ROUTE .STK-MED ONE Stop: 11/02/19 14:33 Last Admin: 11/02/19 14:36 Dose: Not Given Documented by: Aspirin (Halfprin) 81 mg PO DAILY [facility] Last Admin: 11/03/19 09:16 Dose: 81 mg Documented by: Clopidogrel Bisulfate (Plavix) 75 mg PO DAILY [facility] Clopidogrel Bisulfate (Plavix) 75 mg PO BEDTIME [facility] Last Admin: 11/02/19 23:23 Dose: 75 mg Documented by: Duloxetine HCl (Cymbalta) 60 mg PO DAILY [facility] Last Admin: 11/03/19 09:15 Dose: 60 mg Documented by: Gabapentin (Neurontin) 200 mg PO DAILY [facility] Last Admin: 11/03/19 09:16 Dose: 200 mg Documented by: Lactated Ringer's (Ringers, Lactated) 1,000 mls @ 999 mls/hr IV .BOLUS ONE Stop: 11/02/19 16:25 Last Admin: 11/02/19 15:30 Dose: 999 mls/hr Documented by: Magnesium Sulfate 2 gm/ Premix 50 mls @ 50 mls/hr IV ONETIME ONE Stop: 11/02/19 19:51 Last Admin: 11/02/19 21:23 Dose: 50 mls/hr Documented by: Sodium Chloride (Normal Saline) 1,000 mls @ 50 mls/hr IV ASDIRECTED [facility] Last Admin: 11/02/19 21:21 Dose: 50 mls/hr Documented by: Insulin Aspart (Novolog) 4 unit SUBCUT TIDMEALS [facility] Insulin Aspart (Novolog) 0 unit SUBCUT TIDAC [facility]; Protocol Last Admin: 11/03/19 13:20 Dose: Not Given Documented by: Insulin Detemir (Levemir) 40 unit SUBCUT BID [facility] Last Admin: 11/03/19 09:37 Dose: 40 units Documented by: Iopamidol (Isovue-370 (76%)) 75 ml IVPUSH ONETIME STA Stop: 11/02/19 15:32 Last Admin: 11/02/19 15:32 Dose: 75 ml Documented by: Lisinopril (Prinivil) 2.5 mg PO DAILY [facility] Last Admin: 11/03/19 09:18 Dose: 2.5 mg Documented by: Nitroglycerin (Nitrostat) 0.4 mg SL Q5M PRN PRN Reason: Chest Pain Nitroglycerin (Nitrostat) 0.4 mg SL .EVERY 5 MINUTES PRN PRN Reason: Chest Pain Non-Formulary Medication (Fluticasone Propionate [Flovent]) 2 puff IH BID [facility] Last Admin: 11/02/19 23:14 Dose: Not Given Documented by: Omeprazole (Omeprazole) 20 mg PO ACBREAKFAST [facility] Last Admin: 11/03/19 06:36 Dose: 20 mg Documented by: Ranolazine (Ranexa) 500 mg PO BID [facility] Ranolazine (Ranexa) 500 mg PO DAILY [facility] Last Admin: 11/03/19 09:15 Dose: 500 mg Documented by: Rosuvastatin Calcium (Crestor) 40 mg PO BEDTIME [facility] Last Admin: 11/02/19 23:22 Dose: 40 mg Documented by: Sodium Chloride (Saline Flush) 10 ml FLUSH ASDIRECTED PRN PRN Reason: Keep Vein Open Last Admin: 11/02/19 15:31 Dose: 10 ml Documented by: Sodium Chloride (Saline Flush) 2.5 ml FLUSH ASDIRECTED PRN PRN Reason: Keep Vein Open Last Admin: 11/02/19 15:31 Dose: 2.5 ml Documented by: - Exam General: Reports: Alert, Oriented HEENT: Reports: EOMI Lungs: Reports: Clear to Auscultation, Normal Respiratory Effort. Denies: Wheezing Cardiovascular: Reports: Regular Rate, Regular Rhythm GI/Abdominal Exam: Non-Tender, No Distention Extremities: Other (Bilateral BKA) Skin: Reports: Warm, Dry Psy/Mental Status: Reports: Alert, Normal Affect <MarcanoRay Jaiden - Last Filed: 11/04/19 19:21> Discharge Summary - Referral to Home Health Primary Care Physician: Willow Machado MD - Patient Data Vitals - Most Recent: Last Vital Signs Temp 36.6 C 11/03/19 07:52 Pulse 70 11/03/19 07:52 Resp 18 11/03/19 07:52 BP 138/59 L 11/03/19 09:18 Pulse Ox 98 11/03/19 07:52 Med Orders - Current: Current Medications Discontinued Medications Acetaminophen (Tylenol) 650 mg PO Q6H PRN PRN Reason: Pain Last Admin: 11/03/19 04:24 Dose: 650 mg Documented by: Albuterol (Ventolin Hfa) 0 gm INH BID PRN PRN Reason: shortness of breath Aspirin (Aspirin) 325 mg PO ONETIME ONE Stop: 11/02/19 14:23 Last Admin: 11/02/19 14:34 Dose: Not Given Documented by: Aspirin (Aspirin) 324 mg PO ONETIME ONE Stop: 11/02/19 14:32 Last Admin: 11/02/19 14:36 Dose: 324 mg Documented by: Aspirin (Aspirin) Confirm Administered Dose 324 mg .ROUTE .STK-MED ONE Stop: 11/02/19 14:33 Last Admin: 11/02/19 14:36 Dose: Not Given Documented by: Aspirin (Halfprin) 81 mg PO DAILY [facility] Last Admin: 11/03/19 09:16 Dose: 81 mg Documented by: Clopidogrel Bisulfate (Plavix) 75 mg PO DAILY [facility] Clopidogrel Bisulfate (Plavix) 75 mg PO BEDTIME [facility] Last Admin: 11/02/19 23:23 Dose: 75 mg Documented by: Duloxetine HCl (Cymbalta) 60 mg PO DAILY [facility] Last Admin: 11/03/19 09:15 Dose: 60 mg Documented by: Gabapentin (Neurontin) 200 mg PO DAILY [facility] Last Admin: 11/03/19 09:16 Dose: 200 mg Documented by: Lactated Ringer's (Ringers, Lactated) 1,000 mls @ 999 mls/hr IV .BOLUS ONE Stop: 11/02/19 16:25 Last Admin: 11/02/19 15:30 Dose: 999 mls/hr Documented by: Magnesium Sulfate 2 gm/ Premix 50 mls @ 50 mls/hr IV ONETIME ONE Stop: 11/02/19 19:51 Last Admin: 11/02/19 21:23 Dose: 50 mls/hr Documented by: Sodium Chloride (Normal Saline) 1,000 mls @ 50 mls/hr IV ASDIRECTED [facility] Last Admin: 11/02/19 21:21 Dose: 50 mls/hr Documented by: Insulin Aspart (Novolog) 4 unit SUBCUT TIDMEALS [facility] Insulin Aspart (Novolog) 0 unit SUBCUT TIDAC [facility]; Protocol Last Admin: 11/03/19 13:20 Dose: Not Given Documented by: Insulin Detemir (Levemir) 40 unit SUBCUT BID [facility] Last Admin: 11/03/19 09:37 Dose: 40 units Documented by: Iopamidol (Isovue-370 (76%)) 75 ml IVPUSH ONETIME STA Stop: 11/02/19 15:32 Last Admin: 11/02/19 15:32 Dose: 75 ml Documented by: Lisinopril (Prinivil) 2.5 mg PO DAILY [facility] Last Admin: 11/03/19 09:18 Dose: 2.5 mg Documented by: Nitroglycerin (Nitrostat) 0.4 mg SL Q5M PRN PRN Reason: Chest Pain Nitroglycerin (Nitrostat) 0.4 mg SL .EVERY 5 MINUTES PRN PRN Reason: Chest Pain Non-Formulary Medication (Fluticasone Propionate [Flovent]) 2 puff IH BID [facility] Last Admin: 11/02/19 23:14 Dose: Not Given Documented by: Omeprazole (Omeprazole) 20 mg PO ACBREAKFAST [facility] Last Admin: 11/03/19 06:36 Dose: 20 mg Documented by: Ranolazine (Ranexa) 500 mg PO BID [facility] Ranolazine (Ranexa) 500 mg PO DAILY [facility] Last Admin: 11/03/19 09:15 Dose: 500 mg Documented by: Rosuvastatin Calcium (Crestor) 40 mg PO BEDTIME [facility] Last Admin: 11/02/19 23:22 Dose: 40 mg Documented by: Sodium Chloride (Saline Flush) 10 ml FLUSH ASDIRECTED PRN PRN Reason: Keep Vein Open Last Admin: 11/02/19 15:31 Dose: 10 ml Documented by: Sodium Chloride (Saline Flush) 2.5 ml FLUSH ASDIRECTED PRN PRN Reason: Keep Vein Open Last Admin: 11/02/19 15:31 Dose: 2.5 ml Documented by: - Free Text/Narrative Note: I have seen and evaluated the patient. I have discussed findings and treatment plan with resident. I agree with the assessment and plan as outlined in the following note.
== END 2019-11-03 11:45 | disposition home or self-care (01) ==
LOC: MW.ED 13:52 → MW.MS 17:23
PROVIDERS: ADMIT Internal Medicine; ATTEND Internal Medicine
DX: R07.89 Other chest pain (principal); I25.119 Atherosclerotic heart disease of native coronary artery with unspecified angina pectoris; E11.22 Type 2 diabetes mellitus with diabetic chronic kidney disease; N18.3 Chronic kidney disease, stage 3 (moderate); E78.5 Hyperlipidemia, unspecified; K21.9 Gastro-esophageal reflux disease without esophagitis; I12.9 Hypertensive chronic kidney disease with stage 1 through stage 4 chronic kidney disease, or unspecified chronic kidney disease; Z20.828 Contact with and (suspected) exposure to other viral communicable diseases; Z89.512 Acquired absence of left leg below knee; Z79.82 Long term (current) use of aspirin; Z79.899 Other long term (current) drug therapy; Z89.511 Acquired absence of right leg below knee; Z90.5 Acquired absence of kidney; Z88.5 Allergy status to narcotic agent; Z88.0 Allergy status to penicillin; Z96.649 Presence of unspecified artificial hip joint; Z87.891 Personal history of nicotine dependence
CPT/HCPCS: 36415; 71045; 71275; 74175; 80048; 80053; 82962; 83735; 84484; 85025; 93005; 96361; 96365; 99285; A9270; G0378; J1815; J3475; J7030; J7120; Q9967; U0002; 96360; 99284

== ENCOUNTER 2020-02-17 07:14 | Emergency (ER) | payer MEDICARE, OTHER, MEDICAID ==
[2020-02-17] MEDS ORDERED: Sodium Chloride 0.9% 10 ML Syringe FLUSH PRN (07:33)
[2020-02-17] MEDS ORDERED: Sodium Chloride 0.9% 2.5 ML Syringe FLUSH PRN (07:33)
--- NOTE | 2020-02-17 07:39 | EDM.PDOC ---
ED HPI GENERAL MEDICAL PROBLEM - General Chief Complaint: Respiratory Problem Stated Complaint: SOB Time Seen by Provider: 02/17/20 07:20 - History of Present Illness INITIAL COMMENTS - FREE TEXT/NARRATIVE: History of present illness: [] Patient is becoming increasingly short of breath for 2 days. She is markedly short of breath today. She has a persistent severe headache. On 26 January she attended a family gathering at her daughter's house where her granddaughter was in from college. Since she has had headache and increasing shortness of breath as well as a persistent cough. The cough has continued and the headache has continued. She did have muscle aches shortly after Thanksgiving and that has improved since. Her daughter has bilateral pneumonia and is home on oxygen after hospitalization including intubation and ventilator support. 1 daughter has returned to college. She is diabetic bilateral amputee. Review of systems: As per history of present illness and below otherwise all systems reviewed and n egative. Past medical history: As per history of present illness and as reviewed below otherwise noncontributory.pmh of CAD with CABG in 2008, peripheral vascular disease, bilateral BKA, DM Type 2, CKD and hyperlipidemia Surgical history: As per history of present illness and as reviewed below otherwise noncontributory. Social history: No reported history of drug or alcohol abuse. She does not smoke and never has. Family history: As per history of present illness and as reviewed below otherwise noncontributory. Physical exam: Constitutional - well developed, well-nourished and in no acute distress HEENT - normocephalic, no evidence of trauma - external nose and mouth normal - no mass in neck and no JVD - mucosae moist EYES - full EOM, PERRL, no icterus - no evidence of inflammation, injection, or drainage Respiratory - no respiratory distress, equal bilateral expansion, lungs with irregularly scattered rales throughout the posterior lung mclaughlin oxygen saturation was low in the field and responded to 15 L of high flow oxygen. Cardiovascular - Regular Rhythm with S1 and S2 appreciated and no murmur, gallop or rub. GI - abdomen soft without distension or organomegaly - normal bowel sounds - no guard or rebound Musculoskeletal lateral lower extremity amputee otherwise no gross deformity of long bones or joints - no tenderness, swelling or edema Neurologic - Alert and oriented times four - CN II-XII grossly intact - motor sensory and coordination symmetrically normal Psychiatric - appropriate mood and affect with normal thought content Hematologic - No petechiae or purpura - mucosa appropriate color and sclera not pale - normal nail bed color and refill Integument - no rash or evidence of trauma - normal turgor Diagnostics: [] Therapeutics: [] Impression: [] Plan: [] Definitive disposition and diagnosis as appropriate pending reevaluation and review of above. 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: Reports: Oxygen chest Pain Score (Numeric/FACES): 3 - Related Data Allergies Allergy/AdvReac Type Severity Reaction Status Date / Time codeine Allergy Seizure Verified 02/17/20 07:21 diphenhydramine Allergy Drowsiness Verified 02/17/20 07:21 [From Benadryl] Penicillins Allergy Other Verified 02/17/20 07:21 Home Meds: Home Meds Clopidogrel [Plavix] 75 mg PO BEDTIME 12/24/13 [History] Insulin Detemir [Levemir Flexpen] 40 unit SQ BID 12/24/13 [History] Ranolazine [Ranexa] 500 mg PO DAILY 12/24/13 [History] Aspirin [Halfprin] 81 mg PO DAILY 09/01/18 [History] Nitroglycerin 0.4 mg SL .EVERY 5 MINUTES PRN #1 bottle MDD 3 TABS 09/01/18 [Rx] Rosuvastatin Calcium 40 mg PO BEDTIME 09/01/18 [History] Albuterol [Take Home: Albuterol 18 GM, 1 INH Pack] 2 inhalation BID PRN 11/02/19 [History] DULoxetine [Cymbalta] 60 mg PO DAILY 11/02/19 [History] Gabapentin [Neurontin] 200 mg PO DAILY 11/02/19 [History] Insulin Aspart [NovoLOG] See Protocol SUBCUT TIDMEALS 11/02/19 [History] lisinopriL [Lisinopril] 2.5 mg PO DAILY 11/02/19 [History] Albuterol [Ventolin HFA] 0 gm INH BID PRN inhaler 11/03/19 [Rx] Pantoprazole Sodium [Protonix] 20 mg PO DAILY #90 tablet. 11/03/19 [Rx] Ranolazine [Ranexa] 500 mg PO DAILY tab.er 11/03/19 [Rx] dexAMETHasone [Dexamethasone] 4 mg PO BID #10 tab 02/17/20 [Rx] Past Medical History HEENT History: Reports: None Cardiovascular History: Reports: Bypass, CAD, High Cholesterol, Hypertension, [place] Respiratory History: Reports: Intubation, Previous Gastrointestinal History: Reports: GERD Genitourinary History: Reports: Chronic Renal Insuffiency, UTI, Recurrent Other Genitourinary History: Entire L kidney and 1/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 WASTE ELIMINATION History: Reports: None Musculoskeletal History: Reports: Amputation, Fracture Neurological History: Reports: Neuropathy, Diabetic Psychiatric History: Reports: None Endocrine/Metabolic History: Reports: Diabetes, Type II Hematologic History: Reports: None Immunologic History: Reports: None Oncologic (Cancer) History: Reports: Other (See Below) 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 Dermatologic History: Reports: None - Infectious Disease History Infectious Disease History: Reports: Chicken Pox, Measles, MRSA, Novel Coronavirus - Past Surgical History Head Surgeries/Procedures: Reports: None HEENT Surgical History: Reports: None Cardiovascular Surgical History: Reports: Coronary Artery Bypass Other Cardiovascular Surgeries/Procedures: 5 bypass Respiratory Surgical History: Reports: None GI Surgical History: Reports: None Female Surgical History: Reports: None Endocrine Surgical History: Reports: None Neurological Surgical History: Reports: None Musculoskeletal Surgical History: Reports: Amputation, Hip Replacement Other Musculoskeletal Surgeries/Procedures:: leg surgery to clean leg and let it heal Oncologic Surgical History: Reports: None Dermatological Surgical History: Reports: None Social & Family History - Family History Family Medical History: No Pertinent Family History - Tobacco Use Tobacco Use Status *Q: Never Tobacco User - Caffeine Use Caffeine Use: Reports: Coffee Other Caffeine Use: 2 cups per day - Recreational Drug Use Recreational Drug Use: No - Living Situation & Occupation Living situation: Reports: Assisted Living ED ROS GENERAL - Review of Systems Review Of Systems: Comprehensive ROS is negative, except as noted in HPI. ED EXAM, GENERAL - Physical Exam Exam: See Below Free Text/Narrative:: My physical exam is in the HPI #1 Interpretation EKG Interpretation Comments: KG performed 02/17/2020 at 7:18 AM and interpreted at 7:20 AM. Sinus tachycardia heart rate 101. GA interval 144. QT 419. [place] XX 5. Normal QRS ST and T. When compared to 11/02/2019 there is slightly different shape of the QRS in lead III but this is likely lead placement. Impression heart rate is increased but otherwise no change. Course - Vital Signs Text/Narrative:: 08 50 2 AM I am anticipating sending this patient home on home oxygen. She wants to go home. She has made arrangements for transportation. Patient has an inhaler at home but no chamber. Will supply the in chamber with instruction. Protocol and current usage of experimental medications that have emergency approval we are not using any medication for this moment other than home oxygen and an inhaler of albuterol. Patient had an 86% oxygen saturation before oxygen here. She is maintained well on 2 L here. Her oxygen saturation is over 90%. She wants to go home. I believe oxygen will help her with nasal cannula and she may be able to avoid hospitalization. I will authorize 30 days of home oxygen. Will prevent her needing to be admitted to an acute care hospital. 10:03 AM the patient was not hypoxic on 2 L. Home oxygen has been arranged. The vendor provided the materials. The patient was ambulatory in no acute d istress. Patient will be sent home. Review of our protocols indicates that should she have been admitted on oxygen she would be put on Decadron. Therefore Decadron is prescribed along with the oxygen since we will able to provide this as an outpatient. Last Recorded V/S: Last Vital Signs Temp 35.5 C L 02/17/20 07:16 Pulse 91 02/17/20 08:39 Resp 20 02/17/20 08:39 BP 105/60 02/17/20 08:39 Pulse Ox 93 L 02/17/20 08:39 - Orders/Labs/Meds Orders: Active Orders 24 hr Category Date Time Status EKG Documentation Completion [RC] AM Care 02/17/20 07:33 Active RT Post Treatment Assessment [RC] Click to Edit Care 02/17/20 07:36 Active RT Pre-Treatment Assessment [RC] Click to Edit Care 02/17/20 07:36 Active Albuterol [Ventolin HFA] Med 02/17/20 07:36 Active 18 gm INH STAT PRN Sodium Chloride 0.9% [Saline Flush] Med 02/17/20 07:33 Active 10 ml FLUSH ASDIRECTED PRN Sodium Chloride 0.9% [Saline Flush] Med 02/17/20 07:33 Active 2.5 ml FLUSH ASDIRECTED PRN Saline Lock Insert [OM.PC] Stat Oth 02/17/20 07:33 Ordered Medication Orders Albuterol (Ventolin Hfa) 18 gm INH STAT PRN PRN Reason: Dyspnea Last Admin: 02/17/20 08:46 Dose: 1 inhalation Documented by: Admin: 02/17/20 08:01 Dose: 1 inhalation Documented by: SAMY Sodium Chloride (Saline Flush) 10 ml FLUSH ASDIRECTED PRN PRN Reason: Keep Vein Open Sodium Chloride (Saline Flush) 2.5 ml FLUSH ASDIRECTED PRN PRN Reason: Keep Vein Open Labs: Laboratory Tests 02/17/20 02/17/20 02/17/20 Range/Units 07:23 07:23 07:23 WBC 7.21 (4.0-11.0) K/uL RBC 3.29 L (4.30-5.90) M/uL Hgb 9.7 L (12.0-16.0) g/dL Hct 29.9 L (36.0-46.0) % MCV 90.9 (80.0-98.0) fL MCH 29.5 (27.0-32.0) pg MCHC 32.4 (31.0-37.0) g/dL RDW Std Deviation 43.8 (28.0-62.0) fl RDW Coeff of Mary 13 (11.0-15.0) % Plt Count 382 (150-400) K/uL MPV 8.80 (7.40-12.00) fL Neut % (Auto) 78.7 (48.0-80.0) % Lymph % (Auto) 13.9 L (16.0-40.0) % [place] % (Auto) 7.2 (0.0-15.0) % Eos % (Auto) 0.1 (0.0-7.0) % Baso % (Auto) 0.1 (0.0-1.5) % Neut # (Auto) 5.7 (1.4-5.7) K/uL Lymph # (Auto) 1.0 (0.6-2.4) K/uL [place] # (Auto) 0.5 (0.0-0.8) K/uL Eos # (Auto) 0.0 (0.0-0.7) K/uL Baso # (Auto) 0.0 (0.0-0.1) K/uL Nucleated RBC % 0.0 /100WBC Nucleated RBCs # 0 K/uL Sodium 132 L (136-145) mmol/L Potassium 4.6 (3.5-5.1) mmol/L Chloride 99 (98-107) mmol/L Carbon Dioxide 21.0 (21.0-32.0) mmol/L BUN 31 H (7.0-18.0) mg/dL Creatinine 1.2 H (0.6-1.0) mg/dL Est Cr Clr Drug Dosing 36.97 mL/min Estimated GFR (MDRD) 45.1 ml/min Glucose 239 H (74-106) mg/dL Calcium 9.2 (8.5-10.1) mg/dL Total Bilirubin 0.5 (0.2-1.0) mg/dL AST 22 (15-37) IU/L ALT 18 (14-63) IU/L Alkaline Phosphatase 85 (46-116) U/L Troponin I < 0.050 (0.000-0.056) ng/mL B-Natriuretic Peptide 79 (<100) PG/ML Total Protein 6.8 (6.4-8.2) g/dL Albumin 2.0 L (3.4-5.0) g/dL Globulin 4.8 H (2.6-4.0) g/dL Albumin/Globulin Ratio 0.4 L (0.9-1.6) Meds: Medications Generic Name Dose Route Start Last Admin Trade Name Freq PRN Reason Stop Dose Admin Albuterol 18 gm 02/17/20 07:36 02/17/20 08:46 Ventolin Hfa INH 1 inhalation STAT PRN Administration Dyspnea Sodium Chloride 10 ml 02/17/20 07:33 Saline Flush FLUSH ASDIRECTED PRN Keep Vein Open Sodium Chloride 2.5 ml 02/17/20 07:33 Saline Flush FLUSH ASDIRECTED PRN Keep Vein Open Discontinued Medications Generic Name Dose Route Start Last Admin Trade Name Freq PRN Reason Stop Dose Admin Naproxen 500 mg 02/17/20 08:41 02/17/20 08:46 Naprosyn PO 02/17/20 08:42 500 mg ONETIME ONE Administration Departure - Departure Time of Disposition: 10:03 Disposition: Home, Self-Care 01 Condition: Good Clinical Impression: Hypoxia, Pneumonia due to COVID-19 virus - Discharge Information Prescriptions: dexAMETHasone [Dexamethasone] 4 mg PO BID #10 tab Instructions: COVID-19 Frequently Asked Questions, Hypoxemia, COVID-19: How to Protect Yourself and Others - [facility] Referrals: Willow Machado MD [Ordering Only Provider] - Forms: ED Department Discharge Additional Instructions: [facility] - Primary Care [address] [place] [address] [facility] [address] [place] [id number] The following information is given to patients seen in the emergency department who are being discharged to home. This information is to outline your options for follow-up care. We provide all patients seen in our emergency department with a follow-up referral. The need for follow-up, as well as the timing and circumstances, are variable depending upon the specifics of your emergency department visit. If you don't have a primary care physician on staff, we will provide you with a referral. We always advise you to contact your personal physician following an emergency department visit to inform them of the circumstance of the visit and for follow-up with them and/or the need for any referrals to a consulting specialist. The emergency department will also refer you to a specialist when appropriate. This referral assures that you have the opportunity for follow-up care with a specialist. All of these measure are taken in an effort to provide you with o ptimal care, which includes your follow-up. Under all circumstances we always encourage you to contact your private physician who remains a resource for coordinating your care. When calling for follow-up care, please make the office aware that this follow-up is from your recent emergency room visit. If for any reason you are refused follow-up, please contact the [facility] Emergency Department at and asked to speak to the emergency department charge nurse. Sepsis Event Note (ED) - Evaluation Sepsis Screening Result: No Definite Risk - Focused Exam Vital Signs: Vital Signs Temp Pulse Resp BP Pulse Ox 02/17/20 08:39 91 20 105/60 93 L 02/17/20 08:03 90 20 101/57 L 90 L 02/17/20 07:18 94 L 02/17/20 07:16 35.5 C L 101 H 22 H 122/65 86 L - My Orders Last 24 Hours: My Active Orders 02/17/20 07:33 EKG Documentation Completion [RC] AM Sodium Chloride 0.9% [Saline Flush] 10 ml FLUSH ASDIRECTED PRN Sodium Chloride 0.9% [Saline Flush] 2.5 ml FLUSH ASDIRECTED PRN Saline Lock Insert [OM.PC] Stat 02/17/20 07:36 RT Post Treatment Assessment [RC] Click to Edit RT Pre-Treatment Assessment [RC] Click to Edit Albuterol [Ventolin HFA] 18 gm INH STAT PRN - Assessment/Plan Last 24 Hours: My Active Orders 02/17/20 07:33 EKG Documentation Completion [RC] AM Sodium Chloride 0.9% [Saline Flush] 10 ml FLUSH ASDIRECTED PRN Sodium Chloride 0.9% [Saline Flush] 2.5 ml FLUSH ASDIRECTED PRN Saline Lock Insert [OM.PC] Stat 02/17/20 07:36 RT Post Treatment Assessment [RC] Click to Edit RT Pre-Treatment Assessment [RC] Click to Edit Albuterol [Ventolin HFA] 18 gm INH STAT PRN
[2020-02-17] MEDS: Albuterol HFA 18 Gm Inhaler INH PRN ×2 (08:01→08:46)
[2020-02-17 08:05] LABS: BLOOD UREA NITROGEN,BUN 31 mg/dL (7.0-18.0); CHLORIDE,CL 99 mmol/L (98-107); GLUCOSE RANDOM 239 mg/dL (74-106); POTASSIUM,K 4.6 mmol/L (3.5-5.1); SODIUM,NA 132 mmol/L (136-145)
--- NOTE | 2020-02-17 08:29 | CR ---
INDICATION: Dyspnea COMPARISON: November 02, 2019 TECHNIQUE: Single-view portable chest radiograph FINDINGS: TUBES AND LINES: None. HEART AND MEDIASTINUM: Heart size normal. Median sternotomy. LUNGS AND PLEURAL SPACES: Moderate diffuse ground-glass opacification bilaterally, left greater than right. This is a peripheral and basilar predominant finding.While nonspecific, the findings are likely related to COVID pneumonia. OSSEOUS STRUCTURES: Age-appropriate appearance. No acute focal finding. IMPRESSION: Moderate diffuse ground-glass opacification. While nonspecific, the findings are likely related to COVID pneumonia. Dictated by Jm Mojica MD @ Feb 17 2020 8:25AM Signed by Dr. Jm Mojica @ Feb 17 2020 8:27AM
[2020-02-17] MEDS ORDERED: Naproxen 500 MG Tab PO ONE (08:41)
[2020-02-17 10:27] VITALS: BP 98/63; PULSE 90
== END 2020-02-17 10:26 | disposition home or self-care (01) ==
LOC: MW.ED 07:14
DX: U07.1 COVID-19 (principal); J12.89 Other viral pneumonia; R09.02 Hypoxemia; I25.10 Atherosclerotic heart disease of native coronary artery without angina pectoris; I25.2 Old myocardial infarction; I12.9 Hypertensive chronic kidney disease with stage 1 through stage 4 chronic kidney disease, or unspecified chronic kidney disease; N18.9 Chronic kidney disease, unspecified; E11.40 Type 2 diabetes mellitus with diabetic neuropathy, unspecified; E78.00 Pure hypercholesterolemia, unspecified; K21.9 Gastro-esophageal reflux disease without esophagitis; E11.22 Type 2 diabetes mellitus with diabetic chronic kidney disease; Z88.5 Allergy status to narcotic agent; Z88.8 Allergy status to other drugs, medicaments and biological substances; Z88.0 Allergy status to penicillin; Z79.02 Long term (current) use of antithrombotics/antiplatelets; Z79.4 Long term (current) use of insulin; Z79.82 Long term (current) use of aspirin; Z79.899 Other long term (current) drug therapy; Z95.1 Presence of aortocoronary bypass graft
CPT/HCPCS: 36415; 71045; 80053; 83880; 84484; 85025; 99285; A9270; 93010; 99284; J3535-GY

== ENCOUNTER 2020-02-17 17:37 | Inpatient (IN) | payer MEDICARE, OTHER, MEDICAID ==
--- NOTE | 2020-02-17 18:03 | EDM.PDOC ---
ED HPI GENERAL MEDICAL PROBLEM - General Chief Complaint: Respiratory Problem Stated Complaint: SOB Time Seen by Provider: 02/17/20 17:44 - History of Present Illness INITIAL COMMENTS - FREE TEXT/NARRATIVE: History of present illness: [] Patient is known to me. I started this morning. She has COVID-19 diagnosed 9 days ago. She has bilateral pneumonia diagnosis morning. Her oxygen saturation at home was 86% and she called for dyspnea. She improved with inhaled albuterol with a chamber. She was sent home on steroids and albuterol with home oxygen. She went to the bathroom and had diarrhea and vomited. She was too weak to get back to her bed. With her oxygen off her saturation this afternoon was 80% per EMS. She still feels fatigued weak and short of breath but her oxygen saturations corrected with 3 L of oxygen here. The diarrhea and nausea and vomiting are new onset. Weakness and a headache and shortness of breath have been going on for several days. Her daughter went to the hospital and was placed on a ventilator for a few days after she was diagnosed with bilateral pneumonia. This was all after family [employer] gathering with a out-of-town college student coming home to visit. The college student is back at college and apparently doing well. Review of systems: As per history of present illness and below otherwise all systems reviewed and negative. Past medical history: As per history of present illness and as reviewed below otherwise noncontributory. Surgical history: As per history of present illness and as reviewed below otherwise noncontributory. Social history: No reported history of drug or alcohol abuse. Family history: As per history of present illness and as reviewed below otherwise noncontributory. Physical exam: Constitutional - well developed, well-nourished and in no acute distress HEENT - normocephalic, no evidence of trauma - external nose and mouth normal - no mass in neck and no JVD - mucosae moist EYES - full EOM, PERRL, no icterus - no evidence of inflammation, injection, or drainage Respiratory -mild respiratory distress, equal bilateral expansion, lungs clear to auscultation and no abnormal lung sounds. The patient had an oxygen saturation of 80% in the field which is low. She is 93% on 3 L which is acceptable. Cardiovascular - Regular Rhythm with S1 and S2 appreciated and no murmur, gallop or rub. GI - abdomen soft without distension or organomegaly - normal bowel sounds - no guard or rebound Musculoskeletal no gross deformity of long bones or joints - no tenderness, swelling or edema Neurologic - Alert and oriented times four - CN II-XII grossly intact - motor sensory and coordination symmetrically normal Psychiatric - appropriate mood and affect with normal thought content Hematologic - No petechiae or purpura - mucosa appropriate color and sclera not pale - normal nail bed color and refill Integument - no rash or evidence of trauma - normal turgor Diagnostics: [] Therapeutics: [] Impression: [] Plan: [] Definitive disposition and diagnosis as appropriate pending reevaluation and review of above. - Related Data Allergies Allergy/AdvReac Type Severity Reaction Status Date / Time codeine Allergy Seizure Verified 02/17/20 17:44 diphenhydramine Allergy Drowsiness Verified 02/17/20 17:44 [From Benadryl] Penicillins Allergy Other Verified 02/17/20 17:44 Home Meds: Home Meds Clopidogrel [Plavix] 75 mg PO BEDTIME 12/24/13 [History] Insulin Detemir [Levemir Flexpen] 40 unit SQ BID 12/24/13 [History] Ranolazine [Ranexa] 500 mg PO DAILY 12/24/13 [History] Aspirin [Halfprin] 81 mg PO DAILY 09/01/18 [History] Nitroglycerin 0.4 mg SL .EVERY 5 MINUTES PRN #1 bottle MDD 3 TABS 09/01/18 [Rx] Rosuvastatin Calcium 40 mg PO BEDTIME 09/01/18 [History] Albuterol [Take Home: Albuterol 18 GM, 1 INH Pack] 2 inhalation BID PRN 11/02/19 [History] DULoxetine [Cymbalta] 60 mg PO DAILY 11/02/19 [History] Gabapentin [Neurontin] 200 mg PO DAILY 11/02/19 [History] Insulin Aspart [NovoLOG] See Protocol SUBCUT TIDMEALS 11/02/19 [History] lisinopriL [Lisinopril] 2.5 mg PO DAILY 11/02/19 [History] Albuterol [Ventolin HFA] 0 gm INH BID PRN inhaler 11/03/19 [Rx] Pantoprazole Sodium [Protonix] 20 mg PO DAILY #90 tablet. 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 Musculoskeletal History: Reports: Amputation, Fracture Neurological History: Reports: Neuropathy, Diabetic Psychiatric History: Reports: None Endocrine/Metabolic History: Reports: Diabetes, Type II Hematologic History: Reports: None Immunologic History: Reports: None Oncologic (Cancer) History: Reports: Other (See Below) 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 Dermatologic History: Reports: None - Infectious Disease History Infectious Disease History: Reports: Chicken Pox, Measles, MRSA, Novel Coron avirus - Past Surgical History Head Surgeries/Procedures: Reports: None HEENT Surgical History: Reports: None Cardiovascular Surgical History: Reports: Coronary Artery Bypass Other Cardiovascular Surgeries/Procedures: 5 bypass Respiratory Surgical History: Reports: None GI Surgical History: Reports: None Female Surgical History: Reports: None Endocrine Surgical History: Reports: None Neurological Surgical History: Reports: None Musculoskeletal Surgical History: Reports: Amputation, Hip Replacement Other Musculoskeletal Surgeries/Procedures:: leg surgery to clean leg and let it heal Oncologic Surgical History: Reports: None Dermatological Surgical History: Reports: None Social & Family History - Family History Family Medical History: No Pertinent Family History - Tobacco Use Tobacco Use Status *Q: Never Tobacco User - Caffeine Use Caffeine Use: Reports: None Other Caffeine Use: 2 cups per day - Recreational Drug Use Recreational Drug Use: No - Living Situation & Occupation Living situation: Reports: Assisted Living ED ROS GENERAL - Review of Systems Review Of Systems: Comprehensive ROS is negative, except as noted in HPI. ED EXAM, GENERAL - Physical Exam Exam: See Below Free Text/Narrative:: My physical exam is in the HPI Course - Vital Signs Text/Narrative:: 1800 hrs. the patient was discussed with and she most graciously agreed to admit the patient. Last Recorded V/S: Last Vital Signs Temp 36.1 C 02/17/20 17:45 Pulse 87 02/17/20 17:45 Resp 22 H 02/17/20 17:45 BP 96/50 L 02/17/20 17:45 Pulse Ox 93 L 02/17/20 17:47 Departure - Departure Time of Disposition: 18:03 Disposition: Admitted As Inpatient 66 Condition: Fair Clinical Impression: Bilateral pneumonia, Hypoxia - Discharge Information Sepsis Event Note (ED) - Evaluation Sepsis Screening Result: No Definite Risk - Focused Exam Vital Signs: Vital Signs Temp Pulse Resp BP Pulse Ox 02/17/20 17:47 93 L 02/17/20 17:45 36.1 C 87 22 H 96/50 L 89 L
[2020-02-17] MEDS ORDERED: REMDESIVIR 200 MG in Sodium Chloride 0.9% 250 ML IV ONE (18:04)
[2020-02-17 19:23] LABS: BLOOD UREA NITROGEN,BUN 45 mg/dL (7.0-18.0); CARBON DIOXIDE,CO2 23.4 mmol/L (21.0-32.0); CHLORIDE,CL 98 mmol/L (98-107); GLUCOSE RANDOM 212 mg/dL (74-106); SODIUM,NA 132 mmol/L (136-145)
[2020-02-17] MEDS: Dexamethasone 4 MG Tab PO SCH (19:34)
[2020-02-17] MEDS ORDERED: Ondansetron 4 MG/2 ML SDV IVPUSH PRN (19:51)
--- NOTE | 2020-02-17 20:28 | PCM.HP.2 ---
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 She has COVID-19 diagnosed 9 days ago. On 26 January she attended a family gat nahum for thanks giving, at her daughter's house where her granddaughter was in from college. States she contrated the virus from grand daughter who was diagnosed with COVID soon after the gathering.States Her daughter has bilateral pneumonia and is home on oxygen after hospitalization. Patient had come in earlier to ER, at that time she was discharged on home oxygen, steroids, inhaler as she didn't want to be admitted. She has bilateral pneumonia diagnosis on xray done earlier this morning. She went to the bathroom at home after dc and had diarrhea and vomited. She was too weak to get back to her bed. With her oxygen off her saturation this afternoon was 80% per EMS. which corrected with 3 L of oxygen here. The diarrhea and nausea and vomiting are new onset. Patient has some chest pressure, states it started after she was retching earlier, pain is reproducible, Weakness and a headache and shortness of breath have been going on for several days. Patient was admitted for further management of acute hypoxic respiratory failure. Middle Anterior Chest Pain Score (Numeric/FACES): 6 - Related Data Allergies/Adverse Reactions: Allergies Allergy/AdvReac Type Severity Reaction Status Date / Time codeine Allergy Seizure Verified 02/17/20 17:44 diphenhydramine Allergy Drowsiness Verified 02/17/20 17:44 [From Benadryl] Penicillins Allergy Other Verified 02/17/20 17:44 Home Medications: Home Meds Clopidogrel [Plavix] 75 mg PO BEDTIME 12/24/13 [History] Insulin Detemir [Levemir Flexpen] 40 unit SQ BID 12/24/13 [History] Ranolazine [Ranexa] 500 mg PO DAILY 12/24/13 [History] Aspirin [Halfprin] 81 mg PO DAILY 09/01/18 [History] Nitroglycerin 0.4 mg SL .EVERY 5 MINUTES PRN #1 bottle MDD 3 TABS 09/01/18 [Rx] Rosuvastatin Calcium 40 mg PO BEDTIME 09/01/18 [History] Albuterol [Take Home: Albuterol 18 GM, 1 INH Pack] 2 inhalation BID PRN 11/02/19 [History] DULoxetine [Cymbalta] 60 mg PO DAILY 11/02/19 [History] Gabapentin [Neurontin] 200 mg PO DAILY 11/02/19 [History] Insulin Aspart [NovoLOG] See Protocol SUBCUT TIDMEALS 11/02/19 [History] lisinopriL [Lisinopril] 2.5 mg PO DAILY 11/02/19 [History] Albuterol [Ventolin HFA] 0 gm INH BID PRN inhaler 11/03/19 [Rx] Pantoprazole Sodium [Protonix] 20 mg PO DAILY #90 tablet.dr 11/03/19 [Rx] Ranolazine [Ranexa] 500 mg PO DAILY tab.er 11/03/19 [Rx] dexAMETHasone [Dexamethasone] 4 mg PO BID #10 tab 02/17/20 [Rx] Past Medical History HEENT History: Reports: None Cardiovascular History: Reports: Bypass, CAD, High Cholesterol, Hypertension, [place] Respiratory History: Reports: Intubation, Previous Gastrointestinal History: Reports: GERD Genitourinary History: Reports: Chronic Renal Insuffiency, UTI, Recurrent Other Genitourinary History: Entire L kidney and 1/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 BRADDER History: Reports: None Musculoskeletal History: Reports: Amputation, Fracture Neurological History: Reports: Neuropathy, Diabetic Psychiatric History: Reports: None Endocrine/Metabolic History: Reports: Diabetes, Type II Hematologic History: Reports: None Immunologic History: Reports: None Oncologic (Cancer) History: Reports: Other (See Below) 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 Dermatologic History: Reports: None - Infectious Disease History Infectious Disease History: Reports: Chicken Pox, Measles, MRSA, Novel Coronavirus - Past Surgical History Head Surgeries/Procedures: Reports: None HEENT Surgical History: Reports: None Cardiovascular Surgical History: Reports: Coronary Artery Bypass Other Cardiovascular Surgeries/Procedures: 5 bypass Respiratory Surgical History: Reports: None GI Surgical History: Reports: None Female Surgical History: Reports: None Endocrine Surgical History: Reports: None Neurological Surgical History: Reports: None Musculoskeletal Surgical History: Reports: Amputation, Hip Replacement Other Musculoskeletal Surgeries/Procedures:: leg surgery to clean leg and let it heal Oncologic Surgical History: Reports: None Dermatological Surgical History: Reports: None Social & Family History - Family History Family Medical History: No Pertinent Family History - Tobacco Use Tobacco Use Status *Q: Never Tobacco User - Caffeine Use Caffeine Use: Reports: None Other Caffeine Use: 2 cups per day - Recreational Drug Use Recreational Drug Use: No - Living Situation & Occupation Living situation: Reports: Assisted Living H&P Review of Systems - Review of Systems: Review Of Systems: See Below General: Reports: Malaise, Weakness, Fatigue. Denies: Fever, Chills Pulmonary: Reports: Shortness of Breath, Pleuritic Chest Pain, Cough. Denies: Sputum Cardiovascular: Reports: Chest Pain, Dyspnea on Exertion. Denies: Palpitations, Orthopnea Gastrointestinal: Reports: Anorexia, Decreased Appetite, Nausea, Vomiting. Denies: Abdominal Pain, Bloody Stool, Constipation Genitourinary: Denies: Dysuria, Frequency Musculoskeletal: Denies: Neck Pain, Shoulder Pain, Arm Pain, Back Pain Skin: Denies: Cyanosis, Jaundice, Mottled, Pallor Psychiatric: Denies: Confusion, Depression, Mood Lability Neurological: Reports: Headache. Denies: Confusion, Dizziness Exam - Exam Exam: See Below - Vital Signs Vital Signs: Last Vital Signs Temp 36.0 C L 02/17/20 19:45 Pulse 86 02/17/20 19:45 Resp 20 02/17/20 19:45 BP 116/59 L 02/17/20 19:45 Pulse Ox 92 L 02/17/20 19:45 Weight: 62.596 kg - Exam Quality Assessment: Supplemental Oxygen General: Alert, Oriented, Cooperative, Mild Distress Neck: Supple, Trachea Midline Lungs: Normal Respiratory Effort, Crackles, Rales Cardiovascular: Regular Rate, Regular Rhythm, Normal S1, Normal S2 GI/Abdominal Exam: Normal Bowel Sounds, Soft, Non-Tender - Patient Data Lab Results Last 24 hrs: Laboratory Results - last 24 hr 02/17/20 02/17/20 Range/Units 18:15 18:50 Sodium 132 L (136-145) mmol/L Potassium 5.0 (3.5-5.1) mmol/L Chloride 98 (98-107) mmol/L Carbon Dioxide 23.4 (21.0-32.0) mmol/L BUN 45 H (7.0-18.0) mg/dL Creatinine 2.0 H (0.6-1.0) mg/dL Est Cr Clr Drug Dosing TNP Estimated GFR (MDRD) 25.0 ml/min Glucose 212 H (74-106) mg/dL Calcium 9.7 (8.5-10.1) mg/dL Total Bilirubin 0.9 (0.2-1.0) mg/dL Direct Bilirubin 0.40 (0.0-0.5) mg/dL AST 30 (15-37) IU/L ALT 19 (14-63) IU/L Alkaline Phosphatase 93 (46-116) U/L Total Protein 7.2 (6.4-8.2) g/dL Albumin 2.1 L (3.4-5.0) g/dL Globulin 5.1 H (2.6-4.0) g/dL Albumin/Globulin Ratio 0.4 L (0.9-1.6) SARS-CoV-2 RNA (PADDY) POSITIVE H (NEGATIVE) Result Diagrams: 02/17/20 18:50 Sepsis Event Note - Evaluation Sepsis Screening Result: No Definite Risk - Focused Exam Vital Signs: Vital Signs Temp Pulse Resp BP Pulse Ox 02/17/20 19:45 36.0 C L 86 20 116/59 L 92 L 02/17/20 18:18 83 20 108/55 L 93 L 02/17/20 17:47 93 L 02/17/20 17:45 36.1 C 87 22 H 96/50 L 89 L - Problem List (1) Acute hypoxemic respiratory failure due to COVID-19 SNOMED Code(s): 958821057 ICD Code: U07.1 - COVID-19; J96.01 - ACUTE RESPIRATORY FAILURE WITH HYPOXIA Status: Acute Current Visit: Yes (2) Bilateral pneumonia SNOMED Code(s): 935289116 ICD Code: J18.9 - PNEUMONIA, UNSPECIFIED ORGANISM Status: Acute Current Visit: No (3) Hx of diabetes mellitus SNOMED Code(s): 814738453 ICD Code: Z86.39 - PERSONAL HISTORY OF ENDO, NUTRITIONAL AND METABOLIC DISEASE Status: Acute Current Visit: No (4) Chronic kidney disease (CKD), stage III (moderate) SNOMED Code(s): 080048039 ICD Code: N18.3 - CHRONIC KIDNEY DISEASE, STAGE 3 (MODERATE) * DO NOT USE * Status: Chronic Priority: High Current Visit: No (5) History of coronary artery bypass graft x 3 SNOMED Code(s): 890916383, 785905647 ICD Code: Z95.1 - PRESENCE OF AORTOCORONARY BYPASS GRAFT Status: Chronic Priority: High Current Visit: No (6) History of total left hip replacement SNOMED Code(s): 117665102488 ICD Code: Z96.642 - PRESENCE OF LEFT ARTIFICIAL HIP JOINT Status: Chronic Priority: Medium Current Visit: No (7) S/P BKA (below knee amputation) bilateral SNOMED Code(s): 163078261440778, 983571201776479 ICD Code: Z89.512 - ACQUIRED ABSENCE OF LEFT LEG BELOW KNEE; Z89.511 - ACQUIRED ABSENCE OF RIGHT LEG BELOW KNEE Status: Chronic Priority: Medium Current Visit: No (8) [place] (acute kidney injury) SNOMED Code(s): 27909395, 47201246 ICD Code: N17.9 - ACUTE KIDNEY FAILURE, UNSPECIFIED Status: Acute Current Visit: Yes (9) Chest pain SNOMED Code(s): 17878864 ICD Code: R07.9 - CHEST PAIN, UNSPECIFIED Status: Acute Current Visit: No Qualifiers: Chest pain type: unspecified Qualified Code(s): R07.9 - Chest pain, unspecified Problem List Initiated/Reviewed/Updated: Yes Orders Last 24hrs: Active Orders 24 hr Category Date Time Status Admission Status [Patient Status] [ADT] Stat ADT 02/17/20 18:01 Active Acapella [RT Chest Physiotherapy] [RC] ASDIRECTED Care 02/17/20 20:10 Active Oxygen Therapy [RC] PRN Care 02/17/20 19:42 Active RT Aerosol Therapy [RC] ASDIRECTED Care 02/17/20 19:46 Active RT Post Treatment Assessment [RC] Click to Edit Care 02/17/20 20:24 Active RT Pre-Treatment Assessment [RC] Click to Edit Care 02/17/20 20:24 Active Telemetry Monitoring [Cardiac Monitoring] [RC] . Care 02/17/20 19:54 Active DIRECTED VTE/DVT Education [RC] PER UNIT ROUTINE Care 02/17/20 19:42 Active Vital Signs [RC] Q4H Care 02/17/20 19:42 Active Citizen Of [place] Diabetic [employer] Diet [DIET] Diet 02/17/20 Breakfast Active BILIRUBIN DIRECT [CHEM] DAILY Lab 02/18/20 18:15 Ordered BILIRUBIN DIRECT [CHEM] DAILY Lab 02/19/20 18:15 Ordered BILIRUBIN DIRECT [CHEM] DAILY Lab 02/20/20 18:15 Ordered BILIRUBIN DIRECT [CHEM] DAILY Lab 02/21/20 18:15 Ordered COMPREHENSIVE METABOLIC PN,CMP [CHEM] DAILY Lab 02/18/20 18:15 Ordered COMPREHENSIVE METABOLIC PN,CMP [CHEM] DAILY Lab 02/19/20 18:15 Ordered COMPREHENSIVE METABOLIC PN,CMP [CHEM] DAILY Lab 02/20/20 18:15 Ordered COMPREHENSIVE METABOLIC PN,CMP [CHEM] DAILY Lab 02/21/20 18:15 Ordered Acetaminophen [TylenoL] Med 02/17/20 19:42 Active 650 mg PO Q4H PRN Albuterol/Ipratropium [Combivent Respimat] Med 02/17/20 20:23 Ordered See Dose Instructions INH Q4H PRN Aspirin [Halfprin] Med 02/18/20 09:00 Active 81 mg PO DAILY Clopidogrel [Plavix] Med 02/17/20 21:00 Active 75 mg PO BEDTIME DULoxetine [Cymbalta] Med 02/18/20 09:00 Active 60 mg PO DAILY Dextromethorphan/guaiFENesin [Robitussin DM] Med 02/17/20 20:24 Ordered 10 ml PO Q4H PRN Gabapentin [Neurontin] Med 02/18/20 09:00 Active 200 mg PO DAILY Heparin Sodium Med 02/17/20 21:00 Active 5,000 units SUBCUT Q12H Lactated Ringers [Ringers, Lactated] 1,000 ml Med 02/17/20 20:30 Ordered IV ASDIRECTED Ondansetron [Zofran] Med 02/17/20 19:51 Active 4 mg IVPUSH Q6H PRN Ranolazine [Ranexa] Med 02/18/20 09:00 Active 500 mg PO DAILY Remdesivir 100 mg Med 02/18/20 19:00 Active Sodium Chloride 0.9% [Normal Saline] 100 ml IV Q24H dexAMETHasone Med 12/17/20 19:15 Active 6 mg PO DAILY Medication Orders Acetaminophen (Tylenol) 650 mg PO Q4H PRN PRN Reason: Pain (Mild 1-3)/fever Albuterol/Ipratropium (Combivent Respimat) 0 gm INH Q4H PRN PRN Reason: Dyspnea Aspirin (Halfprin) 81 mg PO DAILY [facility] Clopidogrel Bisulfate (Plavix) 75 mg PO BEDTIME [facility] Dexamethasone (Dexamethasone) 6 mg PO DAILY [facility] Last Admin: 02/17/20 19:34 Dose: 6 mg Documented by: SAMY Duloxetine HCl (Cymbalta) 60 mg PO DAILY [facility] Gabapentin (Neurontin) 200 mg PO DAILY [facility] Guaifenesin/Dextromethorphan (Robitussin Dm) 10 ml PO Q4H PRN PRN Reason: Cough Heparin Sodium (Porcine) (Heparin Sodium) 5,000 units SUBCUT Q12H [facility] Remdesivir 100 mg/ Sodium (Chloride) 100 mls @ 100 mls/hr IV Q24H [facility] Stop: 02/21/20 19:59 Lactated Ringer's (Ringers, Lactated) 1,000 mls @ 125 mls/hr IV ASDIRECTED [facility] Ondansetron HCl (Zofran) 4 mg IVPUSH Q6H PRN PRN Reason: Nausea/Vomiting Ranolazine (Ranexa) 500 mg PO DAILY [facility] Assessment/Plan Comment:: 64 y/o F admitted for Covid PNA, hypoxia start oxygen, cont dexamethasone, Remdesivir, combivent Heparin for DVT ppx SSI for DM Check troponin, obtain EKG for chest pain IV fluids for [place], will dc fluids in AM in light of COVID cont home meds as appropriate daily CBC, CMP
[2020-02-17] MEDS ORDERED: Lactated Ringers 1,000 ML IV SCH (20:30)
[2020-02-17] MEDS ORDERED: Glucagon,Human Recombinant 1 MG Vial IM PRN (21:02)
[2020-02-17] MEDS ORDERED: 50% Dextrose in Water 50 ML Syringe IV PRN (21:02)
[2020-02-17] MEDS ORDERED: Albuterol/Ipratropium 3.0-0.5 MG/3 ML Neb Soln NEB SCH (22:00)
[2020-02-17] MEDS: Heparin Sodium 5,000 Units/ML Vial SUBCUT SCH (22:08)
[2020-02-17] MEDS: Clopidogrel 75 MG Tab PO SCH (22:08)
[2020-02-17] MEDS: Albuterol/Ipratropium 4 GM Inhalation Spray INH PRN (22:09)
[2020-02-17] MEDS ORDERED: LORazepam 2 MG/ML SDV IVPUSH ONE (22:23)
[2020-02-17] MEDS: Insulin Aspart 100 Units/ML 3 ML Pen SUBCUT SCH (23:03)
[2020-02-17] MEDS ORDERED: Labetalol 100 MG/20 ML MDV IVPUSH PRN (23:25)
[2020-02-18] MEDS ORDERED: Insulin Aspart 100 Units/ML 3 ML Pen SUBCUT SCH (07:30)
--- NOTE | 2020-02-18 08:47 | PCM.PN ---
- General Info Date of Service: 02/18/20 Admission Dx/Problem (Free Text): Admission Diagnosis/Problem Admission Diagnosis/Problem Bilateral pneumonia, COVID-19 pneumonia acute hypoxic respiratory failure Subjective Update: Nurse notified providers that sats had decreased on 3 L nasal cannula she was found at 79%. She was then increased to high flow 13 L and was satting 88%. She reports no significant shortness of breath and otherwise is feeling okay. Denies any chest pain at this time. Reports she takes an extra Ranexa in the evening if needed for chest pain otherwise she takes it just daily. She is concerned with how she is doing as she has many family members that were at the Thanksgiving dinner that are ill at home. Denies any leg pain and no significant chest pain. Functional Status: Reports: Pain Controlled, Tolerating Diet, Ambulating, Urinating - Review of Systems General: Reports: Malaise. Denies: Fatigue HEENT: Reports: No Symptoms. Denies: Headaches, Visual Changes Pulmonary: Reports: Shortness of Breath, Cough. Denies: Sputum, Hemoptysis, Wheezing Cardiovascular: Reports: Dyspnea on Exertion. Denies: Chest Pain, Palpitations, Lightheadedness Gastrointestinal: Reports: No Symptoms. Denies: Abdominal Pain, Nausea, Vomiting Genitourinary: Reports: No Symptoms Musculoskeletal: Reports: No Symptoms Skin: Reports: No Symptoms Neurological: Reports: No Symptoms Psychiatric: Reports: No Symptoms - Patient Data Vitals - Most Recent: Last Vital Signs Temp 97.6 F 02/18/20 03:00 Pulse 94 02/18/20 03:00 Resp 15 02/18/20 03:00 BP 176/84 H 02/18/20 03:00 Pulse Ox 92 L 02/18/20 03:00 Weight - Most Recent: 62.596 kg I&O - Last 24 Hours: Intake & Output 02/17/20 02/18/20 02/18/20 22:59 06:59 14:59 Intake Total 650 Output Total 400 Balance 250 Lab Results Last 24 Hours: Laboratory Results - last 24 hr 02/17/20 02/17/20 02/17/20 Range/Units 18:15 18:50 23:38 WBC (4.0-11.0) K/uL RBC (4.30-5.90) M/uL Hgb (12.0-16.0) g/dL Hct (36.0-46.0) % MCV (80.0-98.0) fL MCH (27.0-32.0) pg MCHC (31.0-37.0) g/dL RDW Std Deviation (28.0-62.0) fl RDW Coeff of Mary (11.0-15.0) % Plt Count (150-400) K/uL MPV (7.40-12.00) fL Neut % (Auto) (48.0-80.0) % Lymph % (Auto) (16.0-40.0) % [place] % (Auto) (0.0-15.0) % Eos % (Auto) (0.0-7.0) % Baso % (Auto) (0.0-1.5) % Neut # (Auto) (1.4-5.7) K/uL Lymph # (Auto) (0.6-2.4) K/uL [place] # (Auto) (0.0-0.8) K/uL Eos # (Auto) (0.0-0.7) K/uL Baso # (Auto) (0.0-0.1) K/uL Nucleated RBC % /100WBC Nucleated RBCs # K/uL Sodium 132 L (136-145) mmol/L Potassium 5.0 (3.5-5.1) mmol/L Chloride 98 (98-107) mmol/L Carbon Dioxide 23.4 (21.0-32.0) mmol/L BUN 45 H (7.0-18.0) mg/dL Creatinine 2.0 H (0.6-1.0) mg/dL Est Cr Clr Drug Dosing TNP Estimated GFR (MDRD) 25.0 ml/min Glucose 212 H (74-106) mg/dL Calcium 9.7 (8.5-10.1) mg/dL Phosphorus (2.6-4.7) mg/dL Magnesium (1.8-2.4) mg/dL Total Bilirubin 0.9 (0.2-1.0) mg/dL Direct Bilirubin 0.40 (0.0-0.5) mg/dL AST 30 (15-37) IU/L ALT 19 (14-63) IU/L Alkaline Phosphatase 93 (46-116) U/L Troponin I < 0.050 (0.000-0.056) ng/mL Total Protein 7.2 (6.4-8.2) g/dL Albumin 2.1 L (3.4-5.0) g/dL Globulin 5.1 H (2.6-4.0) g/dL Albumin/Globulin Ratio 0.4 L (0.9-1.6) SARS-CoV-2 RNA (PADDY) POSITIVE H (NEGATIVE) 02/18/20 02/18/20 Range/Units 05:48 05:48 WBC 9.93 (4.0-11.0) K/uL RBC 2.97 L (4.30-5.90) M/uL Hgb 8.8 L (12.0-16.0) g/dL Hct 26.6 L (36.0-46.0) % MCV 89.6 (80.0-98.0) fL MCH 29.6 (27.0-32.0) pg MCHC 33.1 (31.0-37.0) g/dL RDW Std Deviation 43.5 (28.0-62.0) fl RDW Coeff of Mary 13 (11.0-15.0) % Plt Count 404 H (150-400) K/uL MPV 8.80 (7.40-12.00) fL Neut % (Auto) 89.7 H (48.0-80.0) % Lymph % (Auto) 6.6 L (16.0-40.0) % [place] % (Auto) 3.6 (0.0-15.0) % Eos % (Auto) 0.0 (0.0-7.0) % Baso % (Auto) 0.1 (0.0-1.5) % Neut # (Auto) 8.9 H (1.4-5.7) K/uL Lymph # (Auto) 0.7 (0.6-2.4) K/uL [place] # (Auto) 0.4 (0.0-0.8) K/uL Eos # (Auto) 0.0 (0.0-0.7) K/uL Baso # (Auto) 0.0 (0.0-0.1) K/uL Nucleated RBC % 0.0 /100WBC Nucleated RBCs # 0 K/uL Sodium (136-145) mmol/L Potassium (3.5-5.1) mmol/L Chloride (98-107) mmol/L Carbon Dioxide (21.0-32.0) mmol/L BUN (7.0-18.0) mg/dL Creatinine (0.6-1.0) mg/dL Est Cr Clr Drug Dosing Estimated GFR (MDRD) ml/min Glucose (74-106) mg/dL Calcium (8.5-10.1) mg/dL Phosphorus 4.9 H (2.6-4.7) mg/dL Magnesium 1.9 (1.8-2.4) mg/dL Total Bilirubin (0.2-1.0) mg/dL Direct Bilirubin (0.0-0.5) mg/dL AST (15-37) IU/L ALT (14-63) IU/L Alkaline Phosphatase (46-116) U/L Troponin I (0.000-0.056) ng/mL Total Protein (6.4-8.2) g/dL Albumin (3.4-5.0) g/dL Globulin (2.6-4.0) g/dL Albumin/Globulin Ratio (0.9-1.6) SARS-CoV-2 RNA (PADDY) (NEGATIVE) Med Orders - Current: Current Medications Acetaminophen (Tylenol) 650 mg PO Q4H PRN PRN Reason: Pain (Mild 1-3)/fever Albuterol/Ipratropium (Combivent Respimat) 0 gm INH Q4H PRN PRN Reason: Dyspnea Last Admin: 02/17/20 22:09 Dose: 1 puff Documented by: Aspirin (Halfprin) 81 mg PO DAILY [facility] Clopidogrel Bisulfate (Plavix) 75 mg PO BEDTIME [facility] Last Admin: 02/17/20 22:08 Dose: 75 mg Documented by: Dexamethasone (Dexamethasone) 6 mg PO DAILY [facility] Last Admin: 02/17/20 19:34 Dose: 6 mg Documented by: Dextrose/Water (Dextrose 50% In Water) 50 ml IV ASDIRECTED PRN PRN Reason: Hypoglycemia Docusate Sodium (Colace) 100 mg PO BID PRN PRN Reason: Constipation Duloxetine HCl (Cymbalta) 60 mg PO DAILY [facility] Gabapentin (Neurontin) 200 mg PO DAILY [facility] Glucagon (Glucagen) 1 mg IM ASDIRECTED PRN PRN Reason: Hypoglycemia Guaifenesin/Dextromethorphan (Robitussin Dm) 10 ml PO Q4H PRN PRN Reason: Cough Heparin Sodium (Porcine) (Heparin Sodium) 5,000 units SUBCUT Q12H [facility] Last Admin: 02/17/20 22:08 Dose: 5,000 units Documented by: Remdesivir 100 mg/ Sodium (Chloride) 100 mls @ 100 mls/hr IV Q24H [facility] Stop: 02/21/20 19:59 Insulin Aspart (Novolog) 0 unit SUBCUT TIDAC [facility]; Protocol Last Admin: 02/17/20 23:03 Dose: 2 units Documented by: Insulin Detemir (Levemir) 40 unit SUBCUT BID [facility] Labetalol HCl (Normodyne) 20 mg IVPUSH Q4H PRN; Protocol PRN Reason: Hypertension Ondansetron HCl (Zofran) 4 mg IVPUSH Q4H PRN PRN Reason: Nausea/Vomiting Ranolazine (Ranexa) 500 mg PO DAILY [facility] Last Admin: 02/17/20 23:00 Dose: 500 mg Documented by: Rosuvastatin Calcium (Crestor) 40 mg PO BEDTIME [facility] Discontinued Medications Albuterol/Ipratropium (Duoneb 3.0-0.5 Mg/3 Ml) 3 ml NEB Q4HRRT [facility] Remdesivir 200 mg/ Sodium (Chloride) 250 mls @ 250 mls/hr IV ONETIME ONE Stop: 02/17/20 18:05 Last Admin: 02/17/20 19:35 Dose: 250 mls/hr Documented by: Lactated Ringer's (Ringers, Lactated) 1,000 mls @ 125 mls/hr IV ASDIRECTED [facility] Last Admin: 02/17/20 22:09 Dose: 125 mls/hr Documented by: Insulin Aspart (Novolog) 0 unit SUBCUT TIDAC [facility]; Protocol Lisinopril (Prinivil) 2.5 mg PO DAILY [facility] Lorazepam (Ativan) 0.5 mg IVPUSH ONETIME ONE Stop: 02/17/20 22:24 Last Admin: 02/17/20 23:00 Dose: 0.5 mg Documented by: Ondansetron HCl (Zofran) 4 mg IVPUSH Q6H PRN PRN Reason: Nausea/Vomiting Ranolazine (Ranexa) 500 mg PO DAILY [facility] - Exam Quality Assessment: Supplemental Oxygen, DVT Prophylaxis General: Alert, Oriented, Cooperative Lungs: Crackles, Rhonchi. No: Normal Respiratory Effort (Dyspnea noted especially with speech and exertion) Cardiovascular: Regular Rate, Regular Rhythm GI/Abdominal Exam: Normal Bowel Sounds, Soft, Non-Tender Back Exam: Normal Inspection, Full Range of Motion Extremities: Normal Inspection, Normal Range of Motion, Non-Tender, No Pedal Edema Neurological: No New Focal Deficit Psy/Mental Status: Alert, Normal Affect, Normal Mood Sepsis Event Note - Evaluation Sepsis Screening Result: No Definite Risk - Focused Exam Vital Signs: Vital Signs Temp Pulse Resp BP Pulse Ox 02/18/20 03:00 97.6 F 94 15 176/84 H 92 L 02/17/20 23:14 97.6 F 88 25 H 179/81 H 81 L - Problem List & Annotations (1) [place] (acute kidney injury) SNOMED Code(s): 73001495, 48698103 Code(s): N17.9 - ACUTE KIDNEY FAILURE, UNSPECIFIED Status: Acute Current Visit: Yes (2) Acute hypoxemic respiratory failure due to COVID-19 SNOMED Code(s): 362144374 Code(s): U07.1 - COVID-19; J96.01 - ACUTE RESPIRATORY FAILURE WITH HYPOXIA Status: Acute Current Visit: Yes (3) Bilateral pneumonia SNOMED Code(s): 323694985 Code(s): J18.9 - PNEUMONIA, UNSPECIFIED ORGANISM Status: Acute Current Visit: No (4) Hx of diabetes mellitus SNOMED Code(s): 805283908 Code(s): Z86.39 - PERSONAL HISTORY OF ENDO, NUTRITIONAL AND METABOLIC DISEASE Status: Acute Current Visit: No (5) Hx of peripheral neuropathy SNOMED Code(s): 956498001 Code(s): Z86.69 - PERSONAL HISTORY OF DIS OF THE NERVOUS SYS AND SENSE ORGANS Status: Acute Current Visit: No (6) Chronic kidney disease (CKD), stage III (moderate) SNOMED Code(s): 788409523 Code(s): N18.3 - CHRONIC KIDNEY DISEASE, STAGE 3 (MODERATE) * DO NOT USE * Status: Chronic Priority: High Current Visit: No (7) Diabetic vasculopathy SNOMED Code(s): 87909369, 18698356 Code(s): E11.59 - TYPE 2 DIABETES MELLITUS WITH OTH CIRCULATORY COMPLICATIONS Status: Chronic Priority: High Current Visit: No Annotation/Comment:: Poorly controlled, A1c is 9.6. (8) History of coronary artery bypass graft x 3 SNOMED Code(s): 276383839, 052705787 Code(s): Z95.1 - PRESENCE OF AORTOCORONARY BYPASS GRAFT Status: Chronic Priority: High Current Visit: No (9) S/P BKA (below knee amputation) bilateral SNOMED Code(s): 905057942216994, 929634842226838 Code(s): Z89.512 - ACQUIRED ABSENCE OF LEFT LEG BELOW KNEE; Z89.511 - ACQUIRED ABSENCE OF RIGHT LEG BELOW KNEE Status: Chronic Priority: Medium Current Visit: No - Problem List Review Problem List Initiated/Reviewed/Updated: Yes - My Orders Last 24 Hours: My Active Orders 02/18/20 05:48 COMPREHENSIVE METABOLIC PN,CMP [CHEM] Routine 02/18/20 08:32 Blood Glucose Check, Bedside [RC] TIDMEALS Up With Assistance [RC] ASDIRECTED Docusate Sodium [Colace] 100 mg PO BID PRN Resuscitation Status Routine 02/18/20 08:33 Ondansetron [Zofran] 4 mg IVPUSH Q4H PRN 02/18/20 08:36 Incentive Spirometry [RT Incentive Spirometry] [RC] Q1HWA 02/19/20 05:11 CBC WITH AUTO DIFF [HEME] AM COMPREHENSIVE METABOLIC PN,CMP [CHEM] AM MAGNESIUM [CHEM] AM PHOSPHORUS [CHEM] AM - Plan Plan:: 64 y/o F admitted for acute hypoxic respiratory failure and COVID-19 pneumonia 1. Acute hypoxic respiratory failure/COVID-19 pneumonia -Continue oxygen therapy to keep sats greater than 92%. She was transitioned to heated high flow nasal cannula Vapotherm via RT but settings were maxed out and patient was just barely satting 86%. -Placed on BiPAP 10/5 50% oxygen and monitor. She was placed on these via respiratory therapy and sats improved to mid 90s. She not tolerating the mask well but has compromised and will keep mask on for now. Will monitor closely -Continue dexamethasone 6 mg p.o. daily x10 days -Continue remdesivir 100 mg IV daily for 4 days -Schedule Combivent consider DuoNebs with BiPAP -Continue heparin instead of Lovenox due to [place] -Stop IV fluids, will give Lasix 20 mg IV now -Encourage I-S as well as Acapella use coughing and deep breathing -Prone position or left lateral lying position as possible -Monitor daily liver functions with remdesivir treatment 2. DM type II -Continue monitoring with Dexcom monitoring -NovoLog sliding scale -Continue long-acting Levemir 26 units twice daily -Blood sugars 3 times daily AC 3. [place] -DC fluids -We will monitor kidney function closely likely secondary to mild dehydration and nausea vomiting -Would like to keep patient more euvolemic due to Covid -Avoid nephrotoxic medications 4. CAD/HTN -Continue home medications, ASA, Plavix, Crestor, Ranexa -She does reports she takes Ranexa 500 mg daily then a as needed dose then the evening if she is experiencing chest pain -Monitor on telemetry -Replace electrolytes as needed VTE prophylaxis: Heparin CODE STATUS: Full code Dispo: 2 to 3 days pending improvement
[2020-02-18 08:58] LABS: CARBON DIOXIDE,CO2 20.2 mmol/L (21.0-32.0); POTASSIUM,K 4.8 mmol/L (3.5-5.1)
[2020-02-18] MEDS ORDERED: Insulin Detemir 100 Units/ML 3 ML Pen SUBCUT SCH (09:00)
[2020-02-18] MEDS ORDERED: Lisinopril 5 MG Tab PO SCH (09:00)
[2020-02-18] MEDS: Heparin Sodium 5,000 Units/ML Vial SUBCUT SCH ×2 (09:45→20:21)
[2020-02-18] MEDS: Dexamethasone 4 MG Tab PO SCH (09:47)
[2020-02-18] MEDS: Insulin Aspart 100 Units/ML 3 ML Pen SUBCUT SCH ×4 (09:48→18:59)
[2020-02-18] MEDS: Aspirin 81 MG Tab.EC PO SCH (09:49)
[2020-02-18] MEDS: DULoxetine 60 MG Cap PO SCH (09:50)
[2020-02-18] MEDS: Gabapentin 100 MG Cap PO SCH (09:50)
[2020-02-18] MEDS ORDERED: Furosemide 20 MG/2 ML VIAL IVPUSH ONE (10:22)
[2020-02-18] MEDS: Insulin Detemir 100 Units/ML 3 ML Pen SUBCUT SCH ×3 (11:22→20:23)
[2020-02-18] MEDS: Albuterol/Ipratropium 4 GM Inhalation Spray INH PRN ×3 (13:27→20:24)
[2020-02-18] MEDS: Acetaminophen 325 MG Tab PO PRN (16:35)
[2020-02-18] MEDS: Albuterol/Ipratropium 3.0-0.5 MG/3 ML Neb Soln NEB SCH ×2 (17:19→20:25)
[2020-02-18] MEDS ORDERED: Insulin Aspart 100 Units/ML 3 ML Pen SUBCUT ONE (18:03)
[2020-02-18] MEDS ORDERED: Glucagon,Human Recombinant 1 MG Vial IM PRN (18:21)
[2020-02-18] MEDS ORDERED: 50% Dextrose in Water 50 ML Syringe IV PRN (18:21)
[2020-02-18] MEDS: REMDESIVIR 100 MG in Sodium Chloride 0.9% 100 ML IV SCH (18:58)
[2020-02-18] MEDS ORDERED: LORazepam 2 MG/ML SDV IVPUSH ONE (19:18)
[2020-02-18] MEDS ORDERED: Nitroglycerin 0.4 MG Tab.SL ONE (19:22)
[2020-02-18] MEDS: Rosuvastatin 10 MG Tab PO SCH (20:22)
[2020-02-18] MEDS: Clopidogrel 75 MG Tab PO SCH (20:22)
[2020-02-19] MEDS: Albuterol/Ipratropium 3.0-0.5 MG/3 ML Neb Soln NEB SCH ×6 (02:18→23:24)
[2020-02-19] MEDS: Albuterol/Ipratropium 4 GM Inhalation Spray INH PRN (06:25)
[2020-02-19 06:33] LABS: CARBON DIOXIDE,CO2 20.4 mmol/L (21.0-32.0); POTASSIUM,K 5.3 mmol/L (3.5-5.1)
[2020-02-19] MEDS: Gabapentin 100 MG Cap PO SCH (08:20)
[2020-02-19] MEDS: DULoxetine 60 MG Cap PO SCH (08:22)
[2020-02-19] MEDS: Aspirin 81 MG Tab.EC PO SCH (08:22)
[2020-02-19] MEDS: Dexamethasone 4 MG Tab PO SCH (08:22)
[2020-02-19] MEDS: guaiFENesin/Dextromethorphan 100-10 MG/5 ML Soln 10 ML Cup PO PRN ×2 (08:52→18:25)
[2020-02-19] MEDS: Heparin Sodium 5,000 Units/ML Vial SUBCUT SCH ×2 (08:53→21:24)
[2020-02-19] MEDS: Insulin Aspart 100 Units/ML 3 ML Pen SUBCUT SCH ×3 (09:37→16:24)
[2020-02-19] MEDS: Insulin Detemir 100 Units/ML 3 ML Pen SUBCUT SCH ×2 (09:38→21:24)
[2020-02-19] MEDS: Nitroglycerin 0.4 MG Tab.SL SL PRN (14:30)
--- NOTE | 2020-02-19 14:50 | PCM.PN ---
- General Info Date of Service: 02/19/20 - Review of Systems Systems Review Comment:: patient reports shortness of breath with minimal improvement. no fevers, chest pain stable - Patient Data Vitals - Most Recent: Last Vital Signs Temp 36.5 C 02/19/20 11:26 Pulse 81 02/19/20 11:26 Resp 20 02/19/20 11:26 BP 138/66 02/19/20 14:30 Pulse Ox 92 L 02/19/20 11:26 Weight - Most Recent: 62.596 kg I&O - Last 24 Hours: Intake & Output 02/18/20 02/19/20 02/19/20 22:59 06:59 14:59 Intake Total 1840 800 Output Total 700 500 Balance 1140 300 Lab Results Last 24 Hours: Laboratory Results - last 24 hr 02/19/20 02/19/20 Range/Units 05:58 05:58 WBC 10.24 (4.0-11.0) K/uL RBC 2.98 L (4.30-5.90) M/uL Hgb 8.9 L (12.0-16.0) g/dL Hct 26.4 L (36.0-46.0) % MCV 88.6 (80.0-98.0) fL MCH 29.9 (27.0-32.0) pg MCHC 33.7 (31.0-37.0) g/dL RDW Std Deviation 42.5 (28.0-62.0) fl RDW Coeff of Mary 13 (11.0-15.0) % Plt Count 531 H (150-400) K/uL MPV 8.80 (7.40-12.00) fL Neut % (Auto) 90.3 H (48.0-80.0) % Lymph % (Auto) 5.4 L (16.0-40.0) % [place] % (Auto) 4.3 (0.0-15.0) % Eos % (Auto) 0.0 (0.0-7.0) % Baso % (Auto) 0.0 (0.0-1.5) % Neut # (Auto) 9.3 H (1.4-5.7) K/uL Lymph # (Auto) 0.6 (0.6-2.4) K/uL [place] # (Auto) 0.4 (0.0-0.8) K/uL Eos # (Auto) 0.0 (0.0-0.7) K/uL Baso # (Auto) 0.0 (0.0-0.1) K/uL Nucleated RBC % 0.0 /100WBC Nucleated RBCs # 0 K/uL Sodium 131 L (136-145) mmol/L Potassium 5.3 H (3.5-5.1) mmol/L Chloride 98 (98-107) mmol/L Carbon Dioxide 20.4 L (21.0-32.0) mmol/L BUN 56 H (7.0-18.0) mg/dL Creatinine 1.4 H (0.6-1.0) mg/dL Est Cr Clr Drug Dosing 31.68 mL/min Estimated GFR (MDRD) 37.7 ml/min Glucose 344 H (74-106) mg/dL Calcium 8.9 (8.5-10.1) mg/dL Phosphorus 3.1 (2.6-4.7) mg/dL Magnesium 1.7 L (1.8-2.4) mg/dL Total Bilirubin 0.4 (0.2-1.0) mg/dL AST 28 (15-37) IU/L ALT 23 (14-63) IU/L Alkaline Phosphatase 81 (46-116) U/L Total Protein 6.5 (6.4-8.2) g/dL Albumin 1.6 L (3.4-5.0) g/dL Globulin 4.9 H (2.6-4.0) g/dL Albumin/Globulin Ratio 0.3 L (0.9-1.6) Med Orders - Current: Current Medications Acetaminophen (Tylenol) 650 mg PO Q4H PRN PRN Reason: Pain (Mild 1-3)/fever Last Admin: 02/18/20 16:35 Dose: 650 mg Documented by: Albuterol/Ipratropium (Combivent Respimat) 0 gm INH Q4H PRN PRN Reason: Dyspnea Last Admin: 02/19/20 06:25 Dose: 1 puff Documented by: Albuterol/Ipratropium (Duoneb 3.0-0.5 Mg/3 Ml) 3 ml NEB Q4HRRT [facility] Last Admin: 02/19/20 13:38 Dose: Not Given Documented by: Aspirin (Halfprin) 81 mg PO DAILY [facility] Last Admin: 02/19/20 08:22 Dose: 81 mg Documented by: Clopidogrel Bisulfate (Plavix) 75 mg PO BEDTIME [facility] Last Admin: 02/18/20 20:22 Dose: 75 mg Documented by: Dexamethasone (Dexamethasone) 6 mg PO DAILY [facility] Stop: 02/26/20 09:01 Last Admin: 02/19/20 08:22 Dose: 6 mg Documented by: Dextrose/Water (Dextrose 50% In Water) 50 ml IV ASDIRECTED PRN PRN Reason: Hypoglycemia Docusate Sodium (Colace) 100 mg PO BID PRN PRN Reason: Constipation Duloxetine HCl (Cymbalta) 60 mg PO DAILY [facility] Last Admin: 02/19/20 08:22 Dose: 60 mg Documented by: Gabapentin (Neurontin) 200 mg PO DAILY [facility] Last Admin: 02/19/20 08:20 Dose: 200 mg Documented by: Glucagon (Glucagen) 1 mg IM ASDIRECTED PRN PRN Reason: Hypoglycemia Guaifenesin/Dextromethorphan (Robitussin Dm) 10 ml PO Q4H PRN PRN Reason: Cough Last Admin: 02/19/20 08:52 Dose: 10 ml Documented by: Heparin Sodium (Porcine) (Heparin Sodium) 5,000 units SUBCUT Q12H [facility] Last Admin: 02/19/20 08:53 Dose: 5,000 units Documented by: Remdesivir 100 mg/ Sodium (Chloride) 100 mls @ 100 mls/hr IV Q24H [facility] Stop: 02/21/20 19:59 Last Admin: 02/18/20 18:58 Dose: 100 mls/hr Documented by: Insulin Aspart (Novolog) 0 unit SUBCUT TIDAC [facility]; Protocol Last Admin: 02/19/20 11:24 Dose: 4 units Documented by: Insulin Detemir (Levemir) 26 unit SUBCUT BID [facility] Last Admin: 02/19/20 09:38 Dose: Not Given Documented by: Labetalol HCl (Normodyne) 20 mg IVPUSH Q4H PRN; Protocol PRN Reason: Hypertension Nitroglycerin (Nitrostat) 0.4 mg SL .EVERY 5 MINUTES PRN PRN Reason: Chest Pain Last Admin: 12/19/20 14:30 Dose: 0.4 mg Documented by: Ondansetron HCl (Zofran) 4 mg IVPUSH Q4H PRN PRN Reason: Nausea/Vomiting Ranolazine (Ranexa) 500 mg PO DAILY [facility] Last Admin: 02/19/20 08:22 Dose: 500 mg Documented by: Ranolazine (Ranexa) 500 mg PO BEDTIME PRN PRN Reason: Chest Pain Last Admin: 02/18/20 19:08 Dose: 500 mg Documented by: Rosuvastatin Calcium (Crestor) 40 mg PO BEDTIME [facility] Last Admin: 02/18/20 20:22 Dose: 40 mg Documented by: Discontinued Medications Albuterol/Ipratropium (Duoneb 3.0-0.5 Mg/3 Ml) 3 ml NEB Q4HRRT [facility] Furosemide (Lasix) 20 mg IVPUSH ONETIME ONE Stop: 02/18/20 10:23 Last Admin: 02/18/20 11:05 Dose: 20 mg Documented by: Remdesivir 200 mg/ Sodium (Chloride) 250 mls @ 250 mls/hr IV ONETIME ONE Stop: 02/17/20 18:05 Last Admin: 02/17/20 19:35 Dose: 250 mls/hr Documented by: Lactated Ringer's (Ringers, Lactated) 1,000 mls @ 125 mls/hr IV ASDIRECTED [facility] Last Admin: 02/17/20 22:09 Dose: 125 mls/hr Documented by: Insulin Aspart (Novolog) 0 unit SUBCUT TIDAC [facility]; Protocol Insulin Aspart (Novolog) 15 unit SUBCUT ONETIME ONE Stop: 02/18/20 18:04 Last Admin: 02/18/20 18:45 Dose: Not Given Documented by: Insulin Detemir (Levemir) 40 unit SUBCUT BID [facility] Last Admin: 02/18/20 09:57 Dose: 26 units Documented by: Lisinopril (Prinivil) 2.5 mg PO DAILY [facility] Lorazepam (Ativan) 0.5 mg IVPUSH ONETIME ONE Stop: 02/17/20 22:24 Last Admin: 02/17/20 23:00 Dose: 0.5 mg Documented by: Lorazepam (Ativan) 1 mg IVPUSH ONETIME ONE Stop: 02/18/20 19:19 Last Admin: 02/18/20 20:22 Dose: 1 mg Documented by: Nitroglycerin (Nitrostat) Confirm Administered Dose 0.4 mg .ROUTE .STK-MED ONE Stop: 02/18/20 19:23 Last Admin: 02/18/20 19:26 Dose: 0.4 mg Documented by: Ondansetron HCl (Zofran) 4 mg IVPUSH Q6H PRN PRN Reason: Nausea/Vomiting Ranolazine (Ranexa) 500 mg PO DAILY [facility] - Exam General: Alert, Oriented Neck: Supple Lungs: Decreased Breath Sounds, Rhonchi Cardiovascular: Regular Rate, Regular Rhythm GI/Abdominal Exam: Soft, Non-Tender, No Distention Extremities: Non-Tender, No Pedal Edema Skin: Warm, Dry, Intact Neurological: No New Focal Deficit Sepsis Event Note - Evaluation Sepsis Screening Result: No Definite Risk - Focused Exam Vital Signs: Vital Signs Temp Pulse Resp BP BP Pulse Ox Pulse Ox 02/19/20 14:30 138/66 02/19/20 11:26 36.5 C 81 20 127/65 92 L 02/19/20 08:23 84 20 128/60 83 L 02/19/20 07:36 02/19/20 06:00 91 L 02/19/20 04:00 35.8 C L 79 18 143/66 H 92 L Pulse Ox 02/19/20 14:30 02/19/20 11:26 02/19/20 08:23 02/19/20 07:36 87 L 02/19/20 06:00 02/19/20 04:00 - Problem List Review Problem List Initiated/Reviewed/Updated: Yes - My Orders Last 24 Hours: My Active Orders 02/20/20 05:11 CBC WITH AUTO DIFF [HEME] AM COMPREHENSIVE METABOLIC PN,CMP [CHEM] AM - Plan Plan:: 64 y/o F admitted for acute hypoxic respiratory failure and COVID-19 pneumonia 1. Acute hypoxic respiratory failure/COVID-19 pneumonia -Continue oxygen therapy with BIPAP and breaks on HF NC -Continue dexamethasone 6 mg p.o. daily x10 days -Continue remdesivir 100 mg IV daily for 4 days -Schedule Combivent consider DuoNebs with BiPAP -Continue heparin instead of Lovenox due to [place] -Encourage I-S as well as Acapella use coughing and deep breathing -Prone position or left lateral lying position as possible -Monitor daily liver functions with remdesivir treatment 2. DM type II -Continue monitoring with Dexcom monitoring -NovoLog sliding scale -Continue long-acting Levemir 26 units twice daily -Blood sugars 3 times daily AC 3. CAD/HTN -Continue home medications, ASA, Plavix, Crestor, Ranexa -She does reports she takes Ranexa 500 mg daily then a as needed dose then the evening if she is experiencing chest pain -Monitor on telemetry -Replace electrolytes as needed VTE prophylaxis: Heparin CODE STATUS: Full code Dispo: 2 to 3 days pending improvement
[2020-02-19] MEDS: Docusate Sodium 100 MG Cap PO PRN (16:39)
[2020-02-19] MEDS: REMDESIVIR 100 MG in Sodium Chloride 0.9% 100 ML IV SCH ×3 (18:10→21:38)
[2020-02-19] MEDS: Acetaminophen 325 MG Tab PO PRN (21:22)
[2020-02-19] MEDS: Rosuvastatin 10 MG Tab PO SCH (21:23)
[2020-02-19] MEDS: Clopidogrel 75 MG Tab PO SCH (21:24)
[2020-02-20] MEDS: Ondansetron 4 MG/2 ML SDV IVPUSH PRN (00:20)
[2020-02-20] MEDS: Docusate Sodium 100 MG Cap PO PRN (04:10)
[2020-02-20] MEDS: Albuterol/Ipratropium 3.0-0.5 MG/3 ML Neb Soln NEB SCH ×6 (04:32→21:23)
[2020-02-20 06:47] LABS: CARBON DIOXIDE,CO2 21.9 mmol/L (21.0-32.0); POTASSIUM,K 6.3 mmol/L (3.5-5.1)
[2020-02-20] MEDS: Heparin Sodium 5,000 Units/ML Vial SUBCUT SCH ×2 (08:04→20:10)
[2020-02-20] MEDS: Aspirin 81 MG Tab.EC PO SCH (08:04)
[2020-02-20] MEDS: Gabapentin 100 MG Cap PO SCH (08:04)
[2020-02-20] MEDS: Dexamethasone 4 MG Tab PO SCH (08:04)
[2020-02-20] MEDS: DULoxetine 60 MG Cap PO SCH (08:04)
[2020-02-20] MEDS: Insulin Aspart 100 Units/ML 3 ML Pen SUBCUT SCH ×3 (08:05→17:45)
[2020-02-20] MEDS: Insulin Detemir 100 Units/ML 3 ML Pen SUBCUT SCH ×2 (08:08→20:11)
--- NOTE | 2020-02-20 08:21 | PCM.PN ---
- General Info Date of Service: 02/20/20 - Review of Systems Systems Review Comment:: patient reports abdominal cramping and constipation, requesting laxative. PAtient had taking off her BIPAP this morning and was found to be satting 70% on RA. Patient denies any shortness of breath. - Patient Data Vitals - Most Recent: Last Vital Signs Temp 36.6 C 02/20/20 08:00 Pulse 101 H 02/20/20 08:00 Resp 22 H 02/20/20 08:00 BP 150/76 H 02/20/20 08:00 Pulse Ox 83 L 02/20/20 08:00 Weight - Most Recent: 62.596 kg I&O - Last 24 Hours: Intake & Output 02/19/20 02/20/20 02/20/20 22:59 06:59 14:59 Intake Total 1000 480 Output Total 700 Balance 1000 -220 Lab Results Last 24 Hours: Laboratory Results - last 24 hr 02/20/20 02/20/20 02/20/20 Range/Units 06:04 06:04 06:04 WBC 11.66 H (4.0-11.0) K/uL RBC 3.16 L (4.30-5.90) M/uL Hgb 9.1 L (12.0-16.0) g/dL Hct 28.3 L (36.0-46.0) % MCV 89.6 (80.0-98.0) fL MCH 28.8 (27.0-32.0) pg MCHC 32.2 (31.0-37.0) g/dL RDW Std Deviation 44.0 (28.0-62.0) fl RDW Coeff of Mary 13 (11.0-15.0) % Plt Count 643 H (150-400) K/uL MPV 8.80 (7.40-12.00) fL Neut % (Auto) 92.2 H (48.0-80.0) % Lymph % (Auto) 3.9 L (16.0-40.0) % [place] % (Auto) 3.9 (0.0-15.0) % Eos % (Auto) 0.0 (0.0-7.0) % Baso % (Auto) 0.0 (0.0-1.5) % Neut # (Auto) 10.7 H (1.4-5.7) K/uL Lymph # (Auto) 0.5 L (0.6-2.4) K/uL [place] # (Auto) 0.5 (0.0-0.8) K/uL Eos # (Auto) 0.0 (0.0-0.7) K/uL Baso # (Auto) 0.0 (0.0-0.1) K/uL Nucleated RBC % 0.0 /100WBC Nucleated RBCs # 0 K/uL Sodium 127 L (136-145) mmol/L Potassium 6.3 H (3.5-5.1) mmol/L Chloride 96 L (98-107) mmol/L Carbon Dioxide 21.9 (21.0-32.0) mmol/L BUN 53 H (7.0-18.0) mg/dL Creatinine 1.4 H (0.6-1.0) mg/dL Est Cr Clr Drug Dosing 31.68 mL/min Estimated GFR (MDRD) 37.7 ml/min Glucose 494 H (74-106) mg/dL Calcium 9.1 (8.5-10.1) mg/dL Magnesium 1.8 (1.8-2.4) mg/dL Total Bilirubin 0.4 (0.2-1.0) mg/dL AST 31 (15-37) IU/L ALT 22 (14-63) IU/L Alkaline Phosphatase 88 (46-116) U/L Total Protein 6.6 (6.4-8.2) g/dL Albumin 1.6 L (3.4-5.0) g/dL Globulin 5.0 H (2.6-4.0) g/dL Albumin/Globulin Ratio 0.3 L (0.9-1.6) Med Orders - Current: Current Medications Acetaminophen (Tylenol) 650 mg PO Q4H PRN PRN Reason: Pain (Mild 1-3)/fever Last Admin: 02/19/20 21:22 Dose: 650 mg Documented by: Albuterol/Ipratropium (Combivent Respimat) 0 gm INH Q4H PRN PRN Reason: Dyspnea Last Admin: 02/19/20 06:25 Dose: 1 puff Documented by: Albuterol/Ipratropium (Duoneb 3.0-0.5 Mg/3 Ml) 3 ml NEB Q4HRRT [facility] Last Admin: 02/20/20 08:04 Dose: Not Given Documented by: Aspirin (Halfprin) 81 mg PO DAILY [facility] Last Admin: 02/20/20 08:04 Dose: 81 mg Documented by: Clopidogrel Bisulfate (Plavix) 75 mg PO BEDTIME [facility] Last Admin: 02/19/20 21:24 Dose: 75 mg Documented by: Dexamethasone (Dexamethasone) 6 mg PO DAILY [facility] Stop: 02/26/20 09:01 Last Admin: 02/20/20 08:04 Dose: 6 mg Documented by: Dextrose/Water (Dextrose 50% In Water) 50 ml IV ASDIRECTED PRN PRN Reason: Hypoglycemia Docusate Sodium (Colace) 100 mg PO BID PRN PRN Reason: Constipation Last Admin: 02/20/20 04:10 Dose: 100 mg Documented by: Duloxetine HCl (Cymbalta) 60 mg PO DAILY [facility] Last Admin: 02/20/20 08:04 Dose: 60 mg Documented by: Gabapentin (Neurontin) 200 mg PO DAILY [facility] Last Admin: 02/20/20 08:04 Dose: 200 mg Documented by: Glucagon (Glucagen) 1 mg IM ASDIRECTED PRN PRN Reason: Hypoglycemia Guaifenesin/Dextromethorphan (Robitussin Dm) 10 ml PO Q4H PRN PRN Reason: Cough Last Admin: 02/19/20 18:25 Dose: 10 ml Documented by: Heparin Sodium (Porcine) (Heparin Sodium) 5,000 units SUBCUT Q12H [facility] Last Admin: 02/20/20 08:04 Dose: 5,000 units Documented by: Remdesivir 100 mg/ Sodium (Chloride) 100 mls @ 100 mls/hr IV Q24H [facility] Stop: 02/21/20 19:59 Last Admin: 02/19/20 21:38 Dose: 100 mls/hr Documented by: Insulin Aspart (Novolog) 0 unit SUBCUT TIDAC [facility]; Protocol Last Admin: 02/20/20 08:05 Dose: 6 units Documented by: Insulin Detemir (Levemir) 26 unit SUBCUT BID [facility] Last Admin: 02/20/20 08:08 Dose: 26 units Documented by: Labetalol HCl (Normodyne) 20 mg IVPUSH Q4H PRN; Protocol PRN Reason: Hypertension Nitroglycerin (Nitrostat) 0.4 mg SL .EVERY 5 MINUTES PRN PRN Reason: Chest Pain Last Admin: 02/19/20 14:30 Dose: 0.4 mg Documented by: Ondansetron HCl (Zofran) 4 mg IVPUSH Q4H PRN PRN Reason: Nausea/Vomiting Last Admin: 02/20/20 00:20 Dose: 4 mg Documented by: Ranolazine (Ranexa) 500 mg PO DAILY [facility] Last Admin: 02/20/20 08:04 Dose: 500 mg Documented by: Ranolazine (Ranexa) 500 mg PO BEDTIME PRN PRN Reason: Chest Pain Last Admin: 02/18/20 19:08 Dose: 500 mg Documented by: Rosuvastatin Calcium (Crestor) 40 mg PO BEDTIME [facility] Last Admin: 02/19/20 21:23 Dose: 40 mg Documented by: Discontinued Medications Albuterol/Ipratropium (Duoneb 3.0-0.5 Mg/3 Ml) 3 ml NEB Q4HRRT [facility] Furosemide (Lasix) 20 mg IVPUSH ONETIME ONE Stop: 02/18/20 10:23 Last Admin: 02/18/20 11:05 Dose: 20 mg Documented by: Remdesivir 200 mg/ Sodium (Chloride) 250 mls @ 250 mls/hr IV ONETIME ONE Stop: 02/17/20 18:05 Last Admin: 02/17/20 19:35 Dose: 250 mls/hr Documented by: Lactated Ringer's (Ringers, Lactated) 1,000 mls @ 125 mls/hr IV ASDIRECTED [facility] Last Admin: 02/17/20 22:09 Dose: 125 mls/hr Documented by: Insulin Aspart (Novolog) 0 unit SUBCUT TIDAC [facility]; Protocol Insulin Aspart (Novolog) 15 unit SUBCUT ONETIME ONE Stop: 02/18/20 18:04 Last Admin: 02/18/20 18:45 Dose: Not Given Documented by: Insulin Detemir (Levemir) 40 unit SUBCUT BID [facility] Last Admin: 02/18/20 09:57 Dose: 26 units Documented by: Lisinopril (Prinivil) 2.5 mg PO DAILY [facility] Lorazepam (Ativan) 0.5 mg IVPUSH ONETIME ONE Stop: 02/17/20 22:24 Last Admin: 02/17/20 23:00 Dose: 0.5 mg Documented by: Lorazepam (Ativan) 1 mg IVPUSH ONETIME ONE Stop: 02/18/20 19:19 Last Admin: 02/18/20 20:22 Dose: 1 mg Documented by: Nitroglycerin (Nitrostat) Confirm Administered Dose 0.4 mg .ROUTE .STK-MED ONE Stop: 02/18/20 19:23 Last Admin: 02/18/20 19:26 Dose: 0.4 mg Documented by: Ondansetron HCl (Zofran) 4 mg IVPUSH Q6H PRN PRN Reason: Nausea/Vomiting Ranolazine (Ranexa) 500 mg PO DAILY [facility] - Exam General: Alert, Oriented Lungs: Decreased Breath Sounds Cardiovascular: Regular Rate, Regular Rhythm GI/Abdominal Exam: Normal Bowel Sounds, Soft, Non-Tender, No Distention Extremities: No Pedal Edema Skin: Warm, Dry, Intact Neurological: No New Focal Deficit Sepsis Event Note - Evaluation Sepsis Screening Result: No Definite Risk - Focused Exam Vital Signs: Vital Signs Temp Temp Pulse Resp BP Pulse Ox 02/20/20 08:00 36.6 C 101 H 22 H 150/76 H 83 L 02/20/20 04:00 35.9 C L 19 02/19/20 23:22 35.8 C L 78 19 156/68 H 93 L 02/19/20 21:22 36.2 C 02/19/20 20:41 175/81 H - Problem List Review Problem List Initiated/Reviewed/Updated: Yes - My Orders Last 24 Hours: My Active Orders 02/19/20 14:52 Accu Check [Blood Glucose Check, Bedside] [RC] TIDMEALS 02/20/20 08:09 Transfer Patient (Change bed) [ADT] Routine Enema [RC] ASDIRECTED 02/20/20 08:11 EKG 12 Lead [EKG Documentation Completion] [RC] ROUTINE 02/20/20 11:00 BMP [BASIC METABOLIC PANEL,BMP] [CHEM] Routine 02/21/20 05:11 CBC WITH AUTO DIFF [HEME] AM COMPREHENSIVE METABOLIC PN,CMP [CHEM] AM - Plan Plan:: 64 y/o F admitted for acute hypoxic respiratory failure and COVID-19 pneumonia 1. Acute hypoxic respiratory failure/COVID-19 pneumonia -Continue oxygen therapy with BIPAP and breaks on HF NC -Due to frequent desats when patient removes BIPAP will transfer to ICU for closer monitoring. -Continue dexamethasone 6 mg p.o. daily x10 days -Continue remdesivir 100 mg IV daily for 4 days -Schedule Combivent consider DuoNebs with BiPAP -Continue heparin instead of Lovenox due to [place] -Encourage I-S as well as Acapella use coughing and deep breathing -Prone position or left lateral lying position as possible 2. DM type II -Continue monitoring with Dexcom monitoring -NovoLog sliding scale -Continue long-acting Levemir 26 units twice daily -Blood sugars 3 times daily AC 3. CAD/HTN -Continue home medications, ASA, Plavix, Crestor, Ranexa -She does reports she takes Ranexa 500 mg daily then a as needed dose then the evening if she is experiencing chest pain -Monitor on telemetry -Replace electrolytes as needed Hyperkalemia: patient receiving insulin, will recheck potassium VTE prophylaxis: Heparin CODE STATUS: Full code Dispo: 2 to 3 days pending improvement
[2020-02-20] MEDS: Docusate Sodium 100 MG Cap PO SCH (11:16)
[2020-02-20 12:16] LABS: CARBON DIOXIDE,CO2 23.5 mmol/L (21.0-32.0); POTASSIUM,K 5.6 mmol/L (3.5-5.1)
[2020-02-20] MEDS: REMDESIVIR 100 MG in Sodium Chloride 0.9% 100 ML IV SCH (18:07)
[2020-02-20] MEDS: Nitroglycerin 0.4 MG Tab.SL SL PRN (18:44)
[2020-02-20] MEDS: Rosuvastatin 10 MG Tab PO SCH (20:10)
[2020-02-20] MEDS: Clopidogrel 75 MG Tab PO SCH (20:10)
[2020-02-20] MEDS: Acetaminophen 325 MG Tab PO PRN (21:23)
[2020-02-20] MEDS: guaiFENesin/Dextromethorphan 100-10 MG/5 ML Soln 10 ML Cup PO PRN (21:24)
--- NOTE | 2020-02-20 22:10 | CR ---
Indication: Respiratory failure. COVID positive. Technique: AP portable view of the chest. Comparison: February 17, 2020. Findings: The heart is borderline in size. Median sternotomy wires and mediastinal clips are identified. Patchy bilateral opacities are identified, significantly increased since the previous exam. No pleural effusion or pneumothorax is identified. Impression: Significant increase in the bilateral peripheral opacities, consistent with COVID Dictated by Joy Harvey MD @ Feb 20 2020 10:09PM Signed by Dr. Joy Harvey @ Feb 20 2020 10:09PM
--- NOTE | 2020-02-21 00:49 | PN ---
THC Physician - Brief Progress [id number]/21/2020 00:47[facility] [place] - SONJA (DEB) - JANEL PRAJAPATI, COVID+Date of Service 02/21/2020 00:47HPI/Even ts of Note Na 129K 5.6 Recheck Also try proningInterventions Major-Electrolyte abnormality - evaluati on and management
[2020-02-21 01:30] LABS: CARBON DIOXIDE,CO2 24.3 mmol/L (21.0-32.0); POTASSIUM,K 6.2 mmol/L (3.5-5.1)
[2020-02-21] MEDS: Nitroglycerin 0.4 MG Tab.SL SL PRN ×3 (02:49→17:36)
[2020-02-21] MEDS: Albuterol/Ipratropium 3.0-0.5 MG/3 ML Neb Soln NEB SCH ×6 (03:16→21:26)
[2020-02-21] MEDS ORDERED: Sodium Polystyrene Sulfonate 15 GM/60 ML Susp 60 ML Bot PO ONE (04:09)
[2020-02-21] MEDS ORDERED: 50% Dextrose in Water 50 ML Syringe IV ONE (04:09)
[2020-02-21] MEDS ORDERED: Sodium Chloride 0.9% 2.5 ML Syringe FLUSH PRN (04:09)
[2020-02-21] MEDS ORDERED: Sodium Chloride 0.9% 10 ML Syringe FLUSH PRN (04:09)
[2020-02-21] MEDS ORDERED: 50% Dextrose in Water 50 ML Syringe IV PRN ×3 (04:13→08:44)
[2020-02-21] MEDS ORDERED: Glucagon,Human Recombinant 1 MG Vial IM PRN ×3 (04:13→08:44)
[2020-02-21] MEDS ORDERED: Insulin Regular, Human 100 Units/ML 10 ML Vial IVPUSH ONE ×2 (04:13→07:10)
[2020-02-21] MEDS ORDERED: 50% Dextrose in Water 50 ML Syringe IVPUSH PRN ×2 (04:15→04:16)
--- NOTE | 2020-02-21 05:23 | PN ---
THC Physician - Brief Progress [id number]/21/2020 05:22[facility] reena [place], [place] - SONJA (DEB) - JANEL PRAJAPATI, COVSAMMY+Date of Service 02/21/2020 05:22HPI/Even ts of Note K 6.2 - treat with kayexalate, dextrose/insulinInterventions Major-Electrolyte abnormality - evaluation and management
[2020-02-21 07:01] LABS: CARBON DIOXIDE,CO2 24.3 mmol/L (21.0-32.0); POTASSIUM,K 5.7 mmol/L (3.5-5.1)
--- NOTE | 2020-02-21 07:24 | PN ---
THC Physician - Brief Progress [id number]/21/2020 07:18[facility] reena [place], [place] - SONJA (DEB) - JANEL PRAJAPATI COVID+Date of Service 02/21/2020 07:18HPI/Even ts of Note HyperglycemiaGive insulin regular pushCheck glucose q1h- may need infusionK better- insuli n may help furtherLast AG okCheck BMP q6h today D/w RNInterventions Major-Electrolyte abnormality - e valuation and management, Hyperglycemia - active titration of insulin therapy
[2020-02-21] MEDS ORDERED: Insulin Regular, Human 100 Units/ML 10 ML Vial IV SCH (08:45)
[2020-02-21] MEDS: Insulin Aspart 100 Units/ML 3 ML Pen SUBCUT SCH ×3 (09:04→18:51)
[2020-02-21] MEDS: Insulin Detemir 100 Units/ML 3 ML Pen SUBCUT SCH ×2 (09:05→20:35)
[2020-02-21] MEDS: Gabapentin 100 MG Cap PO SCH (09:27)
[2020-02-21] MEDS: Docusate Sodium 100 MG Cap PO SCH (09:27)
[2020-02-21] MEDS: Dexamethasone 4 MG Tab PO SCH (09:28)
[2020-02-21] MEDS: Aspirin 81 MG Tab.EC PO SCH (09:28)
[2020-02-21] MEDS: DULoxetine 60 MG Cap PO SCH (09:28)
[2020-02-21] MEDS: Heparin Sodium 5,000 Units/ML Vial SUBCUT SCH ×2 (09:30→20:32)
[2020-02-21] MEDS: Levofloxacin/Dextrose 5%-Water 750 MG in Premix Bag 1 BAG IV SCH (11:33)
--- NOTE | 2020-02-21 11:40 | PCM.PN ---
- General Info Date of Service: 02/21/20 Admission Dx/Problem (Free Text): Admission Diagnosis/Problem Admission Diagnosis/Problem Bilateral pneumonia, COVID-19 pneumonia acute hypoxic respiratory failure Subjective Update: Patient is a 64-year-old female admitted for Covid pneumonia requiring BiPAP therefore transferred to the ICU yesterday. Despite being on Levemir and NovoLog patient's blood sugars remain in the 300-400s. Overnight eICU was consulted for her hyperkalemia suggested giving Kayexalate and insulin. Blood sugars remain elevated there for suggested putting patient on insulin drip. Patient was seen and examined at bedside states that she is comfortable, denies any significant shortness of breath, chest pain, leg pain at this time. Functional Status: Reports: Tolerating Diet - Review of Systems General: Reports: No Symptoms HEENT: Reports: No Symptoms Pulmonary: Reports: Shortness of Breath Cardiovascular: Reports: No Symptoms Gastrointestinal: Reports: No Symptoms Genitourinary: Reports: No Symptoms Musculoskeletal: Reports: No Symptoms Skin: Reports: No Symptoms Neurological: Reports: No Symptoms Psychiatric: Reports: No Symptoms - Patient Data Vitals - Most Recent: Last Vital Signs Temp 98.5 F 02/21/20 08:00 Pulse 101 H 02/20/20 08:00 Resp 18 02/21/20 10:00 BP 112/53 L 02/21/20 10:00 Pulse Ox 95 02/21/20 10:00 Weight - Most Recent: 138 lb I&O - Last 24 Hours: Intake & Output 02/20/20 02/21/20 02/21/20 22:59 06:59 14:59 Intake Total 1000 550 Output Total 300 600 Balance 700 -50 Lab Results Last 24 Hours: Laboratory Results - last 24 hr 02/20/20 02/20/20 02/21/20 Range/Units 11:15 17:30 00:25 WBC (4.0-11.0) K/uL RBC (4.30-5.90) M/uL Hgb (12.0-16.0) g/dL Hct (36.0-46.0) % MCV (80.0-98.0) fL MCH (27.0-32.0) pg MCHC (31.0-37.0) g/dL RDW Std Deviation (28.0-62.0) fl RDW Coeff of Mary (11.0-15.0) % Plt Count (150-400) K/uL MPV (7.40-12.00) fL Neut % (Auto) (48.0-80.0) % Lymph % (Auto) (16.0-40.0) % [place] % (Auto) (0.0-15.0) % Eos % (Auto) (0.0-7.0) % Baso % (Auto) (0.0-1.5) % Neut # (Auto) (1.4-5.7) K/uL Lymph # (Auto) (0.6-2.4) K/uL [place] # (Auto) (0.0-0.8) K/uL Eos # (Auto) (0.0-0.7) K/uL Baso # (Auto) (0.0-0.1) K/uL Nucleated RBC % /100WBC Nucleated RBCs # K/uL ABG pH 7.399 (7.35-7.45) ABG pCO2 38 (35-45) mmHG ABG pO2 52 L (75-100) mmHG ABG HCO3 24 (22-26) mEq/L ABG Total CO2 20.9 ABG Base Excess -1.1 (-2.0-2.0) Sodium 129 L (136-145) mmol/L Potassium 5.6 H (3.5-5.1) mmol/L Chloride 96 L (98-107) mmol/L Carbon Dioxide 23.5 (21.0-32.0) mmol/L BUN 50 H (7.0-18.0) mg/dL Creatinine 1.2 H (0.6-1.0) mg/dL Est Cr Clr Drug Dosing 36.97 mL/min Estimated GFR (MDRD) 45.1 ml/min Glucose 375 H (74-106) mg/dL POC Glucose 304 H (60-110) mg/dL Calcium 9.3 (8.5-10.1) mg/dL Total Bilirubin (0.2-1.0) mg/dL AST (15-37) IU/L ALT (14-63) IU/L Alkaline Phosphatase (46-116) U/L Total Protein (6.4-8.2) g/dL Albumin (3.4-5.0) g/dL Globulin (2.6-4.0) g/dL Albumin/Globulin Ratio (0.9-1.6) Urine Color Urine Appearance Urine pH (5.0-8.0) Ur Specific [place] (1.001-1.035) Urine Protein (NEGATIVE) mg/dL Urine Glucose (UA) (NEGATIVE) mg/dL Urine Ketones (NEGATIVE) mg/dL Urine Occult Blood (NEGATIVE) Urine Nitrite (NEGATIVE) Urine Bilirubin (NEGATIVE) Urine Urobilinogen (<2.0) EU/dL Ur Leukocyte Esterase (NEGATIVE) Urine RBC (0-2/HPF) Urine WBC (0-5/HPF) Ur Epithelial Cells (NONE-FEW) Urine Bacteria (NEGATIVE) 02/21/20 02/21/20 02/21/20 Range/Units 01:00 05:20 06:30 WBC 14.08 H (4.0-11.0) K/uL RBC 2.99 L (4.30-5.90) M/uL Hgb 8.9 L (12.0-16.0) g/dL Hct 26.4 L (36.0-46.0) % MCV 88.3 (80.0-98.0) fL MCH 29.8 (27.0-32.0) pg MCHC 33.7 (31.0-37.0) g/dL RDW Std Deviation 42.5 (28.0-62.0) fl RDW Coeff of Mary 13 (11.0-15.0) % Plt Count 621 H (150-400) K/uL MPV 8.60 (7.40-12.00) fL Neut % (Auto) 90.5 H (48.0-80.0) % Lymph % (Auto) 5.0 L (16.0-40.0) % [place] % (Auto) 4.5 (0.0-15.0) % Eos % (Auto) 0.0 (0.0-7.0) % Baso % (Auto) 0.0 (0.0-1.5) % Neut # (Auto) 12.7 H (1.4-5.7) K/uL Lymph # (Auto) 0.7 (0.6-2.4) K/uL [place] # (Auto) 0.6 (0.0-0.8) K/uL Eos # (Auto) 0.0 (0.0-0.7) K/uL Baso # (Auto) 0.0 (0.0-0.1) K/uL Nucleated RBC % 0.0 /100WBC Nucleated RBCs # 0 K/uL ABG pH (7.35-7.45) ABG pCO2 (35-45) mmHG ABG pO2 (75-100) mmHG ABG HCO3 (22-26) mEq/L ABG Total CO2 ABG Base Excess (-2.0-2.0) Sodium 129 L (136-145) mmol/L Potassium 6.2 H (3.5-5.1) mmol/L Chloride 95 L (98-107) mmol/L Carbon Dioxide 24.3 (21.0-32.0) mmol/L BUN 49 H (7.0-18.0) mg/dL Creatinine 1.4 H (0.6-1.0) mg/dL Est Cr Clr Drug Dosing 31.68 mL/min Estimated GFR (MDRD) 37.7 ml/min Glucose 333 H (74-106) mg/dL POC Glucose 405 H (60-110) mg/dL Calcium 9.6 (8.5-10.1) mg/dL Total Bilirubin (0.2-1.0) mg/dL AST (15-37) IU/L ALT (14-63) IU/L Alkaline Phosphatase (46-116) U/L Total Protein (6.4-8.2) g/dL Albumin (3.4-5.0) g/dL Globulin (2.6-4.0) g/dL Albumin/Globulin Ratio (0.9-1.6) Urine Color Urine Appearance Urine pH (5.0-8.0) Ur Specific [place] (1.001-1.035) Urine Protein (NEGATIVE) mg/dL Urine Glucose (UA) (NEGATIVE) mg/dL Urine Ketones (NEGATIVE) mg/dL Urine Occult Blood (NEGATIVE) Urine Nitrite (NEGATIVE) Urine Bilirubin (NEGATIVE) Urine Urobilinogen (<2.0) EU/dL Ur Leukocyte Esterase (NEGATIVE) Urine RBC (0-2/HPF) Urine WBC (0-5/HPF) Ur Epithelial Cells (NONE-FEW) Urine Bacteria (NEGATIVE) 02/21/20 02/21/20 02/21/20 Range/Units 06:30 06:35 07:10 WBC (4.0-11.0) K/uL RBC (4.30-5.90) M/uL Hgb (12.0-16.0) g/dL Hct (36.0-46.0) % MCV (80.0-98.0) fL MCH (27.0-32.0) pg MCHC (31.0-37.0) g/dL RDW Std Deviation (28.0-62.0) fl RDW Coeff of Mary (11.0-15.0) % Plt Count (150-400) K/uL MPV (7.40-12.00) fL Neut % (Auto) (48.0-80.0) % Lymph % (Auto) (16.0-40.0) % [place] % (Auto) (0.0-15.0) % Eos % (Auto) (0.0-7.0) % Baso % (Auto) (0.0-1.5) % Neut # (Auto) (1.4-5.7) K/uL Lymph # (Auto) (0.6-2.4) K/uL [place] # (Auto) (0.0-0.8) K/uL Eos # (Auto) (0.0-0.7) K/uL Baso # (Auto) (0.0-0.1) K/uL Nucleated RBC % /100WBC Nucleated RBCs # K/uL ABG pH (7.35-7.45) ABG pCO2 (35-45) mmHG ABG pO2 (75-100) mmHG ABG HCO3 (22-26) mEq/L ABG Total CO2 ABG Base Excess (-2.0-2.0) Sodium 130 L (136-145) mmol/L Potassium 5.7 H (3.5-5.1) mmol/L Chloride 97 L (98-107) mmol/L Carbon Dioxide 24.3 (21.0-32.0) mmol/L BUN 47 H (7.0-18.0) mg/dL Creatinine 1.4 H (0.6-1.0) mg/dL Est Cr Clr Drug Dosing 31.68 mL/min Estimated GFR (MDRD) 37.7 ml/min Glucose 400 H (74-106) mg/dL POC Glucose 381 H 369 H (60-110) mg/dL Calcium 9.0 (8.5-10.1) mg/dL Total Bilirubin 0.4 (0.2-1.0) mg/dL AST 33 (15-37) IU/L ALT 19 (14-63) IU/L Alkaline Phosphatase 91 (46-116) U/L Total Protein 6.5 (6.4-8.2) g/dL Albumin 1.5 L (3.4-5.0) g/dL Globulin 5.0 H (2.6-4.0) g/dL Albumin/Globulin Ratio 0.3 L (0.9-1.6) Urine Color Urine Appearance Urine pH (5.0-8.0) Ur Specific [place] (1.001-1.035) Urine Protein (NEGATIVE) mg/dL Urine Glucose (UA) (NEGATIVE) mg/dL Urine Ketones (NEGATIVE) mg/dL Urine Occult Blood (NEGATIVE) Urine Nitrite (NEGATIVE) Urine Bilirubin (NEGATIVE) Urine Urobilinogen (<2.0) EU/dL Ur Leukocyte Esterase (NEGATIVE) Urine RBC (0-2/HPF) Urine WBC (0-5/HPF) Ur Epithelial Cells (NONE-FEW) Urine Bacteria (NEGATIVE) 02/21/20 02/21/20 02/21/20 Range/Units 08:18 08:50 09:32 WBC (4.0-11.0) K/uL RBC (4.30-5.90) M/uL Hgb (12.0-16.0) g/dL Hct (36.0-46.0) % MCV (80.0-98.0) fL MCH (27.0-32.0) pg MCHC (31.0-37.0) g/dL RDW Std Deviation (28.0-62.0) fl RDW Coeff of [place] (11.0-15.0) % Plt Count (150-400) K/uL MPV (7.40-12.00) fL Neut % (Auto) (48.0-80.0) % Lymph % (Auto) (16.0-40.0) % [place] % (Auto) (0.0-15.0) % Eos % (Auto) (0.0-7.0) % Baso % (Auto) (0.0-1.5) % Neut # (Auto) (1.4-5.7) K/uL Lymph # (Auto) (0.6-2.4) K/uL [place] # (Auto) (0.0-0.8) K/uL Eos # (Auto) (0.0-0.7) K/uL Baso # (Auto) (0.0-0.1) K/uL Nucleated RBC % /100WBC Nucleated RBCs # K/uL ABG pH (7.35-7.45) ABG pCO2 (35-45) mmHG ABG pO2 (75-100) mmHG ABG HCO3 (22-26) mEq/L ABG Total CO2 ABG Base Excess (-2.0-2.0) Sodium (136-145) mmol/L Potassium (3.5-5.1) mmol/L Chloride (98-107) mmol/L Carbon Dioxide (21.0-32.0) mmol/L BUN (7.0-18.0) mg/dL Creatinine (0.6-1.0) mg/dL Est Cr Clr Drug Dosing mL/min Estimated GFR (MDRD) ml/min Glucose (74-106) mg/dL POC Glucose 362 H 363 H (60-110) mg/dL Calcium (8.5-10.1) mg/dL Total Bilirubin (0.2-1.0) mg/dL AST (15-37) IU/L ALT (14-63) IU/L Alkaline Phosphatase (46-116) U/L Total Protein (6.4-8.2) g/dL Albumin (3.4-5.0) g/dL Globulin (2.6-4.0) g/dL Albumin/Globulin Ratio (0.9-1.6) Urine Color YELLOW Urine Appearance SLT CLOUDY Urine pH 5.0 (5.0-8.0) Ur Specific [place] 1.025 (1.001-1.035) Urine Protein 30 H (NEGATIVE) mg/dL Urine Glucose (UA) 500 H (NEGATIVE) mg/dL Urine Ketones NEGATIVE (NEGATIVE) mg/dL Urine Occult Blood TRACE-INTACT H (NEGATIVE) Urine Nitrite NEGATIVE (NEGATIVE) Urine Bilirubin NEGATIVE (NEGATIVE) Urine Urobilinogen 1.0 (<2.0) EU/dL Ur Leukocyte Esterase NEGATIVE (NEGATIVE) Urine RBC 0-2 (0-2/HPF) Urine WBC 1-4 (0-5/HPF) Ur Epithelial Cells FEW (NONE-FEW) Urine Bacteria 2+ H (NEGATIVE) 02/21/20 02/21/20 Range/Units 10:33 11:09 WBC (4.0-11.0) K/uL RBC (4.30-5.90) M/uL Hgb (12.0-16.0) g/dL Hct (36.0-46.0) % MCV (80.0-98.0) fL MCH (27.0-32.0) pg MCHC (31.0-37.0) g/dL RDW Std Deviation (28.0-62.0) fl RDW Coeff of Mary (11.0-15.0) % Plt Count (150-400) K/uL MPV (7.40-12.00) fL Neut % (Auto) (48.0-80.0) % Lymph % (Auto) (16.0-40.0) % [place] % (Auto) (0.0-15.0) % Eos % (Auto) (0.0-7.0) % Baso % (Auto) (0.0-1.5) % Neut # (Auto) (1.4-5.7) K/uL Lymph # (Auto) (0.6-2.4) K/uL [place] # (Auto) (0.0-0.8) K/uL Eos # (Auto) (0.0-0.7) K/uL Baso # (Auto) (0.0-0.1) K/uL Nucleated RBC % /100WBC Nucleated RBCs # K/uL ABG pH (7.35-7.45) ABG pCO2 (35-45) mmHG ABG pO2 (75-100) mmHG ABG HCO3 (22-26) mEq/L ABG Total CO2 ABG Base Excess (-2.0-2.0) Sodium (136-145) mmol/L Potassium (3.5-5.1) mmol/L Chloride (98-107) mmol/L Carbon Dioxide (21.0-32.0) mmol/L BUN (7.0-18.0) mg/dL Creatinine (0.6-1.0) mg/dL Est Cr Clr Drug Dosing mL/min Estimated GFR (MDRD) ml/min Glucose (74-106) mg/dL POC Glucose 335 H 356 H (60-110) mg/dL Calcium (8.5-10.1) mg/dL Total Bilirubin (0.2-1.0) mg/dL AST (15-37) IU/L ALT (14-63) IU/L Alkaline Phosphatase (46-116) U/L Total Protein (6.4-8.2) g/dL Albumin (3.4-5.0) g/dL Globulin (2.6-4.0) g/dL Albumin/Globulin Ratio (0.9-1.6) Urine Color Urine Appearance Urine pH (5.0-8.0) Ur Specific [place] (1.001-1.035) Urine Protein (NEGATIVE) mg/dL Urine Glucose (UA) (NEGATIVE) mg/dL Urine Ketones (NEGATIVE) mg/dL Urine Occult Blood (NEGATIVE) Urine Nitrite (NEGATIVE) Urine Bilirubin (NEGATIVE) Urine Urobilinogen (<2.0) EU/dL Ur Leukocyte Esterase (NEGATIVE) Urine RBC (0-2/HPF) Urine WBC (0-5/HPF) Ur Epithelial Cells (NONE-FEW) Urine Bacteria (NEGATIVE) Med Orders - Current: Current Medications Acetaminophen (Tylenol) 650 mg PO Q4H PRN PRN Reason: Pain (Mild 1-3)/fever Last Admin: 02/20/20 21:23 Dose: 650 mg Documented by: Albuterol/Ipratropium (Combivent Respimat) 0 gm INH Q4H PRN PRN Reason: Dyspnea Last Admin: 02/19/20 06:25 Dose: 1 puff Documented by: Albuterol/Ipratropium (Duoneb 3.0-0.5 Mg/3 Ml) 3 ml NEB Q4HRRT [facility] Last Admin: 02/21/20 09:17 Dose: 3 ml Documented by: Aspirin (Halfprin) 81 mg PO DAILY [facility] Last Admin: 02/21/20 09:28 Dose: 81 mg Documented by: Clopidogrel Bisulfate (Plavix) 75 mg PO BEDTIME [facility] Last Admin: 02/20/20 20:10 Dose: 75 mg Documented by: Dexamethasone (Dexamethasone) 6 mg PO DAILY [facility] Stop: 02/26/20 09:01 Last Admin: 02/21/20 09:28 Dose: 6 mg Documented by: Dextrose/Water (Dextrose 50% In Water) 50 ml IVPUSH ASDIRECTED PRN PRN Reason: Hypoglycemia Dextrose/Water (Dextrose 50% In Water) 50 ml IVPUSH ASDIRECTED PRN PRN Reason: Hypoglycemia Dextrose/Water (Dextrose 50% In Water) 50 ml IV ASDIRECTED PRN PRN Reason: Hypoglycemia Dextrose/Water (Dextrose 50% In Water) 50 ml IV ASDIRECTED PRN PRN Reason: Hypoglycemia Docusate Sodium (Colace) 100 mg PO BID PRN PRN Reason: Constipation Last Admin: 02/20/20 04:10 Dose: 100 mg Documented by: Docusate Sodium (Colace) 100 mg PO DAILY [facility] Last Admin: 02/21/20 09:27 Dose: 100 mg Documented by: Duloxetine HCl (Cymbalta) 60 mg PO DAILY [facility] Last Admin: 02/21/20 09:28 Dose: 60 mg Documented by: Gabapentin (Neurontin) 200 mg PO DAILY [facility] Last Admin: 02/21/20 09:27 Dose: 200 mg Documented by: Glucagon (Glucagen) 1 mg IM ASDIRECTED PRN PRN Reason: Hypoglycemia Glucagon (Glucagen) 1 mg IM ASDIRECTED PRN PRN Reason: Hypoglycemia Glucagon (Glucagen) 1 mg IM ASDIRECTED PRN PRN Reason: Hypoglycemia Glucagon (Glucagen) 1 mg IM ASDIRECTED PRN PRN Reason: Hypoglycemia Guaifenesin/Dextromethorphan (Robitussin Dm) 10 ml PO Q4H PRN PRN Reason: Cough Last Admin: 02/20/20 21:24 Dose: 10 ml Documented by: Heparin Sodium (Porcine) (Heparin Sodium) 5,000 units SUBCUT Q12H [facility] Last Admin: 02/21/20 09:30 Dose: 5,000 units Documented by: Remdesivir 100 mg/ Sodium (Chloride) 100 mls @ 100 mls/hr IV Q24H [facility] Stop: 02/21/20 19:59 Last Admin: 02/20/20 18:07 Dose: 100 mls/hr Documented by: Insulin Human Regular 100 unit (/ Sodium Chloride) 100 mls @ 6 mls/hr IV TITRATE [facility]; Protocol Last Titration: 02/21/20 10:40 Dose: 4 unit/hr, 4 mls/hr Documented by: Levofloxacin/Dextrose 750 mg/ (Premix) 150 mls @ 100 mls/hr IV Q48H [facility] Insulin Aspart (Novolog) 0 unit SUBCUT TIDAC [facility]; Protocol Last Admin: 02/21/20 09:04 Dose: Not Given Documented by: Insulin Detemir (Levemir) 30 unit SUBCUT BID [facility] Last Admin: 02/21/20 09:05 Dose: Not Given Documented by: Insulin Human Regular (Novolin R) 0 unit IV ASDIRECTED [facility]; Protocol Labetalol HCl (Normodyne) 20 mg IVPUSH Q4H PRN; Protocol PRN Reason: Hypertension Nitroglycerin (Nitrostat) 0.4 mg SL .EVERY 5 MINUTES PRN PRN Reason: Chest Pain Last Admin: 02/21/20 02:49 Dose: 0.4 mg Documented by: Ondansetron HCl (Zofran) 4 mg IVPUSH Q4H PRN PRN Reason: Nausea/Vomiting Last Admin: 02/20/20 00:20 Dose: 4 mg Documented by: Ranolazine (Ranexa) 500 mg PO DAILY [facility] Last Admin: 02/21/20 09:28 Dose: 500 mg Documented by: Ranolazine (Ranexa) 500 mg PO BEDTIME PRN PRN Reason: Chest Pain Last Admin: 02/18/20 19:08 Dose: 500 mg Documented by: Rosuvastatin Calcium (Crestor) 40 mg PO BEDTIME [facility] Last Admin: 02/20/20 20:10 Dose: 40 mg Documented by: Sodium Chloride (Saline Flush) 10 ml FLUSH ASDIRECTED PRN PRN Reason: Keep Vein Open Sodium Chloride (Saline Flush) 2.5 ml FLUSH ASDIRECTED PRN PRN Reason: Keep Vein Open Discontinued Medications Albuterol/Ipratropium (Duoneb 3.0-0.5 Mg/3 Ml) 3 ml NEB Q4HRRT [facility] Dextrose/Water (Dextrose 50% In Water) 50 ml IV ASDIRECTED PRN PRN Reason: Hypoglycemia Dextrose/Water (Dextrose 50% In Water) 50 ml IV ONETIME ONE Stop: 02/21/20 04:10 Last Admin: 02/21/20 04:09 Dose: 50 ml Documented by: Dextrose/Water (Dextrose 50% In Water) 50 ml IV ASDIRECTED PRN PRN Reason: Hypoglycemia Furosemide (Lasix) 20 mg IVPUSH ONETIME ONE Stop: 02/18/20 10:23 Last Admin: 02/18/20 11:05 Dose: 20 mg Documented by: Remdesivir 200 mg/ Sodium (Chloride) 250 mls @ 250 mls/hr IV ONETIME ONE Stop: 02/17/20 18:05 Last Admin: 02/17/20 19:35 Dose: 250 mls/hr Documented by: Lactated Ringer's (Ringers, Lactated) 1,000 mls @ 125 mls/hr IV ASDIRECTED [facility] Last Admin: 02/17/20 22:09 Dose: 125 mls/hr Documented by: Insulin Aspart (Novolog) 0 unit SUBCUT TIDAC [facility]; Protocol Insulin Aspart (Novolog) 15 unit SUBCUT ONETIME ONE Stop: 02/18/20 18:04 Last Admin: 02/18/20 18:45 Dose: Not Given Documented by: Insulin Detemir (Levemir) 40 unit SUBCUT BID [facility] Last Admin: 02/18/20 09:57 Dose: 26 units Documented by: Insulin Detemir (Levemir) 26 unit SUBCUT BID [facility] Last Admin: 02/20/20 08:08 Dose: 26 units Documented by: Insulin Human Regular (Novolin R) 5 unit IVPUSH ONETIME ONE; Protocol Stop: 02/21/20 04:14 Last Admin: 02/21/20 04:57 Dose: 5 unit Documented by: Insulin Human Regular (Novolin R) 5 unit IVPUSH ONETIME ONE; Protocol Stop: 02/21/20 07:11 Last Admin: 02/21/20 07:45 Dose: 5 units Documented by: Lisinopril (Prinivil) 2.5 mg PO DAILY [facility] Lorazepam (Ativan) 0.5 mg IVPUSH ONETIME ONE Stop: 02/17/20 22:24 Last Admin: 02/17/20 23:00 Dose: 0.5 mg Documented by: Lorazepam (Ativan) 1 mg IVPUSH ONETIME ONE Stop: 02/18/20 19:19 Last Admin: 02/18/20 20:22 Dose: 1 mg Documented by: Nitroglycerin (Nitrostat) Confirm Administered Dose 0.4 mg .ROUTE .STK-MED ONE Stop: 02/18/20 19:23 Last Admin: 02/18/20 19:26 Dose: 0.4 mg Documented by: Ondansetron HCl (Zofran) 4 mg IVPUSH Q6H PRN PRN Reason: Nausea/Vomiting Ranolazine (Ranexa) 500 mg PO DAILY [facility] Sodium Polystyrene Sulfonate (Kayexalate) 15 gm PO ONETIME ONE Stop: 02/21/20 04:10 Last Admin: 02/21/20 04:57 Dose: 15 gm Documented by: - Exam Quality Assessment: Supplemental Oxygen General: Alert, Oriented, Cooperative, No Acute Distress HEENT: Pupils Equal, Pupils Reactive, EOMI, Mucous Membr. Moist/[place] Neck: Supple, Trachea Midline, No JVD. No: Lymphadenopathy, Carotid Bruit, JVD Lungs: Decreased Breath Sounds, Crackles Cardiovascular: Regular Rate, Regular Rhythm, No Murmurs GI/Abdominal Exam: Normal Bowel Sounds, Soft, Non-Tender, No Distention Extremities: Normal Inspection, Normal Range of Motion, No Pedal Edema Peripheral Pulses: 2+: Radial (L), Radial (R), Posterior Tibial (L), Posterior Tibial (R) Skin: Warm, Dry, Intact Neurological: No New Focal Deficit Psy/Mental Status: Alert, Normal Affect, Normal Mood Sepsis Event Note - Evaluation Sepsis Screening Result: Severe Sepsis Risk - Focused Exam Vital Signs: Vital Signs Temp Temp Resp BP BP Pulse Ox 02/21/20 10:00 18 112/53 L 95 02/21/20 09:00 32 H 126/57 L 93 L 02/21/20 08:00 98.5 F 30 H 120/63 94 L 02/21/20 07:00 99.0 F 31 H 114/69 97 02/21/20 06:00 32 H 126/63 92 L 02/21/20 05:00 36 H 126/56 L 94 L 02/21/20 04:00 34 H 120/63 88 L 02/21/20 03:00 29 H 156/72 H 94 L 02/21/20 02:49 144/69 H 02/21/20 02:00 30 H 144/69 H 90 L 02/21/20 01:00 31 H 149/68 H 90 L 02/21/20 00:00 25 H 111/54 L 02/20/20 23:50 32 H 96 - Problem List & Annotations (1) Diabetes mellitus SNOMED Code(s): 17705188 Code(s): E11.9 - TYPE 2 DIABETES MELLITUS WITHOUT COMPLICATIONS Status: Acute Current Visit: Yes Qualifiers: Diabetes mellitus type: type 2 (2) Hyperkalemia SNOMED Code(s): 21524954 Code(s): E87.5 - HYPERKALEMIA Status: Acute Current Visit: Yes (3) [place] (acute kidney injury) SNOMED Code(s): 68601858, 84738762 Code(s): N17.9 - ACUTE KIDNEY FAILURE, UNSPECIFIED Status: Acute Current Visit: Yes (4) Acute hypoxemic respiratory failure due to COVID-19 SNOMED Code(s): 156284162 Code(s): U07.1 - COVID-19; J96.01 - ACUTE RESPIRATORY FAILURE WITH HYPOXIA Status: Acute Current Visit: Yes (5) Bilateral pneumonia SNOMED Code(s): 138871925 Code(s): J18.9 - PNEUMONIA, UNSPECIFIED ORGANISM Status: Acute Current Visit: No (6) Coronary artery disease SNOMED Code(s): 93215187 Code(s): I25.10 - ATHSCL HEART DISEASE OF [place] CORONARY ARTERY W/O ANG PCTRS Status: Chronic Priority: High Current Visit: No Qualifiers: Coronary Disease-Associated Artery/Lesion type: bypass graft [place] vs. transplanted heart: burns [place] heart Associated angina: without angina Qualified Code(s): I25.810 - Atherosclerosis of coronary artery bypass graft(s) without angina pectoris - Problem List Review Problem List Initiated/Reviewed/Updated: Yes - My Orders Last 24 Hours: My Active Orders 02/21/20 08:44 Dextrose 50% in Water 50 ml IV ASDIRECTED PRN Glucagon,Human Recombinant [GlucaGen] 1 mg IM ASDIRECTED PRN 02/21/20 08:45 Insulin Regular, Human [NovoLIN R] See Protocol IV ASDIRECTED 02/21/20 10:00 Insulin Regular, Human [NovoLIN R] 100 unit Sodium Chloride 0.9% [Normal Saline] 99 ml IV TITRATE 02/21/20 10:57 Consult to Physician [CONS] Routine 02/21/20 10:58 Notify Provider Consults [RC] ASDIRECTED 02/21/20 11:15 Levofloxacin/Dextrose 5%-Water [Levaquin in D5W 750 MG/150 ML] 750 mg Premix Bag 1 bag IV Q48H - Assessment Assessment:: 1. Acute hypoxic respiratory failure secondary to Covid:maintain sats 90 to 92% currently on BiPAP increased EPAP, comfortable 80% FiO2 will try to wean appropriately. In the interim continue with dexamethasone, remdesivir, DuoNebs. Heparin for DVT prophylaxis as patient has [place] 2. Leukocytosis: Chest x-ray indicated bilateral opacities consistent with Covid pneumonia, started on Levaquin for 7 days, trend CBC with daily labs. 3. Hyperkalemia: Currently 5.7, no telemetry changes, patient asymptomatic, was given Kayexalate, started on insulin drip, will monitor BMP every 4 hours. 4. Hyperglycemia secondary to diabetes mellitus: Discontinue previous regimen and started on insulin drip due to elevated glucose between 300-400. No anion gap. Continue with Accu-Cheks every 1 hour per eICU recommendations which are very much appreciated. 5. Past medical history of coronary artery disease and hypertension: Resume home meds of aspirin, Plavix, Crestor, Ranexa and continue to monitor on telemetry. - Plan Plan:: 64 y/o F admitted for acute hypoxic respiratory failure and COVID-19 pneumonia 1. Acute hypoxic respiratory failure/COVID-19 pneumonia -Continue oxygen therapy with BIPAP and breaks on HF NC -Due to frequent desats when patient removes BIPAP will transfer to ICU for closer monitoring. -Continue dexamethasone 6 mg p.o. daily x10 days -Continue remdesivir 100 mg IV daily for 4 days -Schedule Combivent consider DuoNebs with BiPAP -Continue heparin instead of Lovenox due to [place] -Encourage I-S as well as Acapella use coughing and deep breathing -Prone position or left lateral lying position as possible 2. DM type II -Continue monitoring with Dexcom monitoring -NovoLog sliding scale -Continue long-acting Levemir 26 units twice daily -Blood sugars 3 times daily AC 3. CAD/HTN -Continue home medications, ASA, Plavix, Crestor, Ranexa -She does reports she takes Ranexa 500 mg daily then a as needed dose then the evening if she is experiencing chest pain -Monitor on telemetry -Replace electrolytes as needed Hyperkalemia: patient receiving insulin, will recheck potassium VTE prophylaxis: Heparin CODE STATUS: Full code Dispo: 2 to 3 days pending improvement
[2020-02-21 11:49] LABS: CARBON DIOXIDE,CO2 25.4 mmol/L (21.0-32.0); POTASSIUM,K 5.2 mmol/L (3.5-5.1)
--- NOTE | 2020-02-21 16:24 | PCM.SN.2 ---
- Free Text/Narrative Note: pt seen, chart reviewed; central line placement on plavix and subQ heparin, risks more then benefit; pt may need to try peripheral iv access or check w underlying medical conditions for anticoagulation prior to central line attempts; thanks for the consult and care of this pleasant patient; [id number]
--- NOTE | 2020-02-21 17:33 | CONS ---
DATE OF CONSULTATION: 02/21/2020 DATE OF : 1955 PRIMARY CARE PHYSICIAN: None PCP Consult was called and patient seen shortly after. CONSULTING QUESTION: Central line for IV access. HISTORY OF PRESENT ILLNESS: The patient is a 64-year-old lady, admitted for bilateral pneumonia and also noted to be COVID-positive on test. The patient was called for difficult IV access, although the patient currently has 2 small IV bilaterally. Most of her examination is through the nursing staff as patient is in isolating room and other information is form the chart. The patient does not have any trauma on either shoulder, place for subclavian line placement. The patient is currently on Plavix daily and also on subcu heparin. ALLERGIES: Please refer to nursing for details. MEDICATIONS: Please refer to nursing for details. PAST MEDICAL HISTORY: Significant for coronary artery disease. PAST SURGICAL HISTORY: Probably some kind of cardiac stent placement as the patient is on Plavix. PHYSICAL EXAMINATION: On examination by nursing staff, the patient does not have any trauma to either clavicle. IMPRESSION: The patient is taking Plavix and also getting subcutaneous heparin. The patient would be contradictory for any central line placement at this stage, and apparently, the patient has a working peripheral intravenous line. Until then, probably the patient is more at risk for possible pneumothorax or getting into the artery and with subcutaneous heparin and Plavix, it is going to be difficult for hemostasis on a subclavian vein insertion. The patient is not justified for central line placement at this stage. We will continue to try hard for peripheral intravenous access or if anticoagulation withheld then within 48 hours, maybe able to put a central line, still imaging guidance in her situation would be more preferable. Thanks for the consult and care of this pleasant patient. As always, thank you for the kind referral. KAMILA / JUANY /[id number]
[2020-02-21 17:58] LABS: CARBON DIOXIDE,CO2 24.6 mmol/L (21.0-32.0); POTASSIUM,K 5.3 mmol/L (3.5-5.1)
[2020-02-21] MEDS: REMDESIVIR 100 MG in Sodium Chloride 0.9% 100 ML IV SCH (18:21)
[2020-02-21] MEDS: Rosuvastatin 10 MG Tab PO SCH (20:33)
[2020-02-21] MEDS: Acetaminophen 325 MG Tab PO PRN (20:33)
[2020-02-21] MEDS: Clopidogrel 75 MG Tab PO SCH (20:34)
[2020-02-21 23:35] LABS: CARBON DIOXIDE,CO2 25.6 mmol/L (21.0-32.0); POTASSIUM,K 5.3 mmol/L (3.5-5.1)
[2020-02-22] MEDS: Albuterol/Ipratropium 3.0-0.5 MG/3 ML Neb Soln NEB SCH ×6 (02:10→21:15)
[2020-02-22] MEDS: Acetaminophen 325 MG Tab PO PRN ×2 (05:04→21:15)
[2020-02-22 06:03] LABS: CARBON DIOXIDE,CO2 27.5 mmol/L (21.0-32.0); POTASSIUM,K 5.5 mmol/L (3.5-5.1)
[2020-02-22] MEDS: Insulin Aspart 100 Units/ML 3 ML Pen SUBCUT SCH ×3 (08:28→17:31)
[2020-02-22] MEDS: Docusate Sodium 100 MG Cap PO SCH (09:20)
[2020-02-22] MEDS: Dexamethasone 4 MG Tab PO SCH (09:20)
[2020-02-22] MEDS: Aspirin 81 MG Tab.EC PO SCH (09:20)
[2020-02-22] MEDS: DULoxetine 60 MG Cap PO SCH (09:20)
[2020-02-22] MEDS: Gabapentin 100 MG Cap PO SCH (09:22)
[2020-02-22] MEDS: Heparin Sodium 5,000 Units/ML Vial SUBCUT SCH ×2 (09:23→20:16)
[2020-02-22] MEDS: guaiFENesin/Dextromethorphan 100-10 MG/5 ML Soln 10 ML Cup PO PRN (09:23)
--- NOTE | 2020-02-22 09:26 | PCM.PN ---
- General Info Date of Service: 02/22/20 Admission Dx/Problem (Free Text): Admission Diagnosis/Problem Admission Diagnosis/Problem Bilateral pneumonia, COVID-19 pneumonia acute hypoxic respiratory failure Subjective Update: Patient is a 64-year-old female admitted for Covid pneumonia requiring BiPAP. Currently on insulin drip and being closely monitored on telemetry. Patient states she is feeling better this morning, tolerating BiPAP well, able to cough up some sputum. Patient was seen and examined at bedside states that she is comfortable, denies any significant shortness of breath, chest pain, leg pain at this time. Currently awaiting her breakfast. Functional Status: Reports: Tolerating Diet - Review of Systems General: Reports: No Symptoms HEENT: Reports: No Symptoms Pulmonary: Reports: No Symptoms Cardiovascular: Reports: No Symptoms Gastrointestinal: Reports: No Symptoms Genitourinary: Reports: No Symptoms Musculoskeletal: Reports: No Symptoms Skin: Reports: No Symptoms Neurological: Reports: No Symptoms Psychiatric: Reports: No Symptoms - Patient Data Vitals - Most Recent: Last Vital Signs Temp 96.5 F L 02/22/20 08:00 Pulse 92 02/22/20 05:00 Resp 30 H 02/22/20 08:00 BP 145/67 H 02/22/20 08:00 Pulse Ox 93 L 02/22/20 08:00 Weight - Most Recent: 138 lb I&O - Last 24 Hours: Intake & Output 02/21/20 02/22/20 02/22/20 22:59 06:59 14:59 Intake Total 650 217 Output Total 700 200 Balance -50 17 Lab Results Last 24 Hours: Laboratory Results - last 24 hr 02/21/20 02/21/20 02/21/20 Range/Units 09:32 10:33 11:09 WBC (4.0-11.0) K/uL RBC (4.30-5.90) M/uL Hgb (12.0-16.0) g/dL Hct (36.0-46.0) % MCV (80.0-98.0) fL MCH (27.0-32.0) pg MCHC (31.0-37.0) g/dL RDW Std Deviation (28.0-62.0) fl RDW Coeff of Mary (11.0-15.0) % Plt Count (150-400) K/uL MPV (7.40-12.00) fL Neut % (Auto) (48.0-80.0) % Lymph % (Auto) (16.0-40.0) % [place] % (Auto) (0.0-15.0) % Eos % (Auto) (0.0-7.0) % Baso % (Auto) (0.0-1.5) % Neut # (Auto) (1.4-5.7) K/uL Lymph # (Auto) (0.6-2.4) K/uL [place] # (Auto) (0.0-0.8) K/uL Eos # (Auto) (0.0-0.7) K/uL Baso # (Auto) (0.0-0.1) K/uL Nucleated RBC % /100WBC Nucleated RBCs # K/uL Sodium (136-145) mmol/L Potassium (3.5-5.1) mmol/L Chloride (98-107) mmol/L Carbon Dioxide (21.0-32.0) mmol/L BUN (7.0-18.0) mg/dL Creatinine (0.6-1.0) mg/dL Est Cr Clr Drug Dosing mL/min Estimated GFR (MDRD) ml/min Glucose (74-106) mg/dL POC Glucose 363 H 335 H 356 H (60-110) mg/dL Calcium (8.5-10.1) mg/dL Total Bilirubin (0.2-1.0) mg/dL AST (15-37) IU/L ALT (14-63) IU/L Alkaline Phosphatase (46-116) U/L Total Protein (6.4-8.2) g/dL Albumin (3.4-5.0) g/dL Globulin (2.6-4.0) g/dL Albumin/Globulin Ratio (0.9-1.6) 02/21/20 02/21/20 02/21/20 Range/Units 11:15 12:25 13:22 WBC (4.0-11.0) K/uL RBC (4.30-5.90) M/uL Hgb (12.0-16.0) g/dL Hct (36.0-46.0) % MCV (80.0-98.0) fL MCH (27.0-32.0) pg MCHC (31.0-37.0) g/dL RDW Std Deviation (28.0-62.0) fl RDW Coeff of Mary (11.0-15.0) % Plt Count (150-400) K/uL MPV (7.40-12.00) fL Neut % (Auto) (48.0-80.0) % Lymph % (Auto) (16.0-40.0) % [place] % (Auto) (0.0-15.0) % Eos % (Auto) (0.0-7.0) % Baso % (Auto) (0.0-1.5) % Neut # (Auto) (1.4-5.7) K/uL Lymph # (Auto) (0.6-2.4) K/uL [place] # (Auto) (0.0-0.8) K/uL Eos # (Auto) (0.0-0.7) K/uL Baso # (Auto) (0.0-0.1) K/uL Nucleated RBC % /100WBC Nucleated RBCs # K/uL Sodium 132 L (136-145) mmol/L Potassium 5.2 H (3.5-5.1) mmol/L Chloride 98 (98-107) mmol/L Carbon Dioxide 25.4 (21.0-32.0) mmol/L BUN 45 H (7.0-18.0) mg/dL Creatinine 1.2 H (0.6-1.0) mg/dL Est Cr Clr Drug Dosing 36.97 mL/min Estimated GFR (MDRD) 45.1 ml/min Glucose 341 H (74-106) mg/dL POC Glucose 297 H 298 H (60-110) mg/dL Calcium 8.5 (8.5-10.1) mg/dL Total Bilirubin (0.2-1.0) mg/dL AST (15-37) IU/L ALT (14-63) IU/L Alkaline Phosphatase (46-116) U/L Total Protein (6.4-8.2) g/dL Albumin (3.4-5.0) g/dL Globulin (2.6-4.0) g/dL Albumin/Globulin Ratio (0.9-1.6) 12/02/21/20 02/21/20 Range/Units 14:20 14:56 15:58 WBC (4.0-11.0) K/uL RBC (4.30-5.90) M/uL Hgb (12.0-16.0) g/dL Hct (36.0-46.0) % MCV (80.0-98.0) fL MCH (27.0-32.0) pg MCHC (31.0-37.0) g/dL RDW Std Deviation (28.0-62.0) fl RDW Coeff of Mary (11.0-15.0) % Plt Count (150-400) K/uL MPV (7.40-12.00) fL Neut % (Auto) (48.0-80.0) % Lymph % (Auto) (16.0-40.0) % [place] % (Auto) (0.0-15.0) % Eos % (Auto) (0.0-7.0) % Baso % (Auto) (0.0-1.5) % Neut # (Auto) (1.4-5.7) K/uL Lymph # (Auto) (0.6-2.4) K/uL [place] # (Auto) (0.0-0.8) K/uL Eos # (Auto) (0.0-0.7) K/uL Baso # (Auto) (0.0-0.1) K/uL Nucleated RBC % /100WBC Nucleated RBCs # K/uL Sodium (136-145) mmol/L Potassium (3.5-5.1) mmol/L Chloride (98-107) mmol/L Carbon Dioxide (21.0-32.0) mmol/L BUN (7.0-18.0) mg/dL Creatinine (0.6-1.0) mg/dL Est Cr Clr Drug Dosing mL/min Estimated GFR (MDRD) ml/min Glucose (74-106) mg/dL POC Glucose 249 H 206 H 215 H (60-110) mg/dL Calcium (8.5-10.1) mg/dL Total Bilirubin (0.2-1.0) mg/dL AST (15-37) IU/L ALT (14-63) IU/L Alkaline Phosphatase (46-116) U/L Total Protein (6.4-8.2) g/dL Albumin (3.4-5.0) g/dL Globulin (2.6-4.0) g/dL Albumin/Globulin Ratio (0.9-1.6) 02/21/20 02/21/20 02/21/20 Range/Units 17:30 17:30 18:34 WBC (4.0-11.0) K/uL RBC (4.30-5.90) M/uL Hgb (12.0-16.0) g/dL Hct (36.0-46.0) % MCV (80.0-98.0) fL MCH (27.0-32.0) pg MCHC (31.0-37.0) g/dL RDW Std Deviation (28.0-62.0) fl RDW Coeff of Mary (11.0-15.0) % Plt Count (150-400) K/uL MPV (7.40-12.00) fL Neut % (Auto) (48.0-80.0) % Lymph % (Auto) (16.0-40.0) % [place] % (Auto) (0.0-15.0) % Eos % (Auto) (0.0-7.0) % Baso % (Auto) (0.0-1.5) % Neut # (Auto) (1.4-5.7) K/uL Lymph # (Auto) (0.6-2.4) K/uL [place] # (Auto) (0.0-0.8) K/uL Eos # (Auto) (0.0-0.7) K/uL Baso # (Auto) (0.0-0.1) K/uL Nucleated RBC % /100WBC Nucleated RBCs # K/uL Sodium 133 L (136-145) mmol/L Potassium 5.3 H (3.5-5.1) mmol/L Chloride 98 (98-107) mmol/L Carbon Dioxide 24.6 (21.0-32.0) mmol/L BUN 41 H (7.0-18.0) mg/dL Creatinine 1.2 H (0.6-1.0) mg/dL Est Cr Clr Drug Dosing 36.97 mL/min Estimated GFR (MDRD) 45.1 ml/min Glucose 184 H (74-106) mg/dL POC Glucose 182 H 192 H (60-110) mg/dL Calcium 9.1 (8.5-10.1) mg/dL Total Bilirubin (0.2-1.0) mg/dL AST (15-37) IU/L ALT (14-63) IU/L Alkaline Phosphatase (46-116) U/L Total Protein (6.4-8.2) g/dL Albumin (3.4-5.0) g/dL Globulin (2.6-4.0) g/dL Albumin/Globulin Ratio (0.9-1.6) 02/21/20 02/21/20 02/21/20 Range/Units 19:03 20:26 21:06 WBC (4.0-11.0) K/uL RBC (4.30-5.90) M/uL Hgb (12.0-16.0) g/dL Hct (36.0-46.0) % MCV (80.0-98.0) fL MCH (27.0-32.0) pg MCHC (31.0-37.0) g/dL RDW Std Deviation (28.0-62.0) fl RDW Coeff of Mary (11.0-15.0) % Plt Count (150-400) K/uL MPV (7.40-12.00) fL Neut % (Auto) (48.0-80.0) % Lymph % (Auto) (16.0-40.0) % [place] % (Auto) (0.0-15.0) % Eos % (Auto) (0.0-7.0) % Baso % (Auto) (0.0-1.5) % Neut # (Auto) (1.4-5.7) K/uL Lymph # (Auto) (0.6-2.4) K/uL [place] # (Auto) (0.0-0.8) K/uL Eos # (Auto) (0.0-0.7) K/uL Baso # (Auto) (0.0-0.1) K/uL Nucleated RBC % /100WBC Nucleated RBCs # K/uL Sodium (136-145) mmol/L Potassium (3.5-5.1) mmol/L Chloride (98-107) mmol/L Carbon Dioxide (21.0-32.0) mmol/L BUN (7.0-18.0) mg/dL Creatinine (0.6-1.0) mg/dL Est Cr Clr Drug Dosing mL/min Estimated GFR (MDRD) ml/min Glucose (74-106) mg/dL POC Glucose 182 H 190 H 182 H (60-110) mg/dL Calcium (8.5-10.1) mg/dL Total Bilirubin (0.2-1.0) mg/dL AST (15-37) IU/L ALT (14-63) IU/L Alkaline Phosphatase (46-116) U/L Total Protein (6.4-8.2) g/dL Albumin (3.4-5.0) g/dL Globulin (2.6-4.0) g/dL Albumin/Globulin Ratio (0.9-1.6) 02/21/20 02/21/20 02/21/20 Range/Units 22:02 23:09 23:13 WBC (4.0-11.0) K/uL RBC (4.30-5.90) M/uL Hgb (12.0-16.0) g/dL Hct (36.0-46.0) % MCV (80.0-98.0) fL MCH (27.0-32.0) pg MCHC (31.0-37.0) g/dL RDW Std Deviation (28.0-62.0) fl RDW Coeff of Mary (11.0-15.0) % Plt Count (150-400) K/uL MPV (7.40-12.00) fL Neut % (Auto) (48.0-80.0) % Lymph % (Auto) (16.0-40.0) % [place] % (Auto) (0.0-15.0) % Eos % (Auto) (0.0-7.0) % Baso % (Auto) (0.0-1.5) % Neut # (Auto) (1.4-5.7) K/uL Lymph # (Auto) (0.6-2.4) K/uL [place] # (Auto) (0.0-0.8) K/uL Eos # (Auto) (0.0-0.7) K/uL Baso # (Auto) (0.0-0.1) K/uL Nucleated RBC % /100WBC Nucleated RBCs # K/uL Sodium 134 L (136-145) mmol/L Potassium 5.3 H (3.5-5.1) mmol/L Chloride 99 (98-107) mmol/L Carbon Dioxide 25.6 (21.0-32.0) mmol/L BUN 41 H (7.0-18.0) mg/dL Creatinine 1.1 H (0.6-1.0) mg/dL Est Cr Clr Drug Dosing 40.33 mL/min Estimated GFR (MDRD) 49.8 ml/min Glucose 197 H (74-106) mg/dL POC Glucose 176 H 188 H (60-110) mg/dL Calcium 9.0 (8.5-10.1) mg/dL Total Bilirubin (0.2-1.0) mg/dL AST (15-37) IU/L ALT (14-63) IU/L Alkaline Phosphatase (46-116) U/L Total Protein (6.4-8.2) g/dL Albumin (3.4-5.0) g/dL Globulin (2.6-4.0) g/dL Albumin/Globulin Ratio (0.9-1.6) 02/22/20 02/22/20 02/22/20 Range/Units 00:02 01:16 02:14 WBC (4.0-11.0) K/uL RBC (4.30-5.90) M/uL Hgb (12.0-16.0) g/dL Hct (36.0-46.0) % MCV (80.0-98.0) fL MCH (27.0-32.0) pg MCHC (31.0-37.0) g/dL RDW Std Deviation (28.0-62.0) fl RDW Coeff of Mary (11.0-15.0) % Plt Count (150-400) K/uL MPV (7.40-12.00) fL Neut % (Auto) (48.0-80.0) % Lymph % (Auto) (16.0-40.0) % [place] % (Auto) (0.0-15.0) % Eos % (Auto) (0.0-7.0) % Baso % (Auto) (0.0-1.5) % Neut # (Auto) (1.4-5.7) K/uL Lymph # (Auto) (0.6-2.4) K/uL [place] # (Auto) (0.0-0.8) K/uL Eos # (Auto) (0.0-0.7) K/uL Baso # (Auto) (0.0-0.1) K/uL Nucleated RBC % /100WBC Nucleated RBCs # K/uL Sodium (136-145) mmol/L Potassium (3.5-5.1) mmol/L Chloride (98-107) mmol/L Carbon Dioxide (21.0-32.0) mmol/L BUN (7.0-18.0) mg/dL Creatinine (0.6-1.0) mg/dL Est Cr Clr Drug Dosing mL/min Estimated GFR (MDRD) ml/min Glucose (74-106) mg/dL POC Glucose 189 H 183 H 189 H (60-110) mg/dL Calcium (8.5-10.1) mg/dL Total Bilirubin (0.2-1.0) mg/dL AST (15-37) IU/L ALT (14-63) IU/L Alkaline Phosphatase (46-116) U/L Total Protein (6.4-8.2) g/dL Albumin (3.4-5.0) g/dL Globulin (2.6-4.0) g/dL Albumin/Globulin Ratio (0.9-1.6) 02/22/20 02/22/20 02/22/20 Range/Units 03:10 03:56 05:13 WBC (4.0-11.0) K/uL RBC (4.30-5.90) M/uL Hgb (12.0-16.0) g/dL Hct (36.0-46.0) % MCV (80.0-98.0) fL MCH (27.0-32.0) pg MCHC (31.0-37.0) g/dL RDW Std Deviation (28.0-62.0) fl RDW Coeff of Mary (11.0-15.0) % Plt Count (150-400) K/uL MPV (7.40-12.00) fL Neut % (Auto) (48.0-80.0) % Lymph % (Auto) (16.0-40.0) % [place] % (Auto) (0.0-15.0) % Eos % (Auto) (0.0-7.0) % Baso % (Auto) (0.0-1.5) % Neut # (Auto) (1.4-5.7) K/uL Lymph # (Auto) (0.6-2.4) K/uL [place] # (Auto) (0.0-0.8) K/uL Eos # (Auto) (0.0-0.7) K/uL Baso # (Auto) (0.0-0.1) K/uL Nucleated RBC % /100WBC Nucleated RBCs # K/uL Sodium (136-145) mmol/L Potassium (3.5-5.1) mmol/L Chloride (98-107) mmol/L Carbon Dioxide (21.0-32.0) mmol/L BUN (7.0-18.0) mg/dL Creatinine (0.6-1.0) mg/dL Est Cr Clr Drug Dosing mL/min Estimated GFR (MDRD) ml/min Glucose (74-106) mg/dL POC Glucose 155 H 151 H 141 H (60-110) mg/dL Calcium (8.5-10.1) mg/dL Total Bilirubin (0.2-1.0) mg/dL AST (15-37) IU/L ALT (14-63) IU/L Alkaline Phosphatase (46-116) U/L Total Protein (6.4-8.2) g/dL Albumin (3.4-5.0) g/dL Globulin (2.6-4.0) g/dL Albumin/Globulin Ratio (0.9-1.6) 02/22/20 02/22/20 02/22/20 Range/Units 05:23 05:23 06:04 WBC 12.25 H (4.0-11.0) K/uL RBC 2.85 L (4.30-5.90) M/uL Hgb 8.5 L (12.0-16.0) g/dL Hct 24.9 L (36.0-46.0) % MCV 87.4 (80.0-98.0) fL MCH 29.8 (27.0-32.0) pg MCHC 34.1 (31.0-37.0) g/dL RDW Std Deviation 42.3 (28.0-62.0) fl RDW Coeff of Mary 13 (11.0-15.0) % Plt Count 648 H (150-400) K/uL MPV 8.40 (7.40-12.00) fL Neut % (Auto) 92.7 H (48.0-80.0) % Lymph % (Auto) 3.3 L (16.0-40.0) % [place] % (Auto) 3.9 (0.0-15.0) % Eos % (Auto) 0.0 (0.0-7.0) % Baso % (Auto) 0.1 (0.0-1.5) % Neut # (Auto) 11.4 H (1.4-5.7) K/uL Lymph # (Auto) 0.4 L (0.6-2.4) K/uL [place] # (Auto) 0.5 (0.0-0.8) K/uL Eos # (Auto) 0.0 (0.0-0.7) K/uL Baso # (Auto) 0.0 (0.0-0.1) K/uL Nucleated RBC % 0.0 /100WBC Nucleated RBCs # 0 K/uL Sodium 135 L (136-145) mmol/L Potassium 5.5 H (3.5-5.1) mmol/L Chloride 101 (98-107) mmol/L Carbon Dioxide 27.5 (21.0-32.0) mmol/L BUN 46 H (7.0-18.0) mg/dL Creatinine 1.3 H (0.6-1.0) mg/dL Est Cr Clr Drug Dosing 34.12 mL/min Estimated GFR (MDRD) 41.1 ml/min Glucose 138 H (74-106) mg/dL POC Glucose 135 H (60-110) mg/dL Calcium 9.4 (8.5-10.1) mg/dL Total Bilirubin 0.4 (0.2-1.0) mg/dL AST 49 H (15-37) IU/L ALT 24 (14-63) IU/L Alkaline Phosphatase 98 (46-116) U/L Total Protein 6.4 (6.4-8.2) g/dL Albumin 1.4 L (3.4-5.0) g/dL Globulin 5.0 H (2.6-4.0) g/dL Albumin/Globulin Ratio 0.3 L (0.9-1.6) 02/22/20 02/22/20 Range/Units 07:06 08:13 WBC (4.0-11.0) K/uL RBC (4.30-5.90) M/uL Hgb (12.0-16.0) g/dL Hct (36.0-46.0) % MCV (80.0-98.0) fL MCH (27.0-32.0) pg MCHC (31.0-37.0) g/dL RDW Std Deviation (28.0-62.0) fl RDW Coeff of Mary (11.0-15.0) % Plt Count (150-400) K/uL MPV (7.40-12.00) fL Neut % (Auto) (48.0-80.0) % Lymph % (Auto) (16.0-40.0) % [place] % (Auto) (0.0-15.0) % Eos % (Auto) (0.0-7.0) % Baso % (Auto) (0.0-1.5) % Neut # (Auto) (1.4-5.7) K/uL Lymph # (Auto) (0.6-2.4) K/uL [place] # (Auto) (0.0-0.8) K/uL Eos # (Auto) (0.0-0.7) K/uL Baso # (Auto) (0.0-0.1) K/uL Nucleated RBC % /100WBC Nucleated RBCs # K/uL Sodium (136-145) mmol/L Potassium (3.5-5.1) mmol/L Chloride (98-107) mmol/L Carbon Dioxide (21.0-32.0) mmol/L BUN (7.0-18.0) mg/dL Creatinine (0.6-1.0) mg/dL Est Cr Clr Drug Dosing mL/min Estimated GFR (MDRD) ml/min Glucose (74-106) mg/dL POC Glucose 144 H 147 H (60-110) mg/dL Calcium (8.5-10.1) mg/dL Total Bilirubin (0.2-1.0) mg/dL AST (15-37) IU/L ALT (14-63) IU/L Alkaline Phosphatase (46-116) U/L Total Protein (6.4-8.2) g/dL Albumin (3.4-5.0) g/dL Globulin (2.6-4.0) g/dL Albumin/Globulin Ratio (0.9-1.6) Med Orders - Current: Current Medications Acetaminophen (Tylenol) 650 mg PO Q4H PRN PRN Reason: Pain (Mild 1-3)/fever Last Admin: 02/22/20 05:04 Dose: 650 mg Documented by: Albuterol/Ipratropium (Combivent Respimat) 0 gm INH Q4H PRN PRN Reason: Dyspnea Last Admin: 02/19/20 06:25 Dose: 1 puff Documented by: Albuterol/Ipratropium (Duoneb 3.0-0.5 Mg/3 Ml) 3 ml NEB Q4HRRT [facility] Last Admin: 02/22/20 05:46 Dose: 3 ml Documented by: Aspirin (Halfprin) 81 mg PO DAILY [facility] Last Admin: 02/21/20 09:28 Dose: 81 mg Documented by: Clopidogrel Bisulfate (Plavix) 75 mg PO BEDTIME [facility] Last Admin: 02/21/20 20:34 Dose: 75 mg Documented by: Dexamethasone (Dexamethasone) 6 mg PO DAILY [facility] Stop: 02/26/20 09:01 Last Admin: 02/21/20 09:28 Dose: 6 mg Documented by: Dextrose/Water (Dextrose 50% In Water) 50 ml IVPUSH ASDIRECTED PRN PRN Reason: Hypoglycemia Dextrose/Water (Dextrose 50% In Water) 50 ml IVPUSH ASDIRECTED PRN PRN Reason: Hypoglycemia Dextrose/Water (Dextrose 50% In Water) 50 ml IV ASDIRECTED PRN PRN Reason: Hypoglycemia Dextrose/Water (Dextrose 50% In Water) 50 ml IV ASDIRECTED PRN PRN Reason: Hypoglycemia Docusate Sodium (Colace) 100 mg PO BID PRN PRN Reason: Constipation Last Admin: 02/20/20 04:10 Dose: 100 mg Documented by: Docusate Sodium (Colace) 100 mg PO DAILY [facility] Last Admin: 02/21/20 09:27 Dose: 100 mg Documented by: Duloxetine HCl (Cymbalta) 60 mg PO DAILY [facility] Last Admin: 02/21/20 09:28 Dose: 60 mg Documented by: Gabapentin (Neurontin) 200 mg PO DAILY [facility] Last Admin: 02/21/20 09:27 Dose: 200 mg Documented by: Glucagon (Glucagen) 1 mg IM ASDIRECTED PRN PRN Reason: Hypoglycemia Glucagon (Glucagen) 1 mg IM ASDIRECTED PRN PRN Reason: Hypoglycemia Glucagon (Glucagen) 1 mg IM ASDIRECTED PRN PRN Reason: Hypoglycemia Glucagon (Glucagen) 1 mg IM ASDIRECTED PRN PRN Reason: Hypoglycemia Guaifenesin/Dextromethorphan (Robitussin Dm) 10 ml PO Q4H PRN PRN Reason: Cough Last Admin: 02/20/20 21:24 Dose: 10 ml Documented by: Heparin Sodium (Porcine) (Heparin Sodium) 5,000 units SUBCUT Q12H [facility] Last Admin: 02/21/20 20:32 Dose: 5,000 units Documented by: Insulin Human Regular 100 unit (/ Sodium Chloride) 100 mls @ 6 mls/hr IV TITRATE [facility]; Protocol Last Titration: 02/22/20 07:08 Dose: 1 unit/hr, 1 mls/hr Documented by: Levofloxacin/Dextrose 750 mg/ (Premix) 150 mls @ 100 mls/hr IV Q48H [facility] Last Admin: 02/21/20 11:33 Dose: 100 mls/hr Documented by: Insulin Aspart (Novolog) 0 unit SUBCUT TIDAC [facility]; Protocol Last Admin: 02/22/20 08:28 Dose: Not Given Documented by: Insulin Detemir (Levemir) 30 unit SUBCUT BID [facility] Last Admin: 02/21/20 20:35 Dose: Not Given Documented by: Insulin Human Regular (Novolin R) 0 unit IV ASDIRECTED [facility]; Protocol Labetalol HCl (Normodyne) 20 mg IVPUSH Q4H PRN; Protocol PRN Reason: Hypertension Nitroglycerin (Nitrostat) 0.4 mg SL .EVERY 5 MINUTES PRN PRN Reason: Chest Pain Last Admin: 02/21/20 17:36 Dose: 0.4 mg Documented by: Ondansetron HCl (Zofran) 4 mg IVPUSH Q4H PRN PRN Reason: Nausea/Vomiting Last Admin: 02/20/20 00:20 Dose: 4 mg Documented by: Ranolazine (Ranexa) 500 mg PO DAILY [facility] Last Admin: 02/21/20 09:28 Dose: 500 mg Documented by: Ranolazine (Ranexa) 500 mg PO BEDTIME PRN PRN Reason: Chest Pain Last Admin: 02/18/20 19:08 Dose: 500 mg Documented by: Rosuvastatin Calcium (Crestor) 40 mg PO BEDTIME [facility] Last Admin: 02/21/20 20:33 Dose: 40 mg Documented by: Sodium Chloride (Saline Flush) 10 ml FLUSH ASDIRECTED PRN PRN Reason: Keep Vein Open Sodium Chloride (Saline Flush) 2.5 ml FLUSH ASDIRECTED PRN PRN Reason: Keep Vein Open Discontinued Medications Albuterol/Ipratropium (Duoneb 3.0-0.5 Mg/3 Ml) 3 ml NEB Q4HRRT [facility] Dextrose/Water (Dextrose 50% In Water) 50 ml IV ASDIRECTED PRN PRN Reason: Hypoglycemia Dextrose/Water (Dextrose 50% In Water) 50 ml IV ONETIME ONE Stop: 02/21/20 04:10 Last Admin: 02/21/20 04:09 Dose: 50 ml Documented by: Dextrose/Water (Dextrose 50% In Water) 50 ml IV ASDIRECTED PRN PRN Reason: Hypoglycemia Furosemide (Lasix) 20 mg IVPUSH ONETIME ONE Stop: 02/18/20 10:23 Last Admin: 02/18/20 11:05 Dose: 20 mg Documented by: Remdesivir 200 mg/ Sodium (Chloride) 250 mls @ 250 mls/hr IV ONETIME ONE Stop: 02/17/20 18:05 Last Admin: 02/17/20 19:35 Dose: 250 mls/hr Documented by: Remdesivir 100 mg/ Sodium (Chloride) 100 mls @ 100 mls/hr IV Q24H [place] Stop: 02/21/20 19:59 Last Admin: 02/21/20 18:21 Dose: 100 mls/hr Documented by: Lactated Ringer's (Ringers, Lactated) 1,000 mls @ 125 mls/hr IV ASDIRECTED [facility] Last Admin: 02/17/20 22:09 Dose: 125 mls/hr Documented by: Insulin Aspart (Novolog) 0 unit SUBCUT TIDAC [facility]; Protocol Insulin Aspart (Novolog) 15 unit SUBCUT ONETIME ONE Stop: 02/18/20 18:04 Last Admin: 02/18/20 18:45 Dose: Not Given Documented by: Insulin Detemir (Levemir) 40 unit SUBCUT BID [facility] Last Admin: 02/18/20 09:57 Dose: 26 units Documented by: Insulin Detemir (Levemir) 26 unit SUBCUT BID [facility] Last Admin: 02/20/20 08:08 Dose: 26 units Documented by: Insulin Human Regular (Novolin R) 5 unit IVPUSH ONETIME ONE; Protocol Stop: 02/21/20 04:14 Last Admin: 02/21/20 04:57 Dose: 5 unit Documented by: Insulin Human Regular (Novolin R) 5 unit IVPUSH ONETIME ONE; Protocol Stop: 02/21/20 07:11 Last Admin: 02/21/20 07:45 Dose: 5 units Documented by: Lisinopril (Prinivil) 2.5 mg PO DAILY [facility] Lorazepam (Ativan) 0.5 mg IVPUSH ONETIME ONE Stop: 02/17/20 22:24 Last Admin: 02/17/20 23:00 Dose: 0.5 mg Documented by: Lorazepam (Ativan) 1 mg IVPUSH ONETIME ONE Stop: 02/18/20 19:19 Last Admin: 02/18/20 20:22 Dose: 1 mg Documented by: Nitroglycerin (Nitrostat) Confirm Administered Dose 0.4 mg .ROUTE .STK-MED ONE Stop: 02/18/20 19:23 Last Admin: 02/18/20 19:26 Dose: 0.4 mg Documented by: Ondansetron HCl (Zofran) 4 mg IVPUSH Q6H PRN PRN Reason: Nausea/Vomiting Ranolazine (Ranexa) 500 mg PO DAILY [facility] Sodium Polystyrene Sulfonate (Kayexalate) 15 gm PO ONETIME ONE Stop: 02/21/20 04:10 Last Admin: 02/21/20 04:57 Dose: 15 gm Documented by: - Exam Quality Assessment: Supplemental Oxygen, DVT Prophylaxis General: Alert, Oriented, Cooperative, No Acute Distress HEENT: Pupils Equal, Pupils Reactive, EOMI, Mucous Membr. Moist/[place] Neck: Supple, Trachea Midline, No JVD Lungs: Clear to Auscultation, Normal Respiratory Effort, Crackles Cardiovascular: Regular Rate, Regular Rhythm GI/Abdominal Exam: Normal Bowel Sounds, Soft, Non-Tender, No Distention, No Abnormal Bruit, No Mass, Pelvis Stable Back Exam: Normal Inspection, Full Range of Motion Extremities: Normal Inspection, Normal Range of Motion, Non-Tender, No Pedal Edema, Normal Capillary Refill Skin: Warm, Dry, Intact Neurological: No New Focal Deficit Psy/Mental Status: Alert, Normal Affect, Normal Mood Sepsis Event Note - Evaluation Sepsis Screening Result: Severe Sepsis Risk - Focused Exam Vital Signs: Vital Signs Temp Pulse Resp BP Pulse Ox 02/22/20 08:00 96.5 F L 30 H 145/67 H 93 L 02/22/20 07:00 32 H 124/67 94 L 02/22/20 06:00 29 H 97/45 L 94 L 02/22/20 05:00 92 27 H 144/69 H 94 L 02/22/20 03:54 30 H 129/70 93 L 02/22/20 03:00 92 26 H 106/49 L 95 02/22/20 02:00 28 H 140/59 L 93 L 02/22/20 01:00 33 H 157/76 H 92 L 02/22/20 00:00 23 H 140/63 92 L 02/21/20 23:00 33 H 117/56 L 98 02/21/20 22:00 26 H 147/70 H 92 L - Problem List & Annotations (1) Diabetes mellitus SNOMED Code(s): 13331902 Code(s): E11.9 - TYPE 2 DIABETES MELLITUS WITHOUT COMPLICATIONS Status: Acute Current Visit: Yes Qualifiers: Diabetes mellitus type: type 2 (2) Hyperkalemia SNOMED Code(s): 63698983 Code(s): E87.5 - HYPERKALEMIA Status: Acute Current Visit: Yes (3) [place] (acute kidney injury) SNOMED Code(s): 85244725, 45405992 Code(s): N17.9 - ACUTE KIDNEY FAILURE, UNSPECIFIED Status: Acute Current Visit: Yes (4) Acute hypoxemic respiratory failure due to COVID-19 SNOMED Code(s): 556897809 Code(s): U07.1 - COVID-19; J96.01 - ACUTE RESPIRATORY FAILURE WITH HYPOXIA Status: Acute Current Visit: Yes (5) Bilateral pneumonia SNOMED Code(s): 912900385 Code(s): J18.9 - PNEUMONIA, UNSPECIFIED ORGANISM Status: Acute Current Visit: No (6) Coronary artery disease SNOMED Code(s): 72962404 Code(s): I25.10 - ATHSCL HEART DISEASE OF [place] CORONARY ARTERY W/O ANG PCTRS Status: Chronic Priority: High Current Visit: No Qualifiers: Coronary Disease-Associated Artery/Lesion type: bypass graft [place] vs. transplanted heart: [place] heart Associated angina: without angina Qualified Code(s): I25.810 - Atherosclerosis of coronary artery bypass graft(s) without angina pectoris - Problem List Review Problem List Initiated/Reviewed/Updated: Yes - My Orders Last 24 Hours: My Active Orders 02/21/20 08:44 Dextrose 50% in Water 50 ml IV ASDIRECTED PRN Glucagon,Human Recombinant [GlucaGen] 1 mg IM ASDIRECTED PRN 02/21/20 08:45 Insulin Regular, Human [NovoLIN R] See Protocol IV ASDIRECTED 02/21/20 10:00 Insulin Regular, Human [NovoLIN R] 100 unit Sodium Chloride 0.9% [Normal Saline] 99 ml IV TITRATE 02/21/20 10:57 Consult to Physician [CONS] Routine 02/21/20 10:58 Notify Provider Consults [RC] ASDIRECTED 02/21/20 11:15 Levofloxacin/Dextrose 5%-Water [Levaquin in D5W 750 MG/150 ML] 750 mg Premix Bag 1 bag IV Q48H 02/22/20 11:00 BASIC METABOLIC PANEL,BMP [CHEM] Q6H 02/22/20 17:00 BASIC METABOLIC PANEL,BMP [CHEM] Q6H 02/22/20 23:00 BASIC METABOLIC PANEL,BMP [CHEM] Q6H 02/23/20 05:11 CBC WITH AUTO DIFF [HEME] AM CMP [COMPREHENSIVE METABOLIC PN,CMP] [CHEM] AM 02/24/20 05:11 CBC WITH AUTO DIFF [HEME] AM CMP [COMPREHENSIVE METABOLIC PN,CMP] [CHEM] AM 02/25/20 05:11 CBC WITH AUTO DIFF [HEME] AM CMP [COMPREHENSIVE METABOLIC PN,CMP] [CHEM] AM 02/26/20 05:11 CBC WITH AUTO DIFF [HEME] AM CMP [COMPREHENSIVE METABOLIC PN,CMP] [CHEM] AM - Plan Plan:: 64 y/o F admitted for acute hypoxic respiratory failure and COVID-19 pneumonia 1. Acute hypoxic respiratory failure/COVID-19 pneumonia -Patient states overall she is feeling better, completed full course of remdesivir will continue with plan mentioned below. Was tried on high flow nasal cannula did not tolerate well, but will use as breaks for short durations to allow patient to eat. -Continue oxygen therapy with BIPAP and breaks on HF NC -Continue dexamethasone 6 mg p.o. daily 6\10 days -Schedule Combivent consider DuoNebs with BiPAP -Continue heparin instead of Lovenox due to L[place] -Encourage I-S as well as Acapella use coughing and deep breathing -Prone position or left lateral lying position as possible 2. DM type II -Insulin drip Accu-Cheks every hour Blood sugars stable 180s to 190s, continue to monitor 3. CAD/HTN -Continue home medications, ASA, Plavix, Crestor, Ranexa -She does reports she takes Ranexa 500 mg daily then a as needed dose then the evening if she is experiencing chest pain -Monitor on telemetry -Replace electrolytes as needed 4.Hyperkalemia: -patient receiving insulin, and albuterol, -check BMP every 6 hours, -being monitored on telemetry 5. L[place]: -Avoid nephrotoxic agents -Continue to monitor CMP daily
[2020-02-22] MEDS: Insulin Detemir 100 Units/ML 3 ML Pen SUBCUT SCH ×2 (10:43→20:10)
[2020-02-22 12:03] LABS: CARBON DIOXIDE,CO2 26.2 mmol/L (21.0-32.0); POTASSIUM,K 4.9 mmol/L (3.5-5.1)
[2020-02-22 18:07] LABS: CARBON DIOXIDE,CO2 26.5 mmol/L (21.0-32.0); POTASSIUM,K 5.1 mmol/L (3.5-5.1)
[2020-02-22] MEDS: Rosuvastatin 10 MG Tab PO SCH (20:16)
[2020-02-22] MEDS: Clopidogrel 75 MG Tab PO SCH (20:17)
[2020-02-22] MEDS ORDERED: Pantoprazole 40 MG Vial ONE (22:54)
--- NOTE | 2020-02-22 23:00 | PN ---
THC Physician - Brief Progress [id number]/22/2020 22:57[facility] [place], [place] - SONJA (DEB) - JANEL PRAJAPATI, CAYLA+Date of Service 02/22/2020 22:57HPI/Even ts of Note Overnight events:Called for GI upset. Has had minimal po intake.Ordered Protonix 40 IV aaron ly, starting now.Interventions Intermediate-Other: dyspepsia
[2020-02-23] MEDS: Albuterol/Ipratropium 3.0-0.5 MG/3 ML Neb Soln NEB SCH ×6 (02:00→21:10)
[2020-02-23 06:48] LABS: CARBON DIOXIDE,CO2 24.1 mmol/L (21.0-32.0); POTASSIUM,K 4.7 mmol/L (3.5-5.1)
[2020-02-23] MEDS: Insulin Aspart 100 Units/ML 3 ML Pen SUBCUT SCH ×5 (07:18→23:09)
[2020-02-23] MEDS ORDERED: Pantoprazole 40 MG in Sodium Chloride 0.9% 10 ML IV SCH (07:30)
[2020-02-23] MEDS: Pantoprazole 40 MG in Sodium Chloride 0.9% 10 ML IV SCH (08:04)
[2020-02-23] MEDS: Heparin Sodium 5,000 Units/ML Vial SUBCUT SCH ×2 (08:07→20:15)
[2020-02-23] MEDS: DULoxetine 60 MG Cap PO SCH (08:10)
[2020-02-23] MEDS: Gabapentin 100 MG Cap PO SCH (08:10)
[2020-02-23] MEDS: Docusate Sodium 100 MG Cap PO SCH (08:10)
[2020-02-23] MEDS: Aspirin 81 MG Tab.EC PO SCH (08:10)
[2020-02-23] MEDS: Dexamethasone 4 MG Tab PO SCH (08:11)
[2020-02-23] MEDS ORDERED: Iron Sucrose Complex 100 MG/5 ML SDV IVPUSH ONE (09:38)
[2020-02-23] MEDS: Insulin Detemir 100 Units/ML 3 ML Pen SUBCUT SCH (09:56)
[2020-02-23] MEDS ORDERED: Iron Sucrose Complex 200 MG in Sodium Chloride 0.9% 100 ML IV ONE (10:00)
[2020-02-23] MEDS: Levofloxacin/Dextrose 5%-Water 750 MG in Premix Bag 1 BAG IV SCH (11:26)
--- NOTE | 2020-02-23 11:44 | PN ---
THC Physician - Brief Progress [id number]/23/2020 11:34[facility] [place] [place] - SONJA (DEB) - JANEL PRAJAPATI, CAYLA+Date of Service 02/23/2020 11:34HPI/Even ts of Note Brief eICU NoteCase discussed with Resident physician by phone.eCare notes reviewed.Adrianna nt seen on camera: resting in bed on her left side on bipapT 37 112/46 26 90%DM management: patient c urrently on Insulin drip at 1, sugars are in the mid 100s and K down to 4.7. PO intake is not great, patient is requiring bipap. Recommend:Stop insulin drip.Start SC Insulin sliding scale QID.If sugar s increase on sliding scale then start adding back long acting insulin.Continue to check daily labs i ncluding Mag, Phos.Consider adding nutritional supplements such as Glucerna or similar.Please contact us if we may be of further assistance.Interventions Major-Hyperglycemia - active titration of insuli n therapyIntermediate-Communication with other healthcare providers and/or familyElectronically Nell d by: [place]) on 02/23/2020 11:43
--- NOTE | 2020-02-23 12:01 | PCM.PN ---
<Paulina Moraes - Last Filed: 02/23/20 13:48> - General Info Date of Service: 02/23/20 Admission Dx/Problem (Free Text): Admission Diagnosis/Problem Admission Diagnosis/Problem Bilateral pneumonia, COVID-19 pneumonia acute hypoxic respiratory failure Subjective Update: Patient is a 64-year-old female admitted approximately 1 week ago for Covid pneumonia, was recently transferred to the ICU 3 days ago due to requiring additional respiratory support. Patient has remained on BiPAP which she is tolerating well, however has not been able to tolerate heated high flow very well. Recently developed bilateral lung opacities was recently started on Levaquin renally dosed. Has remained on insulin drip for elevated blood sugars and potassium which have now normalized. There were no overnight events, except patient developed some GI upset and reflux therefore was started on Protonix 40 mg IV. Patient states that she is feeling better this morning, all questions and concerns were addressed at bedside. Furthermore patient denied any significant shortness of breath, chest pain, leg pain at this time. Functional Status: Reports: Pain Controlled, Tolerating Diet - Review of Systems General: Reports: No Symptoms HEENT: Reports: No Symptoms Pulmonary: Reports: No Symptoms Cardiovascular: Reports: No Symptoms Gastrointestinal: Reports: No Symptoms Genitourinary: Reports: No Symptoms Musculoskeletal: Reports: No Symptoms Skin: Reports: No Symptoms Neurological: Reports: No Symptoms Psychiatric: Reports: No Symptoms - Patient Data Vitals - Most Recent: Last Vital Signs Temp 98.6 F 02/23/20 07:58 Pulse 92 02/22/20 05:00 Resp 22 H 02/23/20 11:00 BP 114/39 L 02/23/20 11:00 Pulse Ox 90 L 02/23/20 11:00 Weight - Most Recent: 62.596 kg I&O - Last 24 Hours: Intake & Output 02/22/20 02/23/20 02/23/20 22:59 06:59 14:59 Intake Total 470 326 Output Total 650 400 Balance -180 -74 Lab Results Last 24 Hours: Laboratory Results - last 24 hr 02/22/20 02/22/20 02/22/20 Range/Units 11:10 11:10 12:02 WBC (4.0-11.0) K/uL RBC (4.30-5.90) M/uL Hgb (12.0-16.0) g/dL Hct (36.0-46.0) % MCV (80.0-98.0) fL MCH (27.0-32.0) pg MCHC (31.0-37.0) g/dL RDW Std Deviation (28.0-62.0) fl RDW Coeff of Mary (11.0-15.0) % Plt Count (150-400) K/uL MPV (7.40-12.00) fL Neut % (Auto) (48.0-80.0) % Lymph % (Auto) (16.0-40.0) % [place] % (Auto) (0.0-15.0) % Eos % (Auto) (0.0-7.0) % Baso % (Auto) (0.0-1.5) % Neut # (Auto) (1.4-5.7) K/uL Lymph # (Auto) (0.6-2.4) K/uL [place] # (Auto) (0.0-0.8) K/uL Eos # (Auto) (0.0-0.7) K/uL Baso # (Auto) (0.0-0.1) K/uL Nucleated RBC % /100WBC Nucleated RBCs # K/uL Sodium 137 (136-145) mmol/L Potassium 4.9 (3.5-5.1) mmol/L Chloride 101 (98-107) mmol/L Carbon Dioxide 26.2 (21.0-32.0) mmol/L BUN 48 H (7.0-18.0) mg/dL Creatinine 1.2 H (0.6-1.0) mg/dL Est Cr Clr Drug Dosing 36.97 mL/min Estimated GFR (MDRD) 45.1 ml/min Glucose 166 H (74-106) mg/dL POC Glucose 169 H (60-110) mg/dL Calcium 8.4 L (8.5-10.1) mg/dL Phosphorus (2.6-4.7) mg/dL Magnesium (1.8-2.4) mg/dL Iron 26 L (50-175) ug/dL TIBC 70 L (250-450) ug/dL % Saturation 37.14 (20-55) % Transferrin 49.0 Ferritin 5336 H (8-252) ng/mL Total Bilirubin (0.2-1.0) mg/dL AST (15-37) IU/L ALT (14-63) IU/L Alkaline Phosphatase (46-116) U/L Total Protein (6.4-8.2) g/dL Albumin (3.4-5.0) g/dL Globulin (2.6-4.0) g/dL Albumin/Globulin Ratio (0.9-1.6) 02/22/20 02/22/20 02/22/20 Range/Units 12:58 14:07 15:16 WBC (4.0-11.0) K/uL RBC (4.30-5.90) M/uL Hgb (12.0-16.0) g/dL Hct (36.0-46.0) % MCV (80.0-98.0) fL MCH (27.0-32.0) pg MCHC (31.0-37.0) g/dL RDW Std Deviation (28.0-62.0) fl RDW Coeff of Mary (11.0-15.0) % Plt Count (150-400) K/uL MPV (7.40-12.00) fL Neut % (Auto) (48.0-80.0) % Lymph % (Auto) (16.0-40.0) % [place] % (Auto) (0.0-15.0) % Eos % (Auto) (0.0-7.0) % Baso % (Auto) (0.0-1.5) % Neut # (Auto) (1.4-5.7) K/uL Lymph # (Auto) (0.6-2.4) K/uL [place] # (Auto) (0.0-0.8) K/uL Eos # (Auto) (0.0-0.7) K/uL Baso # (Auto) (0.0-0.1) K/uL Nucleated RBC % /100WBC Nucleated RBCs # K/uL Sodium (136-145) mmol/L Potassium (3.5-5.1) mmol/L Chloride (98-107) mmol/L Carbon Dioxide (21.0-32.0) mmol/L BUN (7.0-18.0) mg/dL Creatinine (0.6-1.0) mg/dL Est Cr Clr Drug Dosing mL/min Estimated GFR (MDRD) ml/min Glucose (74-106) mg/dL POC Glucose 168 H 154 H 148 H (60-110) mg/dL Calcium (8.5-10.1) mg/dL Phosphorus (2.6-4.7) mg/dL Magnesium (1.8-2.4) mg/dL Iron (50-175) ug/dL TIBC (250-450) ug/dL % Saturation (20-55) % Transferrin Ferritin (8-252) ng/mL Total Bilirubin (0.2-1.0) mg/dL AST (15-37) IU/L ALT (14-63) IU/L Alkaline Phosphatase (46-116) U/L Total Protein (6.4-8.2) g/dL Albumin (3.4-5.0) g/dL Globulin (2.6-4.0) g/dL Albumin/Globulin Ratio (0.9-1.6) 02/22/20 02/22/20 02/22/20 Range/Units 16:04 16:56 17:40 WBC (4.0-11.0) K/uL RBC (4.30-5.90) M/uL Hgb (12.0-16.0) g/dL Hct (36.0-46.0) % MCV (80.0-98.0) fL MCH (27.0-32.0) pg MCHC (31.0-37.0) g/dL RDW Std Deviation (28.0-62.0) fl RDW Coeff of Mary (11.0-15.0) % Plt Count (150-400) K/uL MPV (7.40-12.00) fL Neut % (Auto) (48.0-80.0) % Lymph % (Auto) (16.0-40.0) % [place] % (Auto) (0.0-15.0) % Eos % (Auto) (0.0-7.0) % Baso % (Auto) (0.0-1.5) % Neut # (Auto) (1.4-5.7) K/uL Lymph # (Auto) (0.6-2.4) K/uL [place] # (Auto) (0.0-0.8) K/uL Eos # (Auto) (0.0-0.7) K/uL Baso # (Auto) (0.0-0.1) K/uL Nucleated RBC % /100WBC Nucleated RBCs # K/uL Sodium 135 L (136-145) mmol/L Potassium 5.1 (3.5-5.1) mmol/L Chloride 100 (98-107) mmol/L Carbon Dioxide 26.5 (21.0-32.0) mmol/L BUN 46 H (7.0-18.0) mg/dL Creatinine 1.2 H (0.6-1.0) mg/dL Est Cr Clr Drug Dosing 36.97 mL/min Estimated GFR (MDRD) 45.1 ml/min Glucose 165 H (74-106) mg/dL POC Glucose 147 H 140 H (60-110) mg/dL Calcium 9.0 (8.5-10.1) mg/dL Phosphorus (2.6-4.7) mg/dL Magnesium (1.8-2.4) mg/dL Iron (50-175) ug/dL TIBC (250-450) ug/dL % Saturation (20-55) % Transferrin Ferritin (8-252) ng/mL Total Bilirubin (0.2-1.0) mg/dL AST (15-37) IU/L ALT (14-63) IU/L Alkaline Phosphatase (46-116) U/L Total Protein (6.4-8.2) g/dL Albumin (3.4-5.0) g/dL Globulin (2.6-4.0) g/dL Albumin/Globulin Ratio (0.9-1.6) 02/22/20 02/22/20 02/22/20 Range/Units 19:03 20:03 21:13 WBC (4.0-11.0) K/uL RBC (4.30-5.90) M/uL Hgb (12.0-16.0) g/dL Hct (36.0-46.0) % MCV (80.0-98.0) fL MCH (27.0-32.0) pg MCHC (31.0-37.0) g/dL RDW Std Deviation (28.0-62.0) fl RDW Coeff of Mary (11.0-15.0) % Plt Count (150-400) K/uL MPV (7.40-12.00) fL Neut % (Auto) (48.0-80.0) % Lymph % (Auto) (16.0-40.0) % [place] % (Auto) (0.0-15.0) % Eos % (Auto) (0.0-7.0) % Baso % (Auto) (0.0-1.5) % Neut # (Auto) (1.4-5.7) K/uL Lymph # (Auto) (0.6-2.4) K/uL [place] # (Auto) (0.0-0.8) K/uL Eos # (Auto) (0.0-0.7) K/uL Baso # (Auto) (0.0-0.1) K/uL Nucleated RBC % /100WBC Nucleated RBCs # K/uL Sodium (136-145) mmol/L Potassium (3.5-5.1) mmol/L Chloride (98-107) mmol/L Carbon Dioxide (21.0-32.0) mmol/L BUN (7.0-18.0) mg/dL Creatinine (0.6-1.0) mg/dL Est Cr Clr Drug Dosing mL/min Estimated GFR (MDRD) ml/min Glucose (74-106) mg/dL POC Glucose 179 H 192 H 215 H (60-110) mg/dL Calcium (8.5-10.1) mg/dL Phosphorus (2.6-4.7) mg/dL Magnesium (1.8-2.4) mg/dL Iron (50-175) ug/dL TIBC (250-450) ug/dL % Saturation (20-55) % Transferrin Ferritin (8-252) ng/mL Total Bilirubin (0.2-1.0) mg/dL AST (15-37) IU/L ALT (14-63) IU/L Alkaline Phosphatase (46-116) U/L Total Protein (6.4-8.2) g/dL Albumin (3.4-5.0) g/dL Globulin (2.6-4.0) g/dL Albumin/Globulin Ratio (0.9-1.6) 02/22/20 02/22/20 02/22/20 Range/Units 22:00 22:47 23:16 WBC (4.0-11.0) K/uL RBC (4.30-5.90) M/uL Hgb (12.0-16.0) g/dL Hct (36.0-46.0) % MCV (80.0-98.0) fL MCH (27.0-32.0) pg MCHC (31.0-37.0) g/dL RDW Std Deviation (28.0-62.0) fl RDW Coeff of Mary (11.0-15.0) % Plt Count (150-400) K/uL MPV (7.40-12.00) fL Neut % (Auto) (48.0-80.0) % Lymph % (Auto) (16.0-40.0) % [place] % (Auto) (0.0-15.0) % Eos % (Auto) (0.0-7.0) % Baso % (Auto) (0.0-1.5) % Neut # (Auto) (1.4-5.7) K/uL Lymph # (Auto) (0.6-2.4) K/uL [place] # (Auto) (0.0-0.8) K/uL Eos # (Auto) (0.0-0.7) K/uL Baso # (Auto) (0.0-0.1) K/uL Nucleated RBC % /100WBC Nucleated RBCs # K/uL Sodium 134 L (136-145) mmol/L Potassium 5.0 (3.5-5.1) mmol/L Chloride 99 (98-107) mmol/L Carbon Dioxide 28.0 (21.0-32.0) mmol/L BUN 47 H (7.0-18.0) mg/dL Creatinine 1.2 H (0.6-1.0) mg/dL Est Cr Clr Drug Dosing 36.97 mL/min Estimated GFR (MDRD) 45.1 ml/min Glucose 167 H (74-106) mg/dL POC Glucose 204 H 165 H (60-110) mg/dL Calcium 9.2 (8.5-10.1) mg/dL Phosphorus (2.6-4.7) mg/dL Magnesium (1.8-2.4) mg/dL Iron (50-175) ug/dL TIBC (250-450) ug/dL % Saturation (20-55) % Transferrin Ferritin (8-252) ng/mL Total Bilirubin (0.2-1.0) mg/dL AST (15-37) IU/L ALT (14-63) IU/L Alkaline Phosphatase (46-116) U/L Total Protein (6.4-8.2) g/dL Albumin (3.4-5.0) g/dL Globulin (2.6-4.0) g/dL Albumin/Globulin Ratio (0.9-1.6) 02/23/20 02/23/20 02/23/20 Range/Units 00:00 00:53 02:12 WBC (4.0-11.0) K/uL RBC (4.30-5.90) M/uL Hgb (12.0-16.0) g/dL Hct (36.0-46.0) % MCV (80.0-98.0) fL MCH (27.0-32.0) pg MCHC (31.0-37.0) g/dL RDW Std Deviation (28.0-62.0) fl RDW Coeff of Mary (11.0-15.0) % Plt Count (150-400) K/uL MPV (7.40-12.00) fL Neut % (Auto) (48.0-80.0) % Lymph % (Auto) (16.0-40.0) % [place] % (Auto) (0.0-15.0) % Eos % (Auto) (0.0-7.0) % Baso % (Auto) (0.0-1.5) % Neut # (Auto) (1.4-5.7) K/uL Lymph # (Auto) (0.6-2.4) K/uL [place] # (Auto) (0.0-0.8) K/uL Eos # (Auto) (0.0-0.7) K/uL Baso # (Auto) (0.0-0.1) K/uL Nucleated RBC % /100WBC Nucleated RBCs # K/uL Sodium (136-145) mmol/L Potassium (3.5-5.1) mmol/L Chloride (98-107) mmol/L Carbon Dioxide (21.0-32.0) mmol/L BUN (7.0-18.0) mg/dL Creatinine (0.6-1.0) mg/dL Est Cr Clr Drug Dosing mL/min Estimated GFR (MDRD) ml/min Glucose (74-106) mg/dL POC Glucose 170 H 154 H 127 H (60-110) mg/dL Calcium (8.5-10.1) mg/dL Phosphorus (2.6-4.7) mg/dL Magnesium (1.8-2.4) mg/dL Iron (50-175) ug/dL TIBC (250-450) ug/dL % Saturation (20-55) % Transferrin Ferritin (8-252) ng/mL Total Bilirubin (0.2-1.0) mg/dL AST (15-37) IU/L ALT (14-63) IU/L Alkaline Phosphatase (46-116) U/L Total Protein (6.4-8.2) g/dL Albumin (3.4-5.0) g/dL Globulin (2.6-4.0) g/dL Albumin/Globulin Ratio (0.9-1.6) 02/23/20 02/23/20 02/23/20 Range/Units 03:13 04:09 04:46 WBC (4.0-11.0) K/uL RBC (4.30-5.90) M/uL Hgb (12.0-16.0) g/dL Hct (36.0-46.0) % MCV (80.0-98.0) fL MCH (27.0-32.0) pg MCHC (31.0-37.0) g/dL RDW Std Deviation (28.0-62.0) fl RDW Coeff of Mary (11.0-15.0) % Plt Count (150-400) K/uL MPV (7.40-12.00) fL Neut % (Auto) (48.0-80.0) % Lymph % (Auto) (16.0-40.0) % [place] % (Auto) (0.0-15.0) % Eos % (Auto) (0.0-7.0) % Baso % (Auto) (0.0-1.5) % Neut # (Auto) (1.4-5.7) K/uL Lymph # (Auto) (0.6-2.4) K/uL [place] # (Auto) (0.0-0.8) K/uL Eos # (Auto) (0.0-0.7) K/uL Baso # (Auto) (0.0-0.1) K/uL Nucleated RBC % /100WBC Nucleated RBCs # K/uL Sodium (136-145) mmol/L Potassium (3.5-5.1) mmol/L Chloride (98-107) mmol/L Carbon Dioxide (21.0-32.0) mmol/L BUN (7.0-18.0) mg/dL Creatinine (0.6-1.0) mg/dL Est Cr Clr Drug Dosing mL/min Estimated GFR (MDRD) ml/min Glucose (74-106) mg/dL POC Glucose 168 H 177 H 148 H (60-110) mg/dL Calcium (8.5-10.1) mg/dL Phosphorus (2.6-4.7) mg/dL Magnesium (1.8-2.4) mg/dL Iron (50-175) ug/dL TIBC (250-450) ug/dL % Saturation (20-55) % Transferrin Ferritin (8-252) ng/mL Total Bilirubin (0.2-1.0) mg/dL AST (15-37) IU/L ALT (14-63) IU/L Alkaline Phosphatase (46-116) U/L Total Protein (6.4-8.2) g/dL Albumin (3.4-5.0) g/dL Globulin (2.6-4.0) g/dL Albumin/Globulin Ratio (0.9-1.6) 02/23/20 02/23/20 02/23/20 Range/Units 05:45 06:15 06:15 WBC 12.58 H (4.0-11.0) K/uL RBC 2.83 L (4.30-5.90) M/uL Hgb 8.3 L (12.0-16.0) g/dL Hct 24.9 L (36.0-46.0) % MCV 88.0 (80.0-98.0) fL MCH 29.3 (27.0-32.0) pg MCHC 33.3 (31.0-37.0) g/dL RDW Std Deviation 42.7 (28.0-62.0) fl RDW Coeff of Mary 13 (11.0-15.0) % Plt Count 633 H (150-400) K/uL MPV 8.60 (7.40-12.00) fL Neut % (Auto) 92.0 H (48.0-80.0) % Lymph % (Auto) 2.8 L (16.0-40.0) % [place] % (Auto) 5.2 (0.0-15.0) % Eos % (Auto) 0.0 (0.0-7.0) % Baso % (Auto) 0.0 (0.0-1.5) % Neut # (Auto) 11.6 H (1.4-5.7) K/uL Lymph # (Auto) 0.4 L (0.6-2.4) K/uL [place] # (Auto) 0.7 (0.0-0.8) K/uL Eos # (Auto) 0.0 (0.0-0.7) K/uL Baso # (Auto) 0.0 (0.0-0.1) K/uL Nucleated RBC % 0.0 /100WBC Nucleated RBCs # 0 K/uL Sodium 134 L (136-145) mmol/L Potassium 4.7 (3.5-5.1) mmol/L Chloride 101 (98-107) mmol/L Carbon Dioxide 24.1 (21.0-32.0) mmol/L BUN 46 H (7.0-18.0) mg/dL Creatinine 1.2 H (0.6-1.0) mg/dL Est Cr Clr Drug Dosing 36.97 mL/min Estimated GFR (MDRD) 45.1 ml/min Glucose 153 H (74-106) mg/dL POC Glucose 152 H (60-110) mg/dL Calcium 9.0 (8.5-10.1) mg/dL Phosphorus 3.7 (2.6-4.7) mg/dL Magnesium 1.9 (1.8-2.4) mg/dL Iron (50-175) ug/dL TIBC (250-450) ug/dL % Saturation (20-55) % Transferrin Ferritin (8-252) ng/mL Total Bilirubin 0.4 (0.2-1.0) mg/dL AST 69 H (15-37) IU/L ALT 22 (14-63) IU/L Alkaline Phosphatase 102 (46-116) U/L Total Protein 6.4 (6.4-8.2) g/dL Albumin 1.3 L (3.4-5.0) g/dL Globulin 5.0 H (2.6-4.0) g/dL Albumin/Globulin Ratio 0.3 L (0.9-1.6) 02/23/20 02/23/20 02/23/20 Range/Units 07:05 08:00 09:25 WBC (4.0-11.0) K/uL RBC (4.30-5.90) M/uL Hgb (12.0-16.0) g/dL Hct (36.0-46.0) % MCV (80.0-98.0) fL MCH (27.0-32.0) pg MCHC (31.0-37.0) g/dL RDW Std Deviation (28.0-62.0) fl RDW Coeff of Mary (11.0-15.0) % Plt Count (150-400) K/uL MPV (7.40-12.00) fL Neut % (Auto) (48.0-80.0) % Lymph % (Auto) (16.0-40.0) % [place] % (Auto) (0.0-15.0) % Eos % (Auto) (0.0-7.0) % Baso % (Auto) (0.0-1.5) % Neut # (Auto) (1.4-5.7) K/uL Lymph # (Auto) (0.6-2.4) K/uL [place] # (Auto) (0.0-0.8) K/uL Eos # (Auto) (0.0-0.7) K/uL Baso # (Auto) (0.0-0.1) K/uL Nucleated RBC % /100WBC Nucleated RBCs # K/uL Sodium (136-145) mmol/L Potassium (3.5-5.1) mmol/L Chloride (98-107) mmol/L Carbon Dioxide (21.0-32.0) mmol/L BUN (7.0-18.0) mg/dL Creatinine (0.6-1.0) mg/dL Est Cr Clr Drug Dosing mL/min Estimated GFR (MDRD) ml/min Glucose (74-106) mg/dL POC Glucose 166 H 145 H 128 H (60-110) mg/dL Calcium (8.5-10.1) mg/dL Phosphorus (2.6-4.7) mg/dL Magnesium (1.8-2.4) mg/dL Iron (50-175) ug/dL TIBC (250-450) ug/dL % Saturation (20-55) % Transferrin Ferritin (8-252) ng/mL Total Bilirubin (0.2-1.0) mg/dL AST (15-37) IU/L ALT (14-63) IU/L Alkaline Phosphatase (46-116) U/L Total Protein (6.4-8.2) g/dL Albumin (3.4-5.0) g/dL Globulin (2.6-4.0) g/dL Albumin/Globulin Ratio (0.9-1.6) 02/23/20 Range/Units 11:03 WBC (4.0-11.0) K/uL RBC (4.30-5.90) M/uL Hgb (12.0-16.0) g/dL Hct (36.0-46.0) % MCV (80.0-98.0) fL MCH (27.0-32.0) pg MCHC (31.0-37.0) g/dL RDW Std Deviation (28.0-62.0) fl RDW Coeff of Mary (11.0-15.0) % Plt Count (150-400) K/uL MPV (7.40-12.00) fL Neut % (Auto) (48.0-80.0) % Lymph % (Auto) (16.0-40.0) % [place] % (Auto) (0.0-15.0) % Eos % (Auto) (0.0-7.0) % Baso % (Auto) (0.0-1.5) % Neut # (Auto) (1.4-5.7) K/uL Lymph # (Auto) (0.6-2.4) K/uL [place] # (Auto) (0.0-0.8) K/uL Eos # (Auto) (0.0-0.7) K/uL Baso # (Auto) (0.0-0.1) K/uL Nucleated RBC % /100WBC Nucleated RBCs # K/uL Sodium (136-145) mmol/L Potassium (3.5-5.1) mmol/L Chloride (98-107) mmol/L Carbon Dioxide (21.0-32.0) mmol/L BUN (7.0-18.0) mg/dL Creatinine (0.6-1.0) mg/dL Est Cr Clr Drug Dosing mL/min Estimated GFR (MDRD) ml/min Glucose (74-106) mg/dL POC Glucose 164 H (60-110) mg/dL Calcium (8.5-10.1) mg/dL Phosphorus (2.6-4.7) mg/dL Magnesium (1.8-2.4) mg/dL Iron (50-175) ug/dL TIBC (250-450) ug/dL % Saturation (20-55) % Transferrin Ferritin (8-252) ng/mL Total Bilirubin (0.2-1.0) mg/dL AST (15-37) IU/L ALT (14-63) IU/L Alkaline Phosphatase (46-116) U/L Total Protein (6.4-8.2) g/dL Albumin (3.4-5.0) g/dL Globulin (2.6-4.0) g/dL Albumin/Globulin Ratio (0.9-1.6) Med Orders - Current: Current Medications Acetaminophen (Tylenol) 650 mg PO Q4H PRN PRN Reason: Pain (Mild 1-3)/fever Last Admin: 02/22/20 21:15 Dose: 650 mg Documented by: Albuterol/Ipratropium (Combivent Respimat) 0 gm INH Q4H PRN PRN Reason: Dyspnea Last Admin: 02/19/20 06:25 Dose: 1 puff Documented by: Albuterol/Ipratropium (Duoneb 3.0-0.5 Mg/3 Ml) 3 ml NEB Q4HRRT [facility] Last Admin: 02/23/20 10:15 Dose: 3 ml Documented by: Aspirin (Halfprin) 81 mg PO DAILY [facility] Last Admin: 02/23/20 08:10 Dose: 81 mg Documented by: Clopidogrel Bisulfate (Plavix) 75 mg PO BEDTIME [facility] Last Admin: 02/22/20 20:17 Dose: 75 mg Documented by: Dexamethasone (Dexamethasone) 6 mg PO DAILY [facility] Stop: 02/26/20 09:01 Last Admin: 02/23/20 08:11 Dose: 6 mg Documented by: Dextrose/Water (Dextrose 50% In Water) 50 ml IVPUSH ASDIRECTED PRN PRN Reason: Hypoglycemia Docusate Sodium (Colace) 100 mg PO BID PRN PRN Reason: Constipation Last Admin: 02/20/20 04:10 Dose: 100 mg Documented by: Docusate Sodium (Colace) 100 mg PO DAILY [facility] Last Admin: 02/23/20 08:10 Dose: 100 mg Documented by: Duloxetine HCl (Cymbalta) 60 mg PO DAILY [facility] Last Admin: 02/23/20 08:10 Dose: 60 mg Documented by: Gabapentin (Neurontin) 200 mg PO DAILY [facility] Last Admin: 02/23/20 08:10 Dose: 200 mg Documented by: Glucagon (Glucagen) 1 mg IM ASDIRECTED PRN PRN Reason: Hypoglycemia Guaifenesin/Dextromethorphan (Robitussin Dm) 10 ml PO Q4H PRN PRN Reason: Cough Last Admin: 02/20/20 21:24 Dose: 10 ml Documented by: Heparin Sodium (Porcine) (Heparin Sodium) 5,000 units SUBCUT Q12H [facility] Last Admin: 02/23/20 08:07 Dose: 5,000 units Documented by: Levofloxacin/Dextrose 750 mg/ (Premix) 150 mls @ 100 mls/hr IV Q48H [facility] Last Admin: 02/23/20 11:26 Dose: 100 mls/hr Documented by: Pantoprazole Sodium 40 mg/ (Sodium Chloride) 10 mls @ 300 mls/hr IV DAILY [facility] Last Admin: 02/23/20 08:04 Dose: 300 mls/hr Documented by: Insulin Aspart (Novolog) 0 unit SUBCUT QID [facility]; Protocol Insulin Human Regular (Novolin R) 0 unit IV ASDIRECTED [facility]; Protocol Labetalol HCl (Normodyne) 20 mg IVPUSH Q4H PRN; Protocol PRN Reason: Hypertension Nitroglycerin (Nitrostat) 0.4 mg SL .EVERY 5 MINUTES PRN PRN Reason: Chest Pain Last Admin: 02/21/20 17:36 Dose: 0.4 mg Documented by: Ondansetron HCl (Zofran) 4 mg IVPUSH Q4H PRN PRN Reason: Nausea/Vomiting Last Admin: 02/20/20 00:20 Dose: 4 mg Documented by: Ranolazine (Ranexa) 500 mg PO DAILY [facility] Last Admin: 02/23/20 08:10 Dose: 500 mg Documented by: Ranolazine (Ranexa) 500 mg PO BEDTIME PRN PRN Reason: Chest Pain Last Admin: 02/18/20 19:08 Dose: 500 mg Documented by: Rosuvastatin Calcium (Crestor) 40 mg PO BEDTIME [facility] Last Admin: 02/22/20 20:16 Dose: 40 mg Documented by: Sodium Chloride (Saline Flush) 10 ml FLUSH ASDIRECTED PRN PRN Reason: Keep Vein Open Sodium Chloride (Saline Flush) 2.5 ml FLUSH ASDIRECTED PRN PRN Reason: Keep Vein Open Discontinued Medications Albuterol/Ipratropium (Duoneb 3.0-0.5 Mg/3 Ml) 3 ml NEB Q4HRRT [facility] Dextrose/Water (Dextrose 50% In Water) 50 ml IV ASDIRECTED PRN PRN Reason: Hypoglycemia Dextrose/Water (Dextrose 50% In Water) 50 ml IV ONETIME ONE Stop: 02/21/20 04:10 Last Admin: 02/21/20 04:09 Dose: 50 ml Documented by: Dextrose/Water (Dextrose 50% In Water) 50 ml IV ASDIRECTED PRN PRN Reason: Hypoglycemia Dextrose/Water (Dextrose 50% In Water) 50 ml IVPUSH ASDIRECTED PRN PRN Reason: Hypoglycemia Dextrose/Water (Dextrose 50% In Water) 50 ml IV ASDIRECTED PRN PRN Reason: Hypoglycemia Dextrose/Water (Dextrose 50% In Water) 50 ml IV ASDIRECTED PRN PRN Reason: Hypoglycemia Furosemide (Lasix) 20 mg IVPUSH ONETIME ONE Stop: 02/18/20 10:23 Last Admin: 02/18/20 11:05 Dose: 20 mg Documented by: Glucagon (Glucagen) 1 mg IM ASDIRECTED PRN PRN Reason: Hypoglycemia Glucagon (Glucagen) 1 mg IM ASDIRECTED PRN PRN Reason: Hypoglycemia Glucagon (Glucagen) 1 mg IM ASDIRECTED PRN PRN Reason: Hypoglycemia Remdesivir 200 mg/ Sodium (Chloride) 250 mls @ 250 mls/hr IV ONETIME ONE Stop: 02/17/20 18:05 Last Admin: 02/17/20 19:35 Dose: 250 mls/hr Documented by: Remdesivir 100 mg/ Sodium (Chloride) 100 mls @ 100 mls/hr IV Q24H [facility] Stop: 02/21/20 19:59 Last Admin: 02/21/20 18:21 Dose: 100 mls/hr Documented by: Lactated Ringer's (Ringers, Lactated) 1,000 mls @ 125 mls/hr IV ASDIRECTED [facility] Last Admin: 02/17/20 22:09 Dose: 125 mls/hr Documented by: Insulin Human Regular 100 unit (/ Sodium Chloride) 100 mls @ 6 mls/hr IV TITRATE [facility]; Protocol Last Titration: 02/23/20 11:00 Dose: 1.5 unit/hr, 1.5 mls/hr Documented by: Pantoprazole Sodium 40 mg/ (Sodium Chloride) 10 mls @ 300 mls/hr IV ACBREAKFAST [facility] Iron Sucrose 200 mg/ Sodium (Chloride) 110 mls @ 440 mls/hr IV ONETIME ONE Stop: 02/23/20 10:14 Last Admin: 02/23/20 10:54 Dose: 440 mls/hr Documented by: Insulin Aspart (Novolog) 0 unit SUBCUT TIDAC [facility]; Protocol Insulin Aspart (Novolog) 0 unit SUBCUT TIDAC [facility]; Protocol Last Admin: 02/23/20 07:18 Dose: Not Given Documented by: Insulin Aspart (Novolog) 15 unit SUBCUT ONETIME ONE Stop: 02/18/20 18:04 Last Admin: 02/18/20 18:45 Dose: Not Given Documented by: Insulin Detemir (Levemir) 40 unit SUBCUT BID [facility] Last Admin: 02/18/20 09:57 Dose: 26 units Documented by: Insulin Detemir (Levemir) 26 unit SUBCUT BID [facility] Last Admin: 02/20/20 08:08 Dose: 26 units Documented by: Insulin Detemir (Levemir) 30 unit SUBCUT BID [facility] Last Admin: 02/23/20 09:56 Dose: Not Given Documented by: Insulin Human Regular (Novolin R) 5 unit IVPUSH ONETIME ONE; Protocol Stop: 02/21/20 04:14 Last Admin: 02/21/20 04:57 Dose: 5 unit Documented by: Insulin Human Regular (Novolin R) 5 unit IVPUSH ONETIME ONE; Protocol Stop: 02/21/20 07:11 Last Admin: 02/21/20 07:45 Dose: 5 units Documented by: Lisinopril (Prinivil) 2.5 mg PO DAILY [facility] Lorazepam (Ativan) 0.5 mg IVPUSH ONETIME ONE Stop: 02/17/20 22:24 Last Admin: 02/17/20 23:00 Dose: 0.5 mg Documented by: Lorazepam (Ativan) 1 mg IVPUSH ONETIME ONE Stop: 02/18/20 19:19 Last Admin: 02/18/20 20:22 Dose: 1 mg Documented by: Nitroglycerin (Nitrostat) Confirm Administered Dose 0.4 mg .ROUTE .STK-MED ONE Stop: 02/18/20 19:23 Last Admin: 02/18/20 19:26 Dose: 0.4 mg Documented by: Ondansetron HCl (Zofran) 4 mg IVPUSH Q6H PRN PRN Reason: Nausea/Vomiting Pantoprazole Sodium (Protonix Iv) Confirm Administered Dose 40 mg .ROUTE .STK-MED ONE Stop: 02/22/20 22:55 Last Admin: 02/23/20 03:29 Dose: 40 mg Documented by: Ranolazine (Ranexa) 500 mg PO DAILY [facility] Sodium Polystyrene Sulfonate (Kayexalate) 15 gm PO ONETIME ONE Stop: 02/21/20 04:10 Last Admin: 02/21/20 04:57 Dose: 15 gm Documented by: - Exam Quality Assessment: Supplemental Oxygen, DVT Prophylaxis General: Alert, Oriented, Cooperative, No Acute Distress HEENT: Pupils Equal, Pupils Reactive, EOMI, Mucous Membr. Moist/[place] Neck: Supple, Trachea Midline, No JVD Lungs: Clear to Auscultation, Normal Respiratory Effort Cardiovascular: Regular Rate, Regular Rhythm GI/Abdominal Exam: Normal Bowel Sounds, Soft, Non-Tender, No Distention, No Abnormal Bruit, No Mass Extremities: Normal Inspection, Normal Range of Motion, Normal Capillary Refill Peripheral Pulses: 2+: Radial (L), Radial (R) Skin: Warm, Dry, Intact Neurological: No New Focal Deficit Psy/Mental Status: Alert, Normal Affect, Normal Mood Sepsis Event Note - Evaluation Sepsis Screening Result: Severe Sepsis Risk - Focused Exam Vital Signs: Vital Signs Temp Resp BP Pulse Ox Pulse Ox 02/23/20 11:00 22 H 114/39 L 90 L 02/23/20 07:58 98.6 F 30 H 153/81 H 96 02/23/20 07:00 25 H 120/50 L 92 L 02/23/20 06:00 28 H 138/57 L 95 02/23/20 05:00 26 H 153/74 H 93 L 90 L 02/23/20 04:00 97.0 F 27 H 130/69 90 L 02/23/20 03:00 29 H 138/73 95 02/23/20 02:00 23 H 161/74 H 94 L 02/23/20 01:00 25 H 159/76 H 90 L 02/23/20 00:00 97.0 F 26 H 142/77 H 90 L - Problem List & Annotations (1) Diabetes mellitus SNOMED Code(s): 37728102 Code(s): E11.9 - TYPE 2 DIABETES MELLITUS WITHOUT COMPLICATIONS Status: Acute Current Visit: Yes Qualifiers: Diabetes mellitus type: type 2 (2) Hyperkalemia SNOMED Code(s): 72942810 Code(s): E87.5 - HYPERKALEMIA Status: Acute Current Visit: Yes (3) [place] (acute kidney injury) SNOMED Code(s): 04323254, 57677186 Code(s): N17.9 - ACUTE KIDNEY FAILURE, UNSPECIFIED Status: Acute Current Visit: Yes (4) Acute hypoxemic respiratory failure due to COVID-19 SNOMED Code(s): 631255873 Code(s): U07.1 - COVID-19; J96.01 - ACUTE RESPIRATORY FAILURE WITH HYPOXIA Status: Acute Current Visit: Yes (5) Bilateral pneumonia SNOMED Code(s): 070124070 Code(s): J18.9 - PNEUMONIA, UNSPECIFIED ORGANISM Status: Acute Current Visit: No (6) Coronary artery disease SNOMED Code(s): 58438232 Code(s): I25.10 - ATHSCL HEART DISEASE OF [place] CORONARY ARTERY W/O ANG PCTRS Status: Chronic Priority: High Current Visit: No Qualifiers: Coronary Disease-Associated Artery/Lesion type: bypass graft [place] vs. transplanted heart: [place] heart Associated angina: without angina Qualified Code(s): I25.810 - Atherosclerosis of coronary artery bypass graft(s) without angina pectoris - Problem List Review Problem List Initiated/Reviewed/Updated: Yes - My Orders Last 24 Hours: My Active Orders 02/23/20 12:00 Insulin Aspart [NovoLOG] See Protocol SUBCUT QID 02/24/20 05:11 CBC WITH AUTO DIFF [HEME] AM CMP [COMPREHENSIVE METABOLIC PN,CMP] [CHEM] AM MAGNESIUM [CHEM] AM PHOSPHORUS [CHEM] AM 02/25/20 05:11 CBC WITH AUTO DIFF [HEME] AM CMP [COMPREHENSIVE METABOLIC PN,CMP] [CHEM] AM MAGNESIUM [CHEM] AM PHOSPHORUS [CHEM] AM 02/26/20 05:11 CBC WITH AUTO DIFF [HEME] AM CMP [COMPREHENSIVE METABOLIC PN,CMP] [CHEM] AM MAGNESIUM [CHEM] AM PHOSPHORUS [CHEM] AM 02/27/20 05:11 MAGNESIUM [CHEM] AM PHOSPHORUS [CHEM] AM - Assessment Assessment:: 1. Acute hypoxic respiratory failure secondary to Covid:maintain sats 90 to 92% currently on BiPAP increased EPAP, comfortable 80% FiO2 will try to wean appropriately. In the interim continue with dexamethasone, remdesivir, DuoNebs. Heparin for DVT prophylaxis as patient has [place] 2. Leukocytosis: Chest x-ray indicated bilateral opacities consistent with Covid pneumonia, started on Levaquin for 7 days, trend CBC with daily labs. 3. Hyperkalemia: Currently 5.7, no telemetry changes, patient asymptomatic, was given Kayexalate, started on insulin drip, will monitor BMP every 4 hours. 4. Hyperglycemia secondary to diabetes mellitus: Discontinue previous regimen and started on insulin drip due to elevated glucose between 300-400. No anion gap. Continue with Accu-Cheks every 1 hour per eICU recommendations which are very much appreciated. 5. Past medical history of coronary artery disease and hypertension: Resume home meds of aspirin, Plavix, Crestor, Ranexa and continue to monitor on telemetry. - Plan Plan:: 64 y/o F admitted for acute hypoxic respiratory failure and COVID-19 pneumonia 1. Acute hypoxic respiratory failure/COVID-19 pneumonia -Patient states overall she is feeling better, completed full course of remdesivir will continue with plan mentioned below. Was tried on high flow nasal cannula did not tolerate well, but will use as breaks for short durations to allow patient to eat. On Levaquin for bilateral lung opacities Leukocytosis has improved, today 12.6 -Continue oxygen therapy with BIPAP and breaks on HF NC -Continue dexamethasone 6 mg p.o. daily 7\10 days -Schedule Combivent consider DuoNebs with BiPAP -Continue heparin instead of Lovenox due to [place] -Encourage I-S as well as Acapella use coughing and deep breathing -Prone position or left lateral lying position as possible 2. DM type II -DC insulin drip Restart Novol R, if blood sugars are significantly elevated will restart long- acting insulin Levemir given that patient is not eating very much. Accu-Cheks 3 times daily before meals 3. CAD/HTN -Continue home medications, ASA, Plavix, Crestor, Ranexa -She does reports she takes Ranexa 500 mg daily then a as needed dose then the evening if she is experiencing chest pain -Monitor on telemetry -Replace electrolytes as needed 4.Hyperkalemia: -Resolved, patient receiving insulin, and albuterol, -check BMP every 6 hours, -being monitored on telemetry 5. [place]: -Stable Avoid nephrotoxic agents -Continue to monitor CMP daily 6. Normocytic normochromic anemia: Asymptomatic -Start IV iron Recheck CBC tomorrow with morning labs to determine need for potential transfusion. 7. GI upset/ reflux: -IV protonix started -resolved -continue daily <Adrián Salas - Last Filed: 02/25/20 10:17> - Patient Data Vitals - Most Recent: Last Vital Signs Temp 36.4 C 02/25/20 08:00 Pulse 98 02/25/20 05:00 Resp 34 H 02/25/20 09:00 BP 121/71 02/25/20 09:52 Pulse Ox 91 L 02/25/20 09:00 I&O - Last 24 Hours: Intake & Output 02/24/20 02/25/2020 22:59 06:59 14:59 Intake Total 690 550 Output Total 700 1420 Balance -10 -870 Lab Results Last 24 Hours: Laboratory Results - last 24 hr 02/24/20 02/24/20 02/24/20 Range/Units 10:49 11:39 16:17 WBC (4.0-11.0) K/uL RBC (4.30-5.90) M/uL Hgb (12.0-16.0) g/dL Hct (36.0-46.0) % MCV (80.0-98.0) fL MCH (27.0-32.0) pg MCHC (31.0-37.0) g/dL RDW Std Deviation (28.0-62.0) fl RDW Coeff of Mary (11.0-15.0) % Plt Count (150-400) K/uL MPV (7.40-12.00) fL Neut % (Auto) (48.0-80.0) % Lymph % (Auto) (16.0-40.0) % [place] % (Auto) (0.0-15.0) % Eos % (Auto) (0.0-7.0) % Baso % (Auto) (0.0-1.5) % Neut # (Auto) (1.4-5.7) K/uL Lymph # (Auto) (0.6-2.4) K/uL [place] # (Auto) (0.0-0.8) K/uL Eos # (Auto) (0.0-0.7) K/uL Baso # (Auto) (0.0-0.1) K/uL Nucleated RBC % /100WBC Nucleated RBCs # K/uL Sodium (136-145) mmol/L Potassium (3.5-5.1) mmol/L Chloride (98-107) mmol/L Carbon Dioxide (21.0-32.0) mmol/L BUN (7.0-18.0) mg/dL Creatinine (0.6-1.0) mg/dL Est Cr Clr Drug Dosing mL/min Estimated GFR (MDRD) ml/min Glucose (74-106) mg/dL POC Glucose 178 H 309 H (60-110) mg/dL Calcium (8.5-10.1) mg/dL Phosphorus (2.6-4.7) mg/dL Magnesium (1.8-2.4) mg/dL Total Bilirubin (0.2-1.0) mg/dL AST (15-37) IU/L ALT (14-63) IU/L Alkaline Phosphatase (46-116) U/L Total Protein (6.4-8.2) g/dL Albumin (3.4-5.0) g/dL Globulin (2.6-4.0) g/dL Albumin/Globulin Ratio (0.9-1.6) Blood Type A POSITIVE Antibody Screen NEGATIVE Crossmatch See Detail 02/25/20 02/25/20 02/25/20 Range/Units 05:58 05:58 06:43 WBC 13.47 H (4.0-11.0) K/uL RBC 2.90 L (4.30-5.90) M/uL Hgb 8.6 L (12.0-16.0) g/dL Hct 25.6 L (36.0-46.0) % MCV 88.3 (80.0-98.0) fL MCH 29.7 (27.0-32.0) pg MCHC 33.6 (31.0-37.0) g/dL RDW Std Deviation 42.0 (28.0-62.0) fl RDW Coeff of Mary 13 (11.0-15.0) % Plt Count 572 H (150-400) K/uL MPV 8.60 (7.40-12.00) fL Neut % (Auto) 89.6 H (48.0-80.0) % Lymph % (Auto) 3.8 L (16.0-40.0) % [place] % (Auto) 6.5 (0.0-15.0) % Eos % (Auto) 0.0 (0.0-7.0) % Baso % (Auto) 0.1 (0.0-1.5) % Neut # (Auto) 12.1 H (1.4-5.7) K/uL Lymph # (Auto) 0.5 L (0.6-2.4) K/uL [place] # (Auto) 0.9 H (0.0-0.8) K/uL Eos # (Auto) 0.0 (0.0-0.7) K/uL Baso # (Auto) 0.0 (0.0-0.1) K/uL Nucleated RBC % 0.0 /100WBC Nucleated RBCs # 0 K/uL Sodium 128 L (136-145) mmol/L Potassium 5.0 (3.5-5.1) mmol/L Chloride 94 L (98-107) mmol/L Carbon Dioxide 24.8 (21.0-32.0) mmol/L BUN 35 H (7.0-18.0) mg/dL Creatinine 1.5 H (0.6-1.0) mg/dL Est Cr Clr Drug Dosing 29.57 mL/min Estimated GFR (MDRD) 34.9 ml/min Glucose 233 H (74-106) mg/dL POC Glucose 226 H (60-110) mg/dL Calcium 9.2 (8.5-10.1) mg/dL Phosphorus 3.1 (2.6-4.7) mg/dL Magnesium 1.8 (1.8-2.4) mg/dL Total Bilirubin 0.6 (0.2-1.0) mg/dL AST 111 H (15-37) IU/L ALT 48 (14-63) IU/L Alkaline Phosphatase 146 H (46-116) U/L Total Protein 6.7 (6.4-8.2) g/dL Albumin 1.5 L (3.4-5.0) g/dL Globulin 5.2 H (2.6-4.0) g/dL Albumin/Globulin Ratio 0.3 L (0.9-1.6) Blood Type Antibody Screen Crossmatch Med Orders - Current: Current Medications Acetaminophen (Tylenol) 650 mg PO Q4H PRN PRN Reason: Pain (Mild 1-3)/fever Last Admin: 02/23/20 21:35 Dose: 650 mg Documented by: Albuterol/Ipratropium (Combivent Respimat) 0 gm INH Q4H PRN PRN Reason: Dyspnea Last Admin: 02/19/20 06:25 Dose: 1 puff Documented by: Albuterol/Ipratropium (Duoneb 3.0-0.5 Mg/3 Ml) 3 ml NEB Q4HRRT MARINA Last Admin: 02/25/20 09:30 Dose: 3 ml Documented by: Aspirin (Halfprin) 81 mg PO DAILY [facility] Last Admin: 02/25/20 08:58 Dose: 81 mg Documented by: Clopidogrel Bisulfate (Plavix) 75 mg PO BEDTIME [facility] Last Admin: 02/24/20 20:28 Dose: 75 mg Documented by: Dexamethasone (Dexamethasone) 6 mg PO DAILY [facility] Stop: 02/26/20 09:01 Last Admin: 02/25/20 09:00 Dose: 6 mg Documented by: Dextrose/Water (Dextrose 50% In Water) 50 ml IV ASDIRECTED PRN PRN Reason: Hypoglycemia Docusate Sodium (Colace) 100 mg PO BID PRN PRN Reason: Constipation Last Admin: 02/20/20 04:10 Dose: 100 mg Documented by: Docusate Sodium (Colace) 100 mg PO DAILY [facility] Last Admin: 02/25/20 08:58 Dose: 100 mg Documented by: Duloxetine HCl (Cymbalta) 60 mg PO DAILY [facility] Last Admin: 02/25/20 09:01 Dose: 60 mg Documented by: Gabapentin (Neurontin) 200 mg PO DAILY [facility] Last Admin: 02/25/20 09:01 Dose: 200 mg Documented by: Glucagon (Glucagen) 1 mg IM ASDIRECTED PRN PRN Reason: Hypoglycemia Guaifenesin/Dextromethorphan (Robitussin Dm) 10 ml PO Q4H PRN PRN Reason: Cough Last Admin: 02/25/20 03:01 Dose: 10 ml Documented by: Heparin Sodium (Porcine) (Heparin Sodium) 5,000 units SUBCUT Q12H [facility] Last Admin: 02/25/20 08:56 Dose: 5,000 units Documented by: Hydralazine HCl (Apresoline) 10 mg IVPUSH Q4H PRN PRN Reason: Hypertension Levofloxacin/Dextrose 750 mg/ (Premix) 150 mls @ 100 mls/hr IV Q48H [facility] Last Admin: 02/23/20 11:26 Dose: 100 mls/hr Documented by: Pantoprazole Sodium 40 mg/ (Sodium Chloride) 10 mls @ 300 mls/hr IV DAILY [facility] Last Admin: 02/25/20 08:57 Dose: 300 mls/hr Documented by: Insulin Aspart (Novolog) 0 unit SUBCUT TIDAC [facility]; Protocol Last Admin: 02/25/20 07:56 Dose: 4 units Documented by: Insulin Glargine (Lantus Solostar) 10 units SUBCUT BEDTIME [facility] Last Admin: 02/24/20 20:29 Dose: 10 unit Documented by: Labetalol HCl (Normodyne) 20 mg IVPUSH Q4H PRN; Protocol PRN Reason: Hypertension Lorazepam (Ativan) 0.5 mg PO Q6H PRN PRN Reason: Anxiety Last Admin: 02/25/20 10:03 Dose: 0.5 mg Documented by: Nitroglycerin (Nitrostat) 0.4 mg SL .EVERY 5 MINUTES PRN PRN Reason: Chest Pain Last Admin: 02/25/20 09:52 Dose: 0.4 mg Documented by: Ondansetron HCl (Zofran) 4 mg IVPUSH Q4H PRN PRN Reason: Nausea/Vomiting Last Admin: 02/24/20 23:16 Dose: 4 mg Documented by: Ranolazine (Ranexa) 500 mg PO DAILY [facility] Last Admin: 02/25/20 08:59 Dose: 500 mg Documented by: Ranolazine (Ranexa) 500 mg PO BEDTIME PRN PRN Reason: Chest Pain Last Admin: 02/23/20 23:17 Dose: 500 mg Documented by: Rosuvastatin Calcium (Crestor) 40 mg PO BEDTIME [facility] Last Admin: 02/24/20 20:29 Dose: 40 mg Documented by: Sodium Chloride (Saline Flush) 10 ml FLUSH ASDIRECTED PRN PRN Reason: Keep Vein Open Sodium Chloride (Saline Flush) 2.5 ml FLUSH ASDIRECTED PRN PRN Reason: Keep Vein Open Last Admin: 02/23/20 21:42 Dose: 2.5 ml Documented by: Discontinued Medications Albuterol/Ipratropium (Duoneb 3.0-0.5 Mg/3 Ml) 3 ml NEB Q4HRRT [facility] Dextrose/Water (Dextrose 50% In Water) 50 ml IV ASDIRECTED PRN PRN Reason: Hypoglycemia Dextrose/Water (Dextrose 50% In Water) 50 ml IV ONETIME ONE Stop: 02/21/20 04:10 Last Admin: 02/21/20 04:09 Dose: 50 ml Documented by: Dextrose/Water (Dextrose 50% In Water) 50 ml IV ASDIRECTED PRN PRN Reason: Hypoglycemia Dextrose/Water (Dextrose 50% In Water) 50 ml IVPUSH ASDIRECTED PRN PRN Reason: Hypoglycemia Dextrose/Water (Dextrose 50% In Water) 50 ml IVPUSH ASDIRECTED PRN PRN Reason: Hypoglycemia Dextrose/Water (Dextrose 50% In Water) 50 ml IV ASDIRECTED PRN PRN Reason: Hypoglycemia Dextrose/Water (Dextrose 50% In Water) 50 ml IV ASDIRECTED PRN PRN Reason: Hypoglycemia Dextrose/Water (Dextrose 50% In Water) 50 ml IV ASDIRECTED PRN PRN Reason: Hypoglycemia Furosemide (Lasix) 20 mg IVPUSH ONETIME ONE Stop: 02/18/20 10:23 Last Admin: 02/18/20 11:05 Dose: 20 mg Documented by: Furosemide (Lasix) 20 mg IVPUSH NOW ONE Stop: 02/24/20 16:40 Last Admin: 02/24/20 17:32 Dose: 20 mg Documented by: Glucagon (Glucagen) 1 mg IM ASDIRECTED PRN PRN Reason: Hypoglycemia Glucagon (Glucagen) 1 mg IM ASDIRECTED PRN PRN Reason: Hypoglycemia Glucagon (Glucagen) 1 mg IM ASDIRECTED PRN PRN Reason: Hypoglycemia Glucagon (Glucagen) 1 mg IM ASDIRECTED PRN PRN Reason: Hypoglycemia Glucagon (Glucagen) 1 mg IM ASDIRECTED PRN PRN Reason: Hypoglycemia Remdesivir 200 mg/ Sodium (Chloride) 250 mls @ 250 mls/hr IV ONETIME ONE Stop: 02/17/20 18:05 Last Admin: 02/17/20 19:35 Dose: 250 mls/hr Documented by: Remdesivir 100 mg/ Sodium (Chloride) 100 mls @ 100 mls/hr IV Q24H MARINA Stop: 02/21/20 19:59 Last Admin: 02/21/20 18:21 Dose: 100 mls/hr Documented by: Lactated Ringer's (Ringers, Lactated) 1,000 mls @ 125 mls/hr IV ASDIRECTED MARINA Last Admin: 02/17/20 22:09 Dose: 125 mls/hr Documented by: Insulin Human Regular 100 unit (/ Sodium Chloride) 100 mls @ 6 mls/hr IV TITRATE MARINA; Protocol Last Titration: 02/23/20 11:00 Dose: 1.5 unit/hr, 1.5 mls/hr Documented by: Pantoprazole Sodium 40 mg/ (Sodium Chloride) 10 mls @ 300 mls/hr IV ACBREAKFAST MARINA Iron Sucrose 200 mg/ Sodium (Chloride) 110 mls @ 440 mls/hr IV ONETIME ONE Stop: 02/23/20 10:14 Last Admin: 02/23/20 10:54 Dose: 440 mls/hr Documented by: Lactated Ringer's (Ringers, Lactated) 250 mls @ 999 mls/hr IV .BOLUS ONE Stop: 02/25/20 08:11 Last Admin: 02/25/20 08:54 Dose: 999 mls/hr Documented by: Insulin Aspart (Novolog) 0 unit SUBCUT TIDAC [facility]; Protocol Insulin Aspart (Novolog) 0 unit SUBCUT TIDAC [facility]; Protocol Last Admin: 02/23/20 12:03 Dose: Not Given Documented by: Insulin Aspart (Novolog) 15 unit SUBCUT ONETIME ONE Stop: 02/18/20 18:04 Last Admin: 02/18/20 18:45 Dose: Not Given Documented by: Insulin Aspart (Novolog) 0 unit SUBCUT QID [facility]; Protocol Last Admin: 02/24/20 05:15 Dose: 2 unit Documented by: Insulin Detemir (Levemir) 40 unit SUBCUT BID [facility] Last Admin: 02/18/20 09:57 Dose: 26 units Documented by: Insulin Detemir (Levemir) 26 unit SUBCUT BID [facility] Last Admin: 02/20/20 08:08 Dose: 26 units Documented by: Insulin Detemir (Levemir) 30 unit SUBCUT BID [facility] Last Admin: 02/23/20 09:56 Dose: Not Given Documented by: Insulin Glargine (Lantus Solostar) 10 units SUBCUT BEDTIME ONE Stop: 02/23/20 21:01 Last Admin: 02/23/20 20:20 Dose: 10 units Documented by: Insulin Human Regular (Novolin R) 5 unit IVPUSH ONETIME ONE; Protocol Stop: 02/21/20 04:14 Last Admin: 02/21/20 04:57 Dose: 5 unit Documented by: Insulin Human Regular (Novolin R) 5 unit IVPUSH ONETIME ONE; Protocol Stop: 02/21/20 07:11 Last Admin: 02/21/20 07:45 Dose: 5 units Documented by: Iopamidol (Isovue Multipack-370 (76%)) 50 ml IVPUSH ONETIME STA Stop: 02/24/20 15:01 Last Admin: 02/24/20 15:01 Dose: 50 ml Documented by: Lisinopril (Prinivil) 2.5 mg PO DAILY MARINA Lorazepam (Ativan) 0.5 mg IVPUSH ONETIME ONE Stop: 02/17/20 22:24 Last Admin: 02/17/20 23:00 Dose: 0.5 mg Documented by: Lorazepam (Ativan) 1 mg IVPUSH ONETIME ONE Stop: 02/18/20 19:19 Last Admin: 02/18/20 20:22 Dose: 1 mg Documented by: Nitroglycerin (Nitrostat) Confirm Administered Dose 0.4 mg .ROUTE .STK-MED ONE Stop: 02/18/20 19:23 Last Admin: 02/18/20 19:26 Dose: 0.4 mg Documented by: Ondansetron HCl (Zofran) 4 mg IVPUSH Q6H PRN PRN Reason: Nausea/Vomiting Pantoprazole Sodium (Protonix Iv) Confirm Administered Dose 40 mg .ROUTE .STK-MED ONE Stop: 02/22/20 22:55 Last Admin: 02/23/20 03:29 Dose: 40 mg Documented by: Ranolazine (Ranexa) 500 mg PO DAILY MARINA Sodium Polystyrene Sulfonate (Kayexalate) 15 gm PO ONETIME ONE Stop: 02/21/20 04:10 Last Admin: 02/21/20 04:57 Dose: 15 gm Documented by: Sepsis Event Note - Focused Exam Vital Signs: Vital Signs Temp Pulse Resp BP BP Pulse Ox Pulse Ox 02/25/20 09:52 121/71 02/25/20 09:00 34 H 118/82 91 L 02/25/20 08:00 36.4 C 34 H 131/77 88 L 02/25/20 07:00 19 111/59 L 92 L 02/25/20 06:00 31 H 123/61 90 L 90 L 02/25/20 05:00 98 30 H 117/67 91 L 02/25/20 04:00 36.4 C 22 H 129/72 89 L 02/25/20 03:00 34 H 121/70 88 L 02/25/20 02:00 24 H 151/82 H 90 L 02/25/20 01:00 27 H 150/74 H 91 L 02/25/20 00:00 36.3 C 25 H 155/78 H 91 L 02/24/20 23:00 20 125/49 L 92 L - Problem List & Annotations (1) Acute hypoxemic respiratory failure due to COVID-19 SNOMED Code(s): 615200424 Code(s): U07.1 - COVID-19; J96.01 - ACUTE RESPIRATORY FAILURE WITH HYPOXIA Status: Acute Current Visit: Yes (2) Bilateral pneumonia SNOMED Code(s): 176253258 Code(s): J18.9 - PNEUMONIA, UNSPECIFIED ORGANISM Status: Acute Current Visit: No (3) Hx of diabetes mellitus SNOMED Code(s): 240549336 Code(s): Z86.39 - PERSONAL HISTORY OF ENDO, NUTRITIONAL AND METABOLIC DISEASE Status: Acute Current Visit: No (4) Chronic kidney disease (CKD), stage III (moderate) SNOMED Code(s): 853789052 Code(s): N18.3 - CHRONIC KIDNEY DISEASE, STAGE 3 (MODERATE) * DO NOT USE * Status: Chronic Priority: High Current Visit: No (5) History of coronary artery bypass graft x 3 SNOMED Code(s): 950755233, 308101815 Code(s): Z95.1 - PRESENCE OF AORTOCORONARY BYPASS GRAFT Status: Chronic Priority: High Current Visit: No (6) History of total left hip replacement SNOMED Code(s): 337008141412 Code(s): Z96.642 - PRESENCE OF LEFT ARTIFICIAL HIP JOINT Status: Chronic Priority: Medium Current Visit: No (7) S/P BKA (below knee amputation) bilateral SNOMED Code(s): 086042733204654, 047179478395776 Code(s): Z89.512 - ACQUIRED ABSENCE OF LEFT LEG BELOW KNEE; Z89.511 - ACQUIRED ABSENCE OF RIGHT LEG BELOW KNEE Status: Chronic Priority: Medium Current Visit: No (8) [place] (acute kidney injury) SNOMED Code(s): 32287572, 64607666 Code(s): N17.9 - ACUTE KIDNEY FAILURE, UNSPECIFIED Status: Acute Current Visit: Yes (9) Chest pain SNOMED Code(s): 43629906 Code(s): R07.9 - CHEST PAIN, UNSPECIFIED Status: Acute Current Visit: No Qualifiers: Chest pain type: unspecified Qualified Code(s): R07.9 - Chest pain, unspecified - Plan Plan:: I have seen and evaluated the patient and agree with the residents note unless specified in my note
[2020-02-23] MEDS ORDERED: 50% Dextrose in Water 50 ML Syringe IV PRN (19:01)
[2020-02-23] MEDS ORDERED: Glucagon,Human Recombinant 1 MG Vial IM PRN (19:01)
[2020-02-23] MEDS: Nitroglycerin 0.4 MG Tab.SL SL PRN (19:30)
[2020-02-23] MEDS: Rosuvastatin 10 MG Tab PO SCH (20:15)
[2020-02-23] MEDS: Clopidogrel 75 MG Tab PO SCH (20:15)
[2020-02-23] MEDS ORDERED: Insulin Glargine,Human Rec. Analog 100 Units/ML 3 ML Pen SUBCUT ONE (21:00)
[2020-02-23] MEDS: Acetaminophen 325 MG Tab PO PRN (21:35)
[2020-02-23] MEDS: guaiFENesin/Dextromethorphan 100-10 MG/5 ML Soln 10 ML Cup PO PRN (21:37)
--- NOTE | 2020-02-23 22:13 | PN ---
THC Physician - Brief Progress [id number]/23/2020 22:12[facility] [place], [place] - [facility] - JANEL PRAJAPATI, COVID+Date of Service 02/23/2020 22:12HPI/Even ts of Note Discussed with RN: Pt anxious.Plan: trial of ativan anxiolysis.Interventions Minor-Communi cation with other healthcare providers and/or family
[2020-02-23] MEDS: LORazepam 0.5 MG Tab PO PRN (23:11)
[2020-02-24] MEDS: Albuterol/Ipratropium 3.0-0.5 MG/3 ML Neb Soln NEB SCH ×6 (01:02→21:56)
[2020-02-24] MEDS: Insulin Aspart 100 Units/ML 3 ML Pen SUBCUT SCH ×3 (05:15→16:20)
[2020-02-24 05:38] LABS: CARBON DIOXIDE,CO2 24.7 mmol/L (21.0-32.0)
[2020-02-24] MEDS: DULoxetine 60 MG Cap PO SCH (08:43)
[2020-02-24] MEDS: Aspirin 81 MG Tab.EC PO SCH (08:44)
[2020-02-24] MEDS: Dexamethasone 4 MG Tab PO SCH (08:44)
[2020-02-24] MEDS: Gabapentin 100 MG Cap PO SCH (08:44)
[2020-02-24] MEDS: Pantoprazole 40 MG in Sodium Chloride 0.9% 10 ML IV SCH (08:45)
[2020-02-24] MEDS: Heparin Sodium 5,000 Units/ML Vial SUBCUT SCH ×2 (08:45→20:29)
[2020-02-24] MEDS: Docusate Sodium 100 MG Cap PO SCH (08:52)
[2020-02-24] MEDS ORDERED: 50% Dextrose in Water 50 ML Syringe IV PRN ×2 (09:05→09:13)
[2020-02-24] MEDS ORDERED: Glucagon,Human Recombinant 1 MG Vial IM PRN ×2 (09:05→09:13)
[2020-02-24] MEDS ORDERED: hydrALAZINE 20 MG/ML SDV IVPUSH PRN (12:20)
--- NOTE | 2020-02-24 12:21 | CT ---
INDICATION: Increasing hypoxia TECHNIQUE: CT chest pulmonary angiogram acquired with IV contrast. COMPARISON: 11/02/2019 FINDINGS: Cardiovascular structures: Normal vascular enhancement of the pulmonary arteries, no sign of pulmonary embolism. Heart size is normal. No sign of aneurysm or dissection in the thoracic aorta. Mediastinum and jose: No mass or adenopathy. Lungs: Extensive diffuse and bilateral areas of ground-glass appearance and consolidations with relative sparing of the lung apices consistent with pneumonia and highly worrisome for COVID related pneumonia. Pleura and pericardium: No effusions. Chest wall and axilla: No mass or adenopathy. Bones: No significant findings. Upper abdomen: Cholelithiasis. IMPRESSION: No evidence for pulmonary emboli. Extensive diffuse and bilateral areas of ground-glass appearance and consolidations with relative sparing of the lung apices consistent with pneumonia and highly worrisome for COVID related pneumonia. Cholelithiasis. Please note that all CT scans at this facility use dose modulation, iterative reconstruction, and/or weight-based dosing when appropriate to reduce radiation dose to as low as reasonably achievable. Dictated by oMisés Bermudez MD @ Feb 24 2020 12:19PM Signed by Dr. Moisés Bermudez @ Feb 24 2020 12:19PM
--- NOTE | 2020-02-24 12:24 | PN ---
THC Physician - Brief Progress [id number]/24/2020 12:14[facility] [place], [place] - SONJA (DE[place]) - SONJA ICUJANEL BECK, COVID+Date of Service 02/24/2020 12:14HPI/Even ts of Note eICU Note64 yof with hx of CAD, DM II, HTN, s/p BKAHere with COVID PNASeen on Today with increasing O2 requirementBiPAP dependent - not tolerating HFNCWent for CT Angio - result pending Hgb 8.4Discussion of transfuion by bedsideData supports a restricive transfusion strategy of PRBC for Hgb < 7 Some HTNHydralazine PRN addedGlu under better controlPoor PO intake - consider supplements ( Boost / Ensure)Reviewed with bedside RNCall with questionsInterventions Major-Respiratory failure - e valuation and management
--- NOTE | 2020-02-24 13:31 | PCM.PN ---
<Paulina Moraes - Last Filed: 02/24/20 13:22> - General Info Date of Service: 02/24/20 Subjective Update: Patient is a 64-year-old female admitted approximately 1 week ago for Covid pneumonia, was recently transferred to the ICU 4 days ago due to requiring additional respiratory support. Patient has remained on BiPAP which she is tolerating well, however has not been able to tolerate heated high flow very well. Overnight patient became anxious which settled shortly after receiving Ativan. This morning patient states that she is feeling better. All questions and concerns were addressed at bedside. Furthermore patient denied any significant shortness of breath, chest pain, leg pain at this time. Functional Status: Reports: Pain Controlled, Tolerating Diet - Review of Systems General: Reports: Fatigue HEENT: Reports: No Symptoms Pulmonary: Reports: Shortness of Breath, Cough, Sputum Cardiovascular: Reports: No Symptoms Gastrointestinal: Reports: No Symptoms Genitourinary: Reports: No Symptoms Musculoskeletal: Reports: No Symptoms Skin: Reports: No Symptoms Neurological: Reports: No Symptoms Psychiatric: Reports: No Symptoms - Patient Data Vitals - Most Recent: Last Vital Signs Temp 97.5 F 02/24/20 11:48 Pulse 92 02/22/20 05:00 Resp 27 H 02/24/20 11:48 BP 162/76 H 02/24/20 11:48 Pulse Ox 90 L 02/24/20 11:48 Weight - Most Recent: 64.319 kg I&O - Last 24 Hours: Intake & Output 02/23/20 02/24/20 02/24/20 22:59 06:59 14:59 Intake Total 600 700 180 Output Total 1100 1050 Balance -500 -350 180 Lab Results Last 24 Hours: Laboratory Results - last 24 hr 02/23/20 02/23/20 02/23/20 Range/Units 17:24 20:22 23:04 WBC (4.0-11.0) K/uL RBC (4.30-5.90) M/uL Hgb (12.0-16.0) g/dL Hct (36.0-46.0) % MCV (80.0-98.0) fL MCH (27.0-32.0) pg MCHC (31.0-37.0) g/dL RDW Std Deviation (28.0-62.0) fl RDW Coeff of Mary (11.0-15.0) % Plt Count (150-400) K/uL MPV (7.40-12.00) fL Neut % (Auto) (48.0-80.0) % Lymph % (Auto) (16.0-40.0) % Keith % (Auto) (0.0-15.0) % Eos % (Auto) (0.0-7.0) % Baso % (Auto) (0.0-1.5) % Neut # (Auto) (1.4-5.7) K/uL Lymph # (Auto) (0.6-2.4) K/uL Keith # (Auto) (0.0-0.8) K/uL Eos # (Auto) (0.0-0.7) K/uL Baso # (Auto) (0.0-0.1) K/uL Nucleated RBC % /100WBC Nucleated RBCs # K/uL Sodium (136-145) mmol/L Potassium (3.5-5.1) mmol/L Chloride (98-107) mmol/L Carbon Dioxide (21.0-32.0) mmol/L BUN (7.0-18.0) mg/dL Creatinine (0.6-1.0) mg/dL Est Cr Clr Drug Dosing mL/min Estimated GFR (MDRD) ml/min Glucose (74-106) mg/dL POC Glucose 190 H 220 H 298 H (60-110) mg/dL Calcium (8.5-10.1) mg/dL Phosphorus (2.6-4.7) mg/dL Magnesium (1.8-2.4) mg/dL Total Bilirubin (0.2-1.0) mg/dL AST (15-37) IU/L ALT (14-63) IU/L Alkaline Phosphatase (46-116) U/L Total Protein (6.4-8.2) g/dL Albumin (3.4-5.0) g/dL Globulin (2.6-4.0) g/dL Albumin/Globulin Ratio (0.9-1.6) Blood Type Antibody Screen Crossmatch 02/24/20 02/24/20 02/24/20 Range/Units 05:10 05:10 05:11 WBC 12.07 H (4.0-11.0) K/uL RBC 2.86 L (4.30-5.90) M/uL Hgb 8.4 L (12.0-16.0) g/dL Hct 25.1 L (36.0-46.0) % MCV 87.8 (80.0-98.0) fL MCH 29.4 (27.0-32.0) pg MCHC 33.5 (31.0-37.0) g/dL RDW Std Deviation 42.4 (28.0-62.0) fl RDW Coeff of Mary 13 (11.0-15.0) % Plt Count 667 H (150-400) K/uL MPV 8.40 (7.40-12.00) fL Neut % (Auto) 89.6 H (48.0-80.0) % Lymph % (Auto) 3.1 L (16.0-40.0) % Keith % (Auto) 7.2 (0.0-15.0) % Eos % (Auto) 0.0 (0.0-7.0) % Baso % (Auto) 0.1 (0.0-1.5) % Neut # (Auto) 10.8 H (1.4-5.7) K/uL Lymph # (Auto) 0.4 L (0.6-2.4) K/uL Keith # (Auto) 0.9 H (0.0-0.8) K/uL Eos # (Auto) 0.0 (0.0-0.7) K/uL Baso # (Auto) 0.0 (0.0-0.1) K/uL Nucleated RBC % 0.0 /100WBC Nucleated RBCs # 0 K/uL Sodium 132 L (136-145) mmol/L Potassium 5.0 (3.5-5.1) mmol/L Chloride 99 (98-107) mmol/L Carbon Dioxide 24.7 (21.0-32.0) mmol/L BUN 36 H (7.0-18.0) mg/dL Creatinine 1.2 H (0.6-1.0) mg/dL Est Cr Clr Drug Dosing 36.97 mL/min Estimated GFR (MDRD) 45.1 ml/min Glucose 188 H (74-106) mg/dL POC Glucose 182 H (60-110) mg/dL Calcium 9.1 (8.5-10.1) mg/dL Phosphorus 3.3 (2.6-4.7) mg/dL Magnesium 2.0 (1.8-2.4) mg/dL Total Bilirubin 0.4 (0.2-1.0) mg/dL AST 70 H (15-37) IU/L ALT 28 (14-63) IU/L Alkaline Phosphatase 119 H (46-116) U/L Total Protein 6.4 (6.4-8.2) g/dL Albumin 1.5 L (3.4-5.0) g/dL Globulin 4.9 H (2.6-4.0) g/dL Albumin/Globulin Ratio 0.3 L (0.9-1.6) Blood Type Antibody Screen Crossmatch 02/24/20 02/24/20 02/24/20 Range/Units 08:24 10:49 11:39 WBC (4.0-11.0) K/uL RBC (4.30-5.90) M/uL Hgb (12.0-16.0) g/dL Hct (36.0-46.0) % MCV (80.0-98.0) fL MCH (27.0-32.0) pg MCHC (31.0-37.0) g/dL RDW Std Deviation (28.0-62.0) fl RDW Coeff of Mary (11.0-15.0) % Plt Count (150-400) K/uL MPV (7.40-12.00) fL Neut % (Auto) (48.0-80.0) % Lymph % (Auto) (16.0-40.0) % Keith % (Auto) (0.0-15.0) % Eos % (Auto) (0.0-7.0) % Baso % (Auto) (0.0-1.5) % Neut # (Auto) (1.4-5.7) K/uL Lymph # (Auto) (0.6-2.4) K/uL Keith # (Auto) (0.0-0.8) K/uL Eos # (Auto) (0.0-0.7) K/uL Baso # (Auto) (0.0-0.1) K/uL Nucleated RBC % /100WBC Nucleated RBCs # K/uL Sodium (136-145) mmol/L Potassium (3.5-5.1) mmol/L Chloride (98-107) mmol/L Carbon Dioxide (21.0-32.0) mmol/L BUN (7.0-18.0) mg/dL Creatinine (0.6-1.0) mg/dL Est Cr Clr Drug Dosing mL/min Estimated GFR (MDRD) ml/min Glucose (74-106) mg/dL POC Glucose 140 H 178 H (60-110) mg/dL Calcium (8.5-10.1) mg/dL Phosphorus (2.6-4.7) mg/dL Magnesium (1.8-2.4) mg/dL Total Bilirubin (0.2-1.0) mg/dL AST (15-37) IU/L ALT (14-63) IU/L Alkaline Phosphatase (46-116) U/L Total Protein (6.4-8.2) g/dL Albumin (3.4-5.0) g/dL Globulin (2.6-4.0) g/dL Albumin/Globulin Ratio (0.9-1.6) Blood Type A POSITIVE Antibody Screen NEGATIVE Crossmatch See Detail Med Orders - Current: Current Medications Acetaminophen (Tylenol) 650 mg PO Q4H PRN PRN Reason: Pain (Mild 1-3)/fever Last Admin: 02/23/20 21:35 Dose: 650 mg Documented by: Albuterol/Ipratropium (Combivent Respimat) 0 gm INH Q4H PRN PRN Reason: Dyspnea Last Admin: 02/19/20 06:25 Dose: 1 puff Documented by: Albuterol/Ipratropium (Duoneb 3.0-0.5 Mg/3 Ml) 3 ml NEB Q4HRRT [facility] Last Admin: 02/24/20 10:03 Dose: 3 ml Documented by: Aspirin (Halfprin) 81 mg PO DAILY [facility] Last Admin: 02/24/20 08:44 Dose: 81 mg Documented by: Clopidogrel Bisulfate (Plavix) 75 mg PO BEDTIME [facility] Last Admin: 02/23/20 20:15 Dose: 75 mg Documented by: Dexamethasone (Dexamethasone) 6 mg PO DAILY [facility] Stop: 02/26/20 09:01 Last Admin: 02/24/20 08:44 Dose: 6 mg Documented by: Dextrose/Water (Dextrose 50% In Water) 50 ml IV ASDIRECTED PRN PRN Reason: Hypoglycemia Docusate Sodium (Colace) 100 mg PO BID PRN PRN Reason: Constipation Last Admin: 02/20/20 04:10 Dose: 100 mg Documented by: Docusate Sodium (Colace) 100 mg PO DAILY [facility] Last Admin: 02/24/20 08:52 Dose: 100 mg Documented by: Duloxetine HCl (Cymbalta) 60 mg PO DAILY [facility] Last Admin: 02/24/20 08:43 Dose: 60 mg Documented by: Gabapentin (Neurontin) 200 mg PO DAILY [facility] Last Admin: 02/24/20 08:44 Dose: 200 mg Documented by: Glucagon (Glucagen) 1 mg IM ASDIRECTED PRN PRN Reason: Hypoglycemia Guaifenesin/Dextromethorphan (Robitussin Dm) 10 ml PO Q4H PRN PRN Reason: Cough Last Admin: 02/23/20 21:37 Dose: 10 ml Documented by: Heparin Sodium (Porcine) (Heparin Sodium) 5,000 units SUBCUT Q12H [facility] Last Admin: 02/24/20 08:45 Dose: 5,000 units Documented by: Hydralazine HCl (Apresoline) 10 mg IVPUSH Q4H PRN PRN Reason: Hypertension Levofloxacin/Dextrose 750 mg/ (Premix) 150 mls @ 100 mls/hr IV Q48H [facility] Last Admin: 02/23/20 11:26 Dose: 100 mls/hr Documented by: Pantoprazole Sodium 40 mg/ (Sodium Chloride) 10 mls @ 300 mls/hr IV DAILY [facility] Last Admin: 02/24/20 08:45 Dose: 300 mls/hr Documented by: Insulin Aspart (Novolog) 0 unit SUBCUT TIDAC [facility]; Protocol Last Admin: 02/24/20 11:54 Dose: 2 units Documented by: Insulin Glargine (Lantus Solostar) 10 units SUBCUT BEDTIME [facility] Labetalol HCl (Normodyne) 20 mg IVPUSH Q4H PRN; Protocol PRN Reason: Hypertension Lorazepam (Ativan) 0.5 mg PO Q6H PRN PRN Reason: Anxiety Last Admin: 02/23/20 23:11 Dose: 0.5 mg Documented by: Nitroglycerin (Nitrostat) 0.4 mg SL .EVERY 5 MINUTES PRN PRN Reason: Chest Pain Last Admin: 02/23/20 19:30 Dose: 0.4 mg Documented by: Ondansetron HCl (Zofran) 4 mg IVPUSH Q4H PRN PRN Reason: Nausea/Vomiting Last Admin: 02/20/20 00:20 Dose: 4 mg Documented by: Ranolazine (Ranexa) 500 mg PO DAILY [facility] Last Admin: 02/24/20 08:43 Dose: 500 mg Documented by: Ranolazine (Ranexa) 500 mg PO BEDTIME PRN PRN Reason: Chest Pain Last Admin: 02/23/20 23:17 Dose: 500 mg Documented by: Rosuvastatin Calcium (Crestor) 40 mg PO BEDTIME [facility] Last Admin: 02/23/20 20:15 Dose: 40 mg Documented by: Sodium Chloride (Saline Flush) 10 ml FLUSH ASDIRECTED PRN PRN Reason: Keep Vein Open Sodium Chloride (Saline Flush) 2.5 ml FLUSH ASDIRECTED PRN PRN Reason: Keep Vein Open Last Admin: 02/23/20 21:42 Dose: 2.5 ml Documented by: Discontinued Medications Albuterol/Ipratropium (Duoneb 3.0-0.5 Mg/3 Ml) 3 ml NEB Q4HRRT [facility] Dextrose/Water (Dextrose 50% In Water) 50 ml IV ASDIRECTED PRN PRN Reason: Hypoglycemia Dextrose/Water (Dextrose 50% In Water) 50 ml IV ONETIME ONE Stop: 02/21/20 04:10 Last Admin: 02/21/20 04:09 Dose: 50 ml Documented by: Dextrose/Water (Dextrose 50% In Water) 50 ml IV ASDIRECTED PRN PRN Reason: Hypoglycemia Dextrose/Water (Dextrose 50% In Water) 50 ml IVPUSH ASDIRECTED PRN PRN Reason: Hypoglycemia Dextrose/Water (Dextrose 50% In Water) 50 ml IVPUSH ASDIRECTED PRN PRN Reason: Hypoglycemia Dextrose/Water (Dextrose 50% In Water) 50 ml IV ASDIRECTED PRN PRN Reason: Hypoglycemia Dextrose/Water (Dextrose 50% In Water) 50 ml IV ASDIRECTED PRN PRN Reason: Hypoglycemia Dextrose/Water (Dextrose 50% In Water) 50 ml IV ASDIRECTED PRN PRN Reason: Hypoglycemia Furosemide (Lasix) 20 mg IVPUSH ONETIME ONE Stop: 02/18/20 10:23 Last Admin: 02/18/20 11:05 Dose: 20 mg Documented by: Glucagon (Glucagen) 1 mg IM ASDIRECTED PRN PRN Reason: Hypoglycemia Glucagon (Glucagen) 1 mg IM ASDIRECTED PRN PRN Reason: Hypoglycemia Glucagon (Glucagen) 1 mg IM ASDIRECTED PRN PRN Reason: Hypoglycemia Glucagon (Glucagen) 1 mg IM ASDIRECTED PRN PRN Reason: Hypoglycemia Glucagon (Glucagen) 1 mg IM ASDIRECTED PRN PRN Reason: Hypoglycemia Remdesivir 200 mg/ Sodium (Chloride) 250 mls @ 250 mls/hr IV ONETIME ONE Stop: 02/17/20 18:05 Last Admin: 02/17/20 19:35 Dose: 250 mls/hr Documented by: Remdesivir 100 mg/ Sodium (Chloride) 100 mls @ 100 mls/hr IV Q24H [facility] Stop: 02/21/20 19:59 Last Admin: 02/21/20 18:21 Dose: 100 mls/hr Documented by: Lactated Ringer's (Ringers, Lactated) 1,000 mls @ 125 mls/hr IV ASDIRECTED [facility] Last Admin: 02/17/20 22:09 Dose: 125 mls/hr Documented by: Insulin Human Regular 100 unit (/ Sodium Chloride) 100 mls @ 6 mls/hr IV TITRATE [facility]; Protocol Last Titration: 02/23/20 11:00 Dose: 1.5 unit/hr, 1.5 mls/hr Documented by: Pantoprazole Sodium 40 mg/ (Sodium Chloride) 10 mls @ 300 mls/hr IV ACBREAKFAST [facility] Iron Sucrose 200 mg/ Sodium (Chloride) 110 mls @ 440 mls/hr IV ONETIME ONE Stop: 02/23/20 10:14 Last Admin: 02/23/20 10:54 Dose: 440 mls/hr Documented by: Insulin Aspart (Novolog) 0 unit SUBCUT TIDAC [facility]; Protocol Insulin Aspart (Novolog) 0 unit SUBCUT TIDAC [facility]; Protocol Last Admin: 02/23/20 12:03 Dose: Not Given Documented by: Insulin Aspart (Novolog) 15 unit SUBCUT ONETIME ONE Stop: 02/18/20 18:04 Last Admin: 02/18/20 18:45 Dose: Not Given Documented by: Insulin Aspart (Novolog) 0 unit SUBCUT QID [facility]; Protocol Last Admin: 02/24/20 05:15 Dose: 2 unit Documented by: Insulin Detemir (Levemir) 40 unit SUBCUT BID [facility] Last Admin: 02/18/20 09:57 Dose: 26 units Documented by: Insulin Detemir (Levemir) 26 unit SUBCUT BID [facility] Last Admin: 02/20/20 08:08 Dose: 26 units Documented by: Insulin Detemir (Levemir) 30 unit SUBCUT BID [facility] Last Admin: 02/23/20 09:56 Dose: Not Given Documented by: Insulin Glargine (Lantus Solostar) 10 units SUBCUT BEDTIME ONE Stop: 02/23/20 21:01 Last Admin: 02/23/20 20:20 Dose: 10 units Documented by: Insulin Human Regular (Novolin R) 5 unit IVPUSH ONETIME ONE; Protocol Stop: 02/21/20 04:14 Last Admin: 02/21/20 04:57 Dose: 5 unit Documented by: Insulin Human Regular (Novolin R) 5 unit IVPUSH ONETIME ONE; Protocol Stop: 02/21/20 07:11 Last Admin: 02/21/20 07:45 Dose: 5 units Documented by: Lisinopril (Prinivil) 2.5 mg PO DAILY [facility] Lorazepam (Ativan) 0.5 mg IVPUSH ONETIME ONE Stop: 02/17/20 22:24 Last Admin: 02/17/20 23:00 Dose: 0.5 mg Documented by: Lorazepam (Ativan) 1 mg IVPUSH ONETIME ONE Stop: 02/18/20 19:19 Last Admin: 02/18/20 20:22 Dose: 1 mg Documented by: Nitroglycerin (Nitrostat) Confirm Administered Dose 0.4 mg .ROUTE .STK-MED ONE Stop: 02/18/20 19:23 Last Admin: 02/18/20 19:26 Dose: 0.4 mg Documented by: Ondansetron HCl (Zofran) 4 mg IVPUSH Q6H PRN PRN Reason: Nausea/Vomiting Pantoprazole Sodium (Protonix Iv) Confirm Administered Dose 40 mg .ROUTE .STK-MED ONE Stop: 02/22/20 22:55 Last Admin: 02/23/20 03:29 Dose: 40 mg Documented by: Ranolazine (Ranexa) 500 mg PO DAILY [facility] Sodium Polystyrene Sulfonate (Kayexalate) 15 gm PO ONETIME ONE Stop: 02/21/20 04:10 Last Admin: 02/21/20 04:57 Dose: 15 gm Documented by: - Exam Quality Assessment: Supplemental Oxygen, DVT Prophylaxis General: Alert, Oriented, Cooperative, No Acute Distress HEENT: Pupils Equal, Pupils Reactive, EOMI Neck: Supple, No JVD Lungs: Clear to Auscultation, Normal Respiratory Effort Cardiovascular: Regular Rate, Regular Rhythm GI/Abdominal Exam: Normal Bowel Sounds, Soft, Non-Tender Extremities: Normal Inspection, Normal Range of Motion, Non-Tender, Normal Capillary Refill Peripheral Pulses: 2+: Radial (L), Radial (R), Femoral (L), Femoral (R) Skin: Warm, Dry, Intact Wound/Incisions: Healing Well Neurological: No New Focal Deficit Psy/Mental Status: Alert, Normal Affect, Normal Mood Sepsis Event Note - Evaluation Sepsis Screening Result: Severe Sepsis Risk - Focused Exam Vital Signs: Vital Signs Temp Resp BP Pulse Ox 02/24/20 11:48 97.5 F 27 H 162/76 H 90 L 02/24/20 10:58 30 H 130/67 90 L 02/24/20 10:42 27 H 152/76 H 91 L 02/24/20 09:55 26 H 149/82 H 89 L 02/24/20 09:00 24 H 140/68 92 L 02/24/20 08:00 97.7 F 25 H 139/61 90 L 02/24/20 07:00 32 H 116/53 L 88 L 02/24/20 06:00 16 160/81 H 90 L 02/24/20 05:00 23 H 173/83 H 91 L 02/24/20 04:00 97.2 F 18 158/85 H 91 L 02/24/20 03:00 17 121/76 92 L 02/24/20 02:00 26 H 129/70 92 L - Problem List & Annotations (1) Diabetes mellitus SNOMED Code(s): 65597306 Code(s): E11.9 - TYPE 2 DIABETES MELLITUS WITHOUT COMPLICATIONS Status: Acute Current Visit: Yes Qualifiers: Diabetes mellitus type: type 2 (2) Hyperkalemia SNOMED Code(s): 70964350 Code(s): E87.5 - HYPERKALEMIA Status: Acute Current Visit: Yes (3) [place] (acute kidney injury) SNOMED Code(s): 78322034, 67282567 Code(s): N17.9 - ACUTE KIDNEY FAILURE, UNSPECIFIED Status: Acute Current Visit: Yes (4) Acute hypoxemic respiratory failure due to COVID-19 SNOMED Code(s): 906658276 Code(s): U07.1 - COVID-19; J96.01 - ACUTE RESPIRATORY FAILURE WITH HYPOXIA Status: Acute Current Visit: Yes (5) Bilateral pneumonia SNOMED Code(s): 608181337 Code(s): J18.9 - PNEUMONIA, UNSPECIFIED ORGANISM Status: Acute Current Visit: No (6) Coronary artery disease SNOMED Code(s): 22369526 Code(s): I25.10 - ATHSCL HEART DISEASE OF [place] CORONARY ARTERY W/O ANG PCTRS Status: Chronic Priority: High Current Visit: No Qualifiers: Coronary Disease-Associated Artery/Lesion type: bypass graft [place] vs. transplanted heart: [place] heart Associated angina: without angina Qualified Code(s): I25.810 - Atherosclerosis of coronary artery bypass graft(s) without angina pectoris - Problem List Review Problem List Initiated/Reviewed/Updated: Yes - My Orders Last 24 Hours: My Active Orders 02/24/20 10:14 Transfuse PRBC [Transfuse Red Blood Cells] [COMM] Routine 02/24/20 10:49 RED BLOOD CELLS LP [BBK] Routine TYPE AND SCREEN [BBK] Routine 02/24/20 11:30 Insulin Aspart [NovoLOG] See Protocol SUBCUT TIDAC 02/24/20 12:00 Blood Glucose Check, Bedside [RC] TIDAC 02/24/20 13:12 Echo Pediatric 2D wo Cont [US] Routine B-TYPE NATRIURETIC PEPTIDE,BNP [CHEM] Routine 02/24/20 21:00 Insulin Glarg,Human.Rec.Analog [LantUS Solostar] 10 units SUBCUT BEDTIME 02/25/20 05:11 CBC WITH AUTO DIFF [HEME] AM CMP [COMPREHENSIVE METABOLIC PN,CMP] [CHEM] AM MAGNESIUM [CHEM] AM PHOSPHORUS [CHEM] AM 02/26/20 05:11 CBC WITH AUTO DIFF [HEME] AM CMP [COMPREHENSIVE METABOLIC PN,CMP] [CHEM] AM MAGNESIUM [CHEM] AM PHOSPHORUS [CHEM] AM 02/27/20 05:11 MAGNESIUM [CHEM] AM PHOSPHORUS [CHEM] AM - Assessment Assessment:: 1. Acute hypoxic respiratory failure secondary to Covid:maintain sats 90 to 92% currently on BiPAP increased EPAP, comfortable 80% FiO2 will try to wean appropriately. In the interim continue with dexamethasone, remdesivir, DuoNebs. Heparin for DVT prophylaxis as patient has [place] 2. Leukocytosis: Chest x-ray indicated bilateral opacities consistent with Covid pneumonia, started on Levaquin for 7 days, trend CBC with daily labs. 3. Hyperkalemia: Currently 5.7, no telemetry changes, patient asymptomatic, was given Kayexalate, started on insulin drip, will monitor BMP every 4 hours. 4. Hyperglycemia secondary to diabetes mellitus: Discontinue previous regimen and started on insulin drip due to elevated glucose between 300-400. No anion gap. Continue with Accu-Cheks every 1 hour per eICU recommendations which are very much appreciated. 5. Past medical history of coronary artery disease and hypertension: Resume home meds of aspirin, Plavix, Crestor, Ranexa and continue to monitor on telemetry. - Plan Plan:: 64 y/o F admitted for acute hypoxic respiratory failure and COVID-19 pneumonia 1. Acute hypoxic respiratory failure/COVID-19 pneumonia -Stable On Levaquin for bilateral lung opacities Leukocytosis mild improvement , today 12.1 -Continue oxygen therapy with BIPAP and breaks on HF NC -Continue dexamethasone 6 mg p.o. daily 8\10 days -Schedule Combivent consider DuoNebs with BiPAP -Continue heparin due to [place] -Encourage I-S as well as Acapella use coughing and deep breathing -Prone position or left lateral lying position as possible -We will get CTA today 2. DM type II Sliding scale insulin plus bedtime long-acting 10 units of Levemir Accu-Cheks 3 times daily before meals 3. CAD/HTN -Continue home medications, ASA, Plavix, Crestor, Ranexa -She does reports she takes Ranexa 500 mg daily then a as needed dose then the evening if she is experiencing chest pain -Monitor on telemetry; has remained in sinus rhythm 4. [place]: -Stable; BUN 36, creatinine 1.2 Avoid nephrotoxic agents -Continue to monitor CMP daily 5. Normocytic normochromic anemia: Asymptomatic -Start IV iron every other day considered transfusion, will hold off on for now per eICU recommendations which are greatly appreciated. We will trend with daily CBC 6. GI upset/ reflux: -IV protonix 40 daily <Adrián Salas - Last Filed: 02/25/20 10:13> - Patient Data Vitals - Most Recent: Last Vital Signs Temp 36.4 C 02/25/20 08:00 Pulse 98 02/25/20 05:00 Resp 34 H 02/25/20 09:00 BP 121/71 02/25/20 09:52 Pulse Ox 91 L 02/25/20 09:00 I&O - Last 24 Hours: Intake & Output 02/24/20 02/25/20 02/25/20 22:59 06:59 14:59 Intake Total 690 550 Output Total 700 1420 Balance -10 -870 Lab Results Last 24 Hours: Laboratory Results - last 24 hr 02/24/20 02/24/20 02/24/20 Range/Units 10:49 11:39 16:17 WBC (4.0-11.0) K/uL RBC (4.30-5.90) M/uL Hgb (12.0-16.0) g/dL Hct (36.0-46.0) % MCV (80.0-98.0) fL MCH (27.0-32.0) pg MCHC (31.0-37.0) g/dL RDW Std Deviation (28.0-62.0) fl RDW Coeff of Mary (11.0-15.0) % Plt Count (150-400) K/uL MPV (7.40-12.00) fL Neut % (Auto) (48.0-80.0) % Lymph % (Auto) (16.0-40.0) % Keith % (Auto) (0.0-15.0) % Eos % (Auto) (0.0-7.0) % Baso % (Auto) (0.0-1.5) % Neut # (Auto) (1.4-5.7) K/uL Lymph # (Auto) (0.6-2.4) K/uL Keith # (Auto) (0.0-0.8) K/uL Eos # (Auto) (0.0-0.7) K/uL Baso # (Auto) (0.0-0.1) K/uL Nucleated RBC % /100WBC Nucleated RBCs # K/uL Sodium (136-145) mmol/L Potassium (3.5-5.1) mmol/L Chloride (98-107) mmol/L Carbon Dioxide (21.0-32.0) mmol/L BUN (7.0-18.0) mg/dL Creatinine (0.6-1.0) mg/dL Est Cr Clr Drug Dosing mL/min Estimated GFR (MDRD) ml/min Glucose (74-106) mg/dL POC Glucose 178 H 309 H (60-110) mg/dL Calcium (8.5-10.1) mg/dL Phosphorus (2.6-4.7) mg/dL Magnesium (1.8-2.4) mg/dL Total Bilirubin (0.2-1.0) mg/dL AST (15-37) IU/L ALT (14-63) IU/L Alkaline Phosphatase (46-116) U/L Total Protein (6.4-8.2) g/dL Albumin (3.4-5.0) g/dL Globulin (2.6-4.0) g/dL Albumin/Globulin Ratio (0.9-1.6) Blood Type A POSITIVE Antibody Screen NEGATIVE Crossmatch See Detail 02/25/20 02/25/20 02/25/20 Range/Units 05:58 05:58 06:43 WBC 13.47 H (4.0-11.0) K/uL RBC 2.90 L (4.30-5.90) M/uL Hgb 8.6 L (12.0-16.0) g/dL Hct 25.6 L (36.0-46.0) % MCV 88.3 (80.0-98.0) fL MCH 29.7 (27.0-32.0) pg MCHC 33.6 (31.0-37.0) g/dL RDW Std Deviation 42.0 (28.0-62.0) fl RDW Coeff of Mary 13 (11.0-15.0) % Plt Count 572 H (150-400) K/uL MPV 8.60 (7.40-12.00) fL Neut % (Auto) 89.6 H (48.0-80.0) % Lymph % (Auto) 3.8 L (16.0-40.0) % Keith % (Auto) 6.5 (0.0-15.0) % Eos % (Auto) 0.0 (0.0-7.0) % Baso % (Auto) 0.1 (0.0-1.5) % Neut # (Auto) 12.1 H (1.4-5.7) K/uL Lymph # (Auto) 0.5 L (0.6-2.4) K/uL Keith # (Auto) 0.9 H (0.0-0.8) K/uL Eos # (Auto) 0.0 (0.0-0.7) K/uL Baso # (Auto) 0.0 (0.0-0.1) K/uL Nucleated RBC % 0.0 /100WBC Nucleated RBCs # 0 K/uL Sodium 128 L (136-145) mmol/L Potassium 5.0 (3.5-5.1) mmol/L Chloride 94 L (98-107) mmol/L Carbon Dioxide 24.8 (21.0-32.0) mmol/L BUN 35 H (7.0-18.0) mg/dL Creatinine 1.5 H (0.6-1.0) mg/dL Est Cr Clr Drug Dosing 29.57 mL/min Estimated GFR (MDRD) 34.9 ml/min Glucose 233 H (74-106) mg/dL POC Glucose 226 H (60-110) mg/dL Calcium 9.2 (8.5-10.1) mg/dL Phosphorus 3.1 (2.6-4.7) mg/dL Magnesium 1.8 (1.8-2.4) mg/dL Total Bilirubin 0.6 (0.2-1.0) mg/dL AST 111 H (15-37) IU/L ALT 48 (14-63) IU/L Alkaline Phosphatase 146 H (46-116) U/L Total Protein 6.7 (6.4-8.2) g/dL Albumin 1.5 L (3.4-5.0) g/dL Globulin 5.2 H (2.6-4.0) g/dL Albumin/Globulin Ratio 0.3 L (0.9-1.6) Blood Type Antibody Screen Crossmatch Med Orders - Current: Current Medications Acetaminophen (Tylenol) 650 mg PO Q4H PRN PRN Reason: Pain (Mild 1-3)/fever Last Admin: 02/23/20 21:35 Dose: 650 mg Documented by: Albuterol/Ipratropium (Combivent Respimat) 0 gm INH Q4H PRN PRN Reason: Dyspnea Last Admin: 02/19/20 06:25 Dose: 1 puff Documented by: Albuterol/Ipratropium (Duoneb 3.0-0.5 Mg/3 Ml) 3 ml NEB Q4HRRT [facility] Last Admin: 02/25/20 09:30 Dose: 3 ml Documented by: Aspirin (Halfprin) 81 mg PO DAILY [facility] Last Admin: 02/25/20 08:58 Dose: 81 mg Documented by: Clopidogrel Bisulfate (Plavix) 75 mg PO BEDTIME [facility] Last Admin: 02/24/20 20:28 Dose: 75 mg Documented by: Dexamethasone (Dexamethasone) 6 mg PO DAILY [facility] Stop: 02/26/20 09:01 Last Admin: 02/25/20 09:00 Dose: 6 mg Documented by: Dextrose/Water (Dextrose 50% In Water) 50 ml IV ASDIRECTED PRN PRN Reason: Hypoglycemia Docusate Sodium (Colace) 100 mg PO BID PRN PRN Reason: Constipation Last Admin: 02/20/20 04:10 Dose: 100 mg Documented by: Docusate Sodium (Colace) 100 mg PO DAILY [facility] Last Admin: 02/25/20 08:58 Dose: 100 mg Documented by: Duloxetine HCl (Cymbalta) 60 mg PO DAILY [facility] Last Admin: 02/25/20 09:01 Dose: 60 mg Documented by: Gabapentin (Neurontin) 200 mg PO DAILY [facility] Last Admin: 02/25/20 09:01 Dose: 200 mg Documented by: Glucagon (Glucagen) 1 mg IM ASDIRECTED PRN PRN Reason: Hypoglycemia Guaifenesin/Dextromethorphan (Robitussin Dm) 10 ml PO Q4H PRN PRN Reason: Cough Last Admin: 02/25/20 03:01 Dose: 10 ml Documented by: Heparin Sodium (Porcine) (Heparin Sodium) 5,000 units SUBCUT Q12H [facility] Last Admin: 02/25/20 08:56 Dose: 5,000 units Documented by: Hydralazine HCl (Apresoline) 10 mg IVPUSH Q4H PRN PRN Reason: Hypertension Levofloxacin/Dextrose 750 mg/ (Premix) 150 mls @ 100 mls/hr IV Q48H [facility] Last Admin: 02/23/20 11:26 Dose: 100 mls/hr Documented by: Pantoprazole Sodium 40 mg/ (Sodium Chloride) 10 mls @ 300 mls/hr IV DAILY [facility] Last Admin: 02/25/20 08:57 Dose: 300 mls/hr Documented by: Insulin Aspart (Novolog) 0 unit SUBCUT TIDAC [facility]; Protocol Last Admin: 02/25/20 07:56 Dose: 4 units Documented by: Insulin Glargine (Lantus Solostar) 10 units SUBCUT BEDTIME [facility] Last Admin: 02/24/20 20:29 Dose: 10 unit Documented by: Labetalol HCl (Normodyne) 20 mg IVPUSH Q4H PRN; Protocol PRN Reason: Hypertension Lorazepam (Ativan) 0.5 mg PO Q6H PRN PRN Reason: Anxiety Last Admin: 02/25/20 10:03 Dose: 0.5 mg Documented by: Nitroglycerin (Nitrostat) 0.4 mg SL .EVERY 5 MINUTES PRN PRN Reason: Chest Pain Last Admin: 02/25/20 09:52 Dose: 0.4 mg Documented by: Ondansetron HCl (Zofran) 4 mg IVPUSH Q4H PRN PRN Reason: Nausea/Vomiting Last Admin: 02/24/20 23:16 Dose: 4 mg Documented by: Ranolazine (Ranexa) 500 mg PO DAILY [facility] Last Admin: 02/25/20 08:59 Dose: 500 mg Documented by: Ranolazine (Ranexa) 500 mg PO BEDTIME PRN PRN Reason: Chest Pain Last Admin: 02/23/20 23:17 Dose: 500 mg Documented by: Rosuvastatin Calcium (Crestor) 40 mg PO BEDTIME [facility] Last Admin: 02/24/20 20:29 Dose: 40 mg Documented by: Sodium Chloride (Saline Flush) 10 ml FLUSH ASDIRECTED PRN PRN Reason: Keep Vein Open Sodium Chloride (Saline Flush) 2.5 ml FLUSH ASDIRECTED PRN PRN Reason: Keep Vein Open Last Admin: 02/23/20 21:42 Dose: 2.5 ml Documented by: Discontinued Medications Albuterol/Ipratropium (Duoneb 3.0-0.5 Mg/3 Ml) 3 ml NEB Q4HRRT [facility] Dextrose/Water (Dextrose 50% In Water) 50 ml IV ASDIRECTED PRN PRN Reason: Hypoglycemia Dextrose/Water (Dextrose 50% In Water) 50 ml IV ONETIME ONE Stop: 02/21/20 04:10 Last Admin: 02/21/20 04:09 Dose: 50 ml Documented by: Dextrose/Water (Dextrose 50% In Water) 50 ml IV ASDIRECTED PRN PRN Reason: Hypoglycemia Dextrose/Water (Dextrose 50% In Water) 50 ml IVPUSH ASDIRECTED PRN PRN Reason: Hypoglycemia Dextrose/Water (Dextrose 50% In Water) 50 ml IVPUSH ASDIRECTED PRN PRN Reason: Hypoglycemia Dextrose/Water (Dextrose 50% In Water) 50 ml IV ASDIRECTED PRN PRN Reason: Hypoglycemia Dextrose/Water (Dextrose 50% In Water) 50 ml IV ASDIRECTED PRN PRN Reason: Hypoglycemia Dextrose/Water (Dextrose 50% In Water) 50 ml IV ASDIRECTED PRN PRN Reason: Hypoglycemia Furosemide (Lasix) 20 mg IVPUSH ONETIME ONE Stop: 02/18/20 10:23 Last Admin: 02/18/20 11:05 Dose: 20 mg Documented by: Furosemide (Lasix) 20 mg IVPUSH NOW ONE Stop: 02/24/20 16:40 Last Admin: 02/24/20 17:32 Dose: 20 mg Documented by: Glucagon (Glucagen) 1 mg IM ASDIRECTED PRN PRN Reason: Hypoglycemia Glucagon (Glucagen) 1 mg IM ASDIRECTED PRN PRN Reason: Hypoglycemia Glucagon (Glucagen) 1 mg IM ASDIRECTED PRN PRN Reason: Hypoglycemia Glucagon (Glucagen) 1 mg IM ASDIRECTED PRN PRN Reason: Hypoglycemia Glucagon (Glucagen) 1 mg IM ASDIRECTED PRN PRN Reason: Hypoglycemia Remdesivir 200 mg/ Sodium (Chloride) 250 mls @ 250 mls/hr IV ONETIME ONE Stop: 02/17/20 18:05 Last Admin: 02/17/20 19:35 Dose: 250 mls/hr Documented by: Remdesivir 100 mg/ Sodium (Chloride) 100 mls @ 100 mls/hr IV Q24H [facility] Stop: 02/21/20 19:59 Last Admin: 02/21/20 18:21 Dose: 100 mls/hr Documented by: Lactated Ringer's (Ringers, Lactated) 1,000 mls @ 125 mls/hr IV ASDIRECTED [facility] Last Admin: 02/17/20 22:09 Dose: 125 mls/hr Documented by: Insulin Human Regular 100 unit (/ Sodium Chloride) 100 mls @ 6 mls/hr IV TITRATE [facility]; Protocol Last Titration: 02/23/20 11:00 Dose: 1.5 unit/hr, 1.5 mls/hr Documented by: Pantoprazole Sodium 40 mg/ (Sodium Chloride) 10 mls @ 300 mls/hr IV ACBREAKFAST [facility] Iron Sucrose 200 mg/ Sodium (Chloride) 110 mls @ 440 mls/hr IV ONETIME ONE Stop: 02/23/20 10:14 Last Admin: 02/23/20 10:54 Dose: 440 mls/hr Documented by: Lactated Ringer's (Ringers, Lactated) 250 mls @ 999 mls/hr IV .BOLUS ONE Stop: 02/25/20 08:11 Last Admin: 02/25/20 08:54 Dose: 999 mls/hr Documented by: Insulin Aspart (Novolog) 0 unit SUBCUT TIDAC [facility]; Protocol Insulin Aspart (Novolog) 0 unit SUBCUT TIDAC [facility]; Protocol Last Admin: 02/23/20 12:03 Dose: Not Given Documented by: Insulin Aspart (Novolog) 15 unit SUBCUT ONETIME ONE Stop: 02/18/20 18:04 Last Admin: 02/18/20 18:45 Dose: Not Given Documented by: Insulin Aspart (Novolog) 0 unit SUBCUT QID [facility]; Protocol Last Admin: 02/24/20 05:15 Dose: 2 unit Documented by: Insulin Detemir (Levemir) 40 unit SUBCUT BID [facility] Last Admin: 12/18/20 09:57 Dose: 26 units Documented by: Insulin Detemir (Levemir) 26 unit SUBCUT BID [facility] Last Admin: 02/20/20 08:08 Dose: 26 units Documented by: Insulin Detemir (Levemir) 30 unit SUBCUT BID [facility] Last Admin: 02/23/20 09:56 Dose: Not Given Documented by: Insulin Glargine (Lantus Solostar) 10 units SUBCUT BEDTIME ONE Stop: 02/23/20 21:01 Last Admin: 02/23/20 20:20 Dose: 10 units Documented by: Insulin Human Regular (Novolin R) 5 unit IVPUSH ONETIME ONE; Protocol Stop: 02/21/20 04:14 Last Admin: 02/21/20 04:57 Dose: 5 unit Documented by: Insulin Human Regular (Novolin R) 5 unit IVPUSH ONETIME ONE; Protocol Stop: 02/21/20 07:11 Last Admin: 02/21/20 07:45 Dose: 5 units Documented by: Iopamidol (Isovue Multipack-370 (76%)) 50 ml IVPUSH ONETIME STA Stop: 02/24/20 15:01 Last Admin: 02/24/20 15:01 Dose: 50 ml Documented by: Lisinopril (Prinivil) 2.5 mg PO DAILY [facility] Lorazepam (Ativan) 0.5 mg IVPUSH ONETIME ONE Stop: 02/17/20 22:24 Last Admin: 02/17/20 23:00 Dose: 0.5 mg Documented by: Lorazepam (Ativan) 1 mg IVPUSH ONETIME ONE Stop: 02/18/20 19:19 Last Admin: 02/18/20 20:22 Dose: 1 mg Documented by: Nitroglycerin (Nitrostat) Confirm Administered Dose 0.4 mg .ROUTE .STK-MED ONE Stop: 02/18/20 19:23 Last Admin: 02/18/20 19:26 Dose: 0.4 mg Documented by: Ondansetron HCl (Zofran) 4 mg IVPUSH Q6H PRN PRN Reason: Nausea/Vomiting Pantoprazole Sodium (Protonix Iv) Confirm Administered Dose 40 mg .ROUTE .STK-MED ONE Stop: 02/22/20 22:55 Last Admin: 02/23/20 03:29 Dose: 40 mg Documented by: Ranolazine (Ranexa) 500 mg PO DAILY [facility] Sodium Polystyrene Sulfonate (Kayexalate) 15 gm PO ONETIME ONE Stop: 02/21/20 04:10 Last Admin: 02/21/20 04:57 Dose: 15 gm Documented by: Sepsis Event Note - Focused Exam Vital Signs: Vital Signs Temp Pulse Resp BP BP Pulse Ox Pulse Ox 02/25/20 09:52 121/71 02/25/20 09:00 34 H 118/82 91 L 02/25/20 08:00 36.4 C 34 H 131/77 88 L 02/25/20 07:00 19 111/59 L 92 L 02/25/20 06:00 31 H 123/61 90 L 90 L 02/25/20 05:00 98 30 H 117/67 91 L 02/25/20 04:00 36.4 C 22 H 129/72 89 L 02/25/20 03:00 34 H 121/70 88 L 02/25/20 02:00 24 H 151/82 H 90 L 02/25/20 01:00 27 H 150/74 H 91 L 02/25/20 00:00 36.3 C 25 H 155/78 H 91 L 02/24/20 23:00 20 125/49 L 92 L - Problem List & Annotations (1) Acute hypoxemic respiratory failure due to COVID-19 SNOMED Code(s): 932669168 Code(s): U07.1 - COVID-19; J96.01 - ACUTE RESPIRATORY FAILURE WITH HYPOXIA Status: Acute Current Visit: Yes (2) Bilateral pneumonia SNOMED Code(s): 873092034 Code(s): J18.9 - PNEUMONIA, UNSPECIFIED ORGANISM Status: Acute Current Visit: No (3) Hx of diabetes mellitus SNOMED Code(s): 531721245 Code(s): Z86.39 - PERSONAL HISTORY OF ENDO, NUTRITIONAL AND METABOLIC DISEASE Status: Acute Current Visit: No (4) Chronic kidney disease (CKD), stage III (moderate) SNOMED Code(s): 937651891 Code(s): N18.3 - CHRONIC KIDNEY DISEASE, STAGE 3 (MODERATE) * DO NOT USE * Status: Chronic Priority: High Current Visit: No (5) History of coronary artery bypass graft x 3 SNOMED Code(s): 012474207, 821749036 Code(s): Z95.1 - PRESENCE OF AORTOCORONARY BYPASS GRAFT Status: Chronic Priority: High Current Visit: No (6) History of total left hip replacement SNOMED Code(s): 143711978847 Code(s): Z96.642 - PRESENCE OF LEFT ARTIFICIAL HIP JOINT Status: Chronic Priority: Medium Current Visit: No (7) S/P BKA (below knee amputation) bilateral SNOMED Code(s): 888131266313272, 669427256403404 Code(s): Z89.512 - ACQUIRED ABSENCE OF LEFT LEG BELOW KNEE; Z89.511 - ACQUIRED ABSENCE OF RIGHT LEG BELOW KNEE Status: Chronic Priority: Medium Current Visit: No (8) [place] (acute kidney injury) SNOMED Code(s): 31349549, 95803020 Code(s): N17.9 - ACUTE KIDNEY FAILURE, UNSPECIFIED Status: Acute Current Visit: Yes (9) Chest pain SNOMED Code(s): 09236055 Code(s): R07.9 - CHEST PAIN, UNSPECIFIED Status: Acute Current Visit: No Qualifiers: Chest pain type: unspecified Qualified Code(s): R07.9 - Chest pain, unspecified - Plan Plan:: I have seen and evaluated the patient and agree with the residents note unless specified in my note
[2020-02-24] MEDS: LORazepam 0.5 MG Tab PO PRN ×2 (13:51→23:16)
[2020-02-24] MEDS ORDERED: Iopamidol 755 MG/ML 500 ML Multipack Bottle IVPUSH STA (15:00)
[2020-02-24] MEDS: guaiFENesin/Dextromethorphan 100-10 MG/5 ML Soln 10 ML Cup PO PRN (15:56)
[2020-02-24] MEDS ORDERED: Furosemide 20 MG/2 ML VIAL IVPUSH ONE (16:39)
[2020-02-24] MEDS: Clopidogrel 75 MG Tab PO SCH (20:28)
[2020-02-24] MEDS: Rosuvastatin 10 MG Tab PO SCH (20:29)
[2020-02-24] MEDS ORDERED: Insulin Glargine,Human Rec. Analog 100 Units/ML 3 ML Pen SUBCUT SCH (21:00)
[2020-02-24] MEDS: Ondansetron 4 MG/2 ML SDV IVPUSH PRN (23:16)
[2020-02-25] MEDS: Albuterol/Ipratropium 3.0-0.5 MG/3 ML Neb Soln NEB SCH ×3 (02:09→09:30)
[2020-02-25] MEDS: guaiFENesin/Dextromethorphan 100-10 MG/5 ML Soln 10 ML Cup PO PRN (03:01)
[2020-02-25 05:21] VITALS: PULSE 98
[2020-02-25 06:27] LABS: CARBON DIOXIDE,CO2 24.8 mmol/L (21.0-32.0)
[2020-02-25] MEDS: Insulin Aspart 100 Units/ML 3 ML Pen SUBCUT SCH (07:56)
[2020-02-25] MEDS ORDERED: Lactated Ringers 250 ML IV ONE (07:56)
[2020-02-25] MEDS: Heparin Sodium 5,000 Units/ML Vial SUBCUT SCH (08:56)
[2020-02-25] MEDS: Pantoprazole 40 MG in Sodium Chloride 0.9% 10 ML IV SCH (08:57)
[2020-02-25] MEDS: Aspirin 81 MG Tab.EC PO SCH (08:58)
[2020-02-25] MEDS: Docusate Sodium 100 MG Cap PO SCH (08:58)
[2020-02-25] MEDS: Dexamethasone 4 MG Tab PO SCH (09:00)
[2020-02-25] MEDS: DULoxetine 60 MG Cap PO SCH (09:01)
[2020-02-25] MEDS: Gabapentin 100 MG Cap PO SCH (09:01)
[2020-02-25] MEDS: Nitroglycerin 0.4 MG Tab.SL SL PRN (09:52)
[2020-02-25] MEDS: LORazepam 0.5 MG Tab PO PRN (10:03)
[2020-02-25] MEDS: Levofloxacin/Dextrose 5%-Water 750 MG in Premix Bag 1 BAG IV SCH (10:22)
[2020-02-25] MEDS ORDERED: fentaNYL 100 MCG/2 ML SDV ONE ×2 (11:06→12:33)
[2020-02-25] MEDS ORDERED: Propofol 200 MG/20 ML SDV ONE (11:06)
[2020-02-25] MEDS ORDERED: Midazolam 1 MG/ML 2 ML SDV ONE (11:07)
[2020-02-25] MEDS ORDERED: Rocuronium Bromide 50 MG/5 ML Syringe ONE (11:10)
[2020-02-25] MEDS ORDERED: Succinylcholine/Sod PF 100 MG/5 ML SYRINGE IV ONE (11:10)
--- NOTE | 2020-02-25 12:03 | PCM.PRNOTE ---
- Free Text/Narrative Note: Anes NOte I was called to intubate this patient with covid. Pre O2 x 3 min. Baseline 02 sats 88-90% 1145 200 mg propofol, 100 mg anectine, 4 mg versed and 100 mcg fentanyl Intubation was smooth and uneventful with 7.0 ET tube and glidescope. Cords clear,BBS checked and equal. Tube secured at 18 cm at teeth. 1150 50 mg rocuronium IV. Procedure tolerated well. Time with patient [id number] Toño Srivastava CRNA
--- NOTE | 2020-02-25 12:08 | PCM.DCSUM1 ---
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 She has COVID-19 diagnosed 9 days ago. On 26 January she attended a family gathering for thanks giving, at her daughter's house where her granddaughter was in from [employer]. States she contrated the virus from grand daughter who was diagnosed with COVID soon after the gathering.States Her daughter has bilateral pneumonia and is home on oxygen after ho spitalization. Patient had come in earlier to ER, at that time she was discharged on home oxygen, steroids, inhaler as she didn't want to be admitted. She has bilateral pneumonia diagnosis on xray done earlier this morning. She went to the bathroom at home after dc and had diarrhea and vomited. She was too weak to get back to her bed. With her oxygen off her saturation this afternoon was 80% per EMS. which corrected with 3 L of oxygen here. The diarrhea and nausea and vomiting are new onset. Patient has some chest pressure, states it started after she was retching earlier, pain is reproducible, Weakness and a headache and shortness of breath have been going on for several days. Patient was admitted for further management of acute hypoxic respiratory failure. Diagnosis: Stroke: No - Discharge Data Discharge Date: 02/25/20 Discharge Disposition: Home, Self-Care 01 Condition: Critical - Referral to Home Health Primary Care Physician: PCP None - Discharge Diagnosis/Problem(s) (1) Diabetes mellitus SNOMED Code(s): 68911873 ICD Code: E11.9 - TYPE 2 DIABETES MELLITUS WITHOUT COMPLICATIONS Status: Acute Current Visit: Yes Qualifiers: Diabetes mellitus type: type 2 (2) Hyperkalemia SNOMED Code(s): 00013868 ICD Code: E87.5 - HYPERKALEMIA Status: Acute Current Visit: Yes (3) [place] (acute kidney injury) SNOMED Code(s): 00244404, 62576845 ICD Code: N17.9 - ACUTE KIDNEY FAILURE, UNSPECIFIED Status: Acute Current Visit: Yes (4) Acute hypoxemic respiratory failure due to COVID-19 SNOMED Code(s): 059908668 ICD Code: U07.1 - COVID-19; J96.01 - ACUTE RESPIRATORY FAILURE WITH HYPOXIA Status: Acute Current Visit: Yes (5) Bilateral pneumonia SNOMED Code(s): 073819599 ICD Code: J18.9 - PNEUMONIA, UNSPECIFIED ORGANISM Status: Acute Current Visit: No (6) Coronary artery disease SNOMED Code(s): 51353340 ICD Code: I25.10 - ATHSCL HEART DISEASE OF [place] CORONARY ARTERY W/O ANG PCTRS Status: Chronic Priority: High Current Visit: No Qualifiers: Coronary Disease-Associated Artery/Lesion type: bypass graft [place] vs. transplanted heart: eek heart Associated angina: without angina Qualified Code(s): I25.810 - Atherosclerosis of coronary artery bypass graft(s) without angina pectoris - Patient Summary/Data Consults: Consultations 02/21/20 10:57 Consult to Physician [CONS] Routine Hospital Course: 64-year-old female was admitted for Covid pneumonia 8 days ago, was treated with remdesivir, dexamethasone, DuoNebs every 4 hours and respiratory support with O2 saturation goal of 90 to 92%. As her respiratory needs increase she was transferred to the ICU placed on BiPAP, patient did not tolerate heated high flow very well for breaks to allow her to eat while on BiPAP. We have been working with eICU to best manage patient. She completed full course of remdesivir, was continued on dexamethasone, duo nebs and respiratory support. While optimizing all her electrolytes, glucose levels. Despite all efforts respiratory demands kept increasing, CTA was performed which did not indicating PE however continue to show bilateral lung opacities sparing the apices of the lungs. Patient started to tire out on BiPAP, discussed intubation with patient and facilitated transfer to accepting higher level of care. - Patient Instructions Diet: Heart Healthy Diet Activity: Bedrest Driving: Do Not Drive Showering/Bathing: No Tub Bathing/Swimming Other/Special Instructions: Transfered to higher level of care - Discharge Plan *PRESCRIPTION DRUG MONITORING PROGRAM REVIEWED*: Not Applicable *COPY OF PRESCRIPTION DRUG MONITORING REPORT IN PATIENT LARRY: Not Applicable Home Medications: Home Meds Clopidogrel [Plavix] 75 mg PO BEDTIME 12/24/13 [History] Insulin Detemir [Levemir Flexpen] 26 unit SQ BID 12/24/13 [History] Ranolazine [Ranexa] 500 mg PO BID 12/24/13 [History] Aspirin [Halfprin] 81 mg PO DAILY 09/01/18 [History] Nitroglycerin 0.4 mg SL .EVERY 5 MINUTES PRN #1 bottle MDD 3 TABS 09/01/18 [Rx] Rosuvastatin Calcium 40 mg PO BEDTIME 09/01/18 [History] Albuterol [Take Home: Albuterol 18 GM, 1 INH Pack] 2 inhalation BID PRN 11/02/19 [History] DULoxetine [Cymbalta] 60 mg PO DAILY 11/02/19 [History] Gabapentin [Neurontin] 200 mg PO DAILY 11/02/19 [History] Insulin Aspart [NovoLOG] See Protocol SUBCUT TIDMEALS 11/02/19 [History] lisinopriL [Lisinopril] 2.5 mg PO DAILY 11/02/19 [History] Albuterol [Ventolin HFA] 0 gm INH BID PRN inhaler 11/03/19 [Rx] Pantoprazole Sodium [Protonix] 20 mg PO DAILY #90 tablet. 11/03/19 [Rx] dexAMETHasone [Dexamethasone] 4 mg PO BID #10 tab 02/17/20 [Rx] Dulaglutide [Trulicity] 02/18/20 [History] Oxygen Therapy Mode: Trans-tracheal Oxygen FiO2: 100 Patient Handouts: COVID-19 Frequently Asked Questions, COVID-19, COVID-19: How to Protect Yourself and Others - CDC, Prevent the Spread of COVID-19 if You Are Sick - [facility] Referrals: PCP,None [Primary Care Provider] - - Discharge Summary/Plan Comment DC Time >30 min.: Yes (Transfer to higher level of care ) Discharge Summary/Plan Comment: Grateful to Dr. Davis at [facility] in [facility] for taking over patient care, as she is in critical condition and requires a higher level of care. Family has been spoken to, given information on patient's relocation as well as possible prognosis being poor. We wish the patient and her family best wishes in this difficult time. - Patient Data Vitals - Most Recent: Last Vital Signs Temp 97.5 F 02/25/20 11:00 Pulse 98 02/25/20 05:00 Resp 32 H 02/25/20 11:00 BP 132/68 02/25/20 11:00 Pulse Ox 97 02/25/20 11:00 Weight - Most Recent: 141 lb 12.8 oz I&O - Last 24 hours: Intake & Output 02/24/20 02/25/20 02/25/20 22:59 06:59 14:59 Intake Total 690 550 410 Output Total 700 1420 Balance -10 -870 410 Lab Results - Last 24 hrs: Laboratory Results - last 24 hr 02/24/20 02/24/20 02/25/20 Range/Units 10:49 16:17 05:58 WBC 13.47 H (4.0-11.0) K/uL RBC 2.90 L (4.30-5.90) M/uL Hgb 8.6 L (12.0-16.0) g/dL Hct 25.6 L (36.0-46.0) % MCV 88.3 (80.0-98.0) fL MCH 29.7 (27.0-32.0) pg MCHC 33.6 (31.0-37.0) g/dL RDW Std Deviation 42.0 (28.0-62.0) fl RDW Coeff of Mary 13 (11.0-15.0) % Plt Count 572 H (150-400) K/uL MPV 8.60 (7.40-12.00) fL Neut % (Auto) 89.6 H (48.0-80.0) % Lymph % (Auto) 3.8 L (16.0-40.0) % [place] % (Auto) 6.5 (0.0-15.0) % Eos % (Auto) 0.0 (0.0-7.0) % Baso % (Auto) 0.1 (0.0-1.5) % Neut # (Auto) 12.1 H (1.4-5.7) K/uL Lymph # (Auto) 0.5 L (0.6-2.4) K/uL [place] # (Auto) 0.9 H (0.0-0.8) K/uL Eos # (Auto) 0.0 (0.0-0.7) K/uL Baso # (Auto) 0.0 (0.0-0.1) K/uL Nucleated RBC % 0.0 /100WBC Nucleated RBCs # 0 K/uL Sodium (136-145) mmol/L Potassium (3.5-5.1) mmol/L Chloride (98-107) mmol/L Carbon Dioxide (21.0-32.0) mmol/L BUN (7.0-18.0) mg/dL Creatinine (0.6-1.0) mg/dL Est Cr Clr Drug Dosing mL/min Estimated GFR (MDRD) ml/min Glucose (74-106) mg/dL POC Glucose 309 H (60-110) mg/dL Calcium (8.5-10.1) mg/dL Phosphorus (2.6-4.7) mg/dL Magnesium (1.8-2.4) mg/dL Total Bilirubin (0.2-1.0) mg/dL AST (15-37) IU/L ALT (14-63) IU/L Alkaline Phosphatase (46-116) U/L Total Protein (6.4-8.2) g/dL Albumin (3.4-5.0) g/dL Globulin (2.6-4.0) g/dL Albumin/Globulin Ratio (0.9-1.6) Blood Type A POSITIVE Antibody Screen NEGATIVE Crossmatch See Detail 02/25/20 02/25/20 02/25/20 Range/Units 05:58 06:43 11:32 WBC (4.0-11.0) K/uL RBC (4.30-5.90) M/uL Hgb (12.0-16.0) g/dL Hct (36.0-46.0) % MCV (80.0-98.0) fL MCH (27.0-32.0) pg MCHC (31.0-37.0) g/dL RDW Std Deviation (28.0-62.0) fl RDW Coeff of Mary (11.0-15.0) % Plt Count (150-400) K/uL MPV (7.40-12.00) fL Neut % (Auto) (48.0-80.0) % Lymph % (Auto) (16.0-40.0) % [place] % (Auto) (0.0-15.0) % Eos % (Auto) (0.0-7.0) % Baso % (Auto) (0.0-1.5) % Neut # (Auto) (1.4-5.7) K/uL Lymph # (Auto) (0.6-2.4) K/uL [place] # (Auto) (0.0-0.8) K/uL Eos # (Auto) (0.0-0.7) K/uL Baso # (Auto) (0.0-0.1) K/uL Nucleated RBC % /100WBC Nucleated RBCs # K/uL Sodium 128 L (136-145) mmol/L Potassium 5.0 (3.5-5.1) mmol/L Chloride 94 L (98-107) mmol/L Carbon Dioxide 24.8 (21.0-32.0) mmol/L BUN 35 H (7.0-18.0) mg/dL Creatinine 1.5 H (0.6-1.0) mg/dL Est Cr Clr Drug Dosing 29.57 mL/min Estimated GFR (MDRD) 34.9 ml/min Glucose 233 H (74-106) mg/dL POC Glucose 226 H 242 H (60-110) mg/dL Calcium 9.2 (8.5-10.1) mg/dL Phosphorus 3.1 (2.6-4.7) mg/dL Magnesium 1.8 (1.8-2.4) mg/dL Total Bilirubin 0.6 (0.2-1.0) mg/dL AST 111 H (15-37) IU/L ALT 48 (14-63) IU/L Alkaline Phosphatase 146 H (46-116) U/L Total Protein 6.7 (6.4-8.2) g/dL Albumin 1.5 L (3.4-5.0) g/dL Globulin 5.2 H (2.6-4.0) g/dL Albumin/Globulin Ratio 0.3 L (0.9-1.6) Blood Type Antibody Screen Crossmatch Med Orders - Current: Current Medications Acetaminophen (Tylenol) 650 mg PO Q4H PRN PRN Reason: Pain (Mild 1-3)/fever Last Admin: 02/23/20 21:35 Dose: 650 mg Documented by: Albuterol/Ipratropium (Combivent Respimat) 0 gm INH Q4H PRN PRN Reason: Dyspnea Last Admin: 02/19/20 06:25 Dose: 1 puff Documented by: Albuterol/Ipratropium (Duoneb 3.0-0.5 Mg/3 Ml) 3 ml NEB Q4HRRT [facility] Last Admin: 02/25/20 09:30 Dose: 3 ml Documented by: Aspirin (Halfprin) 81 mg PO DAILY [facility] Last Admin: 02/25/20 08:58 Dose: 81 mg Documented by: Clopidogrel Bisulfate (Plavix) 75 mg PO BEDTIME [facility] Last Admin: 02/24/20 20:28 Dose: 75 mg Documented by: Dexamethasone (Dexamethasone) 6 mg PO DAILY [facility] Stop: 02/26/20 09:01 Last Admin: 02/25/20 09:00 Dose: 6 mg Documented by: Dextrose/Water (Dextrose 50% In Water) 50 ml IV ASDIRECTED PRN PRN Reason: Hypoglycemia Docusate Sodium (Colace) 100 mg PO BID PRN PRN Reason: Constipation Last Admin: 02/20/20 04:10 Dose: 100 mg Documented by: Docusate Sodium (Colace) 100 mg PO DAILY [facility] Last Admin: 02/25/20 08:58 Dose: 100 mg Documented by: Duloxetine HCl (Cymbalta) 60 mg PO DAILY [facility] Last Admin: 02/25/20 09:01 Dose: 60 mg Documented by: Gabapentin (Neurontin) 200 mg PO DAILY [facility] Last Admin: 02/25/20 09:01 Dose: 200 mg Documented by: Glucagon (Glucagen) 1 mg IM ASDIRECTED PRN PRN Reason: Hypoglycemia Guaifenesin/Dextromethorphan (Robitussin Dm) 10 ml PO Q4H PRN PRN Reason: Cough Last Admin: 02/25/20 03:01 Dose: 10 ml Documented by: Heparin Sodium (Porcine) (Heparin Sodium) 5,000 units SUBCUT Q12H [facility] Last Admin: 02/25/20 08:56 Dose: 5,000 units Documented by: Hydralazine HCl (Apresoline) 10 mg IVPUSH Q4H PRN PRN Reason: Hypertension Levofloxacin/Dextrose 750 mg/ (Premix) 150 mls @ 100 mls/hr IV Q48H [facility] Last Admin: 02/25/20 10:22 Dose: 100 mls/hr Documented by: Pantoprazole Sodium 40 mg/ (Sodium Chloride) 10 mls @ 300 mls/hr IV DAILY [facility] Last Admin: 02/25/20 08:57 Dose: 300 mls/hr Documented by: Insulin Aspart (Novolog) 0 unit SUBCUT TIDAC [facility]; Protocol Last Admin: 02/25/20 07:56 Dose: 4 units Documented by: Insulin Glargine (Lantus Solostar) 10 units SUBCUT BEDTIME [facility] Last Admin: 02/24/20 20:29 Dose: 10 unit Documented by: Labetalol HCl (Normodyne) 20 mg IVPUSH Q4H PRN; Protocol PRN Reason: Hypertension Lorazepam (Ativan) 0.5 mg PO Q6H PRN PRN Reason: Anxiety Last Admin: 02/25/20 10:03 Dose: 0.5 mg Documented by: Nitroglycerin (Nitrostat) 0.4 mg SL .EVERY 5 MINUTES PRN PRN Reason: Chest Pain Last Admin: 02/25/20 09:52 Dose: 0.4 mg Documented by: Ondansetron HCl (Zofran) 4 mg IVPUSH Q4H PRN PRN Reason: Nausea/Vomiting Last Admin: 02/24/20 23:16 Dose: 4 mg Documented by: Ranolazine (Ranexa) 500 mg PO DAILY [facility] Last Admin: 02/25/20 08:59 Dose: 500 mg Documented by: Ranolazine (Ranexa) 500 mg PO BEDTIME PRN PRN Reason: Chest Pain Last Admin: 02/23/20 23:17 Dose: 500 mg Documented by: Rosuvastatin Calcium (Crestor) 40 mg PO BEDTIME [facility] Last Admin: 02/24/20 20:29 Dose: 40 mg Documented by: Sodium Chloride (Saline Flush) 10 ml FLUSH ASDIRECTED PRN PRN Reason: Keep Vein Open Sodium Chloride (Saline Flush) 2.5 ml FLUSH ASDIRECTED PRN PRN Reason: Keep Vein Open Last Admin: 02/23/20 21:42 Dose: 2.5 ml Documented by: Discontinued Medications Albuterol/Ipratropium (Duoneb 3.0-0.5 Mg/3 Ml) 3 ml NEB Q4HRRT [facility] Dextrose/Water (Dextrose 50% In Water) 50 ml IV ASDIRECTED PRN PRN Reason: Hypoglycemia Dextrose/Water (Dextrose 50% In Water) 50 ml IV ONETIME ONE Stop: 02/21/20 04:10 Last Admin: 02/21/20 04:09 Dose: 50 ml Documented by: Dextrose/Water (Dextrose 50% In Water) 50 ml IV ASDIRECTED PRN PRN Reason: Hypoglycemia Dextrose/Water (Dextrose 50% In Water) 50 ml IVPUSH ASDIRECTED PRN PRN Reason: Hypoglycemia Dextrose/Water (Dextrose 50% In Water) 50 ml IVPUSH ASDIRECTED PRN PRN Reason: Hypoglycemia Dextrose/Water (Dextrose 50% In Water) 50 ml IV ASDIRECTED PRN PRN Reason: Hypoglycemia Dextrose/Water (Dextrose 50% In Water) 50 ml IV ASDIRECTED PRN PRN Reason: Hypoglycemia Dextrose/Water (Dextrose 50% In Water) 50 ml IV ASDIRECTED PRN PRN Reason: Hypoglycemia Fentanyl (Sublimaze) Confirm Administered Dose 100 mcg .ROUTE .STK-MED ONE Stop: 02/25/20 11:07 Furosemide (Lasix) 20 mg IVPUSH ONETIME ONE Stop: 02/18/20 10:23 Last Admin: 02/18/20 11:05 Dose: 20 mg Documented by: Furosemide (Lasix) 20 mg IVPUSH NOW ONE Stop: 02/24/20 16:40 Last Admin: 02/24/20 17:32 Dose: 20 mg Documented by: Glucagon (Glucagen) 1 mg IM ASDIRECTED PRN PRN Reason: Hypoglycemia Glucagon (Glucagen) 1 mg IM ASDIRECTED PRN PRN Reason: Hypoglycemia Glucagon (Glucagen) 1 mg IM ASDIRECTED PRN PRN Reason: Hypoglycemia Glucagon (Glucagen) 1 mg IM ASDIRECTED PRN PRN Reason: Hypoglycemia Glucagon (Glucagen) 1 mg IM ASDIRECTED PRN PRN Reason: Hypoglycemia Remdesivir 200 mg/ Sodium (Chloride) 250 mls @ 250 mls/hr IV ONETIME ONE Stop: 02/17/20 18:05 Last Admin: 02/17/20 19:35 Dose: 250 mls/hr Documented by: Remdesivir 100 mg/ Sodium (Chloride) 100 mls @ 100 mls/hr IV Q24H [facility] Stop: 02/21/20 19:59 Last Admin: 02/21/20 18:21 Dose: 100 mls/hr Documented by: Lactated Ringer's (Ringers, Lactated) 1,000 mls @ 125 mls/hr IV ASDIRECTED [facility] Last Admin: 02/17/20 22:09 Dose: 125 mls/hr Documented by: Insulin Human Regular 100 unit (/ Sodium Chloride) 100 mls @ 6 mls/hr IV TITRATE [facility]; Protocol Last Titration: 02/23/20 11:00 Dose: 1.5 unit/hr, 1.5 mls/hr Documented by: Pantoprazole Sodium 40 mg/ (Sodium Chloride) 10 mls @ 300 mls/hr IV ACBREAKFAST [facility] Iron Sucrose 200 mg/ Sodium (Chloride) 110 mls @ 440 mls/hr IV ONETIME ONE Stop: 02/23/20 10:14 Last Admin: 02/23/20 10:54 Dose: 440 mls/hr Documented by: Lactated Ringer's (Ringers, Lactated) 250 mls @ 999 mls/hr IV .BOLUS ONE Stop: 02/25/20 08:11 Last Admin: 02/25/20 08:54 Dose: 999 mls/hr Documented by: Insulin Aspart (Novolog) 0 unit SUBCUT TIDAC [facility]; Protocol Insulin Aspart (Novolog) 0 unit SUBCUT TIDAC [facility]; Protocol Last Admin: 02/23/20 12:03 Dose: Not Given Documented by: Insulin Aspart (Novolog) 15 unit SUBCUT ONETIME ONE Stop: 02/18/20 18:04 Last Admin: 02/18/20 18:45 Dose: Not Given Documented by: Insulin Aspart (Novolog) 0 unit SUBCUT QID [facility]; Protocol Last Admin: 02/24/20 05:15 Dose: 2 unit Documented by: Insulin Detemir (Levemir) 40 unit SUBCUT BID [facility] Last Admin: 02/18/20 09:57 Dose: 26 units Documented by: Insulin Detemir (Levemir) 26 unit SUBCUT BID [facility] Last Admin: 02/20/20 08:08 Dose: 26 units Documented by: Insulin Detemir (Levemir) 30 unit SUBCUT BID [facility] Last Admin: 02/23/20 09:56 Dose: Not Given Documented by: Insulin Glargine (Lantus Solostar) 10 units SUBCUT BEDTIME ONE Stop: 02/23/20 21:01 Last Admin: 02/23/20 20:20 Dose: 10 units Documented by: Insulin Human Regular (Novolin R) 5 unit IVPUSH ONETIME ONE; Protocol Stop: 02/21/20 04:14 Last Admin: 02/21/20 04:57 Dose: 5 unit Documented by: Insulin Human Regular (Novolin R) 5 unit IVPUSH ONETIME ONE; Protocol Stop: 02/21/20 07:11 Last Admin: 02/21/20 07:45 Dose: 5 units Documented by: Iopamidol (Isovue Multipack-370 (76%)) 50 ml IVPUSH ONETIME STA Stop: 02/24/20 15:01 Last Admin: 02/24/20 15:01 Dose: 50 ml Documented by: Lisinopril (Prinivil) 2.5 mg PO DAILY [facility] Lorazepam (Ativan) 0.5 mg IVPUSH ONETIME ONE Stop: 02/17/20 22:24 Last Admin: 02/17/20 23:00 Dose: 0.5 mg Documented by: Lorazepam (Ativan) 1 mg IVPUSH ONETIME ONE Stop: 02/18/20 19:19 Last Admin: 02/18/20 20:22 Dose: 1 mg Documented by: Midazolam HCl (Versed 1 Mg/Ml) Confirm Administered Dose 4 mg .ROUTE .STK-MED ONE Stop: 02/25/20 11:08 Nitroglycerin (Nitrostat) Confirm Administered Dose 0.4 mg .ROUTE .STK-MED ONE Stop: 02/18/20 19:23 Last Admin: 02/18/20 19:26 Dose: 0.4 mg Documented by: Ondansetron HCl (Zofran) 4 mg IVPUSH Q6H PRN PRN Reason: Nausea/Vomiting Pantoprazole Sodium (Protonix Iv) Confirm Administered Dose 40 mg .ROUTE .STK-MED ONE Stop: 02/22/20 22:55 Last Admin: 02/23/20 03:29 Dose: 40 mg Documented by: Propofol (Diprivan 20 Ml) Confirm Administered Dose 200 mg .ROUTE .STK-MED ONE Stop: 02/25/20 11:07 Ranolazine (Ranexa) 500 mg PO DAILY [facility] Rocuronium [place] (Rocuronium [place]) Confirm Administered Dose 50 mg .ROUTE .STK-MED ONE Stop: 02/25/20 11:11 Sodium Polystyrene Sulfonate (Kayexalate) 15 gm PO ONETIME ONE Stop: 02/21/20 04:10 Last Admin: 02/21/20 04:57 Dose: 15 gm Documented by:
--- NOTE | 2020-02-25 12:19 | CR ---
HISTORY: Line placement. COMPARISON: 02/20/2020. TECHNIQUE: Chest one-view portable supine. FINDINGS: The patient is intubated. The endotracheal tube tip is approximately 4 cm above the lottie. Median sternotomy changes, with fracture of several sternal wires. This is stable. Pulmonary opacities, with interval progression when compared with 02/20/2020. There is no pneumothorax. The osseous structures are intact. IMPRESSION: 1. Endotracheal tube tip appears appropriately positioned above the lottie. 2. Findings typical for COVID 19 pneumonia. Dictated by Lawson Hagen MD @ Feb 25 2020 12:15PM Signed by Dr. Lawson Hagen @ Feb 25 2020 12:17PM
[2020-02-25] MEDS ORDERED: fentaNYL 100 MCG/2 ML SDV IVPUSH PRN (12:30)
[2020-02-25] MEDS ORDERED: propofoL 100 ML IV SCH (12:45)
[2020-02-25 13:25] VITALS: BP 149/73
== END 2020-02-25 13:22 | disposition home or self-care (01) | DRG 177 ==
LOC: MW.ED 17:37 → MW.MS 18:01 → MW.ICU 02-20 10:28 → UNDODISIN 02-21 14:30
PROVIDERS: ADMIT Student in an Organized Health Care Education/Training Program; ATTEND Internal Medicine
PROC: 8E0ZXY6 Isolation (ICD-10-PCS; 2020-02-17)
PROC: XW033E5 Introduction of Remdesivir Anti-infective into Peripheral Vein, Percutaneous Approach, New Technology Group 5 (ICD-10-PCS; 2020-02-17)
PROC: 5A09557 Assistance with Respiratory Ventilation, Greater than 96 Consecutive Hours, Continuous Positive Airway Pressure (ICD-10-PCS; 2020-02-18)
PROC: 0BH18EZ Insertion of Endotracheal Airway into Trachea, Via Natural or Artificial Opening Endoscopic (ICD-10-PCS; principal; 2020-02-25)
DX: J18.9 Pneumonia, unspecified organism (principal); U07.1 COVID-19; R09.02 Hypoxemia; I25.10 Atherosclerotic heart disease of native coronary artery without angina pectoris; J12.89 Other viral pneumonia; N18.9 Chronic kidney disease, unspecified; J96.01 Acute respiratory failure with hypoxia; N17.9 Acute kidney failure, unspecified; E78.00 Pure hypercholesterolemia, unspecified; I25.810 Atherosclerosis of coronary artery bypass graft(s) without angina pectoris; E87.5 Hyperkalemia; E11.40 Type 2 diabetes mellitus with diabetic neuropathy, unspecified; Z88.5 Allergy status to narcotic agent; N18.30 Chronic kidney disease, stage 3 unspecified; Z88.8 Allergy status to other drugs, medicaments and biological substances; Z96.642 Presence of left artificial hip joint; R07.9 Chest pain, unspecified; K21.9 Gastro-esophageal reflux disease without esophagitis; E11.65 Type 2 diabetes mellitus with hyperglycemia; I12.9 Hypertensive chronic kidney disease with stage 1 through stage 4 chronic kidney disease, or unspecified chronic kidney disease; E11.22 Type 2 diabetes mellitus with diabetic chronic kidney disease; E11.42 Type 2 diabetes mellitus with diabetic polyneuropathy; Z96.649 Presence of unspecified artificial hip joint; D64.9 Anemia, unspecified; Z95.1 Presence of aortocoronary bypass graft; Z88.0 Allergy status to penicillin; Z79.4 Long term (current) use of insulin; Z79.82 Long term (current) use of aspirin; Z79.899 Other long term (current) drug therapy; I25.2 Old myocardial infarction
CPT/HCPCS: 36415; 36600; 51702; 71045; 71045-26; 71275; 71275-26; 80048; 80053; 81001; 82248; 82607; 82728; 82746; 82803; 82962; 83550; 83735; 83880; 84100; 84484; 85025; 85045; 86850; 86900; 86901; 86920; 86921; 86922; 93005; 94640; 94660; 94667; 99284; 99285-25; A9270-GY; C9113; J0330; J1644; J1756; J1815-GY; J1940; J1956; J2060; J2250; J2405; J2704; J3010; J7050; J7120; J7620-GY; J8540; Q9967; U0002